=== PATIENT | female | born 1985 | race Caucasian/White ===

== ENCOUNTER 2019-07-10 21:48 | Emergency (ER) | payer MEDICAID, SELFPAY ==
[2019-07-10 22:31] VITALS: BP 113/81; PULSE 103; RESP 16; TEMP 37; O2SAT 97; BMI 35.1
--- NOTE | 2019-07-11 00:16 | ED_ITS ---
Entered by Treasure Loredo, acting as scribe for Jul 10, 2019 21:48 HPI - General Adult General: Chief complaint: General Medical Stated complaint: FALL Time Seen by Provider: 07/11/19 00:19 Source: patient Mode of arrival: ambulatory Limitations: no limitations History of Present Illness: HPI narrative: 34 yo f came to the er pov for buttox pain. Onset was 4 weeks ago. Pt states that she thinks that her tailbone is broken. Pt states that she fell on some black ice about 4 weeks ago and the pain has not gotten any better. Pt is denying of any other injuries at this time. Onset (ago): week(s) (4 weeks ago) Location: buttocks (tailbone) Severity: mild Severity scale (1-10): 6 Quality: other (pain) Pain Consistency: constant Exacerbating factors: none Associated symptoms: Deny chest pain, dyspnea, headache(s), nausea, rash, vomiting or weakness Treatments prior to arrival: none Review of Systems General: Reports: 10 or more systems reviewed and unremarkable except in HPI and below and other (negative to all except as marked) Const: Denies: fever or chills Eyes: Denies: change in vision ENMT: Denies: throat pain or mouth pain Card: Denies: chest pain Resp: Denies: shortness of breath GI: Denies: abdominal pain, nausea, vomiting or diarrhea : Denies: difficulty urinating Musc: Reports: back pain; Denies: joint pain Skin/Breast: Denies: rash Neuro: Denies: headache or behavioral changes Psych: Denies: depression Endo: Denies: excessive urination Dillan/Lymph: Denies: easy bruising All/Imm: Denies: hives PFSH ED PFSH: Statuses (acute, chronic, etc) shown below reflect problem list status as previously entered and may not be historically accurate Social History Smoking and tobacco status: current every day smoker Female Reproductive History: Date of last menstrual period: 07/10/19 Physical Exam Const: COMMON NORMALS: no apparent distress, oriented x3 and healthy appearing HENMT: COMMON NORMALS: normocephalic and external nose normal HEAD & SCALP: normocephalic NOSE: external nose normal Eye: COMMON NORMALS: PERRL PUPIL: Yes PERRL Neck/C-Spine: COMMON NORMALS: full ROM and no lymphadenopathy Chest: COMMONS NORMALS: inspection of chest normal Resp: COMMON NORMALS: normal respiratory effort, no use of accessory muscles and clear to auscultation bilaterally AUSCULTATION: clear to auscultation bilaterally Cardio: COMMON NORMALS: regular rate and regular rhythm RATE: regular rate RHYTHM: regular rhythm GI: COMMON NORMALS: normal to inspection, nondistended, normoactive bowel sounds, soft to palpation, non-tender and no masses PALPATION: Yes soft Back/Pelvis: THORACIC SPINE/UPPER BACK: Yes normal to inspection OTHER: tender over low spine and coccyx Extremity: COMMON NORMALS: normal to inspection, full ROM and normal capillary refill Neuro: COMMON NORMALS: oriented x3 Psych: COMMON NORMALS: mental status grossly normal and cooperative Skin: COMMON NORMALS: no rashes or lesions noted GENERAL SKIN EXAM: no rashes or lesions noted Course Vital Signs: Vital signs: Vital Signs Temperature 98.1 F 07/11/19 01:50 Pulse Rate 112 H 07/11/19 01:50 Respiratory Rate 17 07/11/19 01:50 Blood Pressure 110/84 07/11/19 01:50 Pulse Oximetry 96 07/11/19 01:50 MDM - General Adult MDM Narrative: Medical decision making narrative: Patient presents here with a possible coccyx fracture on x-ray. This happened weeks ago and is healing. P atient is to continue ice and will prescribe Naprosyn. Patient stable here and has no signs of any other injuries. Imaging Data^: Other Xray: Attestation: I personally reviewed and interpreted this imaging study as follows: My impression: coccyx xray: possible old fx Discharge Plan Discharge Patient Disposition: Home, Self-Care Clinical Impression: Fractured coccyx Qualifiers: Encounter type: initial encounter Fracture type: closed Qualified Code(s): S32.2XXA - Fracture of coccyx, initial encounter for closed fracture Condition: Stable Prescriptions: New EC-Naprosyn 500 mg tablet,delayed release (DR/EC) 500 mg PO BID PRN (Reason: pain) Qty: 20 RF: 0 No Action hydrocodone-acetaminophen 10-325 mg Tablet 1 tab PO Q6H PRN (Reason: Pain (Scale Score 1-3)) RF: 0 ProAir HFA 90 mcg/actuation Hfa Aerosol Inhaler 2 puff INHALATION DAILY RF: 0 Discharge Orders: Discharge Order (Routine); Ordered 07/11/19 Ordered By: Clary Alfaro Referrals: Gilberto Rashid DO [Primary Care Provider] - Discharge Diet: Advance as tolerated Patient Instructions: Coccyx Injury (ED) Discharge Date/Time: 07/11/19 01:58 Coding Level of Care Code ED Tram Operator for Chg Fwd Exam Problem Focused The documentation recorded by the Facundo angel Stephanie Lyn, accurately reflects the service I personally performed and the decisions made by Angelina rodriguez Korby, MD Jul 10, 2019 21:48
--- NOTE | 2019-07-11 00:19 | XR_ITS ---
WS: [id number] Sacrum and coccyx, 3 views, 07/11/2019 Clinical Data: fall Comparison: Lumbar spine x-ray, 10/05/2018. Findings: No fractures or dislocations are seen. The SI joints and pubic symphysis are unremarkable. No bone de struction or erosion is seen. XR/XR sacrum coccyx min 2V [id number] Impression: Negative sacrum and coccyx.
[2019-07-11 00:38] VITALS: BP 126/87; PULSE 123; RESP 17; O2SAT 96
[2019-07-11] MEDS: HYDROcodone-acetaminophen 5-325 mg Tablet 1 TAB PO (01:41)
[2019-07-11 01:50] VITALS: BP 110/84; PULSE 112; RESP 17; TEMP 36.7; O2SAT 96
== END 2019-07-11 01:58 | disposition home or self-care (01) ==
PROVIDERS: Emergency Provider Emergency Medicine; Family Provider Family Medicine; PCP Family Medicine
DX: S32.2XXA Fracture of coccyx, initial encounter for closed fracture (principal); W00.2XXA Other fall from one level to another due to ice and snow, initial encounter; F17.210 Nicotine dependence, cigarettes, uncomplicated
CPT/HCPCS: 72220; 99281

== ENCOUNTER → 2019-07-18 14:39 | Outpatient (BNVA) | payer MEDICAID, SELFPAY | PROVIDERS: Family Provider Family Medicine; PCP Family Medicine; Visit Provider Nurse Practitioner | DX: F43.12 Post-traumatic stress disorder, chronic (principal); R41.83 Borderline intellectual functioning | CPT/HCPCS: 36415; 80061; 83036; 99213 ==

== ENCOUNTER 2019-08-14 20:30 | Emergency (ER) | payer MEDICAID, SELFPAY ==
[2019-07-30 14:59] VITALS: BP 120/74; BMI 44.5
--- NOTE | 2019-08-14 20:33 | XR_ITS ---
WS: [id number] PORTABLE CHEST HISTORY: Chest pain for one day. COMPARISON: 02/22/2019 Decreased lung volumes due to poor inspiration. Lungs are clear and well expanded. No pleural effusion or pneumothorax. Cardiac size: Normal. Mediastinum/Aorta: Normal mediastinum. No osseous abnormality seen. XR/XR chest 1V portable [id number] IMPRESSION: Unremarkable portable chest.
--- NOTE | 2019-08-14 20:34 | ECG_ITS ---
Measurements Intervals [place] Rate: 84 P: 10 MA: 113 QRS: 17 QRSD: 98 T: 11 QT: 386 QTc: 457 SINUS RHYTHM WITH SHORT [place] INTERVAL Compared to ECG 02/22/2019 17:50:57 T-wave abnormality no longer present Electronically Signed On 08-15-2019 16:29:26 RETAIL SALES LEAD by Paul Monroe M.D. [id number]
[2019-08-14 21:05] VITALS: BP 112/83; PULSE 80; RESP 18; TEMP 36.7; O2SAT 100; BMI 36.2
[2019-08-14 21:18] LABS: Basophils % 0.3 %; Eosinophils # 0.1 10^3/uL (0.0-0.8); Eosinophils % 1.2 %; Hemoglobin 13.9 g/dL (11.5-15.3); Lymphocytes % 27.8 %; Mean Corpuscular HGB Conc 33.1 g/dL (30.0-36.0); Mean Corpuscular Hemoglobin 31.3 pg (28.0-34.0); Mean Corpuscular Volume 94.6 fL (81-99); Mean Platelet Volume 9.1 fL (7.4-10.4); Monocytes # 0.4 10^3/uL (0.2-0.9); Monocytes % 6.1 %; Neutrophils # 4.6 10^3/uL (1.8-7.7); Nucleated Red Blood Cells % 0 %; Platelet Count 230 10^3/cmm (130-400); Red Blood Count 4.44 10^6/uL (4.1-5.3); Red Cell Distribution Width 13.2 % (12.1-15.1); White Blood Count 7.2 10^3/uL (4.0-10.0)
[2019-08-14 21:33] LABS: Alanine Aminotransferase 13 U/L (0-33); Albumin Level 4.5 g/dL (3.5-5.2); Alkaline Phosphatase 112 IU/L (35-105); Aspartate Amino Transferase 13 U/L (0-32); Blood Urea Nitrogen 12 mg/dL (6-20); Calcium 9.7 mg/dL (8.5-10.5); Carbon Dioxide 24 mmol/L (22-29); Chloride 105 mmol/L (98-107); Globulin 3.3 g/dL (1.3-4.6); Glomerular Filtration Rate 82.6 mL/min (90-130); Glucose 90 mg/dL (65-115); Sodium 138 mmol/L (136-145); Total Bilirubin 0.2 mg/dL (0.15-1.2); Total Protein 7.8 g/dL (6.6-8.7)
[2019-08-14 21:35] LABS: Troponin(5th) Baseline 7 ng/mL (0-10)
--- NOTE | 2019-08-14 22:30 | ED_ITS ---
Entered by Jovana Loyola, acting as scribe for Clary Alfaro MD Aug 14, 2019 20:30 HPI - Chest Pain General: Chief Complaint: Chest Pain Stated Complaint: CP Time Seen by Provider: 08/14/19 21:56 Source: patient History of Present Illness: HPI narrative: 34 y/o female presents to the ED with complaint of chest pain. Pt states it is sharp in nature and has continued since 0400 this AM. She also reports pain down her left arm. MD complaint: chest pain Onset (ago): hour(s) Timing of current episode: constant and still present Prior episodes: Yes Onset: during rest Pain radiation: right arm Severity: similar to previous episodes Quality: sharp Relieving factors: nothing Associated symptoms: Deny abdominal pain, dyspnea, fever(s), nausea or vomiting Review of Systems Const: Denies: fever, chills, body aches or change in appetite Eyes: Denies: blurry vision or eye discomfort ENMT: Denies: throat pain or dental pain Card: Reports: chest pain Resp: Denies: shortness of breath GI: Denies: abdominal pain, nausea, vomiting or diarrhea : Denies: painful urination Musc: Denies: neck pain or back pain Skin/Breast: Denies: rash Neuro: Denies: headache Psych: Denies: depression Dillan/Lymph: Denies: easy bruising All/Imm: Denies: hives PFSH ED PFSH: Statuses (acute, chronic, etc) shown below reflect problem list status as previously entered and may not be historically accurate Social History (Updated 07/19/19 @ 07:30 by Osiris Ward RN) Smoking and tobacco status: current every day smoker cigarettes Packs smoked per day: 0.5 Quit status (tobacco): has tried quititng Second hand smoke exposure: Yes Smoking risk assessment/counseling performed?: Yes Alcohol intake: current Alcohol intake frequency: holidays/special occasions only Alcohol type: wine Adopted: No Caregiver/support person: No Lives independently: Yes Household members: significant other Housing: Apartment Marital status: Number of children: 1 Number of grandchildren: 0 service: No Current occupational status: disabled Sexually active: Yes How many partners: 1 Are you practicing safe sex: No Current gender identity: Female Female Reproductive History: Date of last menstrual period: 07/10/19 Para: 1 Spontaneous abortions: Yes Physical Exam Const: COMMON NORMALS: no apparent distress and oriented x3 GENERAL APPEARANCE: cooperative NUTRITIONAL APPEARANCE: obese HENMT: COMMON NORMALS: normocephalic and head/scalp atraumatic HEAD & SCALP: normocephalic and atraumatic Eye: COMMON NORMALS: PERRL and EOMs intact bilaterally PUPIL: Yes PERRL Neck/C-Spine: COMMON NORMALS: full ROM and supple Chest: COMMONS NORMALS: inspection of chest normal and palpation of chest normal Resp: COMMON NORMALS: normal respiratory effort, no retractions, no use of accessory muscles and clear to auscultation bilaterally AUSCULTATION: clear to auscultation bilaterally Cardio: COMMON NORMALS: regular rate, regular rhythm and no murmurs RATE: regular rate RHYTHM: regular rhythm GI: COMMON NORMALS: normal to inspection, nondistended, normoactive bowel sounds, soft to palpation, non-tender and no masses PALPATION: Yes soft Extremity: COMMON NORMALS: normal to inspection and full ROM Neuro: COMMON NORMALS: oriented x3, moves all extremities and no focal motor deficits Psych: COMMON NORMALS: thought process normal, cooperative and speech normal SPEECH: Yes normal speech THOUGHT PROCESS: normal thought process Skin: COMMON NORMALS: no rashes or lesions noted and no wounds GENERAL SKIN EXAM: no rashes or lesions noted Course Vital Signs: Vital signs: Vital Signs Temperature 98.1 F 08/14/19 21:05 Pulse Rate 100 08/14/19 23:56 Respiratory Rate 14 08/14/19 23:56 Blood Pressure 116/80 08/14/19 23:56 Pulse Oximetry 84 L 08/14/19 23:56 MDM - Chest Pain MDM Narrative: Medical decision making narrative: Patient presents here with chest pain is atypical in nature. Patient's initial and repeat troponin here are negative. Patient's x-ray is negative as well. She is well-appearing here and is stable for discharge. She has no signs of pulmonary embolism. She is to follow-up with her primary care doctor in 3 to 5 days and return if worsening. Lab Data: Labs: Lab Results 08/14/19 08/14/19 08/14/19 Range/Units 21:09 21:09 21:09 WBC 7.2 (4.0-10.0) 10^3/ uL RBC 4.44 (4.1-5.3) 10^6/u L Hgb 13.9 (11.5-15.3) g/dL Hct 42.0 (37.0-47.0) % MCV 94.6 (81-99) fL MCH 31.3 (28.0-34.0) pg MCHC 33.1 (30.0-36.0) g/dL RDW 13.2 (12.1-15.1) % Plt Count 230 (130-400) 10^3/c mm MPV 9.1 (7.4-10.4) fL Neut % (Auto) 64.0 % Lymph % (Auto) 27.8 % [place] % (Auto) 6.1 % Eos % (Auto) 1.2 % Baso % (Auto) 0.3 % Neut # (Auto) 4.6 (1.8-7.7) 10^3/u L Lymph # (Auto) 2.0 (0.8-4.8) 10^3/u L [place] # (Auto) 0.4 (0.2-0.9) 10^3/u L Eos # (Auto) 0.1 (0.0-0.8) 10^3/u L Baso # (Auto) 0.0 (0.0-0.1) 10^3/u L Nucleated RBC % (a uto) 0 % Nucleated RBCs # 0.0 /100WBC Sodium 138 (136-145) mmol/L Potassium 4.0 (3.5-5.1) mmol/L Chloride 105 (98-107) mmol/L Carbon Dioxide 24 (22-29) mmol/L Anion Gap 13.0 (5-19) BUN 12 (6-20) mg/dL Creatinine 0.8 (0.5-0.9) mg/dL GFR Calculation 82.6 L (90-130) mL/min Glucose 90 (65-115) mg/dL Calcium 9.7 (8.5-10.5) mg/dL Total Bilirubin 0.2 (0.15-1.2) mg/dL AST 13 (0-32) U/L ALT 13 (0-33) U/L Alkaline Phosphata se 112 H (35-105) IU/L Troponin T Baselin e 7 (0-10) ng/mL Troponin T 120 Min [place] (0-10) ng/mL Delta Troponin T (0-10) ABS# Total Protein 7.8 (6.6-8.7) g/dL Albumin 4.5 (3.5-5.2) g/dL Globulin 3.3 (1.3-4.6) g/dL 08/14/19 Range/Units 23:05 WBC (4.0-10.0) 10^3/ uL RBC (4.1-5.3) 10^6/u L Hgb (11.5-15.3) g/dL Hct (37.0-47.0) % MCV (81-99) fL MCH (28.0-34.0) pg MCHC (30.0-36.0) g/dL RDW (12.1-15.1) % Plt Count (130-400) 10^3/c mm MPV (7.4-10.4) fL Neut % (Auto) % Lymph % (Auto) % [place] % (Auto) % Eos % (Auto) % Baso % (Auto) % Neut # (Auto) (1.8-7.7) 10^3/u L Lymph # (Auto) (0.8-4.8) 10^3/u L [place] # (Auto) (0.2-0.9) 10^3/u L Eos # (Auto) (0.0-0.8) 10^3/u L Baso # (Auto) (0.0-0.1) 10^3/u L Nucleated RBC % (a uto) % Nucleated RBCs # /100WBC Sodium (136-145) mmol/L Potassium (3.5-5.1) mmol/L Chloride (98-107) mmol/L Carbon Dioxide (22-29) mmol/L Anion Gap (5-19) BUN (6-20) mg/dL Creatinine (0.5-0.9) mg/dL GFR Calculation (90-130) mL/min Glucose (65-115) mg/dL Calcium (8.5-10.5) mg/dL Total Bilirubin (0.15-1.2) mg/dL AST (0-32) U/L ALT (0-33) U/L Alkaline Phosphata se (35-105) IU/L Troponin T Baselin e (0-10) ng/mL Troponin T 120 Min [place] 6.00 (0-10) ng/mL Delta Troponin T -1.00 L (0-10) ABS# Total Protein (6.6-8.7) g/dL Albumin (3.5-5.2) g/dL Globulin (1.3-4.6) g/dL Imaging Data^: CXR: Attestation: I personally reviewed and interpreted this imaging study as follows: My impression: no acute abnormality EKG Data^: EKG 1: Attestation: I personally reviewed and interpreted this EKG as follows: EKG interpretation date: 08/14/19 Interpretation: nsr hr84 with no st or t wave abnormality qrs 98 qtc 427 EKG 2: Attestation: I personally reviewed and interpreted this EKG as follows: EKG interpretation date: 08/14/19 EKG interpretation time: 22:45 Interpretation: nsr hr 76with no st or t wave abnormalities qrs 102 qtc 416 Discharge Plan Discharge Patient Disposition: Home, Self-Care Clinical Impression: Chest pain Qualifiers: Chest pain type: unspecified Qualified Code(s): R07.9 - Chest pain, unspecified Condition: Stable Prescriptions: No Action aripiprazole 5 mg tablet 5 mg PO DAILY Qty: 30 RF: 2 topiramate 100 mg tablet 100 mg PO BID Qty: 60 RF: 2 trazodone 100 mg tablet 150 mg PO DAILY Qty: 30 RF: 2 prenat.vits,evi,iwt-gnja-xeytx Tablet 1 tab PO DAILY RF: 0 hydrocodone-acetaminophen 10-325 mg Tablet 1 tab PO Q6H PRN (Reason: Pain (Scale Score 1-3)) RF: 0 albuterol sulfate [ProAir HFA] 90 mcg/actuation Hfa Aerosol Inhaler 2 puff INHALATION DAILY RF: 0 naproxen [EC-Naprosyn] 500 mg tablet,delayed release (DR/EC) 500 mg PO BID PRN (Reason: pain) Qty: 20 RF: 0 Cymbalta 60 mg capsule,delayed release(DR/EC) 120 mg PO DAILY RF: 0 Discharge Orders: Discharge Order (Routine); Ordered 08/14/19 Ordered By: Clary Alfaro Referrals: Gilberto Rashid DO [Primary Care Provider] - 4-7 days Discharge Diet: Advance as tolerated Discharge Activity: Resume usual activity Patient Instructions: Chest Pain (ED) Discharge Date/Time: 08/15/19 00:21 Coding Level of Care Code ED Validation Intern for Chg Fwd Exam Problem Focused The documentation recorded by the ligiaibNir macario Ashley, accurately reflects the service I personally performed and the decisions made by Angelina rodriguez Korby, MD Aug 14, 2019 20:30
--- NOTE | 2019-08-14 22:34 | ECG_ITS ---
Measurements Intervals [place] Rate: 76 P: -2 IN: 116 QRS: 10 QRSD: 102 T: 7 QT: 385 QTc: 435 SINUS RHYTHM WITH SHORT IN INTERVAL Compared to ECG 02/22/2019 17:50:57 T-wave abnormality no longer present Electronically Signed On 08-15-2019 16:37:13 SOLE SEWER HAND by Paul Monroe M.D. [id number]
--- NOTE | 2019-08-14 22:48 | PC.NURSE ---
Patient states at 0400 her chest started hurting and has gotten progressively worse. Patient states that she has a headache, nausea, and a cough.
[2019-08-14 22:51] VITALS: BP 134/81; PULSE 77; RESP 16; O2SAT 98
[2019-08-14 23:55] VITALS: BP 113/71; PULSE 76; RESP 14; O2SAT 100
[2019-08-14 23:56] VITALS: BP 116/80; PULSE 100; RESP 14; O2SAT 84
== END 2019-08-15 00:21 | disposition home or self-care (01) ==
PROVIDERS: Emergency Provider Emergency Medicine; Family Provider Family Medicine; PCP Family Medicine
DX: R07.89 Other chest pain (principal); F17.210 Nicotine dependence, cigarettes, uncomplicated
CPT/HCPCS: 36415; 71045; 80053; 84484; 85025; 93005; 99282; 99284

== ENCOUNTER 2019-08-21 14:42 | Emergency (ER) | payer MEDICAID, SELFPAY ==
[2019-07-30 14:59] VITALS: BP 120/74; BMI 44.5
[2019-08-21] VITALS (16 sets, daily range): BP systolic 114–128; BP diastolic 62–80; PULSE 83–103; RESP 16–34; TEMP 36.5–36.8; O2SAT 97–100; BMI 36.2
--- NOTE | 2019-08-21 14:50 | ED_ITS ---
Entered by Rin Foreman, acting as scribe for Capo Gupta DO HPI - General Adult General: Chief complaint: Chest Pain Stated complaint: CHEST PAIN Time Seen by Provider: 08/21/19 14:50 History of Present Illness: HPI narrative: 34 yo female presents with chest pain. pt states that she was making a cup of coffee when her pain started. Pt states that she was given 2 nitro by EMS, that helped her pain some. Pt states that her pain is still present but not as severe. Pt states that her pain worsens when her chest is pressed on. MD complaint: chest pain Associated symptoms: Reports chest pain and dyspnea; Deny malaise, nausea, rash or vomiting Review of Systems Const: Denies: fever, chills, body aches, change in appetite, fatigue or malaise ENMT: Denies: throat pain, ear pain, nasal discharge or nasal congestion Card: Reports: chest pain; Denies: edema, shortness of breath on exertion or shortness of breath when lying down Resp: Reports: shortness of breath; Denies: productive cough or non-productive cough GI: Denies: abdominal pain, nausea, vomiting, vomiting blood, coffee grounds in vomit, diarrhea, constipation, bloating, blood in stool or black tarry stool : Denies: flank pain, difficulty urinating, painful urination, urinary frequency or urinary urgency Skin/Breast: Denies: rash or itching PFSH ED PFSH: Statuses (acute, chronic, etc) shown below reflect problem list status as previously entered and may not be historically accurate Medical History Borderline intellectual functioning Post-traumatic stress disorder, chronic Surgical History History of cholecystectomy Social History (Updated 07/19/19 @ 07:30 by Osiris Ward RN) Smoking and tobacco status: current every day smoker cigarettes Packs smoked per day: 0.5 Quit status (tobacco): has tried quititng Second hand smoke exposure: Yes Smoking risk assessment/counseling performed?: Yes Alcohol intake: current Alcohol intake frequency: holidays/special occasions only Alcohol type: wine Adopted: No Caregiver/support person: No Lives independently: Yes Household members: significant other Housing: Apartment Marital status: Number of children: 1 Number of grandchildren: 0 service: No Current occupational status: disabled Sexually active: Yes How many partners: 1 Are you practicing safe sex: No Current gender identity: Female Female Reproductive History: Date of last menstrual period: 07/10/19 Para: 1 Spontaneous abortions: Yes Physical Exam Const: COMMON NORMALS: no apparent distress GENERAL APPEARANCE: cooperative and comfortable ORIENTATION/CONSCIOUSNESS: Yes awake, Yes oriented to person, Yes oriented to place and Yes oriented to time HENMT: COMMON NORMALS: normocephalic, head/scalp atraumatic, hearing grossly normal bilaterally, external ears normal, EAC's normal, TM's normal bilaterally, nasal mucous membranes and turbinates normal, moist oral mucous membranes and oropharynx normal HEAD & SCALP: normocephalic and atraumatic NOSE: nasal mucous membranes and turbinates normal EXTERNAL EAR: Yes external ears normal EXTERNAL AUDITORY CANAL: EAC's normal TYMPANIC MEMBRANE: TM's normal bilaterally Eye: COMMON NORMALS: PERRL, EOMs intact bilaterally, conjunctivae normal and no scleral icterus CONJUNCTIVA: Yes conjunctivae normal PUPIL: Yes PERRL Neck/C-Spine: COMMON NORMALS: full ROM, no lymphadenopathy, supple and no JVD Lymph: LYMPHATIC: no lymphadenopathy noted and no lymphedema noted Chest: OTHER: Reproducible tenderness on the anterior sternum midsternal region at the intramammary line. There is no crepitus no ecchymosis. Resp: COMMON NORMALS: normal respiratory effort, no retractions, no use of accessory muscles and clear to auscultation bilaterally AUSCULTATION: clear to auscultation bilaterally Cardio: COMMON NORMALS: no JVD, regular rate, regular rhythm and no murmurs RATE: regular rate RHYTHM: regular rhythm GI: COMMON NORMALS: soft to palpation and no hepatosplenomegaly AUSCULTATION: Yes normoactive bowel sounds PALPATION: Yes soft, No tender, No guarding and Yes no hepatosplenomegaly Extremity: COMMON NORMALS: normal to inspection, normal capillary refill, no clubbing, cyanosis or edema, no calf tenderness and no pedal edema Neuro: SENSORIUM/ORIENTATION: Yes oriented to person, Yes oriented to place and Yes oriented to time Skin: COMMON NORMALS: no rashes or lesions noted GENERAL SKIN EXAM: no rashes or lesions noted Course Vital Signs: Vital signs: Vital Signs Temperature 98.3 F 08/21/19 16:59 Pulse Rate 84 08/21/19 16:59 Respiratory Rate 16 08/21/19 16:59 Blood Pressure 114/79 08/21/19 16:59 Pulse Oximetry 100 08/21/19 16:59 [facility] - General Adult Lab Data: Labs: Lab Results 08/21/19 08/21/19 08/21/19 Range/Units 15:35 15:35 15:35 WBC 6.9 (4.0-10.0) 10^3/ uL RBC 4.20 (4.1-5.3) 10^6/u L Hgb 13.1 (11.5-15.3) g/dL Hct 40.6 (37.0-47.0) % MCV 96.7 (81-99) fL MCH 31.2 (28.0-34.0) pg MCHC 32.3 (30.0-36.0) g/dL RDW 13.4 (12.1-15.1) % Plt Count 192 (130-400) 10^3/c mm MPV 9.4 (7.4-10.4) fL Neut % (Auto) 69.1 % Lymph % (Auto) 23.4 % [place] % (Auto) 5.5 % Eos % (Auto) 1.4 % Baso % (Auto) 0.3 % Neut # (Auto) 4.8 (1.8-7.7) 10^3/u L Lymph # (Auto) 1.6 (0.8-4.8) 10^3/u L [place] # (Auto) 0.4 (0.2-0.9) 10^3/u L Eos # (Auto) 0.1 (0.0-0.8) 10^3/u L Baso # (Auto) 0.0 (0.0-0.1) 10^3/u L Nucleated RBC % (a uto) 0 % Nucleated RBCs # 0.0 /100WBC D-Dimer <= 0.27 (0-0.59) ug/mIFE U Sodium 139 (136-145) mmol/L Potassium 3.9 (3.5-5.1) mmol/L Chloride 107 (98-107) mmol/L Carbon Dioxide 20 L (22-29) mmol/L Anion Gap 15.9 (5-19) BUN 8 (6-20) mg/dL Creatinine 0.8 (0.5-0.9) mg/dL GFR Calculation 82.6 L (90-130) mL/min Glucose 90 (65-115) mg/dL Calculated Osmolal ity 283 L (285-295) mOsm/k g Calcium 9.0 (8.5-10.5) mg/dL Troponin T Baselin e (0-10) ng/mL 08/21/19 Range/Units 15:35 WBC (4.0-10.0) 10^3/ uL RBC (4.1-5.3) 10^6/u L Hgb (11.5-15.3) g/dL Hct (37.0-47.0) % MCV (81-99) fL MCH (28.0-34.0) pg MCHC (30.0-36.0) g/dL RDW (12.1-15.1) % Plt Count (130-400) 10^3/c mm MPV (7.4-10.4) fL Neut % (Auto) % Lymph % (Auto) % [place] % (Auto) % Eos % (Auto) % Baso % (Auto) % Neut # (Auto) (1.8-7.7) 10^3/u L Lymph # (Auto) (0.8-4.8) 10^3/u L [place] # (Auto) (0.2-0.9) 10^3/u L Eos # (Auto) (0.0-0.8) 10^3/u L Baso # (Auto) (0.0-0.1) 10^3/u L Nucleated RBC % (a uto) % Nucleated RBCs # /100WBC D-Dimer (0-0.59) ug/mIFE U Sodium (136-145) mmol/L Potassium (3.5-5.1) mmol/L Chloride (98-107) mmol/L Carbon Dioxide (22-29) mmol/L Anion Gap (5-19) BUN (6-20) mg/dL Creatinine (0.5-0.9) mg/dL GFR Calculation (90-130) mL/min Glucose (65-115) mg/dL Calculated Osmolal ity (285-295) mOsm/k g Calcium (8.5-10.5) mg/dL Troponin T Baselin e 7 (0-10) ng/mL Discharge Plan Discharge Patient Disposition: Home, Self-Care Clinical Impression: Anterior chest wall pain Condition: Stable Prescriptions: No Action aripiprazole 5 mg tablet 5 mg PO DAILY Qty: 30 RF: 2 topiramate 100 mg tablet 100 mg PO BID Qty: 60 RF: 2 prenat.vits,evi,kai-ipfa-avnak Tablet 1 tab PO DAILY RF: 0 hydrocodone-acetaminophen 10-325 mg Tablet 1 tab PO Q6H PRN (Reason: Pain (Scale Score 1-3)) RF: 0 albuterol sulfate [ProAir HFA] 90 mcg/actuation Hfa Aerosol Inhaler 2 puff INHALATION DAILY RF: 0 naproxen [EC-Naprosyn] 500 mg tablet,delayed release (DR/EC) 500 mg PO BID PRN (Reason: pain) Qty: 20 RF: 0 trazodone 100 mg tablet 150 mg PO BEDTIME RF: 0 duloxetine [Cymbalta] 60 mg capsule,delayed release(DR/EC) 60 mg PO BID RF: 0 Referrals: Gilberto Rashid DO [Primary Care Provider] - Discharge Diet: Usual diet Discharge Activity: Resume usual activity Activity Restrictions/Additional Instructions: Follow-up with your primary care doctor as needed Discharge Date/Time: 08/21/19 17:04 Coding Level of Care Code ED Spool Worker for Chg Fwd Exam Problem Focused The documentation recorded by the Ahsan angel Kialy, accurately reflects the service I personally performed and the decisions made by Candy rodriguez Curtis L, DO Aug 21, 2019 14:42
--- NOTE | 2019-08-21 15:20 | XR_ITS ---
WS: [id number] PORTABLE CHEST HISTORY: dyspnea/cough COMPARISON: 02/22/2019 and 08/14/2019 Linear area of atelectasis in the medial RIGHT lower lung field. Otherwise lungs are clear. No pneumo eliot or pneumothorax. No pleural effusion or pneumothorax. Cardiac size: Normal. Mediastinum/Aorta: Normal mediastinum. No osseous abnormality seen. XR/XR chest 1V portable [id number] IMPRESSION: Partial atelectasis RIGHT lower lobe. Otherwise negative.
--- NOTE | 2019-08-21 15:20 | ECG_ITS ---
Measurements Intervals [place] Rate: 87 P: 13 [place]: 112 QRS: 15 QRSD: 92 T: 18 QT: 373 QTc: 450 SINUS RHYTHM WITH SHORT [place] INTERVAL Compared to ECG 08/14/2019 22:45:06 No significant changes Electronically Signed On 08-21-2019 20:56:21 PIPE SMOKING MACHINE OPERATOR by Junior Escalante M.D. [id number]
[2019-08-21 15:39] LABS: Basophils % 0.3 %; Eosinophils # 0.1 10^3/uL (0.0-0.8); Eosinophils % 1.4 %; Hematocrit 40.6 % (37.0-47.0); Hemoglobin 13.1 g/dL (11.5-15.3); Lymphocytes # 1.6 10^3/uL (0.8-4.8); Lymphocytes % 23.4 %; Mean Corpuscular HGB Conc 32.3 g/dL (30.0-36.0); Mean Corpuscular Hemoglobin 31.2 pg (28.0-34.0); Mean Corpuscular Volume 96.7 fL (81-99); Mean Platelet Volume 9.4 fL (7.4-10.4); Monocytes # 0.4 10^3/uL (0.2-0.9); Monocytes % 5.5 %; Neutrophils # 4.8 10^3/uL (1.8-7.7); Neutrophils % 69.1 %; Nucleated Red Blood Cells % 0 %; Platelet Count 192 10^3/cmm (130-400); Red Cell Distribution Width 13.4 % (12.1-15.1); White Blood Count 6.9 10^3/uL (4.0-10.0)
[2019-08-21 15:55] LABS: D Dimer <= 0.27 ug/mIFEU (0-0.59)
[2019-08-21 15:59] LABS: Anion Gap 15.9 (5-19); Blood Urea Nitrogen 8 mg/dL (6-20); Carbon Dioxide 20 mmol/L (22-29); Chloride 107 mmol/L (98-107); Glomerular Filtration Rate 82.6 mL/min (90-130); Glucose 90 mg/dL (65-115); Osmolality Calculated 283 mOsm/kg (285-295); Potassium 3.9 mmol/L (3.5-5.1); Sodium 139 mmol/L (136-145); Troponin(5th) Baseline 7 ng/mL (0-10)
== END 2019-08-21 17:04 | disposition home or self-care (01) ==
PROVIDERS: Emergency Provider Family Medicine; Family Provider Family Medicine; PCP Family Medicine
DX: R07.89 Other chest pain (principal); F17.210 Nicotine dependence, cigarettes, uncomplicated
CPT/HCPCS: 36415; 71045; 80048; 84484; 85025; 85378; 93005; 99283; A9270

== ENCOUNTER → 2019-08-27 13:30 | Outpatient (BNVA) | payer MEDICAID, SELFPAY | PROVIDERS: Family Provider Family Medicine; PCP Family Medicine; Visit Provider Anesthesiology | DX: M54.16 Radiculopathy, lumbar region (principal); M79.651 Pain in right thigh; M79.652 Pain in left thigh; F17.210 Nicotine dependence, cigarettes, uncomplicated; Z79.891 Long term (current) use of opiate analgesic; Z71.6 Tobacco abuse counseling | CPT/HCPCS: 99214 ==

== ENCOUNTER → 2019-10-17 08:28 | Outpatient (BNVA) | payer MEDICAID, SELFPAY | PROVIDERS: Family Provider Family Medicine; PCP Family Medicine; Visit Provider Nurse Practitioner | DX: F43.12 Post-traumatic stress disorder, chronic (principal); M54.16 Radiculopathy, lumbar region; R41.83 Borderline intellectual functioning; Z79.891 Long term (current) use of opiate analgesic; M79.652 Pain in left thigh; F17.210 Nicotine dependence, cigarettes, uncomplicated; M79.651 Pain in right thigh; F17.200 Nicotine dependence, unspecified, uncomplicated | CPT/HCPCS: 99214 ==

== ENCOUNTER 2019-10-22 15:13 | Emergency (ER) | payer MEDICAID, SELFPAY ==
[2019-08-27 15:07] VITALS: BP 120/74; BMI 44.5
[2019-10-22 15:15] VITALS: BMI 37.1
[2019-10-22 15:19] VITALS: BP 118/84; PULSE 84; RESP 18; TEMP 36.3; O2SAT 99
--- NOTE | 2019-10-22 15:24 | ED_ITS ---
Documented by User: Tayla Zaidi DO 10/22/19 16:02 HPI - Abdominal Pain General: Chief Complaint: Abdominal Pain Stated Complaint: R UPPER QUAD PAIN Time Seen by Provider: 10/22/19 15:22 History of Present Illness: HPI narrative: Pt states she started havint ruq abd pain at 830 last night after she ate spaghetti, she states she has already had her gb out so MD elicited complaint: abdominal pain Pertinent past history: none Onset (ago): day(s) (1) Pain Consistency: constant Location: RUQ and RLQ Severity: severe Quality: stabbing and sharp Radiation: back Migration to: LUQ Exacerbating factors: eating Relieving factors: nothing Context: history of similar episodes Associated Symptoms: Reports anorexia, nausea and vomiting (2 times); Denies chills and fever(s) Related Data: Date of Last Menstrual Period: 09/30/19 Review of Systems General: Reports: 10 or more systems reviewed and unremarkable except in HPI and below Const: Denies: fever, chills or fatigue ENMT: Denies: throat pain Card: Denies: chest pain or swelling of feet/ankles Resp: Denies: shortness of breath or productive cough GI: Reports: abdominal pain, nausea and vomiting (2 times) : Denies: difficulty urinating Musc: Denies: back pain or extremity swelling Skin/Breast: Denies: rash Neuro: Denies: headache, numbness in extremities or weakness in extremities PFSH ED PFSH: Medical History Borderline intellectual functioning Encounter for long-term use of opiate analgesic Fibromyalgia Lumbar radiculopathy, chronic Opioid contract exists Post-traumatic stress disorder, chronic Smoker Surgical History History of cholecystectomy Family History Mother Hypertension Father Cancer long lasting cancer Grandfather Cancer long lasting cancer Brother Seizures Social History Smoking and tobacco status: current every day smoker cigarettes Packs smoked per day: 0.5 Quit status (tobacco): has tried quititng Second hand smoke exposure: Yes Smoking risk assessment/counseling performed?: Yes Alcohol intake: current Alcohol intake frequency: holidays/special occasions only Alcohol type: wine Adopted: No Caregiver/support person: No Lives independently: Yes Household members: significant other Housing: Apartment Marital status: Number of children: 1 Number of grandchildren: 0 service: No Current occupational status: disabled Sexually active: Yes How many partners: 1 Are you practicing safe sex: No Current gender identity: Female Female Reproductive History: Date of last menstrual period: 09/30/19 Para: 1 Spontaneous abortions: Yes Physical Exam Const: COMMON NORMALS: no apparent distress and oriented x3 GENERAL APPEARANCE: cooperative; not in distress HENMT: COMMON NORMALS: normocephalic HEAD & SCALP: normal to inspection and normocephalic MOUTH: oral and palatal mucosa normal and lip normal THROAT: posterior oropharynx normal and tonsils normal Neck/C-Spine: COMMON NORMALS: full ROM, no lymphadenopathy, supple and no meningeal signs GENERAL: Yes normal visual inspection and Yes trachea midline Chest: COMMONS NORMALS: inspection of chest normal Resp: COMMON NORMALS: normal respiratory effort and clear to auscultation bilaterally EFFORT & INSPECTION: Yes able to speak in complete sentences and No respiratory distress AUSCULTATION: clear to auscultation bilaterally, no rales, no rhonchi and no wheezes Cardio: COMMON NORMALS: regular rate, regular rhythm, S1 normal heart sound, S2 normal heart sound and no murmurs RATE: regular rate RHYTHM: regular rhythm HEART SOUNDS: S1 normal and S2 normal PERIPHERAL PULSES: radial pulses present and dorsalis pedis pulses present GI: COMMON NORMALS: normal to inspection, nondistended, normoactive bowel sounds, soft to palpation and no hepatosplenomegaly INSPECTION: Yes normal to inspection AUSCULTATION: Yes normoactive bowel sounds PALPATION: Yes soft, Yes tender Details: LLQ, RLQ and RUQ and Yes no hepatosplenomegaly RECTAL EXAM: deferred : COMMON NORMALS: Yes no CVA tenderness BLADDER/KIDNEY EXAM: Yes no CVA tenderness Back/Pelvis: COMMON NORMALS: no CVA tenderness Extremity: COMMON NORMALS: normal to inspection, full ROM, normal capillary refill, no calf tenderness and no pedal edema Neuro: COMMON NORMALS: oriented x3, CN's II-XII intact bilaterally, moves all extremities and no focal motor deficits MENINGEAL SIGNS: Yes no meningeal signs Skin: COMMON NORMALS: no rashes or lesions noted GENERAL SKIN EXAM: no rashes or lesions noted Course Vital Signs: Vital signs: Vital Signs Temperature 97.4 F L 10/22/19 15:19 Pulse Rate 74 10/22/19 19:41 Respiratory Rate 15 10/22/19 19:41 Blood Pressure 120/86 10/22/19 19:41 Pulse Oximetry 96 10/22/19 19:41 MDM - Abdominal Pain Lab Data: Labs: Lab Results 10/22/19 10/22/19 10/22/19 Range/Units 15:56 15:56 15:58 WBC (4.0-10.0) 10^3/ uL RBC (4.1-5.3) 10^6/u L Hgb (11.5-15.3) g/dL Hct (37.0-47.0) % MCV (81-99) fL MCH (28.0-34.0) pg MCHC (30.0-36.0) g/dL RDW (12.1-15.1) % Plt Count (130-400) 10^3/c mm MPV (7.4-10.4) fL Neut % (Auto) % Lymph % (Auto) % Johnston % (Auto) % Eos % (Auto) % Baso % (Auto) % Neut # (Auto) (1.8-7.7) 10^3/u L Lymph # (Auto) (0.8-4.8) 10^3/u L Johnston # (Auto) (0.2-0.9) 10^3/u L Eos # (Auto) (0.0-0.8) 10^3/u L Baso # (Auto) (0.0-0.1) 10^3/u L Nucleated RBC % (a uto) % Nucleated RBCs # /100WBC Sodium 137 (136-145) mmol/L Potassium 3.7 (3.5-5.1) mmol/L Chloride 102 (98-107) mmol/L Carbon Dioxide 23 (22-29) mmol/L Anion Gap 15.7 (5-19) BUN 6 (6-20) mg/dL Creatinine 0.8 (0.5-0.9) mg/dL GFR Calculation 82.6 L (90-130) mL/min Glucose 93 (65-115) mg/dL Calculated Osmolal ity 279 L (285-295) mOsm/k g Calcium 9.1 (8.5-10.5) mg/dL Total Bilirubin 0.2 (0.15-1.2) mg/dL AST 14 (0-32) U/L ALT 13 (0-33) U/L Alkaline Phosphata se 117 H (35-105) IU/L Total Protein 6.9 (6.6-8.7) g/dL Albumin 4.1 (3.5-5.2) g/dL Globulin 2.8 (1.3-4.6) g/dL Lipase 19 (13-60) U/L HCG, Qual Negative (Negative) Urine Color Yellow (Yellow) Urine Appearance Sl hazy (CLEAR) Urine pH 6.5 (5-7) Ur Specific Gravit y 1.010 (1.005-1.030) Urine Protein Neg (Negative) Urine Glucose (UA) Norm (Normal) Urine Ketones Negative (Negative) Urine Blood Neg (Negative) Urine Nitrate Negative (Negative) Urine Bilirubin Neg (NEGATIVE) Urine Urobilinogen Norm (Negative) mg/dL Ur Leukocyte Dionne ase Negative (Negative) 10/22/19 Range/Units 15:58 WBC 7.8 (4.0-10.0) 10^3/ uL RBC 4.25 (4.1-5.3) 10^6/u L Hgb 13.5 (11.5-15.3) g/dL Hct 41.5 (37.0-47.0) % MCV 97.6 (81-99) fL MCH 31.8 (28.0-34.0) pg MCHC 32.5 (30.0-36.0) g/dL RDW 12.3 (12.1-15.1) % Plt Count 200 (130-400) 10^3/c mm MPV 9.1 (7.4-10.4) fL Neut % (Auto) 66.9 % Lymph % (Auto) 23.8 % Johnston % (Auto) 6.2 % Eos % (Auto) 1.9 % Baso % (Auto) 0.3 % Neut # (Auto) 5.2 (1.8-7.7) 10^3/u L Lymph # (Auto) 1.9 (0.8-4.8) 10^3/u L Johnston # (Auto) 0.5 (0.2-0.9) 10^3/u L Eos # (Auto) 0.2 (0.0-0.8) 10^3/u L Baso # (Auto) 0.0 (0.0-0.1) 10^3/u L Nucleated RBC % (a uto) 0 % Nucleated RBCs # 0.0 /100WBC Sodium (136-145) mmol/L Potassium (3.5-5.1) mmol/L Chloride (98-107) mmol/L Carbon Dioxide (22-29) mmol/L Anion Gap (5-19) BUN (6-20) mg/dL Creatinine (0.5-0.9) mg/dL GFR Calculation (90-130) mL/min Glucose (65-115) mg/dL Calculated Osmolal ity (285-295) mOsm/k g Calcium (8.5-10.5) mg/dL Total Bilirubin (0.15-1.2) mg/dL AST (0-32) U/L ALT (0-33) U/L Alkaline Phosphata se (35-105) IU/L Total Protein (6.6-8.7) g/dL Albumin (3.5-5.2) g/dL Globulin (1.3-4.6) g/dL Lipase (13-60) U/L HCG, Qual (Negative) Urine Color (Yellow) Urine Appearance (CLEAR) Urine pH (5-7) Ur Specific Gravit y (1.005-1.030) Urine Protein (Negative) Urine Glucose (UA) (Normal) Urine Ketones (Negative) Urine Blood (Negative) Urine Nitrate (Negative) Urine Bilirubin (NEGATIVE) Urine Urobilinogen (Negative) mg/dL Ur Leukocyte Dionne ase (Negative) Discharge Plan Discharge Patient Disposition: Home, Self-Care Clinical Impression: Ovarian cyst Qualifiers: Laterality: right Qualified Code(s): N83.201 - Unspecified ovarian cyst, right side Condition: Stable Prescriptions: No Action naproxen sodium [Aleve] 220 mg tablet 220 mg PO BID PRN (Reason: Pain) RF: 0 aripiprazole 5 mg tablet 5 mg PO DAILY Qty: 30 RF: 2 duloxetine [Cymbalta] 60 mg capsule,delayed release(DR/EC) 60 mg PO BID Qty: 60 RF: 2 trazodone 100 mg tablet 200 mg PO .HS Qty: 60 RF: 2 topiramate 100 mg tablet 100 mg PO BID Qty: 60 RF: 2 hydrocodone-acetaminophen 10-325 mg tablet 1 tab PO QID PRN (Reason: pain) 30 Days Qty: 120 RF: 0 prenat.vits,evi,cas-pskv-ktrks Tablet 1 tab PO DAILY RF: 0 albuterol sulfate [ProAir HFA] 90 mcg/actuation Hfa Aerosol Inhaler 2 puff INHALATION DAILY RF: 0 Discharge Orders: Discharge Order (Routine); Ordered 10/22/19 Ordered By: Marilia Sanches Referrals: Gilberto Rashid, [Primary Care Provider] - 1-3 days Discharge Diet: Advance as tolerated Discharge Activity: Increase activity as tolerated Patient Instructions: Ovarian Cyst (ED) Activity Restrictions/Additional Instructions: Please return to the ER immediately for any of the signs or symptoms listed on your discharge instruction sheets, worsening/changing of your symptoms, you are not getting better as quickly as expected, or for ANY other cause or concerns. Please return to the ER for worsening of your pain, fever, vomiting, or for any other cause for concern. Discharge Date/Time: 10/22/19 19:50 Sign Out Sign Out Data: Patient Sign Out occurred on 10/22/19 at 17:16. Patient's care was discussed, and care was transferred from to Marilia Sanches. Coding Level of Care Code ED Operation Manager for Chg Fwd Exam Comprehensive Documented by User: Marilia Sanches 10/22/19 21:00 HPI - Abdominal Pain General: Chief Complaint: Abdominal Pain Stated Complaint: R UPPER QUAD PAIN Time Seen by Provider: 10/22/19 15:22 PFSH ED PFSH: Medical History Borderline intellectual functioning Encounter for long-term use of opiate analgesic Fibromyalgia Lumbar radiculopathy, chronic Opioid contract exists Post-traumatic stress disorder, chronic Smoker Surgical History History of cholecystectomy Family History Mother Hypertension Father Cancer long lasting cancer Grandfather Cancer long lasting cancer Brother Seizures Social History Smoking and tobacco status: current every day smoker cigarettes Packs smoked per day: 0.5 Quit status (tobacco): has tried quititng Second hand smoke exposure: Yes Smoking risk assessment/counseling performed?: Yes Alcohol intake: current Alcohol intake frequency: holidays/special occasions only Alcohol type: wine Adopted: No Caregiver/support person: No Lives independently: Yes Household members: significant other Housing: Apartment Marital status: Number of children: 1 Number of grandchildren: 0 service: No Current occupational status: disabled Sexually active: Yes How many partners: 1 Are you practicing safe sex: No Current gender identity: Female Course Vital Signs: Vital signs: Vital Signs Temperature 97.4 F L 10/22/19 15:19 Pulse Rate 74 10/22/19 19:41 Respiratory Rate 15 10/22/19 19:41 Blood Pressure 120/86 10/22/19 19:41 Pulse Oximetry 96 10/22/19 19:41 MDM - Abdominal Pain MDM Narrative: Medical decision making narrative: 1699 -Case assumed by me at change of shift from Dr. Zaidi. Please see her note for her history, physical exam and medical decision-making notes. Upon my examination the patient is sleeping comfortably without pain. She states that she took some hydrocodone she had at home prior to coming in for pain. She has pain on the right side of her abdomen palpation but no rebound, no guarding or rigidity. She does not have any vomiting or nausea reported to me. She denies any bowel changes. There is been no fever. In reviewing her lab work it is unremarkable except for a mildly elevated alkaline phosphatase but this is been elevated higher recently and has been this high since having her gallbladder out. Her gallbladder was out in August [address] is pending at this time. Discharge -the patient is pain-free at this time. Believe the most likely cause of her symptoms is a 2.6 m right ovarian cyst seen on ultrasound and CT. There is no sign of torsion. She has no vaginal discharge or bleeding. I will go and discharge her home with instructions to return if her symptoms worsens but otherwise follow-up with gynecology. Patient CT shows no evidence of appendicitis but instead a normal appendix. The patient is relieved to hear this and is ready to go home. Differential Diagnosis: Differential diagnosis abdominal pain: Likely abdominal pain, acute appendicitis, calculus of kidney, constipation, diverticulitis, gastroenteritis, pancreatitis and small bowel obstruction Lab Data: Attestation: I reviewed the patient's lab results. Labs: Lab Results 10/22/19 10/22/19 10/22/19 Range/Units 15:56 15:56 15:58 WBC (4.0-10.0) 10^3/ uL RBC (4.1-5.3) 10^6/u L Hgb (11.5-15.3) g/dL Hct (37.0-47.0) % MCV (81-99) fL MCH (28.0-34.0) pg MCHC (30.0-36.0) g/dL RDW (12.1-15.1) % Plt Count (130-400) 10^3/c mm MPV (7.4-10.4) fL Neut % (Auto) % Lymph % (Auto) % Johnston % (Auto) % Eos % (Auto) % Baso % (Auto) % Neut # (Auto) (1.8-7.7) 10^3/u L Lymph # (Auto) (0.8-4.8) 10^3/u L Johnston # (Auto) (0.2-0.9) 10^3/u L Eos # (Auto) (0.0-0.8) 10^3/u L Baso # (Auto) (0.0-0.1) 10^3/u L Nucleated RBC % (a uto) % Nucleated RBCs # /100WBC Sodium 137 (136-145) mmol/L Potassium 3.7 (3.5-5.1) mmol/L Chloride 102 (98-107) mmol/L Carbon Dioxide 23 (22-29) mmol/L Anion Gap 15.7 (5-19) BUN 6 (6-20) mg/dL Creatinine 0.8 (0.5-0.9) mg/dL GFR Calculation 82.6 L (90-130) mL/min Glucose 93 (65-115) mg/dL Calculated Osmolal ity 279 L (285-295) mOsm/k g Calcium 9.1 (8.5-10.5) mg/dL Total Bilirubin 0.2 (0.15-1.2) mg/dL AST 14 (0-32) U/L ALT 13 (0-33) U/L Alkaline Phosphata se 117 H (35-105) IU/L Total Protein 6.9 (6.6-8.7) g/dL Albumin 4.1 (3.5-5.2) g/dL Globulin 2.8 (1.3-4.6) g/dL Lipase 19 (13-60) U/L HCG, Qual Negative (Negative) Urine Color Yellow (Yellow) Urine Appearance Sl hazy (CLEAR) Urine pH 6.5 (5-7) Ur Specific Gravit y 1.010 (1.005-1.030) Urine Protein Neg (Negative) Urine Glucose (UA) Norm (Normal) Urine Ketones Negative (Negative) Urine Blood Neg (Negative) Urine Nitrate Negative (Negative) Urine Bilirubin Neg (NEGATIVE) Urine Urobilinogen Norm (Negative) mg/dL Ur Leukocyte Dionne ase Negative (Negative) 10/22/19 Range/Units 15:58 WBC 7.8 (4.0-10.0) 10^3/ uL RBC 4.25 (4.1-5.3) 10^6/u L Hgb 13.5 (11.5-15.3) g/dL Hct 41.5 (37.0-47.0) % MCV 97.6 (81-99) fL MCH 31.8 (28.0-34.0) pg MCHC 32.5 (30.0-36.0) g/dL RDW 12.3 (12.1-15.1) % Plt Count 200 (130-400) 10^3/c mm MPV 9.1 (7.4-10.4) fL Neut % (Auto) 66.9 % Lymph % (Auto) 23.8 % Johnston % (Auto) 6.2 % Eos % (Auto) 1.9 % Baso % (Auto) 0.3 % Neut # (Auto) 5.2 (1.8-7.7) 10^3/u L Lymph # (Auto) 1.9 (0.8-4.8) 10^3/u L Johnston # (Auto) 0.5 (0.2-0.9) 10^3/u L Eos # (Auto) 0.2 (0.0-0.8) 10^3/u L Baso # (Auto) 0.0 (0.0-0.1) 10^3/u L Nucleated RBC % (a uto) 0 % Nucleated RBCs # 0.0 /100WBC Sodium (136-145) mmol/L Potassium (3.5-5.1) mmol/L Chloride (98-107) mmol/L Carbon Dioxide (22-29) mmol/L Anion Gap (5-19) BUN (6-20) mg/dL Creatinine (0.5-0.9) mg/dL GFR Calculation (90-130) mL/min Glucose (65-115) mg/dL Calculated Osmolal ity (285-295) mOsm/k g Calcium (8.5-10.5) mg/dL Total Bilirubin (0.15-1.2) mg/dL AST (0-32) U/L ALT (0-33) U/L Alkaline Phosphata se (35-105) IU/L Total Protein (6.6-8.7) g/dL Albumin (3.5-5.2) g/dL Globulin (1.3-4.6) g/dL Lipase (13-60) U/L HCG, Qual (Negative) Urine Color (Yellow) Urine Appearance (CLEAR) Urine pH (5-7) Ur Specific Gravit y (1.005-1.030) Urine Protein (Negative) Urine Glucose (UA) (Normal) Urine Ketones (Negative) Urine Blood (Negative) Urine Nitrate (Negative) Urine Bilirubin (NEGATIVE) Urine Urobilinogen (Negative) mg/dL Ur Leukocyte Dionne ase (Negative) Imaging Data ^: US: Radiologist's impression: Pelvic ultrasound, tech interpretation -right ovarian cyst, no torsion. No free fluid. No acute findings. See formal report. CT Abd/Pel: Radiologist's impression: [address] [address] [address] Scan Report Signed Patient: Shilpa Giang [id number] [facility] 1985 [id number] Age/Sex: 34 / F ADM Date: 10/22/19 Loc: ER Room/Bed: Attending Dr: Ordering Provider/Ordering MD: Tayla Zaidi DO Date of Service: 10/22/19 Procedure(s): CT abdomen pelvis w con* [id number] Accession Number(s): [id number] Report Number: [id number] PROCEDURE INFORMATION: Exam: CT Abdomen And Pelvis With Contrast Exam date and time: 10/22/2019 5:56 PM Age: 34 years old Clinical indication: Abdominal pain; Prior surgery; Additional info: Abd pain TECHNIQUE: Imaging protocol: Computed tomography of the abdomen and pelvis with intravenous contrast. Total DLP: 1380.17 mGy-cm Radiation optimization: All CT scans at this facility use at least one of these dose optimization techniques: automated exposure control; mA and/or kV adjustment per patient size (includes targeted exams where dose is matched to clinical indication); or iterative reconstruction. Contrast material: OMNI 300; Contrast volume: 95 ml; Contrast route: IV; COMPARISON: CT abdomen pelvis w con* [id number] 06/12/2016 12:06 AM FINDINGS: Liver: Normal. No mass. Gallbladder and bile ducts: Interval cholecystectomy since the previous exam. Pancreas: Normal. No ductal dilation. Spleen: Normal. No splenomegaly. Adrenals: Normal. No mass. Kidneys and ureters: Normal. No hydronephrosis. Stomach and bowel: Unremarkable. No obstruction. No mucosal thickening. Appendix: Normal appendix. Intraperitoneal space: Unremarkable. No free air. No significant fluid collection. Vasculature: Unremarkable. No abdominal aortic aneurysm. Lymph nodes: Unremarkable. No enlarged lymph nodes. Bladder: Unremarkable as visualized. Reproductive: 2.6 cm right ovarian cyst. Bones/joints: Unremarkable. No acute fracture. Soft tissues: Unremarkable. Other findings: Levoscoliosis. CT/CT abdomen pelvis w con* [id number] IMPRESSION: 1. Interval cholecystectomy since the previous exam. 2. 2.6 cm right ovarian cyst. 3. Normal appendix. Radiation Dose CTDIVOL = (mGy): DLP = 1380.17 (mGy-cm) Dictated By: Nabil Gonzalez MD Signed By: Nabil Gonzalez MD Signed Date/Time: 10/22/191823 DD/ 22 Discharge Plan Discharge Patient Disposition: Home, Self-Care Clinical Impression: Ovarian cyst Qualifiers: Laterality: right Qualified Code(s): N83.201 - Unspecified ovarian cyst, right side Condition: Stable Prescriptions: No Action naproxen sodium [Aleve] 220 mg tablet 220 mg PO BID PRN (Reason: Pain) RF: 0 aripiprazole 5 mg tablet 5 mg PO DAILY Qty: 30 RF: 2 duloxetine [Cymbalta] 60 mg capsule,delayed release(DR/EC) 60 mg PO BID Qty: 60 RF: 2 trazodone 100 mg tablet 200 mg PO .HS Qty: 60 RF: 2 topiramate 100 mg tablet 100 mg PO BID Qty: 60 RF: 2 hydrocodone-acetaminophen 10-325 mg tablet 1 tab PO QID PRN (Reason: pain) 30 Days Qty: 120 RF: 0 prenat.vits,evi,ggi-yaew-vqrkb Tablet 1 tab PO DAILY RF: 0 albuterol sulfate [ProAir HFA] 90 mcg/actuation Hfa Aerosol Inhaler 2 puff INHALATION DAILY RF: 0 Discharge Orders: Discharge Order (Routine); Ordered 10/22/19 Ordered By: Marilia Sanches Referrals: Gilberto Rashid DO [Primary Care Provider] - 1-3 days Discharge Diet: Advance as tolerated Discharge Activity: Increase activity as tolerated Patient Instructions: Ovarian Cyst (ED) Activity Restrictions/Additional Instructions: Please return to the ER immediately for any of the signs or symptoms listed on your discharge instruction sheets, worsening/changing of your symptoms, you are not getting better as quickly as expected, or for ANY other cause or concerns. Please return to the ER for worsening of your pain, fever, vomiting, or for any other cause for concern. Discharge Date/Time: 10/22/19 19:50 Sign Out Sign Out Data: Patient Sign Out occurred on 10/22/19 at 17:16. Patient's care was discussed, and care was transferred from to Marilia Sanches. Coding Level of Care Code ED Operation Manager for Chg Fwd Exam Comprehensive
--- NOTE | 2019-10-22 15:55 | CTR_ITS ---
PROCEDURE INFORMATION: Exam: CT Abdomen And Pelvis With Contrast Exam date and time: 10/22/2019 5:56 PM Age: 34 years old Clinical indication: Abdominal pain; Prior surgery; Additional info: Abd pain TECHNIQUE: Imaging protocol: Computed tomography of the abdomen and pelvis with intravenous contrast. Total DLP: 1380.17 mGy-cm Radiation optimization: All CT scans at this facility use at least one of these dose optimization techniques: automated exposure control; mA and/or kV adjustment per patient size (includes targeted exams where dose is matched to clinical indication); or iterative reconstruction. Contrast material: OMNI 300; Contrast volume: 95 ml; Contrast route: IV; COMPARISON: CT abdomen pelvis w con* [id number] 06/12/2016 12:06 AM FINDINGS: Liver: Normal. No mass. Gallbladder and bile ducts: Interval cholecystectomy since the previous exam. Pancreas: Normal. No ductal dilation. Spleen: Normal. No splenomegaly. Adrenals: Normal. No mass. Kidneys and ureters: Normal. No hydronephrosis. Stomach and bowel: Unremarkable. No obstruction. No mucosal thickening. Appendix: Normal appendix. Intraperitoneal space: Unremarkable. No free air. No significant fluid collection. Vasculature: Unremarkable. No abdominal aortic aneurysm. Lymph nodes: Unremarkable. No enlarged lymph nodes. Bladder: Unremarkable as visualized. Reproductive: 2.6 cm right ovarian cyst. Bones/joints: Unremarkable. No acute fracture. Soft tissues: Unremarkable. Other findings: Levoscoliosis. CT/CT abdomen pelvis w con* [id number] IMPRESSION: 1. Interval cholecystectomy since the previous exam. 2. 2.6 cm right ovarian cyst. 3. Normal appendix. Radiation Dose CTDIVOL = (mGy): DLP = 1380.17 (mGy-cm)
[2019-10-22 15:58] VITALS: RESP 17
[2019-10-22 16:06] LABS: Basophils % 0.3 %; Eosinophils # 0.2 10^3/uL (0.0-0.8); Eosinophils % 1.9 %; Hematocrit 41.5 % (37.0-47.0); Hemoglobin 13.5 g/dL (11.5-15.3); Lymphocytes # 1.9 10^3/uL (0.8-4.8); Lymphocytes % 23.8 %; Mean Corpuscular HGB Conc 32.5 g/dL (30.0-36.0); Mean Corpuscular Hemoglobin 31.8 pg (28.0-34.0); Mean Corpuscular Volume 97.6 fL (81-99); Mean Platelet Volume 9.1 fL (7.4-10.4); Monocytes # 0.5 10^3/uL (0.2-0.9); Monocytes % 6.2 %; Neutrophils # 5.2 10^3/uL (1.8-7.7); Neutrophils % 66.9 %; Nucleated Red Blood Cells % 0 %; Platelet Count 200 10^3/cmm (130-400); Red Blood Count 4.25 10^6/uL (4.1-5.3); Red Cell Distribution Width 12.3 % (12.1-15.1); White Blood Count 7.8 10^3/uL (4.0-10.0)
[2019-10-22 16:11] LABS: Add Urine Microscopic? NO
[2019-10-22 16:19] LABS: Urine Color Yellow (Yellow)
[2019-10-22 16:20] LABS: Alanine Aminotransferase 13 U/L (0-33); Albumin Level 4.1 g/dL (3.5-5.2); Alkaline Phosphatase 117 IU/L (35-105); Anion Gap 15.7 (5-19); Aspartate Amino Transferase 14 U/L (0-32); Blood Urea Nitrogen 6 mg/dL (6-20); Calcium 9.1 mg/dL (8.5-10.5); Carbon Dioxide 23 mmol/L (22-29); Chloride 102 mmol/L (98-107); Globulin 2.8 g/dL (1.3-4.6); Glomerular Filtration Rate 82.6 mL/min (90-130); Glucose 93 mg/dL (65-115); Lipase 19 U/L (13-60); Osmolality Calculated 279 mOsm/kg (285-295); Potassium 3.7 mmol/L (3.5-5.1); Sodium 137 mmol/L (136-145); Total Bilirubin 0.2 mg/dL (0.15-1.2); Total Protein 6.9 g/dL (6.6-8.7)
[2019-10-22 16:20] LABS: Bilirubin Urine Neg (NEGATIVE); Blood Urine Neg (Negative); Glucose Urine UA Norm (Normal); Ketones Urine Negative (Negative); Leukocyte Esterase Urine Negative (Negative); Nitrate Urine Negative (Negative); Protein Urine Neg (Negative); Urine Appearance SL Hazy (CLEAR); Urobilinogen Urine Norm (Negative); pH Urine 6.5 (5-7)
[2019-10-22 16:21] LABS: HCG Qualitative Urine. Negative (Negative)
[2019-10-22 16:30] VITALS: RESP 16; O2SAT 99
[2019-10-22 16:59] VITALS: BP 103/67; PULSE 80; RESP 16; O2SAT 98
[2019-10-22] MEDS: ondansetron 2 mg/ML SDV 2 mL 4 MG IVP (17:34)
[2019-10-22] MEDS: sodium chloride 0.9% 1,000 ML 999 ML IV (17:34)
[2019-10-22 18:00] VITALS: BP 116/71; PULSE 71; RESP 16; O2SAT 97
[2019-10-22] MEDS: iohexol 300 mg/mL 100 mL Btl IV (18:08)
--- NOTE | 2019-10-22 18:50 | US_ITS ---
WS: [id number] TRANSVAGINAL PELVIC ULTRASOUND HISTORY: Pain COMPARISON: None available. Uterus: 7.4 cm x 3.8 cm x 4.1 cm. Normal size anteverted uterus. No fibroid or mass. Endometrium: 0.7 cm. Normal trilaminar appearance of the endometrium. Right ovary: 3.4 cm x 2.1 cm x 2.3 cm. Normal size RIGHT ovary. RIGHT ovary contains a 2.1 x 1.9 x 2. 2 cm cyst with good through transmission. Normal Doppler. Left ovary: 2.6 cm x 2.0 cm x 2.0 cm. Small follicles. Normal Doppler. No free fluid. US/US transvaginal [id number] IMPRESSION: 1. Normal pelvic ultrasound. 2. Small RIGHT ovarian cyst.
--- NOTE | 2019-10-22 19:18 | PC.NURSE ---
US at bedside
[2019-10-22 19:41] VITALS: BP 120/86; PULSE 74; RESP 15; O2SAT 96
== END 2019-10-22 19:50 | disposition home or self-care (01) ==
PROVIDERS: Emergency Medicine; Emergency Provider Emergency Medicine; Family Provider Family Medicine; PCP Family Medicine
DX: N83.201 Unspecified ovarian cyst, right side (principal); M79.7 Fibromyalgia; F17.210 Nicotine dependence, cigarettes, uncomplicated; Z90.49 Acquired absence of other specified parts of digestive tract; Z82.49 Family history of ischemic heart disease and other diseases of the circulatory system
CPT/HCPCS: 12345; 36415; 74177; 76830; 80053; 81003; 81025; 83690; 85025; 96361; 96374; 96375; 99283; J2405; J7030; Q9967

== ENCOUNTER → 2019-12-10 07:44 | Outpatient (BNVA) | payer MEDICAID, SELFPAY ==
[2019-08-27 15:07] VITALS: BP 120/74; BMI 44.5
== END ==
PROVIDERS: Family Provider Family Medicine; PCP Family Medicine; Visit Provider Nurse Practitioner
DX: R41.83 Borderline intellectual functioning (principal); F43.12 Post-traumatic stress disorder, chronic
CPT/HCPCS: 99214

== ENCOUNTER → 2019-12-13 09:29 | Outpatient (BNVA) | payer MEDICAID, SELFPAY ==
[2019-08-27 15:07] VITALS: BP 120/74; BMI 44.5
== END ==
PROVIDERS: Family Provider Family Medicine; PCP Family Medicine; Visit Provider Anesthesiology
DX: M54.41 Lumbago with sciatica, right side (principal); M54.42 Lumbago with sciatica, left side; M54.16 Radiculopathy, lumbar region; M54.9 Dorsalgia, unspecified; F17.210 Nicotine dependence, cigarettes, uncomplicated; Z79.891 Long term (current) use of opiate analgesic; Z71.6 Tobacco abuse counseling
CPT/HCPCS: 99214

== ENCOUNTER → 2020-01-06 10:44 | Outpatient (BNVA) | payer MEDICAID, SELFPAY ==
[2019-08-27 15:07] VITALS: BP 120/74; BMI 44.5
== END ==
PROVIDERS: Family Provider Family Medicine; PCP Family Medicine; Visit Provider Family Medicine
DX: N83.209 Unspecified ovarian cyst, unspecified side (principal); F43.12 Post-traumatic stress disorder, chronic; L40.8 Other psoriasis; N92.6 Irregular menstruation, unspecified
CPT/HCPCS: 81025

== ENCOUNTER → 2020-01-29 13:25 | Outpatient (BNVA) | payer MEDICAID, SELFPAY ==
[2019-08-27 15:07] VITALS: BP 120/74; BMI 44.5
== END ==
PROVIDERS: Family Provider Family Medicine; PCP Family Medicine; Visit Provider Obstetrics & Gynecology
DX: N89.8 Other specified noninflammatory disorders of vagina (principal)
CPT/HCPCS: 87491; 87591; 87661

== ENCOUNTER → 2020-02-19 09:08 | Outpatient (BNVA) | payer MEDICAID, SELFPAY ==
[2019-08-27 15:07] VITALS: BP 120/74; BMI 44.5
== END ==
PROVIDERS: Family Provider Family Medicine; PCP Family Medicine; Visit Provider Anesthesiology
DX: M54.42 Lumbago with sciatica, left side (principal); M54.41 Lumbago with sciatica, right side; M54.16 Radiculopathy, lumbar region; M54.9 Dorsalgia, unspecified; F17.210 Nicotine dependence, cigarettes, uncomplicated; Z79.891 Long term (current) use of opiate analgesic; Z71.6 Tobacco abuse counseling
CPT/HCPCS: 99214

== ENCOUNTER → 2020-02-26 16:52 | Outpatient (BNVA) | payer MEDICAID, SELFPAY ==
[2019-08-27 15:07] VITALS: BP 120/74; BMI 44.5
== END ==
PROVIDERS: Family Provider Family Medicine; PCP Family Medicine; Visit Provider Obstetrics & Gynecology
DX: Z12.4 Encounter for screening for malignant neoplasm of cervix (principal); N64.52 Nipple discharge; B37.2 Candidiasis of skin and nail
CPT/HCPCS: 84146; 84443; 84702; 88175

== ENCOUNTER → 2020-02-27 12:00 | Outpatient (BNVA) | payer MEDICAID, SELFPAY ==
[2019-08-27 15:07] VITALS: BP 120/74; BMI 44.5
== END ==
PROVIDERS: Family Provider Family Medicine; Visit Provider Nurse Practitioner
DX: F43.12 Post-traumatic stress disorder, chronic (principal); R41.83 Borderline intellectual functioning
CPT/HCPCS: 99213

== ENCOUNTER → 2020-02-27 13:56 | Outpatient (BNVA) | payer MEDICAID, SELFPAY ==
[2019-08-27 15:07] VITALS: BP 120/74; BMI 44.5
== END ==
PROVIDERS: Family Provider Family Medicine; PCP Family Medicine; Visit Provider Obstetrics & Gynecology
DX: N64.52 Nipple discharge (principal)
CPT/HCPCS: 88112; 88305

== ENCOUNTER → 2020-03-12 08:35 | Outpatient (BNVA) | payer MEDICAID, SELFPAY ==
[2019-08-27 15:07] VITALS: BP 120/74; BMI 44.5
== END ==
PROVIDERS: Family Provider Family Medicine; PCP Family Medicine; Visit Provider Anesthesiology
DX: M54.16 Radiculopathy, lumbar region (principal); M54.9 Dorsalgia, unspecified; F17.210 Nicotine dependence, cigarettes, uncomplicated; Z79.891 Long term (current) use of opiate analgesic; Z71.6 Tobacco abuse counseling
CPT/HCPCS: 99214

== ENCOUNTER 2020-04-06 14:11 | Outpatient (CLI) | payer MEDICAID, SELFPAY ==
[2019-08-27 15:07] VITALS: BP 120/74; BMI 44.5
--- NOTE | 2020-04-06 15:00 | US_ITS ---
WS: [id number] ULTRASOUND BILATERAL BREASTs HISTORY: nipple discharge COMPARISON: None available. TECHNIQUE: 2-D and Doppler. No masses or duct dilatation. No shadowing or increased vascularity. US/US breast BI limited* [id number] IMPRESSION: BI-RADS: 1-Negative FOLLOW-UP: Age 41
== END 2020-04-06 14:12 | disposition home or self-care (01) ==
LOC: RAD 14:13
PROVIDERS: PCP Family Medicine; Visit Provider Obstetrics & Gynecology
DX: N64.52 Nipple discharge (principal)
CPT/HCPCS: 76642

== ENCOUNTER → 2020-05-12 09:22 | Outpatient (BNVA) | payer MEDICAID, SELFPAY ==
[2019-08-27 15:07] VITALS: BP 120/74; BMI 44.5
== END ==
PROVIDERS: Family Provider Family Medicine; PCP Family Medicine; Visit Provider Anesthesiology
DX: M54.16 Radiculopathy, lumbar region (principal); M54.9 Dorsalgia, unspecified; F17.210 Nicotine dependence, cigarettes, uncomplicated; Z79.891 Long term (current) use of opiate analgesic; Z71.6 Tobacco abuse counseling
CPT/HCPCS: 99214

== ENCOUNTER → 2020-06-30 07:42 | Outpatient (BNVA) | payer MEDICAID, SELFPAY ==
[2020-05-12 12:28] VITALS: BP 120/74; BMI 44.5
== END ==
PROVIDERS: Family Provider Family Medicine; PCP Family Medicine; Visit Provider Nurse Practitioner
DX: F43.12 Post-traumatic stress disorder, chronic (principal); R41.83 Borderline intellectual functioning
CPT/HCPCS: 99213

== ENCOUNTER → 2020-07-14 13:22 | Outpatient (BNVA) | payer MEDICAID, SELFPAY ==
[2020-05-12 12:28] VITALS: BP 120/74; BMI 44.5
== END ==
PROVIDERS: Family Provider Family Medicine; PCP Family Medicine; Visit Provider Anesthesiology
DX: G89.29 Other chronic pain (principal); M54.16 Radiculopathy, lumbar region; M54.9 Dorsalgia, unspecified; F17.210 Nicotine dependence, cigarettes, uncomplicated; Z79.891 Long term (current) use of opiate analgesic
CPT/HCPCS: 99213

== ENCOUNTER → 2020-07-21 12:01 | Outpatient (BNVA) | payer MEDICAID, SELFPAY ==
[2020-07-14 14:09] VITALS: BP 120/74; BMI 44.5
== END ==
PROVIDERS: Family Provider Family Medicine; PCP Family Medicine; Visit Provider Family Medicine
DX: M54.16 Radiculopathy, lumbar region (principal); N91.2 Amenorrhea, unspecified; R06.02 Shortness of breath
CPT/HCPCS: 36415; 81025; 84703

== ENCOUNTER → 2020-09-11 14:14 | Outpatient (BNVA) | payer MEDICAID, SELFPAY ==
[2020-07-14 14:09] VITALS: BP 120/74; BMI 44.5
== END ==
PROVIDERS: Family Provider Family Medicine; PCP Family Medicine; Visit Provider Nurse Practitioner Family
DX: N91.2 Amenorrhea, unspecified (principal); R06.02 Shortness of breath
CPT/HCPCS: 81025

== ENCOUNTER → 2020-09-16 14:00 | Outpatient (BNVA) | payer MEDICAID, SELFPAY ==
[2020-07-14 14:09] VITALS: BP 120/74; BMI 44.5
== END ==
PROVIDERS: Family Provider Family Medicine; PCP Family Medicine; Visit Provider Internal Medicine Critical Care Medicine
DX: R06.02 Shortness of breath (principal); J45.909 Unspecified asthma, uncomplicated; J45.20 Mild intermittent asthma, uncomplicated; F17.200 Nicotine dependence, unspecified, uncomplicated; E66.9 Obesity, unspecified
CPT/HCPCS: 82785; 85025; 86003

== ENCOUNTER → 2020-09-23 08:26 | Outpatient (BNVA) | payer MEDICAID, SELFPAY ==
[2020-07-14 14:09] VITALS: BP 120/74; BMI 44.5
== END ==
PROVIDERS: Family Provider Family Medicine; PCP Family Medicine; Visit Provider Anesthesiology
DX: M54.16 Radiculopathy, lumbar region (principal); M54.9 Dorsalgia, unspecified; F17.210 Nicotine dependence, cigarettes, uncomplicated; Z79.891 Long term (current) use of opiate analgesic
CPT/HCPCS: 99213

== ENCOUNTER → 2020-09-24 13:34 | Outpatient (BNVA) | payer MEDICAID, SELFPAY ==
[2020-07-14 14:09] VITALS: BP 120/74; BMI 44.5
== END ==
PROVIDERS: Family Provider Family Medicine; PCP Family Medicine; Visit Provider Obstetrics & Gynecology
DX: N91.2 Amenorrhea, unspecified (principal)
CPT/HCPCS: 76830

== ENCOUNTER → 2020-09-29 07:39 | Outpatient (BNVA) | payer MEDICAID, SELFPAY ==
[2020-07-14 14:09] VITALS: BP 120/74; BMI 44.5
== END ==
PROVIDERS: Family Provider Family Medicine; PCP Family Medicine; Visit Provider Nurse Practitioner
DX: F43.12 Post-traumatic stress disorder, chronic (principal); R41.83 Borderline intellectual functioning
CPT/HCPCS: 99214

== ENCOUNTER → 2020-12-25 07:20 | Outpatient (BNVA) | payer MEDICAID, SELFPAY ==
[2020-07-14 14:09] VITALS: BP 120/74; BMI 44.5
== END ==
PROVIDERS: Family Provider Family Medicine; PCP Family Medicine; Visit Provider Nurse Practitioner
DX: R41.83 Borderline intellectual functioning (principal); F43.12 Post-traumatic stress disorder, chronic
CPT/HCPCS: 99214

== ENCOUNTER → 2021-04-07 13:00 | Outpatient (BNVA) | payer BC, MEDICAID, SELFPAY ==
[2020-07-14 14:09] VITALS: BP 120/74; BMI 44.5
== END ==
PROVIDERS: Family Provider Family Medicine; PCP Family Medicine; Visit Provider Nurse Practitioner Women's Health
DX: O09.899 Supervision of other high risk pregnancies, unspecified trimester (principal); O09.529 Supervision of elderly multigravida, unspecified trimester; Z3A.00 Weeks of gestation of pregnancy not specified
CPT/HCPCS: 80307; 81000; 82105; 82570; 84156

== ENCOUNTER → 2021-04-08 10:49 | Outpatient (BNVA) | payer BC, MEDICAID, SELFPAY ==
[2020-07-14 14:09] VITALS: BP 120/74; BMI 44.5
== END ==
PROVIDERS: Family Provider Family Medicine; PCP Family Medicine; Visit Provider Family Medicine
DX: O09.522 Supervision of elderly multigravida, second trimester (principal); Z3A.00 Weeks of gestation of pregnancy not specified
CPT/HCPCS: 82950

== ENCOUNTER → 2021-04-14 08:02 | Outpatient (BNVA) | payer BC, MEDICAID, SELFPAY ==
[2020-07-14 14:09] VITALS: BP 120/74; BMI 44.5
== END ==
PROVIDERS: Family Provider Family Medicine; PCP Family Medicine; Visit Provider Nurse Practitioner Women's Health
DX: O09.899 Supervision of other high risk pregnancies, unspecified trimester (principal); Z3A.00 Weeks of gestation of pregnancy not specified
CPT/HCPCS: 82951; 82952

== ENCOUNTER → 2021-05-17 11:02 | Outpatient (BNVA) | payer BC, MEDICAID, SELFPAY ==
[2020-07-14 14:09] VITALS: BP 120/74; BMI 44.5
== END ==
PROVIDERS: Family Provider Family Medicine; PCP Family Medicine; Visit Provider Obstetrics & Gynecology
DX: O09.899 Supervision of other high risk pregnancies, unspecified trimester (principal); Z3A.00 Weeks of gestation of pregnancy not specified
CPT/HCPCS: 81000

== ENCOUNTER → 2021-05-31 09:07 | Outpatient (BNVA) | payer BC, MEDICAID, SELFPAY ==
[2020-07-14 14:09] VITALS: BP 120/74; BMI 44.5
== END ==
PROVIDERS: Family Provider Family Medicine; PCP Family Medicine; Visit Provider Obstetrics & Gynecology
DX: O09.899 Supervision of other high risk pregnancies, unspecified trimester (principal)
CPT/HCPCS: 81000

== ENCOUNTER 2021-06-04 12:53 | Observation (INO) | payer BC, MEDICAID, SELFPAY ==
[2020-07-14 14:09] VITALS: BP 120/74; BMI 44.5
[2021-06-04 12:58] VITALS: BMI 40.9
--- NOTE | 2021-06-04 12:59 | ECG_ITS ---
[facility] [place] [facility] Date: 2021-06-04 Pat Name: Shilpa Giang Department: Room: OB8 Gender: Female Yard [employer]: : 1985 Requested By: Meredith Strange Order Number: [id number] Daniela MD: DANIELE COOK Measurements Intervals [place] Rate: 74 P: 7 WA: 130 QRS: -3 QRSD: 93 T: -4 QT: 402 QTc: 446 Interpretive Statements SINUS RHYTHM MODERATE VOLTAGE CRITERIA FOR LVH, CONSIDER NORMAL VARIANT [MEETS CRITERIA IN ONE OF: R(aVL), S(V1), R(V5), R(V5/V6)+S(V1)] Compared to ECG 08/21/2019 14:58:32 Short WA interval no longer present Electronically Signed On 06-04-2021 14:31:21 BRANCH SERVICE LEADER by DANIELE COOK [id number]
[2021-06-04 13:22] LABS: Basophils % 0.2 %; Eosinophils # 0.1 10^3/uL (0.0-0.8); Eosinophils % 0.7 %; Hematocrit 31.5 % (37.0-47.0); Hemoglobin 10.6 g/dL (11.5-15.3); Lymphocytes # 1.4 10^3/uL (0.8-4.8); Lymphocytes % 14.6 %; Mean Corpuscular HGB Conc 33.7 g/dL (30.0-36.0); Mean Corpuscular Hemoglobin 32.2 pg (28.0-34.0); Mean Corpuscular Volume 95.7 fl (81-99); Mean Platelet Volume 8.6 fL (7.4-10.4); Monocytes # 0.4 10^3/uL (0.2-0.9); Monocytes % 4.4 %; Neutrophils # 7.31 10^3/uL (1.8-7.7); Neutrophils % 79.2 %; Nucleated Red Blood Cells % 0 %; Platelet Count 179 10^3/cmm (130-400); Red Blood Count 3.29 10^6/uL (4.1-5.3); White Blood Count 9.2 10^3/uL (4.0-10.0)
[2021-06-04 13:53] LABS: Alanine Aminotransferase 6 U/L (0-33); Albumin Level 3.5 g/dL (3.5-5.2); Alkaline Phosphatase 96 IU/L (35-105); Aspartate Amino Transferase 8 U/L (0-32); Blood Urea Nitrogen 4 mg/dL (6-20); Carbon Dioxide 19 mmol/L (22-29); Chloride 103 mmol/L (98-107); Globulin 2.5 g/dL (1.3-4.6); Glomerular Filtration Rate 181.6 mL/min (90-130); Glucose 81 mg/dL (65-115); Osmolality Calculated 276 mOsm/kg (285-295); Sodium 135 mmol/L (136-145); Total Bilirubin 0.2 mg/dL (0.15-1.2); Uric Acid 3.2 mg/dL (2.4-5.7)
[2021-06-04 16:55] VITALS: BP 122/74; PULSE 101
[2021-06-04 17:15] VITALS: BP 137/77; PULSE 93; RESP 16; TEMP 36.7
--- NOTE | 2021-06-04 18:48 | PM.OPHPUD ---
Labor & Delivery H&P Update Date of Procedure: June 04, 2021 Date H&P Performed: 05/31/21 H&P update information: I have reviewed H&P completed within last 30 days, I have examined patient prior to procedure and Changes to prior documentation as noted here Changes to previous documentation: The patient is being admitted for 24 hour urine and ekg due to her inability to do previouosly,. Admission Diagnosis: at 26 weeks 4 days.
[2021-06-05 00:13] VITALS: BP 118/80; PULSE 81; TEMP 36.6
[2021-06-05 04:48] VITALS: BP 111/73; PULSE 84; TEMP 36.7
--- NOTE | 2021-06-05 06:22 | PM.OBGYDC ---
Discharge Providers CMM PROGRAMMER Date of Admission: 06/04/21 12:53 Date of Discharge: 06/05/21 Attending Provider at Admission: Meredith Strange MD Primary Care Provider: Gilberto Rashid DO Short stay summary: Ms. Giang is a 36-year-old 3 para 1-0-1-1 at 26 weeks and 5 days who presented for scheduled 24-hour observation to collected 24-hour urine collection for baseline proteinuria as per Dr. Strange. Testing was ordered by Dr. Strange-lab work, EKG and 24-hour urine collection was started on 06/04/2021 at 1:50 PM. She was observed with heart checks every shift which were normal and remained asymptomatic without any concerns contractions and she reported good movement. She was on regular diet. When 24-hour urine collection was complete she was sent home. She will follow up with Dr. Strange as scheduled in 2 weeks and with MFM in 1 week per patient Reason for Visit Reason for Visit: 24 URINE/EKG History History History 3 Term 1 Miscarriages/Ectopic 1 0 Living Children 1 Discharge Data Data Completed and Pending: Pending at discharge Category Date Time Status Total Protein 24 Hour Urine Routine Lab 06/04/21 12:58 Uncollected Labs from last 24 hours 06/04/21 06/04/21 13:15 13:15 WBC 9.2 RBC 3.29 L Hgb 10.6 L Hct 31.5 L MCV 95.7 MCH 32.2 MCHC 33.7 RDW 15.0 Plt Count 179 MPV 8.6 Neut % (Auto) 79.2 Lymph % (Auto) 14.6 [place] % (Auto) 4.4 Eos % (Auto) 0.7 Baso % (Auto) 0.2 Neut # (Auto) 7.31 Lymph # (Auto) 1.4 [place] # (Auto) 0.4 Eos # (Auto) 0.1 Baso # (Auto) 0.0 Nucleated RBC % (a uto) 0 Nucleated RBCs # 0.0 Sodium 135 L Potassium 4.0 Chloride 103 Carbon Dioxide 19 L Anion Gap 17.0 BUN 4 L Creatinine 0.4 L GFR Calculation 181.6 H Glucose 81 Calculated Osmolal ity 276 L Uric Acid 3.2 Calcium 8.0 L Total Bilirubin 0.2 AST 8 ALT 6 Alkaline Phosphata se 96 Total Protein 6.0 L Albumin 3.5 Globulin 2.5 Vitals: Last Vital Signs Temp 98.0 F 06/05/21 04:48 Pulse 84 06/05/21 04:48 Resp 16 06/04/21 17:15 BP 111/73 06/05/21 04:48 Discharge Plan Discharge Prescriptions: No Action All Day Allergy (cetirizine) 10 mg capsule 10 mg PO DAILY PRNRF: 0 ondansetron HCl [Zofran] 4 mg tablet 4 mg PO Q8H RF: 0 Vitafol-OB+DHA 65-1-250 mg combo pack PO RF: 0 albuterol sulfate [ProAir HFA] 90 mcg/actuation HFA aerosol inhaler 2 puff INHALATION DAILY RF: 0 trazodone 100 mg tablet 200 mg PO .qhs Qty: 60 RF: 6 bupropion HCl [Wellbutrin XL] 150 mg tablet extended release 24 hr 150 mg PO QAM Qty: 30 RF: 6 aspirin [Enteric Coated Aspirin] 81 mg tablet,delayed release (DR/EC) 81 mg PO DAILY Qty: 90 RF: 4 nifedipine [Procardia XL] 30 mg tablet extended release 24hr 30 mg PO DAILY Qty: 30 RF: 2 Discharge Attestations CMM PROGRAMMER Time Spent in Discharge Care*: less than 30 min Coding Level of Care Code Acute Pattern Attendant for 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
[2021-06-05 10:30] VITALS: BP 124/82; PULSE 87; RESP 18; TEMP 36.6; O2SAT 99
[2021-06-05 13:55] VITALS: BP 136/77; PULSE 94; RESP 20; TEMP 36.6
[2021-06-05 14:04] VITALS: BP 136/77; PULSE 94; RESP 20; TEMP 36.6
--- NOTE | 2021-06-05 14:05 | PC.NURSE ---
PT DISCHARGED FROM OB BUT WAITING FOR RIDE [facility]RU [facility]ORT [facility]. PT REMAINS IN HER ROOM WHILE WAITING ON RIDE.
[2021-06-05 15:45] LABS: Total Volume, Urine 2075 mL; Urine Total Protein 15.1 mg/24HR (0-150); Urine Total Protein 24 Hour 313.3 mg/dL (0-150)
--- NOTE | 2021-06-05 16:39 | PC.NURSE ---
CALLED [address] RES[address] TO [address] CURTIS. NO NEW ORDERS.
== END 2021-06-05 14:00 | disposition home or self-care (01) ==
LOC: OPOB 12:57 → OBGYN 12:57
PROVIDERS: Admitting Provider Obstetrics & Gynecology; Visit Provider Obstetrics & Gynecology
DX: O12.12 Gestational proteinuria, second trimester (principal); Z3A.26 26 weeks gestation of pregnancy; O99.342 Other mental disorders complicating pregnancy, second trimester; F32.9 Major depressive disorder, single episode, unspecified; O99.210 Obesity complicating pregnancy, unspecified trimester; E66.9 Obesity, unspecified; Z68.41 Body mass index [BMI] 40.0-44.9, adult; O99.332 Smoking (tobacco) complicating pregnancy, second trimester; F17.210 Nicotine dependence, cigarettes, uncomplicated; O16.2 Unspecified maternal hypertension, second trimester; O26.892 Other specified pregnancy related conditions, second trimester; J45.909 Unspecified asthma, uncomplicated; R41.83 Borderline intellectual functioning
CPT/HCPCS: 36415; 59025; 80053; 84156; 84550; 85025; 93005; G0378

== ENCOUNTER 2021-06-13 16:55 | Outpatient (CLI) | payer BC, MEDICAID, SELFPAY ==
[2020-07-14 14:09] VITALS: BP 120/74; BMI 44.5
[2021-06-13 16:55] VITALS: BMI 40.9
[2021-06-13 17:29] VITALS: BP 137/90; PULSE 85
[2021-06-13 17:47] VITALS: BP 136/84; PULSE 83
[2021-06-13 18:02] VITALS: BP 141/86; PULSE 82
[2021-06-13 18:17] VITALS: BP 138/74; PULSE 83
[2021-06-13 18:32] VITALS: BP 141/81; PULSE 82
== END 2021-06-13 19:08 | disposition home or self-care (01) ==
LOC: OPOB 17:08 → OBGYN 17:09
PROVIDERS: Visit Provider Obstetrics & Gynecology
DX: O99.891 Other specified diseases and conditions complicating pregnancy (principal); R10.10 Upper abdominal pain, unspecified
CPT/HCPCS: 59025; 99211

== ENCOUNTER → 2021-06-18 15:26 | Outpatient (BNVA) | payer BC, MEDICAID, SELFPAY ==
[2020-07-14 14:09] VITALS: BP 120/74; BMI 44.5
== END ==
PROVIDERS: Visit Provider Obstetrics & Gynecology
DX: O09.899 Supervision of other high risk pregnancies, unspecified trimester (principal)
CPT/HCPCS: 81000

== ENCOUNTER 2021-06-21 14:12 | Outpatient (CLI) | payer BC, MEDICAID, SELFPAY ==
[2020-07-14 14:09] VITALS: BP 120/74; BMI 44.5
[2021-06-21 14:33] VITALS: BP 127/64; PULSE 85
[2021-06-21 14:49] VITALS: RESP 17
--- NOTE | 2021-06-21 14:49 | US_ITS ---
WS: [id number] ULTRASOUND OB LIMITED TECHNIQUE: Limited ultrasound examination of the fetus. 29 weeks 0 days CLINICAL INFORMATION: possible PPROM COMPARISON: None. FINDINGS: Closed cervix measures 3.9 cm Single interuterine gestation. presentation is breech Placental location is anterior. Placenta grade: 0. heart rate 138 BPM. DILIA 15.7 cm US/US OB limited [id number] IMPRESSION: 1. Single live intrauterine with anterior placenta. 2. Breech presentation 3. Closed cervix measures 3.9 cm 4. DILIA 15.7 cm just greater than the median for gestational age
[2021-06-21 15:13] VITALS: BP 125/61; PULSE 85
[2021-06-21 15:16] VITALS: BMI 41.3
[2021-06-21 15:32] LABS: Actim Prom Negative
[2021-06-21 15:33] VITALS: BP 122/58; PULSE 82
[2021-06-21 15:53] VITALS: BP 131/64; PULSE 88
[2021-06-21 15:56] LABS: Urine Appearance Hazy (CLEAR); Urine Color Yellow (Yellow); pH Urine 6.5 (5-7)
[2021-06-21 15:57] LABS: Add Urine Culture? No; Bacteria Urine TRACE /hpf; Bilirubin Urine Neg (Negative); Blood Urine Neg (Negative); Glucose Urine UA Norm (Normal); Hyaline Casts Urine 0-4 /lpf; Ketones Urine Negative (Negative); Leukocyte Esterase Urine Negative (Negative); Mucus Urine TRACE /hpf; Nitrate Urine Negative (Negative); Protein Urine 1+ (Negative); RBC Urine 0-4 /hpf (0-2); Specific Gravity, Urine 1.015 (1.005-1.030); Urobilinogen Urine Norm (Negative); WBC Urine 0-4 /hpf (0-5)
[2021-06-21 16:13] VITALS: BP 117/56; PULSE 82
== END 2021-06-21 16:37 | disposition home or self-care (01) ==
LOC: OPOB 14:17 → OBGYN 14:18
PROVIDERS: Visit Provider Obstetrics & Gynecology
DX: O99.891 Other specified diseases and conditions complicating pregnancy (principal); N89.8 Other specified noninflammatory disorders of vagina; Z3A.00 Weeks of gestation of pregnancy not specified
CPT/HCPCS: 59025; 76815; 81001; 84112; 99211

== ENCOUNTER → 2021-06-23 08:12 | Outpatient (BNVA) | payer BC, MEDICAID, SELFPAY ==
[2020-07-14 14:09] VITALS: BP 120/74; BMI 44.5
== END ==
PROVIDERS: Visit Provider Obstetrics & Gynecology
DX: O09.899 Supervision of other high risk pregnancies, unspecified trimester (principal); Z3A.00 Weeks of gestation of pregnancy not specified
CPT/HCPCS: 82951; 82952; 85025

== ENCOUNTER → 2021-07-05 11:50 | Outpatient (BNVA) | payer BC, MEDICAID, SELFPAY ==
[2020-07-14 14:09] VITALS: BP 120/74; BMI 44.5
== END ==
PROVIDERS: Visit Provider Obstetrics & Gynecology
DX: O09.899 Supervision of other high risk pregnancies, unspecified trimester (principal); Z3A.00 Weeks of gestation of pregnancy not specified
CPT/HCPCS: 81000

== ENCOUNTER 2021-07-11 20:50 | Outpatient (CLI) | payer BC, MEDICAID, SELFPAY ==
[2020-07-14 14:09] VITALS: BP 120/74; BMI 44.5
[2021-07-11] VITALS (34 sets, daily range): BP systolic 120–143; BP diastolic 59–73; PULSE 85–104; RESP 16–18; O2SAT 96–100; BMI 40.8
[2021-07-11 22:05] LABS: Bilirubin Urine Neg (Negative); Blood Urine Neg (Negative); Glucose Urine UA Norm (Normal); Ketones Urine Negative (Negative); Leukocyte Esterase Urine Negative (Negative); Nitrate Urine Negative (Negative); Protein Urine 2+ (Negative); Urine Appearance Clear (CLEAR); Urine Color Yellow (Yellow); Urobilinogen Urine 1 mg/dL (Negative); pH Urine 6 (5-7)
[2021-07-11] MEDS: famotidine 20 mg Tablet PO (22:05)
[2021-07-11 22:12] LABS: Add Urine Culture? No; Bacteria Urine 1+ /hpf; RBC Urine 0-4 /hpf (0-2); WBC Urine 0-4 /hpf (0-5)
[2021-07-11 22:21] LABS: Urine Creatinine 103 mg/dL (28-217)
[2021-07-11 22:22] LABS: UPRO/UCREAT Ratio 1.39 mg/mg CR; Urine Protein Random 143 mg/dL
== END 2021-07-11 23:30 | disposition home or self-care (01) ==
LOC: OPOB 21:01 → OBGYN 21:02
PROVIDERS: Visit Provider Obstetrics & Gynecology
DX: O16.9 Unspecified maternal hypertension, unspecified trimester (principal); Z3A.00 Weeks of gestation of pregnancy not specified
CPT/HCPCS: 59025; 81001; 82570; 84156; 94640; 99211; J7611

== ENCOUNTER 2021-07-11 23:32 | Emergency (ER) | payer BC, MEDICAID, SELFPAY ==
[2020-07-14 14:09] VITALS: BP 120/74; BMI 44.5
[2021-07-11 23:39] VITALS: BP 162/96; PULSE 90; RESP 18; TEMP 36.2; O2SAT 100; BMI 40.2
--- NOTE | 2021-07-11 23:48 | ECG_ITS ---
[facility] Test Date: 2021-07-11 Pat Name: Shilpa Giang Department: Room: Gender: Female Call Circuit Worker: : 1985 Requested By: Clary Alfaro Order Number: [id number] Daniela MD: Junior Escalante M.D. Measurements Intervals [place] Rate: 86 P: 9 MN: 113 QRS: 1 QRSD: 97 T: 14 QT: 375 QTc: 449 Interpretive Statements SINUS RHYTHM WITH SHORT MN INTERVAL MODERATE VOLTAGE CRITERIA FOR LVH, CONSIDER NORMAL VARIANT [MEETS CRITERIA IN ONE OF: R(aVL), S(V1), R(V5), R(V5/V6)+S(V1)] Compared to ECG 06/04/2021 13:17:05 Short MN interval now present Electronically Signed On 07-12-2021 20:51:20 DYE RANGE TENDER by Junior Escalante M.D. [id number]
--- NOTE | 2021-07-11 23:49 | ED_ITS ---
HPI - General: Chief complaint: Chest Pain Stated complaint: 32 weeks preg\Blood Pressure High and heart Time Seen by Provider: 07/11/21 23:45 Source: patient Mode of arrival: ambulatory Limitations: no limitations History of Present Illness: HPI Narrative: 36-year-old female who currently 32 weeks she has a history of chronic hypertension states that her blood pressures been running in the 150s throughout the day started having some chest pain earlier this morning she became concerned and came up has been over at labor and delivery she did have 2+ protein in her urine I did speak to OB and I guess it has been chronic in nature. She states the chest pains been sharp denies any worsening proving factors denies any dyspnea. Patient was sent over here from labor and delivery to evaluate her chest pain Date of Last Menstrual Period: 12/04/20 Associated symptoms: Deny abdominal pain, dysuria, headache(s), nausea or vomiting Review of Systems Const: Denies: fever(s), chills, body aches or change in appetite Eyes: Denies: blurry vision or eye discomfort ENMT: Denies: throat pain or dental pain Card: Reports: chest pain Resp: Denies: dyspnea GI: Denies: abdominal pain, nausea, vomiting or diarrhea : Denies: dysuria Musc: Denies: neck pain or back pain Skin/Breast: Denies: rash Neuro: Denies: headache(s) Psych: Denies: depression [place]/Lymph: Denies: easy bruising All/Imm: Denies: urticaria PFSH ED PFSH: Medical History Asthma Diagnosed as a child when controlled with an albuterol inhaler as needed being managed by her primary care provider. 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 Borderline intellectual functioning Depression Fibromyalgia Not currently on any medication Hypertension Lumbar radiculopathy, chronic Chronic back pain managed by pain medication and the pain clinic No pertinent past medical history Patient denies: hypercholesterolemia, heart, liver, kidney, thyroid problems, DVT/PE. PCP: Dina Post-traumatic stress disorder, chronic PTSD, anxiety and depression diagnosed in 2017 and follows up with behavioral health care every 3 months Surgical History History of cholecystectomy Laparoscopic procedure in 2018 Pyloric stenosis repaired as a baby Family History Mother Hypertension Stroke Lung cancer Grandfather Colon cancer Maternal, diagnosed in his 60s Brother Seizures Family/Other Hyperlipidemia paternal uncle Heart disease maternal uncle Denies family history of Ovarian cancer Diabetes Breast cancer Uterine cancer Thyroid condition Social History Smoking and tobacco status: current every day smoker cigarettes Alcohol intake: never Counseling given: No Marital status: Number of children: 1 Number of grandchildren: 0 Female Reproductive History: Date of last menstrual period: 12/04/20 Para: 1 Spontaneous abortions: Yes Physical Exam Const: COMMON NORMALS: no acute distress, patient oriented x3 and healthy appearing HENMT: COMMON NORMALS: normocephalic and atraumatic HEAD & SCALP: normocephalic and atraumatic Eye: COMMON NORMALS: Equal, round and reactive pupils present and EOMs intact bilaterally PUPIL: Yes Equal, round and reactive pupils present Neck/C-Spine: COMMON NORMALS: full ROM and supple Chest: COMMONS NORMALS: normal inspection of the chest and normal palpation of entire chest wall Resp: COMMON NORMALS: normal respiratory effort, No retractions, No use of accessory muscles and clear to auscultation bilaterally AUSCULTATION: clear to auscultation bilaterally Cardio: COMMON NORMALS: regular rate, regular rhythm and No murmurs present (Cardio) RATE: regular rate RHYTHM: regular rhythm GI: COMMON NORMALS: Normal to inspection, nondistended, normoactive bowel sounds present, Soft to palpation, non-tender and no masses PALPATION: Yes Soft to palpation OTHER: gravid uterus Extremity: COMMON NORMALS: normal to inspection and full ROM Neuro: COMMON NORMALS: patient oriented x3, moves all extremities and no focal motor deficits Psych: COMMON NORMALS: mental status grossly normal, Normal thought process present and cooperative THOUGHT PROCESS: Normal thought process present Skin: COMMON NORMALS: no rashes or lesions noted and no wounds GENERAL SKIN EXAM: no rashes or lesions noted Course Vital Signs: Vital signs: Vital Signs Temperature 97.1 F L 07/11/21 23:39 Pulse Rate 91 07/12/21 00:10 Respiratory Rate 21 H 07/12/21 00:10 Blood Pressure 153/86 07/12/21 00:10 Pulse Oximetry 100 07/11/21 23:39 MDM - OB/Uterine Contractions MDM Narrative: Medical decision making narrative: Patient presents with hypertension in blood pressure is elevated here she is having chest pains atypical in nature her troponin here is negative she has no signs of acute coronary syndrome or cardiac cause causing her chest pain she did have protein in her urine spoke to her OB she states has been chronic in nature did give her nifedipine here blood pressure still elevated we will discharge her back to labor and delivery Lab Data: Labs: Lab Results 07/11/21 07/11/21 07/11/21 23:58 23:58 23:58 WBC 11.8 10^3/uL H 10 ^3/uL (4.0-10.0) RBC 3.53 10^6/uL L 10 ^6/uL (4.1-5.3) Hgb 11.1 g/dL L g/dL (11.5-15.3) Hct 33.8 % L % (37.0-47.0) MCV 95.8 fl fl (81-99) MCH 31.4 pg pg (28.0-34.0) MCHC 32.8 g/dL g/dL (30.0-36.0) RDW 15.3 % H % (12.1-15.1) Plt Count 191 10^3/cmm 10^3 /cmm (130-400) MPV 8.7 fL fL (7.4-10.4) Neut % (Auto) 77.2 % % Lymph % (Auto) 16.1 % % [place] % (Auto) 4.1 % % Eos % (Auto) 0.8 % % Baso % (Auto) 0.3 % % Neut # (Auto) 9.11 10^3/uL H 10 ^3/uL (1.8-7.7) Lymph # (Auto) 1.9 10^3/uL 10^3/ uL (0.8-4.8) [place] # (Auto) 0.5 10^3/uL 10^3/ uL (0.2-0.9) Eos # (Auto) 0.1 10^3/uL 10^3/ uL (0.0-0.8) Baso # (Auto) 0.0 10^3/uL 10^3/ uL (0.0-0.1) Nucleated RBC % (a uto) 0 % % Nucleated RBCs # 0.0 /100WBC /100W BC Sodium 135 mmol/L L mmol /L (136-145) Potassium 3.8 mmol/L mmol/L (3.5-5.1) Chloride 101 mmol/L mmol/L (98-107) Carbon Dioxide 21 mmol/L L mmol/ L (22-29) Anion Gap 16.8 (5-19) BUN 3 mg/dL L mg/dL (6-20) Creatinine 0.4 mg/dL L mg/dL (0.5-0.9) GFR Calculation 181.6 mL/min H mL /min (90-130) Glucose 91 mg/dL mg/dL (65-115) Calculated Osmolal ity 276 mOsm/kg L mOs m/kg (285-295) Calcium 8.0 mg/dL L mg/dL (8.5-10.5) Total Bilirubin 0.2 mg/dL mg/dL (0.15-1.2) AST 12 U/L U/L (0-32) ALT 8 U/L U/L (0-33) Alkaline Phosphata se 126 IU/L H IU/L (35-105) Lactate Dehydrogen ase 168 U/L U/L (135-214) Troponin T Baselin e 6 ng/L ng/L (0-10) Total Protein 6.4 g/dL L g/dL (6.6-8.7) Albumin 3.7 g/dL g/dL (3.5-5.2) Globulin 2.7 g/dL g/dL (1.3-4.6) Imaging Data^: CXR: Attestation: I personally reviewed and interpreted this imaging study as follows: My impression: no acute abnormality EKG Data^: EKG 1: EKG interpretation date: 07/11/21 EKG interpretation time: 23:44 Interpretation: nsr hr [address] or t wave abnormalities qrs 97 qtc 418 Discharge Plan Discharge Patient Disposition: Home Clinical Impression: Hypertension affecting Qualifiers: Trimester: third trimester Qualified Code(s): O16.3 - Unspecified maternal hypertension, third trimester Chest pain Qualifiers: Chest pain type: unspecified Qualified Code(s): R07.9 - Chest pain, unspecified Condition: Stable Prescriptions: No Action All Day Allergy (cetirizine) 10 mg capsule 10 mg PO DAILY PRN (Reason: unknown) RF: 0 ondansetron HCl [Zofran] 4 mg tablet 4 mg PO Q8H RF: 0 riboflavin (vitamin B2) 100 mg tablet 100 mg PO DAILY RF: 0 PNV #[id number] 30 mg iron-10 mg iron-1 mg capsule 1 cap PO DAILY Qty: 30 RF: 12 ferrous sulfate [Iron (ferrous sulfate)] 325 mg (65 mg iron) tablet 325 mg PO TID RF: 0 albuterol sulfate [ProAir HFA] 90 mcg/actuation HFA aerosol inhaler 2 puff INHALATION DAILY RF: 0 trazodone 100 mg tablet 200 mg PO .qhs Qty: 60 RF: 6 bupropion HCl [Wellbutrin XL] 150 mg tablet extended release 24 hr 150 mg PO QAM Qty: 30 RF: 6 aspirin [Enteric Coated Aspirin] 81 mg tablet,delayed release (DR/EC) 81 mg PO DAILY Qty: 90 RF: 4 nifedipine [Procardia XL] 30 mg tablet extended release 24hr 30 mg PO DAILY Qty: 30 RF: 2 Discharge Orders: Discharge ED (Routine); Ordered 07/12/21 Ordered By: Clary Alfaro Discharge Diet: Advance as tolerated Discharge Activity: Resume usual activity Patient Instructions: Hypertension (ED) Coding Level of Care Code ED Metal Numerical Control Programmer for Tani Fwd Exam Comprehensive
--- NOTE | 2021-07-11 23:53 | XRR_ITS ---
PROCEDURE INFORMATION: Exam: XR Chest Exam date and time: 07/11/2021 11:53 PM Age: 36 years old Clinical indication: Chest pressure; Patient HX: Patient is having chest pain. and in last trimester; Additional info: Cp TECHNIQUE: Imaging protocol: XR of the chest. Views: 1 view. COMPARISON: CR XR chest 1V portable [id number] 08/21/2019 3:37 PM FINDINGS: Lungs: Allowing for mid inspiration, the lungs are clear. Pleural spaces: Unremarkable. No pleural effusion. No pneumothorax. Heart/Mediastinum: Unremarkable. No cardiomegaly. Bones/joints: Unremarkable. XR/XR chest 1V portable [id number] IMPRESSION: No change, lungs clear
[2021-07-12 00:10] VITALS: BP 153/86; PULSE 91; RESP 21
[2021-07-12] MEDS: NIFEdipine 10 mg Capsule PO (00:10)
[2021-07-12 00:15] LABS: Basophils % 0.3 %; Eosinophils # 0.1 10^3/uL (0.0-0.8); Eosinophils % 0.8 %; Hematocrit 33.8 % (37.0-47.0); Hemoglobin 11.1 g/dL (11.5-15.3); Lymphocytes # 1.9 10^3/uL (0.8-4.8); Lymphocytes % 16.1 %; Mean Corpuscular HGB Conc 32.8 g/dL (30.0-36.0); Mean Corpuscular Hemoglobin 31.4 pg (28.0-34.0); Mean Corpuscular Volume 95.8 fl (81-99); Mean Platelet Volume 8.7 fL (7.4-10.4); Monocytes # 0.5 10^3/uL (0.2-0.9); Monocytes % 4.1 %; Neutrophils # 9.11 10^3/uL (1.8-7.7); Neutrophils % 77.2 %; Nucleated Red Blood Cells % 0 %; Platelet Count 191 10^3/cmm (130-400); Red Blood Count 3.53 10^6/uL (4.1-5.3); Red Cell Distribution Width 15.3 % (12.1-15.1); White Blood Count 11.8 10^3/uL (4.0-10.0)
[2021-07-12 00:35] LABS: Troponin(5th) Baseline 6 ng/L (0-10)
[2021-07-12 00:37] LABS: Alanine Aminotransferase 8 U/L (0-33); Albumin Level 3.7 g/dL (3.5-5.2); Alkaline Phosphatase 126 IU/L (35-105); Anion Gap 16.8 (5-19); Aspartate Amino Transferase 12 U/L (0-32); Blood Urea Nitrogen 3 mg/dL (6-20); Carbon Dioxide 21 mmol/L (22-29); Chloride 101 mmol/L (98-107); Globulin 2.7 g/dL (1.3-4.6); Glomerular Filtration Rate 181.6 mL/min (90-130); Glucose 91 mg/dL (65-115); Lactate Dehydrogenase 168 U/L (135-214); Osmolality Calculated 276 mOsm/kg (285-295); Potassium 3.8 mmol/L (3.5-5.1); Sodium 135 mmol/L (136-145); Total Bilirubin 0.2 mg/dL (0.15-1.2); Total Protein 6.4 g/dL (6.6-8.7)
[2021-07-12 00:53] VITALS: BP 145/91
== END 2021-07-12 00:55 | disposition home or self-care (01) ==
PROVIDERS: Emergency Provider Emergency Medicine
DX: O16.3 Unspecified maternal hypertension, third trimester (principal); O26.893 Other specified pregnancy related conditions, third trimester; R07.9 Chest pain, unspecified; O99.333 Smoking (tobacco) complicating pregnancy, third trimester; F17.210 Nicotine dependence, cigarettes, uncomplicated; Z3A.32 32 weeks gestation of pregnancy
CPT/HCPCS: 71045; 80053; 83615; 84484; 85025; 93005; 99284

== ENCOUNTER 2021-07-12 01:10 | Observation (INO) | payer BC, MEDICAID, SELFPAY ==
[2020-07-14 14:09] VITALS: BP 120/74; BMI 44.5
[2021-07-12] VITALS (22 sets, daily range): BP systolic 109–143; BP diastolic 55–80; PULSE 89–111; O2SAT 97–99; BMI 45.9
[2021-07-12] MEDS: ferrous sulfate EC 325 mg Tablet PO (09:18)
[2021-07-12] MEDS: aspirin 81 mg EC Tablet PO (09:19)
[2021-07-12] MEDS: cetirizine 10 mg Tablet PO (09:19)
[2021-07-12] MEDS: diphenhydrAMINE 25 mg Capsule PO (09:19)
[2021-07-12] MEDS: NIFEdipine ER (24 hr) 30 mg Tablet PO (09:19)
[2021-07-12] MEDS: prenatal vitamin Capsule 1 CAP PO (09:19)
--- NOTE | 2021-07-12 15:18 | PC.NURSE ---
Patient called out and stated that her bed was wet. Patient stated she coughed and accidentally peed herself. This RN spoke with Dr. Keane and orders were received to continue the 24 hour urine collection despite this missed void.
--- NOTE | 2021-07-12 16:54 | PM.OBGYHP ---
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 She has a history significant for chronic hypertension and is on aspirin for preeclampsia prophylaxis and Procardia 30 mg extended release once every 24 hours. She was initially seen on Labor and Delivery and blood pressures were completely normal. She was given Pepcid and lab work was normal. Since she reported persistent chest discomfort she was sent to the ER for further evaluation. Evaluation in the ER was negative for cardiac abnormalities however while in labor and delivery she had a single elevated blood pressure and was sent back to labor and delivery to rule out preeclampsia.Patient has a history of noncompliance and had been previously admitted for a 24-hour urine collection as she had been unable to turn it in. This had been done at about 24 weeks and 24-hour urine collection was elevated at 313 mg. --Plan patient to return to labor and delivery she was observed and again remained completely normotensive without any elevations however given the elevation noted on Labor and Delivery at her poor compliance decision was made to admit patient and observe her for 24 hours while 24 urine was done and a protein creatinine ratio was performed as well. Upon evaluation by me she denied headache, blurry vision, visual changes. She states she has a busy week and has been scheduled for an echocardiogram for chronic hypertension in 2 days and has a visit with the [facility] in [place] on as well as an appointment with her OB on Monday. She does report good movement and denies vaginal bleeding, abnormal vaginal discharge, contractions. She denies any other problems at this time and states that the discomfort that she had reported earlier has completely resolved and she probably pulled a muscle. Present Details : 6 Para: 1 Date of Last Menstrual Period: 12/04/20 Calculated Date of Delivery: 09/10/21 Gestational Age Based on Last Menstrual Period: 33 Medications/Allergies Home Medications Medication Instructions Recorded Confirmed Last Taken Type albuterol sulfate 90 mcg/actuation 2 puff INHALATION DAILY 09/23/20 07/16/21 Unknown History aerosol inhaler cetirizine 10 mg capsule 10 mg PO DAILY PRN 04/07/21 07/16/21 Unknown History ondansetron HCl 4 mg tablet 4 mg PO Q8H 04/07/21 07/16/21 Unknown History aspirin 81 mg tablet,delayed 81 mg PO DAILY #90 tab 04/26/21 07/16/21 06/13/21 07:00 Rx release nifedipine 30 mg tablet,extended 30 mg PO DAILY #30 tab 05/05/21 07/16/21 06/13/21 07:00 Rx release 24 hr bupropion HCl 150 mg 24 hr tablet, 150 mg PO QAM #30 tab 05/17/21 07/16/21 06/13/21 07:00 Rx extended release trazodone 100 mg tablet 200 mg PO .qhs #60 tab 05/17/21 07/16/21 06/12/21 19:00 Rx vitamin#30 30 mg iron-10 1 cap PO DAILY #30 cap 06/18/21 07/16/21 Unknown Rx mg iron-folic acid 1 mg-omg3 capsule riboflavin (vitamin B2) 100 mg 100 mg PO DAILY 06/18/21 07/16/21 Unknown History tablet ferrous sulfate 325 mg (65 mg 325 mg PO TID 07/05/21 07/16/21 Unknown History iron) tablet Allergies Allergy/AdvReac Type Severity Reaction Status Date / Time latex Allergy Mild rash Verified 07/23/21 10:37 adhesive tape Allergy ALGY-Rash Verified 07/23/21 10:37 clindamycin Allergy ALGY-Hives Verified 07/23/21 10:37 doxycycline Allergy ALGY-Swell Verified 07/23/21 10:37 Lip/Tongue/Throat tramadol Allergy ALGY-Hives Verified 07/23/21 10:37 aripiprazole [From Abilify] AdvReac Unknown INCREASED Verified 07/23/21 10:37 HEART RATE aspirin AdvReac ADR-Abdominal Verified 07/23/21 10:37 Pain/internal bleeding 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 She does not see a glass cutter hand. Borderline intellectual functioning Depression Fibromyalgia Not currently on any medication Hypertension Lumbar radiculopathy, chronic Chronic back pain managed by pain medication and the pain clinic No pertinent past medical history Patient denies: hypercholesterolemia, heart, liver, kidney, thyroid problems, DVT/PE. PCP: Dina Post-traumatic stress disorder, chronic PTSD, anxiety and depression diagnosed in 2017 and follows up with behavioral health care every 3 months Surgical History History of cholecystectomy Laparoscopic procedure in 2018 Pyloric stenosis repaired as a baby Family History Mother Hypertension Stroke Lung cancer Grandfather Colon cancer Maternal, diagnosed in his 60s Brother Seizures Family/Other Hyperlipidemia paternal uncle Heart disease maternal uncle Denies family history of Ovarian cancer Diabetes Breast cancer Uterine cancer Thyroid condition Social History Smoking and tobacco status: current every day smoker cigarettes Alcohol intake: never Counseling given: No Marital status: Number of children: 1 Number of grandchildren: 0 Supplemental [facility] Information: - Tobacco Use: Stared smoking at age 17 and has smoked up to 2 packs a day since then. Trying to cut back and currently smokes 0.5 packs per day. Drug Use: Reports history of marijuana use and CBD oils. Uses once a month on average when she is out of pain pills- Alcohol Use: Drinks an alcoholic beverage twice yearly on average Work/Study Status: Disabled due to chronic pain Other Female Reproductive History: Menstrual History Comment: Menarche at age 15 with a cycle length of 28 days and a bleeding duration of 2-3 days. Sexual History: Sexual History Comment: Coitarche at age 16, more than 5 lifetime partners, has been with her , Anthony since August 2019. STD History Comment: Denies history of sexually transmitted diseases; denies being dx with herpes or having partner with herpes Contraception: Contraception History Comment: Has used control pills, Depo-Provera and the patch in the past for contraception. She did well with the control pills however did not like weight gain with Depo-Provera and had a skin reaction to the patch. She last used hormonal contraception in 2013 and is not currently on any contraception. Dietary Habits: Current diet type/program: regular (well balanced) History History History 3 Term 1 Miscarriages/Ectopic 1 0 Living Children 1 Other History: 3 para 1011, x 1, SAB x 1 1--> first trimester SAB, no d & c required 2-->, female,([place]), 7 lbs 3 ozs, 39 wks, epidural, delivered in [place], [place]. Induction due to discomforts of . Delivery was uncomplicated. 3----> current Care SHWETHA Calculator Estimated Delivery Date Method Current WG Current Estimate 09/06/21 LMP (Certain) 34w 1d Other Estimates 09/06/21 Ultrasound #1 34w 1d 09/06/21 Ultrasound #2 34w 1d Specific Issues/Plans BORDERLINE INTELLECTUAL FUNCTIONING CHRONIC HTN BORDERLINE DM ANXIETY/DEPRESSION PTSD SMOKER RH NEGATIVE (recvd rhoGam 03/11/2021 in [place]) ASTHMA Vitals/I&O/Wt Last Vital Signs Pulse 96 07/12/21 15:16 BP 133/66 07/12/21 15:16 Pulse Ox 99 07/12/21 01:27 07/12/21 07/12/21 07/12/21 06:59 14:59 22:59 Output Total 800 / 800 400 / 400 Balance -800 / -800 -400 / -400 Weight last 48 hrs Weight 243 lb Physical Exam Narrative: EXAM NARRATIVE: General: well developed, well nourished, no acute distress Neuro/Psych: alert, oriented to time, place and person. Neck: No thyromegaly Heart: S1-S2 heard, regular rate and rhythm. Lungs: Clear to auscultation bilaterally. Breast: Deferred Abdomen: Soft, gravid, obese, nontender, no right upper quadrant tenderness or epigastric tenderness, no rebound, no guarding Legs: No pedal edema no calf tenderness. Negative Homans sign Back: No CVA tenderness Skin: Normal over abdomen, multiple stretch [place] External genitalia: Appears normal, no lesions, normal hair Urethral meatus: Normal size, normal location Cervix: Closed thick and high Results OB Labs 3 [02/19/21] Blood type: AB negative Antibody screen: negative Intake CBC: WBC - 8.3 Hgb- 12.5 , Hct-36.9 , MCV-92.9 , Plt-195,000. Rubella: Immune Hepatitis B surface antigen: non reactive Hepatitis C antibody: non reactive RPR: non reactive HIV: non reactive Urine drug screen: Test not performed Urine culture: Growth of mixed moi 03/02/2021 TSH: 1.92 HgbA1c: 4.9% 02/19/2021 Panorama: LOW RISK/FEMALE/FF 4.3% [02/19/21] Gonorrhea: not detected Chlamydia: not detected Pap smear: 02/26/2020 NILM 04/07/2021 Cystic fibross: Negative Quad screen: Negative Drug Screen: Negative 04/08/21 early GCT: 152 04/14/21 3HR GCT: 82, 162, 143, 135 07/11/2021 28 week CBC: 11.8% 511.1/33.8 > 191 GCT: 91 AST: 12 ALT: 8 Alkaline phosphatase: 126 24-hour urine for total protein: 58.9 (total volume 1725) Protein creatinine ratio: 1.39 [date] [facility] 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 CLASSIFICATION CONTROL CLERK Ultrasound 2) 1) [place] [place] -------> the uterus is anteverted measuring 7.4 x 3.8 x 4.1 cm without any masses. The endometrium appears normal measuring 0.7 cm. The right ovary measures 3.4 x 2.1 x 2.3 cm. The right ovary contains a 2.1 x 1.9 x 2.2 cm cyst which appears simple. The left ovary measures 2.6 x 2.0 x 2.0 cm with small follicles. Normal blood flow noted bilaterally. No free fluid. Pathology 1) 02/28/2020---(cytology-nipple discharge) ----> proteinaceous material and histiocytes-no epithelium noted-therefore no evidence of atypia or malignancy. Mammogram 1) 04/06/2020[place] [place]----> BI-RADS 1. Negative. Recommend screening mammogram at the age of [address] scan of abdomen and pelvis 1) 10/22/2019([facility]) -------> 2.6 cm right ovarian cyst, normal appendix, otherwise normal CT scan A&P Assessment and plan (1) Chronic hypertension: 36-year-old 3 para 1-0-1-1 at 32 weeks gestation--observation for 24 hours for 24-hour urine collection. -Chronic hypertensive-rule out superimposed preeclampsia. She has no preeclamptic symptoms and has a previously elevated 24-hour urine collection which is likely why her protein creatinine ratio is elevated today. Would recommend another 24-hour urine collection and would recommend this be done as an inpatient given her previous noncompliance. -NSTs every shift, regular diet, routine vital signs -Continues nifedipine 30 mg extended release once a day--Notify MD for severe elevations -Lab work done today shows elevated protein creatinine ratio however CBC CMP all stable from values done previously. This was discussed with patient in great detail and all her questions were answered. Status: Acute Attestations Medical Necessity Statement*: Patient will need to be observed overnight in order to complete 24-hour urine collection for protein. Coding Level of Care Code Acute Manager Labor Relations for 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 Diagnoses Chronic hypertension I10
[2021-07-12] MEDS: buPROPion XL (24 HR) 150 mg Tablet PO (21:34)
[2021-07-12] MEDS: trazodone 100 mg Tablet 200 MG PO (21:34)
[2021-07-13] VITALS (11 sets, daily range): BP systolic 120–144; BP diastolic 64–83; PULSE 90–100; RESP 18
[2021-07-13 02:56] LABS: Total Volume, Urine 1725 mL
[2021-07-13 03:11] LABS: Urine Total Protein 58.9 mg/24HR (0-150)
[2021-07-13] MEDS: cetirizine 10 mg Tablet PO (09:08)
[2021-07-13] MEDS: ferrous sulfate EC 325 mg Tablet PO (09:08)
[2021-07-13] MEDS: aspirin 81 mg EC Tablet PO (09:08)
[2021-07-13] MEDS: NIFEdipine ER (24 hr) 30 mg Tablet PO (09:09)
[2021-07-13] MEDS: prenatal vitamin Capsule 1 CAP PO (09:09)
--- NOTE | 2021-07-13 09:13 | P.DS_ITS ---
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 She has a history significant for chronic hypertension and is on aspirin for preeclampsia prophylaxis and Procardia 30 mg extended release once every 24 hours. She was initially seen on Labor and Delivery and blood pressures were completely normal. She was given Pepcid and lab work was normal. Since she reported persistent chest discomfort she was sent to the ER for further evaluation. Evaluation in the ER was negative for cardiac abnormalities however while in labor and delivery she had a single elevated blood pressure and was sent back to labor and delivery to rule out preeclampsia.Patient has a history of noncompliance and had been previously admitted for a 24-hour urine collection as she had been unable to turn it in. This had been done at about 24 weeks and 24-hour urine collection was elevated at 313 mg. --Plan patient to return to labor and delivery she was observed and again remained completely normotensive without any elevations however given the elevation noted on Labor and Delivery at her poor compliance decision was made to admit patient and observe her for 24 hours while 24 urine was done and a protein creatinine ratio was performed as well. Upon evaluation by me she denied headache, blurry vision, visual changes. She states she has a busy week and has been scheduled for an echocardiogram for chronic hypertension in 2 days and [facility] [place] [facility] as well as an appointment with her OB on Monday. She does report good movement and denies vaginal bleeding, abnormal vaginal discharge, contractions. She denies any other problems at this time and states that the discomfort that she had reported earlier has completely resolved and she probably pulled a muscle. During her observation overnight she remained largely normotensive with 1 elevation with a systolic of 141. She denied any preeclamptic symptoms. NST done every shift was reactive and she had no contractions. She denied any preeclamptic symptoms. 24-hour urine collection was done and was elevated at 1016 I had a long discussion with patient that her protein is definitely elevated however she does not have any symptoms of preeclampsia and I discussed that diagnosis is complicated especially since she has chronic hypertension which in and of itself can cause worsening proteinuria in . Discussed that based on her blood pressure she just has mild elevations and since she has no symptoms of severe preeclampsia at this point I feel like diagnosis is between chronic hypertension and chronic hypertension with possible mild preeclampsia. Discussed this diagnosis with patient in great detail and had her repeat this information to me. -At this point I feel like she is stable for discharge and she does plan on keeping her appointment for her echocardiogram and with [facility] and with her primary care OB later this week. We will see what [facility]'s opinion is of these labs and I discussed that if she has a diagnosis of superimposed preeclampsia she will need delivery at 37 weeks and will need extra monitor. Reassured patient that monitoring was appropriate today. She was encouraged to continue monitoring her blood pressures 2 times a day and to contact us for any severe elevations. Continue blood pressure medication.All her and her partner's questions were answered and they agree with discharge. Emergency room precautions reviewed Reason for Visit Reason for Visit: blood pressure History History History 3 Term 1 Miscarriages/Ectopic 1 0 Living Children 1 Discharge Data Data Completed and Pending: Pending at discharge Category Date Time Status Urine Culture Sta t Lab 07/12/21 06:49 Results Labs from last 24 hours 07/13/21 02:30 Urine Total Volume 1725 Ur Total Protein 2 4 Hr 1016.0 H Urine Total Protei n 58.9 Vitals: Last Vital Signs Pulse 99 07/13/21 07:17 BP 141/81 07/13/21 07:17 Pulse Ox 99 07/12/21 01:27 Discharge Plan Discharge Patient Disposition: Home Condition: Stable Prescriptions: Continued All Day Allergy (cetirizine) 10 mg capsule 10 mg PO DAILY PRN (Reason: unknown) RF: 0 ondansetron HCl [Zofran] 4 mg tablet 4 mg PO Q8H RF: 0 riboflavin (vitamin B2) 100 mg tablet 100 mg PO DAILY RF: 0 PNV #[id number] 30 mg iron-10 mg iron-1 mg capsule 1 cap PO DAILY Qty: 30 RF: 12 ferrous sulfate [Iron (ferrous sulfate)] 325 mg (65 mg iron) tablet 325 mg PO TID RF: 0 albuterol sulfate [ProAir HFA] 90 mcg/actuation HFA aerosol inhaler 2 puff INHALATION DAILY RF: 0 trazodone 100 mg tablet 200 mg PO .qhs Qty: 60 RF: 6 bupropion HCl [Wellbutrin XL] 150 mg tablet extended release 24 hr 150 mg PO QAM Qty: 30 RF: 6 aspirin [Enteric Coated Aspirin] 81 mg tablet,delayed release (DR/EC) 81 mg PO DAILY Qty: 90 RF: 4 nifedipine [Procardia XL] 30 mg tablet extended release 24hr 30 mg PO DAILY Qty: 30 RF: 2 Discharge Orders: Discharge Order (Routine); Ordered 07/13/21 Ordered By: Martha Lara Referrals: Meredith Strange MD [Physician] - (Follow-up in 3 days as scheduled) Patient Instructions: Preeclampsia During (DC), Hypertension During (ED), Opioid Safety, OB Undelivered Discharge Activity Restrictions/Additional Instructions: Pelvic rest, no heavy lifting more than 10 pounds -Follow-up for additional testing as scheduled-echo tomorrow. Follow-up with [facility] on 07/15/2021 as scheduled, follow-up with Dr. Strange on 07/16/2021 as scheduled. Discharge Attestations BUFFING MACHINE OPERATOR SEMIAUTOMATIC Time Spent in Discharge Care*: greater than 30 min Coding Level of Care Code Acute Breastfeeding Educator for 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
== END 2021-07-13 10:10 | disposition home or self-care (01) ==
PROVIDERS: Admitting Provider Obstetrics & Gynecology; Visit Provider Obstetrics & Gynecology
DX: O16.9 Unspecified maternal hypertension, unspecified trimester (principal); O26.893 Other specified pregnancy related conditions, third trimester; Z3A.32 32 weeks gestation of pregnancy; R10.10 Upper abdominal pain, unspecified; R07.89 Other chest pain; O99.333 Smoking (tobacco) complicating pregnancy, third trimester
CPT/HCPCS: 59025; 84156; 87086; 99211; G0378

== ENCOUNTER 2021-07-16 13:36 | Outpatient (CLI) | payer BC, MEDICAID, SELFPAY ==
[2020-07-14 14:09] VITALS: BP 120/74; BMI 44.5
--- NOTE | 2021-07-16 15:22 | ANES.PREANE2 ---
Pre-Anesthetic Assessment Pre-Anesthetic Assessment: Height/Weight: Height 1.57 m Familial anesthetic complications: None Was Beta Tanvir taken within 24 hours: N/A Was Clonidine taken within 24 hours: N/A Social: Social History: Tobacco Exam: Pre-Anes Outpt Exam: alert, oriented x 3, clear to auscultation bilaterally and regular rate & rhythm Airway: Submandibular: WNL Cervical ROM: WNL MP: 1 Additional comments: Very poor dentition History/ROS: No significant history except as noted Pulmonary: Pulmonary: Asthma CV/HEM: CV/HEM: HTN Comments: EKG 07/11/21 Interpretive Statements SINUS RHYTHM WITH SHORT LA INTERVAL MODERATE VOLTAGE CRITERIA FOR LVH, CONSIDER NORMAL VARIANT [MEETS CRITERIA IN ONE OF: R(aVL), S(V1), R(V5), R(V5/V6)+S(V1)] Compared to ECG 06/04/2021 13:17:05 Short LA interval now present Electronically Signed On 07-12-2021 20:51:20 CERTIFIED PHARMACIST ASSISTANT by Junior Escalante M.D. 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 for regional block, General and Regional (specify below) Other: Risk and benefits of labor epidural discussed. Patient consents to labor epidural and in the event of an emergency general anesthesia. Risk of > 500 ml blood loss (7ml/kg in children): No Other Pertinent Information: TTE Evaluation Pending [facility] Anesthesia PFSH: Medical History Asthma Diagnosed as a child when controlled with an albuterol inhaler as needed being managed by her primary care provider. 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 Borderline intellectual functioning Depression Fibromyalgia Not currently on any medication Hypertension Lumbar radiculopathy, chronic Chronic back pain managed by pain medication and the pain clinic No pertinent past medical history Patient denies: hypercholesterolemia, heart, liver, kidney, thyroid problems, DVT/PE. PCP: Dina Post-traumatic stress disorder, chronic PTSD, anxiety and depression diagnosed in 2017 and follows up with behavioral health care every 3 months Surgical History History of cholecystectomy Laparoscopic procedure in 2018 Pyloric stenosis repaired as a baby Family History Mother Hypertension Stroke Lung cancer Grandfather Colon cancer Maternal, diagnosed in his 60s Brother Seizures Family/Other Hyperlipidemia paternal uncle Heart disease maternal uncle Denies family history of Ovarian cancer Diabetes Breast cancer Uterine cancer Thyroid condition Social History Smoking and tobacco status: current every day smoker cigarettes Alcohol intake: never Counseling given: No Marital status: Number of children: 1 Number of grandchildren: 0 Female Reproductive History: Date of last menstrual period: 12/04/20 Para: 1 Spontaneous abortions: Yes Data Anesthesia Cardiac Studies: No Data to Display
== END 2021-07-16 13:40 | disposition home or self-care (01) ==
LOC: LAB 08-12 09:46
PROVIDERS: PCP Family Medicine; Visit Provider Obstetrics & Gynecology
DX: O09.899 Supervision of other high risk pregnancies, unspecified trimester (principal)
CPT/HCPCS: 81000

== ENCOUNTER 2021-07-23 12:17 | Outpatient (CLI) | payer BC, MEDICAID, SELFPAY ==
[2020-07-14 14:09] VITALS: BP 120/74; BMI 44.5
--- NOTE | 2021-07-23 12:21 | USCV_ITS ---
Shilpa Giang Age: 36 Gender: F : 1985 Exam Date: 07/23/2021 12:42 Ordering Phys: Meredith Strange MD Technologist: MATTEO [place] [facility] [place]ication: 34 WEEKS AND CHEST PAIN BP: 130 / 74 HR: 86 Rhythm: Sinus Technical Quality: Adequate MEASUREMENTS (Male / Female) Normal Values 2D ECHO LV Diastolic Diameter PLAX 3.8 cm 4.2 - 5.9 / 3.9 - 5.3 cm LV Systolic Diameter PLAX 2.4 cm IVS Diastolic Thickness 0.9 cm 0.6 - 1.0 / 0.6 - 0.9 cm IVS Systolic Thickness 1.3 cm LVPW Diastolic Thickness 1.3 cm 0.6 - 1.0 / 0.6 - 0.9 cm LVPW Systolic Thickness 1.8 cm LVOT Diameter 2.0 cm LV Ejection Fraction 2D Teich 69.4 % LV Ejection Fraction MOD 2C 58.7 % LV Ejection Fraction 2C AL 63.1 % LA Diameter 3.8 cm LA Width 4.1 cm LA Height 6.0 cm RA Width 3.8 cm RA Height 4.2 cm Aorta at Sinotubular Diameter 1.9 cm M-MODE Aortic Annulus Diameter 2.3 cm LA Ao Ratio MM 1.5 MV E Point Septal Separation 1.3 cm DOPPLER AV Peak Velocity 167.0 cm/s LVOT Peak Velocity 104.0 cm/s AV Area Cont Eq vti 1.9 cm squared AV Area Cont Eq pk 2.0 cm squared MV Area PHT 5.5 cm squared Mitral E to A Ratio 2.6 MV E' Velocity 76.5 cm/s Mitral E to LV E' Lateral Ratio 8.2 TR Peak Velocity 335.2 cm/s TR Peak Gradient 45.0 mmHg TR Mean Velocity 248.1 cm/s TR Mean Gradient 25.6 mmHg TR Velocity Time Integral 92.0 cm RV Acceleration Time 0.1 s RV Ejection Time 0.3 s RV AcT/ET 0.4 FINDINGS Left Ventricle Normal left ventricular cavity size. Normal left ventricular systolic function. No regional wall motion abnormalities. Left ventricular ejection fraction is estimated at 69 %. Grade III/IV diastolic dysfunction (restrictive filling pattern), severely elevated filling pressures. Right Ventricle The right ventricle is normal in size and function. RVSP could not be calculated due to incomplete tricuspid regurgitation velocity profile. Right Atrium The right atrium is normal in size. Left Atrium Moderately increased left atrial size. Mitral Valve Moderately thickened mitral valve. No mitral valve stenosis. Moderate mitral valve regurgitation. Aortic Valve Moderate aortic valve calcification. No aortic valve stenosis. No aortic valve regurgitation. Tricuspid Valve Moderate tricuspid valve stenosis. Pulmonic Valve Structurally normal pulmonic valve without significant stenosis. There is no pulmonic regurgitation. Pericardium Normal pericardium without effusion. Aorta Normal ascending aorta dimension. CONCLUSIONS 1-Normal left ventricular cavity size. Normal left ventricular systolic function. No regional wall motion abnormalities. Left ventricular ejection fraction is estimated at 69 %. Grade III/IV diastolic dysfunction (restrictive filling pattern), severely elevated filling pressures. 2-Moderately increased left atrial size. 3-Moderately thickened mitral valve. No mitral valve stenosis. Moderate mitral valve regurgitation. 4-Moderate aortic valve calcification. No aortic valve stenosis. No aortic valve regurgitation. 5-The right ventricle is normal in size and function. RVSP could not be calculated due to incomplete tricuspid regurgitation velocity profile. 6-There is no pericardial effusion. 7-There are no prior echocardiogram studies to compare. Elizabeth Cooper MD (Electronically Signed) Final Date: 24 July 2021 18:33 S
== END 2021-07-23 12:18 | disposition home or self-care (01) ==
LOC: RAD 12:18
PROVIDERS: PCP Family Medicine; Visit Provider Obstetrics & Gynecology
DX: O09.899 Supervision of other high risk pregnancies, unspecified trimester (principal); R94.31 Abnormal electrocardiogram [ECG] [EKG]; I05.9 Rheumatic mitral valve disease, unspecified
CPT/HCPCS: 81000; 93306

== ENCOUNTER 2021-07-30 18:50 | Outpatient (CLI) | payer BC, MEDICAID, SELFPAY ==
[2020-07-14 14:09] VITALS: BP 120/74; BMI 44.5
[2021-07-30] VITALS (7 sets, daily range): BP systolic 111–119; BP diastolic 57–72; PULSE 86–97; RESP 20; TEMP 36.6; BMI 43.1
[2021-07-30 19:52] LABS: Bilirubin Urine Neg (Negative); Blood Urine Neg (Negative); Glucose Urine UA Norm (Normal); Ketones Urine 1+ (Negative); Leukocyte Esterase Urine 1+ (Negative); Nitrate Urine Negative (Negative); Protein Urine 2+ (Negative); Specific Gravity, Urine 1.025 (1.005-1.030); Urine Color Yellow (Yellow); Urobilinogen Urine 1 mg/dL (Negative); pH Urine 5 (5-7)
[2021-07-30 19:53] LABS: RBC Urine 0-4 /hpf (0-2); Squamous Epithelial Cell Urine 25-40 /hpf (0-5)
[2021-07-30 19:54] LABS: Add Urine Culture? No; Bacteria Urine 3+ /hpf; Mucus Urine 4+ /hpf
[2021-07-30] MEDS: betamethasone susp 6 mg/mL 5 mL 12 MG IM (19:58)
--- NOTE | 2021-07-30 20:24 | PC.NURSE ---
Pt stated pain level of 10. RN FLACC pt a 07/19.
== END 2021-07-30 20:19 | disposition home or self-care (01) ==
LOC: OPOB 18:53 → OBGYN 18:55
PROVIDERS: PCP Family Medicine; Visit Provider Obstetrics & Gynecology
DX: O26.899 Other specified pregnancy related conditions, unspecified trimester (principal); Z3A.00 Weeks of gestation of pregnancy not specified; R10.9 Unspecified abdominal pain
CPT/HCPCS: 59025; 81001; 96372; 99211; J0702

== ENCOUNTER 2021-07-31 19:51 | Outpatient (CLI) | payer BC, MEDICAID, SELFPAY ==
[2020-07-14 14:09] VITALS: BP 120/74; BMI 44.5
[2021-07-31 19:54] VITALS: BMI 43.1
[2021-07-31 19:57] VITALS: TEMP 36.3
[2021-07-31 20:00] VITALS: BP 140/62; PULSE 99; RESP 17
[2021-07-31] MEDS: betamethasone susp 6 mg/mL 5 mL 12 MG IM (20:39)
[2021-07-31 20:40] VITALS: BP 108/60; PULSE 104
[2021-07-31 20:50] VITALS: BP 108/60; PULSE 104; RESP 17; TEMP 36.3
== END 2021-07-31 20:50 | disposition home or self-care (01) ==
LOC: OPOB 19:52 → OBGYN 19:52
PROVIDERS: PCP Family Medicine; Visit Provider Obstetrics & Gynecology
DX: O26.899 Other specified pregnancy related conditions, unspecified trimester (principal); Z3A.00 Weeks of gestation of pregnancy not specified
CPT/HCPCS: 59025; 96372; 99211; J0702

== ENCOUNTER 2021-08-02 16:47 | Outpatient (CLI) | payer BC, MEDICAID, SELFPAY ==
[2020-07-14 14:09] VITALS: BP 120/74; BMI 44.5
[2021-08-02 16:57] VITALS: RESP 18
[2021-08-02 17:08] VITALS: BP 151/73; PULSE 92
[2021-08-02 17:14] VITALS: BP 146/66; PULSE 86
== END 2021-08-02 17:20 | disposition home or self-care (01) ==
LOC: OPOB 16:50 → OBGYN 16:51
PROVIDERS: PCP Family Medicine; Visit Provider Obstetrics & Gynecology
DX: O16.9 Unspecified maternal hypertension, unspecified trimester (principal); Z3A.00 Weeks of gestation of pregnancy not specified
CPT/HCPCS: 59025; 81000; 99211

== ENCOUNTER 2021-08-14 19:30 | Outpatient (CLI) | payer BC, MEDICAID, SELFPAY ==
[2020-07-14 14:09] VITALS: BP 120/74; BMI 44.5
[2021-08-14] VITALS (7 sets, daily range): BP systolic 127–183; BP diastolic 68–88; PULSE 93–97; RESP 20; BMI 43.5
[2021-08-15 00:03] LABS: Adenovirus Not Detected (NOT DETECT); Chlamydia Pneumoniae Not Detected (NOT DETECT); Coronavirus 229E,HKU1,NL63,OC4 Not Detected (NOT DETECT); Human Metapneumovirus Not Detected (NOT DETECT); Human Rhinovirus/Enterovirus Not Detected (NOT DETECT); Influenza A Not Detected (NOT DETECT); Influenza A H1 Not Detected (NOT DETECT); Influenza A H1-2009 Not Detected (NOT DETECT); Influenza A H3 Not Detected (NOT DETECT); Influenza B Not Detected (NOT DETECT); Mycoplasma Pneumoniae Not Detected (NOT DETECT); Parainfluenza Virus Type 1 Not Detected (NOT DETECT); Parainfluenza Virus Type 2 Not Detected (NOT DETECT); Parainfluenza Virus Type 3 Not Detected (NOT DETECT); Parainfluenza Virus Type 4 Not Detected (NOT DETECT); Respiratory Syncytial Virus A Not Detected (NOT DETECT); Respiratory Syncytial Virus B Not Detected (NOT DETECT); SARS-COV-2 Not Detected (NOT DETECT)
--- NOTE | 2021-08-15 10:26 | P.PCN_ITS ---
Procedure/Consent Procedure Narrative: NONSTRESS TEST: Place of test[place] [facility] Indication: 36-year-old 3 para 1-0-1-1 at 36 weeks and 5 days gestation, chronic hypertension, abdominal pain Date and time of test: 08/14/2021, 8:30 PM Baseline: 145 Variability: Moderate variability Accelerations: Celebrations present Decelerations: no decelerations Tocometry: No contractions--some irritability INTERPRETATION: NST reactive, continue kick counts
== END 2021-08-14 21:30 | disposition home or self-care (01) ==
LOC: OPOB 19:45 → OBGYN 19:46
PROVIDERS: PCP Family Medicine; Visit Provider Obstetrics & Gynecology
DX: O16.3 Unspecified maternal hypertension, third trimester (principal); Z3A.35 35 weeks gestation of pregnancy; R10.9 Unspecified abdominal pain
CPT/HCPCS: 59025; 87081; 87635; 99211

== ENCOUNTER 2021-08-16 21:05 | Inpatient (IN) | payer BC, MEDICAID, SELFPAY ==
[2020-07-14 14:09] VITALS: BP 120/74; BMI 44.5
[2021-08-16] VITALS (45 sets, daily range): BP systolic 120–145; BP diastolic 58–92; PULSE 88–101; RESP 14; TEMP 36.4; O2SAT 88–98; BMI 43.7
[2021-08-16] MEDS: lactated ringers 1,000 ML 999 ML IV (21:19)
[2021-08-16 21:42] LABS: Basophils % 0.2 %; Eosinophils # 0.1 10^3/uL (0.0-0.8); Hematocrit 33.2 % (37.0-47.0); Hemoglobin 10.8 g/dL (11.5-15.3); Lymphocytes # 1.8 10^3/uL (0.8-4.8); Lymphocytes % 16.9 %; Mean Corpuscular HGB Conc 32.5 g/dL (30.0-36.0); Mean Corpuscular Hemoglobin 31.6 pg (28.0-34.0); Mean Corpuscular Volume 97.1 fl (81-99); Mean Platelet Volume 8.7 fL (7.4-10.4); Monocytes # 0.6 10^3/uL (0.2-0.9); Monocytes % 5.6 %; Neutrophils # 8.05 10^3/uL (1.8-7.7); Neutrophils % 74.5 %; Nucleated Red Blood Cells % 0.3 %; Platelet Count 201 10^3/cmm (130-400); Red Blood Count 3.42 10^6/uL (4.1-5.3); Red Cell Distribution Width 15.6 % (12.1-15.1); White Blood Count 10.8 10^3/uL (4.0-10.0)
[2021-08-16] MEDS: magnesium sulfate premix 4 GM/100 ML PREMIX IV (21:42)
[2021-08-16] MEDS: dextrose 5%-lactated ringers 1,000 ML 75 ML IV (21:44)
[2021-08-16] MEDS: magnesium sulfate premix 20 GM/500 ML BAG IV (22:02)
[2021-08-16 22:20] LABS: Alanine Aminotransferase 8 U/L (0-33); Albumin Level 3.2 g/dL (3.5-5.2); Alkaline Phosphatase 155 IU/L (35-105); Anion Gap 12.8 (5-19); Aspartate Amino Transferase 29 U/L (0-32); Blood Urea Nitrogen 9 mg/dL (6-20); Calcium 7.8 mg/dL (8.5-10.5); Carbon Dioxide 24 mmol/L (22-29); Chloride 104 mmol/L (98-107); Globulin 2.8 g/dL (1.3-4.6); Glomerular Filtration Rate 140.4 mL/min (90-130); Glucose 91 mg/dL (65-115); Osmolality Calculated 282 mOsm/kg (285-295); Potassium 3.8 mmol/L (3.5-5.1); Sodium 137 mmol/L (136-145); Total Bilirubin 0.2 mg/dL (0.15-1.2)
[2021-08-17] VITALS (333 sets, daily range): BP systolic 99–229; BP diastolic 54–97; PULSE 85–111; RESP 18–20; TEMP 35.8–36.8; O2SAT 87–100
[2021-08-17] MEDS: miSOPROStol 100 mcg tablet 25 MCG VAGINAL
[2021-08-17 00:36] LABS: Amphetamines Screen Urine Negative (Negative); Barbiturates Screen Urine Negative (Negative); Benzodiazepines Screen Urine Negative (Negative); Cocaine Screen Urine Negative (Negative); Opiate Screen Urine Negative (Negative); PCP Screen Urine Negative (Negative); THC Screen Urine Negative (Negative)
[2021-08-17 04:27] LABS: Magnesium Level (OB Only) 4.1 mg/dL (5.0-7.5)
[2021-08-17] MEDS: albuterol 8 gm MDI 2 PUFF INHALATION (04:56)
[2021-08-17] MEDS: oxytocin 30 UNIT/500 ML BAG IV (06:15)
[2021-08-17] MEDS: magnesium sulfate premix 20 GM/500 ML BAG IV ×3 (06:34→22:12)
--- NOTE | 2021-08-17 08:49 | PC.NURSE ---
Pitocin Pitocin not increased at this time. Documentation was completed on where the pitocin was at upon this nurse entering the room.
[2021-08-17 09:05] LABS: Magnesium Level (OB Only) 4.9 mg/dL (5.0-7.5)
--- NOTE | 2021-08-17 09:11 | PC.NURSE ---
PITOCIN TITRATION DONE AT 0700, 0715, 0730 AND 0800 AND 0815 UNABLE TO DOCUMENT OF MAR.
[2021-08-17] MEDS: lactated ringers 500 ML IV (09:30)
--- NOTE | 2021-08-17 11:04 | ANES.PAUD2 ---
Pre-Anesthetic Update Pre-Anesthetic Assessment: Date of Surgery/Procedure: 08/17/21 Proposed Procedure: Epidural Changes from Pre-Anesthetic Assessment: None Labs Last 48hrs: Short CBC 08/16/21 Range/Units 21:25 WBC 10.8 H (4.0-10.0) 10^3/ uL Hgb 10.8 L (11.5-15.3) g/dL Hct 33.2 L (37.0-47.0) % MCV 97.1 (81-99) fl Plt Count 201 (130-400) 10^3/c mm Neut % (Auto) 74.5 % Neut # (Auto) 8.05 H (1.8-7.7) 10^3/u L BMP 08/16/21 21:25 Sodium 137 Potassium 3.8 Chloride 104 Carbon Dioxide 24 BUN 9 Creatinine 0.5 Glucose 91 Calcium 7.8 L Liver Function 08/16/21 Range/Units 21:25 Total Bilirubin 0.2 (0.15-1.2) mg/dL AST 29 (0-32) U/L ALT 8 (0-33) U/L Alkaline Phosphata se 155 H (35-105) IU/L Albumin 3.2 L (3.5-5.2) g/dL Vitals: Temperature 97.2 F L 08/17/21 10:47 Pulse Rate 92 08/17/21 11:01 Pulse Rhythm 08/16/21 21:00 Pulse Strength 3+ Normal 08/16/21 21:00 Respiratory Rate 19 H 08/17/21 08:44 Respiratory Effort 08/16/21 21:00 Respiratory Depth Deep 08/16/21 21:00 Respiratory Patter n 08/16/21 21:00 Blood Pressure 136/69 08/17/21 10:56 Pulse Oximetry 100 08/17/21 11:01 Oxygen Delivery Me thod 08/17/21 04:56 Exam: Pre-Anes Outpt Exam: alert, oriented x 3, clear to auscultation bilaterally and regular rate & rhythm Cardiac Studies: Echocardiogram 07/23/21
--- NOTE | 2021-08-17 11:05 | ANES.PROC ---
Anesthesia Procedures Procedure/Date: 08/17/21 Epidural: Time Out Performed: Yes Consents Signed: Procedure Consent Consent: requested by attending/covering physician, from patient, risks and benefits reviewed and patient agrees to proceed Lumbar Level: L3-L4 Epidural position: sitting Epidural procedure: sterile prep of area, 1% lidocaine to numb the area, 18 g needle, negative for paresthesia passed, neg for paresthesia, test dose given, 1.5% xylocaine 1:200k epi (3 ml), 0.2% Ropivacaine bolus ml (5 ), placed PCEA, no systemic response, sterile dressing applied, L.U.D. no apparent complications and 0.2% Ropiavacaine @ mls/hr (10) Additional Comments: C[place] at 8 cm, threaded to 14 cm. Patient reported decreased pain of subsequent contraction.
--- NOTE | 2021-08-17 13:39 | PM.OPHPUD ---
Labor & Delivery H&P Update Date of Procedure: August 17, 2021 Date H&P Performed: 08/16/21 Changes to previous documentation: None-GBS is pending Admission Diagnosis: Primary indication for procedure: Chronic hypertension with superimposed preeclampsia
[2021-08-17 14:22] LABS: Magnesium Level (OB Only) 5.7 mg/dL (5.0-7.5)
[2021-08-17 20:57] LABS: Magnesium Level (OB Only) 6.3 mg/dL (5.0-7.5)
--- NOTE | 2021-08-17 21:38 | P.PCNOB_ITS ---
Delivery Note: Date of delivery: August 17, 2021 Pre-delivery diagnoses: iup @ 37 weeks gestation. mild preeclampsia Post-delivery diagnoses: same Procedure: Delivering Physician: Alexandr Estimated blood loss (mL): 20 Findings: term female in the straight OA presentation with compound left arm Pre-Delivery Course: The patient was admitted for induction at 37 weeks due to mild preeclampsia. She received one dose of cytotec. She was having contractions after the single dose and the baby would have occasional late decelerations. For this reason, pitocin was started. She reached a max dose of 15mU. She acheived 7cm dilation and the pitocin was decreased to 8 mU. She had complete cervical dilation and began pushing. Delivery: The patient had complete cervical dilation and began to push. The head delivered in the straight OA position over an intact perineum under epidural anesthesia. The nose and mouth were bulb suctioned. The shoulders and body delivered atraumatically. The baby was placed onto the mother's abdomen. The cord was clamped and cut. Cord blood was obtained. The placenta delivered spontaneously. It was inspected and found to be intact. Inspection of the perineum revealed no repair was required and no lacerations. Estimated blood loss 20 mL. Apgars on baby were 8 at 1 minute and 9 at 5 minutes. Weight of baby is pending. Mother and baby were stable post delivery. 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
[2021-08-17] MEDS: oxytocin 30 UNIT/500 ML BAG 600 UNIT IV (23:05)
[2021-08-18] VITALS (298 sets, daily range): BP systolic 128–182; BP diastolic 66–108; PULSE 75–104; RESP 16–18; TEMP 35.3–36.3; O2SAT 87–98
[2021-08-18 06:26] LABS: Magnesium Level (OB Only) 5.9 mg/dL (5.0-7.5)
[2021-08-18] MEDS: magnesium sulfate premix 20 GM/500 ML BAG IV ×2 (07:29→16:44)
[2021-08-18] MEDS: dextrose 5%-lactated ringers 1,000 ML 62.5 ML IV (07:30)
--- NOTE | 2021-08-18 09:33 | PM.PN ---
Subjective Subjective: The patient reports that she is doing well this morning. No concerns. Magnesium is still infusing. moderate urine output. No diuresis. Vitals/I&O/Wt Last Vital Signs Temp 97.3 F L 08/18/21 00:08 Pulse 87 08/18/21 09:26 Resp 17 08/18/21 07:48 BP 128/71 08/18/21 08:41 Pulse Ox 95 08/18/21 09:26 08/17/21 08/18/21 08/18/21 22:59 06:59 14:59 Intake Total 942.233 / 1989.649 700 / 2689.649 0 / 0 Output Total 295 / 1620 932 / 2552 197 / 197 Balance 647.233 / 369.649 -232 / 137.649 -197 / -197 Weight last 48 hrs Weight 239 lb Physical Exam Const: COMMON NORMALS: no acute distress, patient oriented x3, alert and well nourished GENERAL APPEARANCE: cooperative, comfortable, well kempt and well developed ORIENTATION/CONSCIOUSNESS: Yes awake, Yes oriented to person, Yes oriented to place and Yes oriented to time Resp: COMMON NORMALS: normal respiratory effort EFFORT & INSPECTION: Yes able to speak in complete sentences GI: COMMON NORMALS: Soft to palpation and non-tender PALPATION: Yes Soft to palpation Extremity: COMMON NORMALS: no calf tenderness Neuro: COMMON NORMALS: patient oriented x3 SENSORIUM/ORIENTATION: Yes alert, Yes oriented to person, Yes oriented to place and Yes oriented to time Psych: APPEARANCE: Yes well kempt Urinary Catheter Management: Love Latex Free: Cath Placed During This Visit: yes Reason for Continuing Indwelling Catheter: Accurate Measurement of Urinary Output in Critically Ill Patients Urinary Catheter Date of Insertion: 08/16/21 Urinary Catheter Time of Insertion: 23:15 Data : 08/16/21 21:25 08/16/21 21:25 A&P Assessment and plan (1) Rh negative state in antepartum period: plan to discontinue mag sulfate at 24 hours continue routine PP care Patient may have regular diet Status: Acute (2) Obesity during : Status: Acute (3) Elderly multigravida: Status: Acute Qualifiers: Trimester: second trimester Qualified Code(s): O09.522 - Supervision of elderly multigravida, second trimester (4) Depression during : Status: Acute Qualifiers: Trimester: second trimester Qualified Code(s): O99.342 - Other mental disorders complicating , second trimester; F32.9 - Major depressive disorder, single episode, unspecified (5) Supervision of other high-risk : Status: Acute (6) Borderline intellectual functioning: Status: Acute (7) Asthma: Status: Acute Qualifiers: Asthma severity: mild Asthma persistence: intermittent Asthma complication type: uncomplicated Qualified Code(s): J45.20 - Mild intermittent asthma, uncomplicated Attestations Medical Necessity Statement*: The patient has already been inpatient for more than 2 midnights Coding Level of Care Code Acute 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
[2021-08-18 11:56] LABS: Hematocrit 29.6 % (37.0-47.0); Hemoglobin 9.7 g/dL (11.5-15.3); Mean Corpuscular HGB Conc 32.8 g/dL (30.0-36.0); Mean Corpuscular Hemoglobin 31.3 pg (28.0-34.0); Mean Corpuscular Volume 95.5 fl (81-99); Mean Platelet Volume 9.2 fL (7.4-10.4); Platelet Count 191 10^3/cmm (130-400); Red Cell Distribution Width 15.3 % (12.1-15.1); White Blood Count 12.2 10^3/uL (4.0-10.0)
[2021-08-18 12:47] LABS: Magnesium Level (OB Only) 5.9 mg/dL (5.0-7.5)
--- NOTE | 2021-08-18 13:23 | ANE.PACU2 ---
Inpatient post-anesthesia follow up: Airway intact: Yes Vital signs: Temperature 97.3 F Pulse Rate 90 Respiratory Rate 16 Blood Pressure 143/81 Pulse Oximetry 98 Oxygen Delivery Me thod Non-Rebreather Oxygen Flow Rate Fraction of Inspir ed Oxygen Hydration adequate: Yes Nausea and vomiting: No Pain level: 2 Mental status: Baseline
[2021-08-18] MEDS: prenatal vitamin Capsule 1 CAP PO (14:24)
[2021-08-18] MEDS: ibuprofen 800 mg tablet PO ×2 (14:25→21:38)
--- NOTE | 2021-08-18 16:44 | PC.NURSE ---
Mother is struggling with hygiene efforts while having her stay. She mentioned to the nurse that her belly button needed cleaned then proceeded to stick her finger in her belly button and then sniff her finger. She also mentioned that she needed to have a bowel movement but was struggling to go so she stuck her hand under her buttocks and then brought her hand to her mouth and tried to smell to see if it was coming out. This nurse educated her on hygiene efforts that she needs to make sure she is washing her hands before and after handling any bodily fluids especially before holding baby as she does not want to acquire an infection or pass an infection on to the baby.
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
[2021-08-18 18:52] LABS: Magnesium Level (OB Only) 6.1 mg/dL (5.0-7.5)
[2021-08-19 03:13] VITALS: TEMP 36.6
[2021-08-19 03:14] VITALS: BP 146/75; PULSE 83
[2021-08-19] MEDS: HYDROcodone-acetaminophen 5-325 mg Tablet PO (06:09)
[2021-08-19] MEDS: docusate sodium 100 mg Capsule PO ×2 (09:19→20:45)
[2021-08-19] MEDS: ibuprofen 800 mg tablet PO ×3 (09:19→20:45)
[2021-08-19] MEDS: prenatal vitamin Capsule 1 CAP PO (09:19)
[2021-08-19 09:22] VITALS: BP 138/75; PULSE 74
[2021-08-19 09:37] VITALS: PULSE 74; RESP 16; O2SAT 98
[2021-08-19 17:13] VITALS: BP 151/78; PULSE 75
--- NOTE | 2021-08-19 17:13 | P.PN_ITS ---
Vitals/I&O/Wt Last Vital Signs Temp 97.9 F 08/19/21 03:13 Pulse 74 08/19/21 09:37 Resp 16 08/19/21 09:37 BP 138/75 08/19/21 09:22 Pulse Ox 98 08/19/21 09:37 08/19/21 08/19/21 08/19/21 06:59 14:59 22:59 Output Total 550 / 3477 Balance -550 / -1793.667 Physical Exam Narrative: The patient is doing well today. Her blood pressures are still elevated slightly. She denies any headache or right upper quadrant pain. Her mag sulfate was stopped at 24 hours and she has been having good diuresis. Const: COMMON NORMALS: no acute distress, patient oriented x3, alert and well nourished GENERAL APPEARANCE: cooperative, comfortable, well kempt and well developed ORIENTATION/CONSCIOUSNESS: Yes awake, Yes oriented to person, Yes oriented to place and Yes oriented to time Resp: COMMON NORMALS: normal respiratory effort EFFORT & INSPECTION: Yes able to speak in complete sentences GI: COMMON NORMALS: Soft to palpation and non-tender PALPATION: Yes Soft to palpation Extremity: COMMON NORMALS: no calf tenderness Neuro: COMMON NORMALS: patient oriented x3 SENSORIUM/ORIENTATION: Yes alert, Yes oriented to person, Yes oriented to place and Yes oriented to time Psych: APPEARANCE: Yes well kempt Urinary Catheter Management: Love Latex Free: Cath Placed During This Visit: yes, but has since been removed by the nurse Reason for Continuing Indwelling Catheter: Decision to DC Catheter Urinary Catheter Date of Insertion: 08/16/21 Urinary Catheter Time of Insertion: 23:15 Date Urinary Catheter Removed: 08/18/21 Time Urinary Catheter Discontinued: 19:38 Data : 08/18/21 11:30 08/16/21 21:25 A&P Assessment and plan (1) Rh negative state in antepartum period: Status: Acute (2) Obesity during : Status: Acute (3) Elderly multigravida: Status: Acute Qualifiers: Trimester: second trimester Qualified Code(s): O09.522 - Supervision of elderly multigravida, second trimester (4) Chronic hypertension: Status: Acute (5) Depression during : Status: Acute Qualifiers: Trimester: second trimester Qualified Code(s): O99.342 - Other mental disorders complicating , second trimester; F32.9 - Major depressive disorder, single episode, unspecified (6) Supervision of other high-risk : Status: Acute (7) Borderline intellectual functioning: Status: Acute (8) Asthma: Status: Acute Qualifiers: Asthma severity: mild Asthma persistence: intermittent Asthma complication type: uncomplicated Qualified Code(s): J45.20 - Mild intermittent asthma, uncomplicated (9) Post-traumatic stress disorder, chronic: Status: Acute (10) Preeclampsia: The patient is stable will continue to monitor blood pressures and discharge home tomorrow Status: Acute Attestations Medical Necessity Statement*: The patient has been here for 3 nights Coding Level of Care Code Acute President for [facility] Fwd Diagnoses Rh negative state in antepartum period O26.899; Z67.91 Obesity during O99.210 Elderly multigravida O09.522 Trimester: second trimester Chronic hypertension I10 Depression during O99.342; F32.9 Trimester: second trimester Supervision of other high-risk O09.899 Borderline intellectual functioning R41.83 Asthma J45.20 Asthma severity: mild Asthma persistence: intermittent Asthma complication type: uncomplicated Post-traumatic stress disorder, chronic F43.12 Preeclampsia O14.90
[2021-08-19 22:11] VITALS: BP 127/61; PULSE 75; TEMP 36.3
[2021-08-20 04:32] VITALS: TEMP 36.4
[2021-08-20 04:33] VITALS: BP 115/57; PULSE 70
[2021-08-20] MEDS: prenatal vitamin Capsule 1 CAP PO (10:13)
[2021-08-20] MEDS: ibuprofen 800 mg tablet PO (10:13)
[2021-08-20] MEDS: docusate sodium 100 mg Capsule PO (10:14)
[2021-08-20 10:18] VITALS: BP 157/89; PULSE 88
--- NOTE | 2021-08-20 10:23 | PC.NURSE ---
This nurse and Giuliana from [facility] entered the room to inform the pt and her significant other that [facility] has filed before the court to take custody of the . The pt was visible upset and crying as Giuliana informed the pt of the courts decision to take custody of infant. Giuliana from [facility] gave a copy of the court order and explained to the pt the date the pt needed to be present before the [place] judge. the date was then starred so the pt would know where to find the date on the court order. the pt verbalized understanding.
--- NOTE | 2021-08-20 11:36 | P.DS_ITS ---
Discharge Providers Date of Admission: 08/16/21 21:05 Date of Discharge: August 20, 2021 Attending Provider at Admission: Martha Lara MD Attending Provider at Discharge: Martha Lara MD Primary Care Provider: Gilberto Rashid DO Diagnoses at Discharge Discharge Diagnosis (1) Rh negative state in antepartum period: Status: Acute (2) Obesity during : Status: Acute (3) Elderly multigravida: Status: Acute Qualifiers: Trimester: second trimester Qualified Code(s): O09.522 - Supervision of elderly multigravida, second trimester (4) Chronic hypertension: Status: Acute (5) Depression during : Status: Acute Qualifiers: Trimester: second trimester Qualified Code(s): O99.342 - Other mental disorders complicating , second trimester; F32.9 - Major depressive disorder, single episode, unspecified (6) Supervision of other high-risk : Status: Acute (7) Borderline intellectual functioning: Status: Acute (8) Asthma: Status: Acute Qualifiers: Asthma complication type: uncomplicated Asthma persistence: intermittent Asthma severity: mild Qualified Code(s): J45.20 - Mild intermittent asthma, uncomplicated Permanent problem details: Diagnosed as a child when controlled with an albuterol inhaler as needed being managed by her primary care provider. She does not see a it compliance manager. (9) Post-traumatic stress disorder, chronic: Status: Acute Permanent problem details: PTSD, anxiety and depression diagnosed in 2017 and follows up with behavioral health care every 3 months (10) Preeclampsia: Status: Acute Reason for Visit Reason for Visit: IOL Hospital Course Hospital Course The patient was admitted for induction at 37 weeks for preeclampsia. She was started on magnesium sulfate for seizure prophylaxis. She had spontaneous delivery of a term female . She had the magnesium sulfate continued for 24 hours. There were some concerns over the patient and her partner's ability to care for the baby and DFS was contacted. The baby was taken into custody on day #3. The patient did well and was ready for discharge on day #3 Physical Exam Const: COMMON NORMALS: no acute distress, patient oriented x3 and alert GENERAL APPEARANCE: cooperative, comfortable, well kempt and well developed ORIENTATION/CONSCIOUSNESS: Yes awake, Yes oriented to person, Yes oriented to place and Yes oriented to time GI: COMMON NORMALS: Soft to palpation and non-tender PALPATION: Yes Soft to palpation Extremity: COMMON NORMALS: no calf tenderness Neuro: COMMON NORMALS: patient oriented x3 SENSORIUM/ORIENTATION: Yes alert, Yes oriented to person, Yes oriented to place and Yes oriented to time Psych: APPEARANCE: Yes well kempt Urinary Catheter Management: Love Latex Free: Cath Placed During This Visit: yes, but has since been removed by the nurse Reason for Continuing Indwelling Catheter: Decision to DC Catheter Urinary Catheter Date of Insertion: 08/16/21 Urinary Catheter Time of Insertion: 23:15 Date Urinary Catheter Removed: 08/18/21 Time Urinary Catheter Discontinued: 19:38 Discharge Data Studies Completed and Pending Completed Studies During Hospitalization Category Date Time Status Pathology: Surgical [PTH] Routine Pth 08/18/21 10:31 Completed Laboratory Results WBC 12.2 10^3/uL (4.0-10.0) H 08/18/21 11:30 RBC 3.10 10^6/uL (4.1-5.3) L 08/18/21 11:30 Hgb 9.7 g/dL (11.5-15.3) L 08/18/21 11:30 Hct 29.6 % (37.0-47.0) L 08/18/21 11:30 MCV 95.5 fl (81-99) 08/18/21 11:30 MCH 31.3 pg (28.0-34.0) 08/18/21 11:30 MCHC 32.8 g/dL (30.0-36.0) 08/18/21 11:30 RDW 15.3 % (12.1-15.1) H 08/18/21 11:30 Plt Count 191 10^3/cmm (130-400) 08/18/21 11:30 MPV 9.2 fL (7.4-10.4) 08/18/21 11:30 Neut % (Auto) 74.5 % 08/16/21 21:25 Lymph % (Auto) 16.9 % 08/16/21 21:25 [place] % (Auto) 5.6 % 08/16/21 21:25 Eos % (Auto) 1.0 % 08/16/21 21:25 Baso % (Auto) 0.2 % 08/16/21 21: Neut # (Auto) 8.05 10^3/uL (1.8-7.7) H 08/16/21 21:25 Lymph # (Auto) 1.8 10^3/uL (0.8-4.8) 08/16/21 21:25 [place] # (Auto) 0.6 10^3/uL (0.2-0.9) 08/16/21 21:25 Eos # (Auto) 0.1 10^3/uL (0.0-0.8) 08/16/21 21:25 Baso # (Auto) 0.0 10^3/uL (0.0-0.1) 08/16/21 21:25 Nucleated RBC % (auto) 0.3 % 08/16/21: Nucleated RBCs # 0.0 /100WBC 08/16/21 21:25 Sodium 137 mmol/L (136-145) 08/16/21 21:25 Potassium 3.8 mmol/L (3.5-5.1) 08/16/21 21:25 Chloride 104 mmol/L (98-107) 08/16/21 21:25 Carbon Dioxide 24 mmol/L (22-29) 08/16/21 21:25 Anion Gap 12.8 (5-19) 08/16/21 21:25 BUN 9 mg/dL (6-20) 08/16/21 21:25 Creatinine 0.5 mg/dL (0.5-0.9) 08/16/21 21:25 GFR Calculation 140.4 mL/min (90-130) H 08/16/21 21:25 Glucose 91 mg/dL (65-115) 08/16/21 21:25 Calculated Osmolality 282 mOsm/kg (285-295) L 08/16/21 21:25 Uric Acid 4.0 mg/dL (2.4-5.7) 08/16/21 21:25 Calcium 7.8 mg/dL (8.5-10.5) L 08/16/21 21:25 Magnesium 6.1 mg/dL (5.0-7.5) 08/18/21 17:40 Total Bilirubin 0.2 mg/dL (0.15-1.2) 08/16/21 21:25 AST 29 U/L (0-32) 08/16/21 21:25 ALT 8 U/L (0-33) 08/16/21 21:25 Alkaline Phosphatase 155 IU/L (35-105) H 08/16/21 21:25 Total Protein 6.0 g/dL (6.6-8.7) L 08/16/21 21:25 Albumin 3.2 g/dL (3.5-5.2) L 08/16/21 21:25 Globulin 2.8 g/dL (1.3-4.6) 08/16/21 21:25 Urine Opiates Screen Negative ng/mL (Negative) 08/16/21 23:24 Ur Barbiturates Screen Negative ng/mL (Negative) 08/16/21 23:24 Ur Phencyclidine Scrn Negative ng/mL (Negative) 08/16/21 23:24 Ur Amphetamines Screen Negative ng/mL (Negative) 08/16/21 23:24 U Benzodiazepines Scrn Negative ng/mL (Negative) 08/16/21 23:24 Urine Cocaine Screen Negative ng/mL (Negative) 08/16/21 23:24 U Marijuana (THC) Screen Negative ng/mL (Negative) 08/16/21 23:24 Blood Type AB Negative 08/16/21 21:25 Rho(D) Type Negative 08/16/21 21:25 Antibody Screen Negative 08/16/21 21:25 Screen Negative (Negative) 08/18/21 11:30 Vitals Last Vital Signs Temp 97.5 F L 08/20/21 04:32 Pulse 88 08/20/21 10:18 Resp 16 08/19/21 09:37 BP 157/89 08/20/21 10:18 Pulse Ox 98 08/19/21 09:37 Discharge Plan Discharge Patient Disposition: Home Condition: Stable Prescriptions: Continued All Day Allergy (cetirizine) 10 mg capsule 10 mg PO DAILY PRN (Reason: unknown) 0RF ondansetron HCl [Zofran] 4 mg tablet 4 mg PO Q8H 0RF riboflavin (vitamin B2) 100 mg tablet 100 mg PO DAILY 0RF PNV #[id number] 30 mg iron-10 mg iron-1 mg capsule 1 cap PO DAILY Qty: 30 12RF ferrous sulfate [Iron (ferrous sulfate)] 325 mg (65 mg iron) tablet 325 mg PO TID 0RF albuterol sulfate [ProAir HFA] 90 mcg/actuation HFA aerosol inhaler 2 puff INHALATION DAILY 0RF trazodone 100 mg tablet 200 mg PO .qhs Qty: 60 6RF bupropion HCl [Wellbutrin XL] 150 mg tablet extended release 24 hr 150 mg PO QAM Qty: 30 6RF aspirin [Enteric Coated Aspirin] 81 mg tablet,delayed release (DR/EC) 81 mg PO DAILY Qty: 90 4RF nifedipine [Procardia XL] 30 mg tablet extended release 24hr 30 mg PO DAILY Qty: 30 2RF Discharge Orders: Discharge Order (Routine); Ordered 08/20/21 Ordered By: Meredith Strange Referrals: Meredith Strange MD [Physician] - 08/30/21 10:30 am (Your [address] week follow up with Dr. Strange is on Monday August 30, 2021 at 10:45 a.m. Your [address] Strange is on September 30 at 2:30 p.m.) Patient Instructions: Bleeding (DC), Preeclampsia and Eclampsia After Delivery (GEN), Vaginal Delivery (DC), OB Food/Drug Interaction Guide, OB Care at Home, Opioid Safety, Abnormal Bleeding, Depression Discharge Attestations Time Spent in Discharge Care*: less than 30 min Quality Metrics Clinical Quality Measures [ No reported AMI, CVA or VTE this stay] Coding Level of Care Code Acute Chg FW DC note Diagnoses Rh negative state in antepartum period O26.899; Z67.91 Obesity during O99.210 Elderly multigravida O09.522 Trimester: second trimester Chronic hypertension I10 Depression during O99.342; F32.9 Trimester: second trimester Supervision of other high-risk O09.899 Borderline intellectual functioning R41.83 Asthma J45.20 Asthma complication type: uncomplicated Asthma persistence: intermittent Asthma severity: mild Post-traumatic stress disorder, chronic F43.12 Preeclampsia O14.90
[2021-08-20] MEDS: hyDROXYzine 25 mg Capsule 50 MG PO (11:53)
[2021-08-20] MEDS: NIFEdipine 10 mg Capsule 30 MG PO (12:15)
[2021-08-20 12:22] VITALS: BP 173/83; PULSE 81
[2021-08-20 12:37] VITALS: BP 134/63; PULSE 118
[2021-08-20 12:40] VITALS: BP 134/63; PULSE 118; RESP 19; TEMP 36.9
== END 2021-08-20 12:40 | disposition home or self-care (01) | DRG 806 ==
LOC: OPOB 08-17 05:13 → OBGYN 08-17 05:13
PROVIDERS: Obstetrics & Gynecology; Admitting Provider Obstetrics & Gynecology; PCP Family Medicine; Visit Provider Obstetrics & Gynecology
DX: O14.04 Mild to moderate pre-eclampsia, complicating childbirth (principal); O36.0930 Maternal care for other rhesus isoimmunization, third trimester, not applicable or unspecified; Z37.0 Single live birth; O99.344 Other mental disorders complicating childbirth; O11.4 Pre-existing hypertension with pre-eclampsia, complicating childbirth; O99.334 Smoking (tobacco) complicating childbirth; F17.210 Nicotine dependence, cigarettes, uncomplicated; O99.214 Obesity complicating childbirth; O76 Abnormality in fetal heart rate and rhythm complicating labor and delivery; Z3A.37 37 weeks gestation of pregnancy; O75.89 Other specified complications of labor and delivery; J45.20 Mild intermittent asthma, uncomplicated; R41.83 Borderline intellectual functioning; F41.8 Other specified anxiety disorders; M79.7 Fibromyalgia; M54.16 Radiculopathy, lumbar region; G89.29 Other chronic pain; F43.12 Post-traumatic stress disorder, chronic; L40.9 Psoriasis, unspecified
CPT/HCPCS: 36415; 51702; 59409; 80053; 80306; 81000; 83735; 84550; 85025; 85027; 85460; 86850; 86900; 87081; 88307; 90384; 94640; J2795; J3475; J3535

== ENCOUNTER → 2021-08-30 13:01 | Outpatient (BNVA) | payer BC, MEDICAID, SELFPAY ==
[2021-08-18 11:02] VITALS: BP 120/74; BMI 44.5
== END ==
PROVIDERS: PCP Family Medicine; Visit Provider Nurse Practitioner
DX: F43.12 Post-traumatic stress disorder, chronic (principal); R41.83 Borderline intellectual functioning
CPT/HCPCS: 99214

== ENCOUNTER → 2021-09-28 12:55 | Outpatient (BNVA) | payer BC, MEDICAID, SELFPAY ==
[2021-08-18 11:02] VITALS: BP 120/74; BMI 44.5
== END ==
PROVIDERS: PCP Family Medicine; Visit Provider Internal Medicine Cardiovascular Disease
DX: R07.89 Other chest pain (principal); I11.9 Hypertensive heart disease without heart failure; I51.9 Heart disease, unspecified; F17.210 Nicotine dependence, cigarettes, uncomplicated
CPT/HCPCS: 99204

== ENCOUNTER → 2021-10-05 07:51 | Outpatient (BNVA) | payer BC, MEDICAID, SELFPAY ==
[2021-08-18 11:02] VITALS: BP 120/74; BMI 44.5
== END ==
PROVIDERS: PCP Family Medicine; Visit Provider Nurse Practitioner
DX: F43.12 Post-traumatic stress disorder, chronic (principal); R41.83 Borderline intellectual functioning
CPT/HCPCS: 99214

== ENCOUNTER 2021-11-15 18:09 | Emergency (ER) | payer BC, MEDICAID, SELFPAY ==
[2021-08-18 11:02] VITALS: BP 120/74; BMI 44.5
[2021-11-15 18:22] VITALS: BP 140/87; PULSE 103; RESP 15; TEMP 36.5; O2SAT 97; BMI 41.8
--- NOTE | 2021-11-15 18:31 | ED_ITS ---
HPI - Allergic Reaction General: Chief complaint: Allergic Reaction Stated complaint: Rash Time Seen by Provider: 11/15/21 18:28 History of Present Illness: HPI narrative: Patient is a 36-year-old female comes to the ED with allergic reaction. Patient says she is allergic to fish and shrimp. Says her symptoms started just prior to arrival. Symptoms started right after she ate at [employer] today. She has a history of food allergies to fish and shrimp that she describes as being severe. Since eating a [employer] she developed an itchy hives type rash on her upper extremities and feels like her tongue is swelling and she is having some shortness of breath/throat tightening. She does not have an EpiPen and did not use one before coming to the ED. Associated symptoms: Reports tongue swelling; Deny abdominal pain, nausea or vomiting Review of Systems Const: Denies: fever(s), chills or fatigue Eyes: Denies: change in vision or eye discomfort ENMT: Denies: throat pain, odynophagia, nasal discharge or nasal congestion Card: Denies: chest pain, palpitations, edema, swelling of feet/ankles, dyspnea on exertion or orthopnea Resp: Denies: dyspnea, productive cough or non-productive cough GI: Denies: abdominal pain, nausea, vomiting, diarrhea, constipation or hematochezia : Denies: flank pain, dysuria or hematuria Musc: Denies: neck pain, back pain or extremity swelling Skin/Breast: Reports: rash (Pruritic hives type rash); Denies: new lesions Neuro: Denies: headache(s), numbness in extremities or weakness in extremities All/Imm: Reports: urticaria, throat swelling and tongue swelling PFS ED PFSH: Medical History Asthma Diagnosed as a child when controlled with an albuterol inhaler as needed being managed by her primary care provider. 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 Borderline intellectual functioning Depression Fibromyalgia Not currently on any medication Hypertension Lumbar radiculopathy, chronic Chronic back pain managed by pain medication and the pain clinic No pertinent past medical history Patient denies: hypercholesterolemia, heart, liver, kidney, thyroid problems, DVT/PE. PCP: Rachid/Felipe Post-traumatic stress disorder, chronic Seizure Surgical History History of cholecystectomy Laparoscopic procedure in 2018 Pyloric stenosis repaired as a baby Family History Mother Hypertension Stroke Lung cancer Anesthesia complication Cancer Lung disease Bone disease Grandfather Colon cancer Maternal, diagnosed in his 60s Cancer Brother Seizures Family/Other Hyperlipidemia paternal uncle Heart disease maternal uncle Cancer Lung disease Stroke Bone disease Grandmother CAD (coronary artery disease) Father CAD (coronary artery disease), Onset Age: 35 Denies family history of Ovarian cancer Diabetes Clotting disorder Dementia Chronic kidney disease (CKD) Breast cancer Suicide Bleeding disorder Uterine cancer Thyroid condition Social History Smoking and tobacco status: current every day smoker cigarettes Alcohol intake: never Counseling given: No Marital status: Number of children: 1 Number of grandchildren: 0 Female Reproductive History: Date of last menstrual period: 12/04/20 Para: 1 Spontaneous abortions: Yes Physical Exam Const: COMMON NORMALS: patient oriented x3 and alert GENERAL APPEARANCE: cooperative HENMT: COMMON NORMALS: normocephalic HEAD & SCALP: normocephalic MOUTH: Normal oral and palatal mucosa present, lip normal and tongue normal THROAT: posterior oropharynx normal and uvula midline Neck/C-Spine: COMMON NORMALS: supple GENERAL: Yes normal visual inspection Resp: COMMON NORMALS: normal respiratory effort, No retractions, No use of accessory muscles and clear to auscultation bilaterally AUSCULTATION: clear to auscultation bilaterally Cardio: COMMON NORMALS: regular rate, regular rhythm, S1 normal heart sound present, S2 normal heart sound present, No gallops present (Cardio), No clicks present (Cardio), No murmurs present (Cardio) and Peripheral pulses 2+ throughout RATE: regular rate RHYTHM: regular rhythm HEART SOUNDS: S1 normal heart sound present and S2 normal heart sound present PERIPHERAL PULSES: Peripheral pulses 2+ throughout GI: COMMON NORMALS: Normal to inspection, nondistended, normoactive bowel sounds present, Soft to palpation, non-tender and no masses PALPATION: Yes Soft to palpation : COMMON NORMALS: Yes no CVA tenderness BLADDER/KIDNEY EXAM: Yes no CVA tenderness Back/Pelvis: COMMON NORMALS: no CVA tenderness Extremity: COMMON NORMALS: normal to inspection Neuro: COMMON NORMALS: patient oriented x3 and moves all extremities SENSORIUM/ORIENTATION: Yes alert Skin: NARRATIVE SKIN EXAM: Patient has raised pruritic rash on bilateral upper extremities. Rash appears to be hives-like. Course Reevaluation(s): Reevaluation #1: Patient was monitored for close to 2 hours after she received meds for her allergic reaction. She was feeling a lot better and said her tongue swelling and throat tightening had resolved. Her hives-like rash had improved as well. Patient appears stable for discharge home. Time: 20:15 Vital Signs: Vital signs: Vital Signs Temperature 97.7 F 11/15/21 18:22 Pulse Rate 90 11/15/21 19:47 Respiratory Rate 15 11/15/21 18:22 Blood Pressure 115/76 11/15/21 19:47 Pulse Oximetry 98 11/15/21 19:47 MDM - Allergic Reaction Medical Decision Making Patient is a 36-year-old female comes to the ED with allergic reaction. Patient has not food allergy to shrimp and fish products. She started having hives-like pruritic rash, tongue swelling and throat swelling/tightening after eating [employer] approximately an hour ago. Patient had pruritic hives type rash on upper extremities upon exam no visible tongue swelling noted. Vitals are stable. Patient was given a dose of epinephrine, Pepcid, Solu-Medrol and Benadryl while here in the ED. She was also given some IV fluids. Her symptoms of tongue swelling and throat tightening had resolved. Her hives-like rash had improved as well. She was watched for approximately 2 hours post meds here in the ED and had no reoccurring reactions and was stable for discharge home. She was discharged home with a prescription for an EpiPen and some prednisone. She was told to follow-up with her PCP in the next week for reevaluation. Return to ED precautions given. Patient understood and agree with plan. Discharge Plan Discharge Patient Disposition: Home Clinical Impression: Allergic reaction Qualifiers: Encounter type: initial encounter Qualified Code(s): T78.40XA - Allergy, unspecified, initial encounter Condition: Stable Prescriptions: New EpiPen 2-Luís 0.3 mg/0.3 mL auto-injector 0.3 mg IM Q30M PRN (Reason: anaphylaxis) Qty: 2 0RF Rx Instructions: do not exceed 12 doses per 24 hrs prednisone 20 mg tablet 20 mg PO BID 3 Days Qty: 6 0RF No Action All Day Allergy (cetirizine) 10 mg capsule 10 mg PO DAILY PRN (Reason: unknown) 0RF ondansetron HCl [Zofran] 4 mg tablet 4 mg PO Q8H 0RF riboflavin (vitamin B2) 100 mg tablet 100 mg PO DAILY 0RF PNV #[id number] 30 mg iron-10 mg iron-1 mg capsule 1 cap PO DAILY Qty: 30 12RF ferrous sulfate [Iron (ferrous sulfate)] 325 mg (65 mg iron) tablet 325 mg PO TID 0RF albuterol sulfate [ProAir HFA] 90 mcg/actuation HFA aerosol inhaler 2 puff INHALATION DAILY 0RF trazodone 100 mg tablet 200 mg PO .qhs Qty: 60 6RF bupropion HCl [Wellbutrin XL] 150 mg tablet extended release 24 hr 150 mg PO QAM Qty: 30 6RF gysebwbvzf-dsjhmjmepsmdo-gqlw [Fioricet] 50-300-40 mg capsule 1 cap PO Q6H PRN (Reason: pain) Qty: 30 1RF buspirone 10 mg tablet 10 mg PO BID Qty: 60 5RF aspirin [Enteric Coated Aspirin] 81 mg tablet,delayed release (DR/EC) 81 mg PO DAILY Qty: 90 4RF nifedipine 60 mg tablet extended release 60 mg PO DAILY Qty: 30 4RF Discharge Orders: Discharge ED (Routine); Ordered 11/15/21 Ordered By: Atif Gaspar Referrals: Gilberto Rashid DO [Primary Care Provider] - Discharge Diet: Regular Discharge Activity: Resume usual activity Patient Instructions: Allergic Reaction, Food Allergy (ED) Activity Restrictions/Additional Instructions: Follow-up with medical provider as directed in the next 5 to 7 days for reevaluation. Sending you with a prescription for EpiPen to use for any anaphylactic reactions. Take medications as prescribed. Return to the ER or your medical provider if condition worsens. Please read and understand discharge instructions. Thank you for choosing [facility] for your healthcare needs today. Please realize this is an emergency room and that we are providing you with a medical screening exam and this may not be complete and all inclusive of all the testing and or work up that you may need to determine your ailment or severity of your illness. It is very important that you follow up as instructed or that you return to the Emergency Department should you have concerns or if your condition changes or worsens in any way. Coding Level of Care Code ED Induction Furnace Operator for 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 Exam Comprehensive
[2021-11-15] MEDS: diphenhydrAMINE 50 mg/mL SDV 1mL IVP (19:14)
[2021-11-15] MEDS: famotidine 20 mg/2 mL INJ 40 MG IVP (19:15)
[2021-11-15] MEDS: sodium chloride 0.9% 500 ML 999 ML IV (19:15)
[2021-11-15] MEDS: EPINEPHrine 1 mg/mL INJ 0.3 MG IM (19:16)
[2021-11-15 19:47] VITALS: BP 115/76; PULSE 90; O2SAT 98
== END 2021-11-15 20:52 | disposition home or self-care (01) ==
PROVIDERS: Emergency Provider Physician Assistant; PCP Family Medicine
DX: T78.1XXA Other adverse food reactions, not elsewhere classified, initial encounter (principal); L50.9 Urticaria, unspecified; Z79.82 Long term (current) use of aspirin
CPT/HCPCS: 96372; 96374; 96375; 99284; J0171; J1200; J2930; J3490; J7040

== ENCOUNTER 2021-12-18 17:47 | Emergency (ER) | payer BC, MEDICAID, SELFPAY ==
[2021-11-16 08:02] VITALS: BP 120/74; BMI 44.5
[2021-12-18 18:03] VITALS: BP 134/91; PULSE 93; RESP 16; TEMP 37; O2SAT 97; BMI 43.7
--- NOTE | 2021-12-18 18:39 | W.ED.ALLEREA ---
HPI - Allergic Reaction General: Chief complaint: Allergic Reaction Stated complaint: possible allergic reaction Time Seen by Provider: 12/18/21 18:38 History of Present Illness: HPI narrative: 36-year-old female comes in today for complaints of discoloration to bilateral lower extremities. Patient has 3 areas of discoloration to the skin of the lower legs. Patient denies any injury. Patient has used epinephrine recently due to possible allergic reaction. Patient appears well. Patient appears in no acute distress. Associated symptoms: Deny nausea or vomiting Review of Systems General: Reports: 10 or more systems reviewed and unremarkable except in HPI and below Card: Denies: chest pain Resp: Denies: dyspnea GI: Denies: nausea or vomiting Skin/Breast: Reports: new lesions (Skin discoloration bilateral lower extremities.) PFSH ED PFSH: Medical History Asthma Diagnosed as a child when controlled with an albuterol inhaler as needed being managed by her primary care provider. 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 Borderline intellectual functioning Depression Fibromyalgia Not currently on any medication Hypertension Lumbar radiculopathy, chronic Chronic back pain managed by pain medication and the pain clinic No pertinent past medical history Patient denies: hypercholesterolemia, heart, liver, kidney, thyroid problems, DVT/PE. PCP: Rachid/Felipe Post-traumatic stress disorder, chronic Seizure Surgical History History of cholecystectomy Laparoscopic procedure in 2018 Pyloric stenosis repaired as a baby Family History Mother Hypertension Stroke Lung cancer Anesthesia complication Cancer Lung disease Bone disease Grandfather Colon cancer Maternal, diagnosed in his 60s Cancer Brother Seizures Family/Other Hyperlipidemia paternal uncle Heart disease maternal uncle Cancer Lung disease Stroke Bone disease Grandmother CAD (coronary artery disease) Father CAD (coronary artery disease), Onset Age: 35 Denies family history of Ovarian cancer Diabetes Clotting disorder Dementia Chronic kidney disease (CKD) Breast cancer Suicide Bleeding disorder Uterine cancer Thyroid condition Social History Smoking and tobacco status: current every day smoker cigarettes Alcohol intake: never Counseling given: No Marital status: Number of children: 1 Number of grandchildren: 0 Female Reproductive History: Date of last menstrual period: 12/04/20 Para: 1 Spontaneous abortions: Yes Physical Exam Const: COMMON NORMALS: alert HENMT: COMMON NORMALS: normocephalic HEAD & SCALP: normocephalic Neck/C-Spine: COMMON NORMALS: full ROM Resp: COMMON NORMALS: normal respiratory effort and clear to auscultation bilaterally AUSCULTATION: clear to auscultation bilaterally Cardio: COMMON NORMALS: regular rate and regular rhythm RATE: regular rate RHYTHM: regular rhythm Neuro: SENSORIUM/ORIENTATION: Yes alert Skin: NARRATIVE SKIN EXAM: Patient has 3 areas of macular brownish discoloration to bilateral lower extremities. Areas are approximately 5 to 7 cm in diameter patches. Course Vital Signs: Vital signs: Vital Signs Temperature 98.6 F 12/18/21 18:03 Pulse Rate 93 12/18/21 18:03 Respiratory Rate 16 12/18/21 18:03 Blood Pressure 134/91 12/18/21 18:03 Pulse Oximetry 97 12/18/21 18:03 MDM - Allergic Reaction Medical Decision Making Patient comes in for some discoloration to the lower extremities. On exam these patches are about 5 to 7 cm macular with brownish discoloration. Differential diagnosis includes but not limited to pigmented purpuric dermatosis, resolving urticaria, psoriasis. I actually think this is probably due to the patient's recent outbreak of urticaria but patient swears that she did not have hives to her lower extremity. It could be due to patient's psoriasis and some steroid cream to use in the past or probably a old injury. We will refer patient to dermatology for punch biopsy for further evaluation and treatment. Patient reported understanding and agreed to plan. No signs of serious illness or injury was noted. Discharge Plan Discharge Patient Disposition: Home Clinical Impression: Pigmented purpuric dermatosis Condition: Stable Prescriptions: No Action All Day Allergy (cetirizine) 10 mg capsule 10 mg PO DAILY PRN (Reason: unknown) 0RF riboflavin (vitamin B2) 100 mg tablet 100 mg PO DAILY 0RF PNV #[id number] acid-omega3 30 mg iron-10 mg iron-1 mg capsule 1 cap PO DAILY Qty: 30 12RF ferrous sulfate [Iron (ferrous sulfate)] 325 mg (65 mg iron) tablet 325 mg PO TID 0RF albuterol sulfate [ProAir HFA] 90 mcg/actuation HFA aerosol inhaler 2 puff INHALATION DAILY 0RF trazodone 100 mg tablet 200 mg PO .qhs Qty: 60 6RF bupropion HCl [Wellbutrin XL] 150 mg tablet extended release 24 hr 150 mg PO QAM Qty: 30 6RF zcejsqdhde-kiormqqnlhcjv-veod [Fioricet] 50-300-40 mg capsule 1 cap PO Q6H PRN (Reason: pain) Qty: 30 1RF buspirone 10 mg tablet 10 mg PO BID Qty: 60 5RF aspirin [Enteric Coated Aspirin] 81 mg tablet,delayed release (DR/EC) 81 mg PO DAILY Qty: 90 4RF nifedipine 60 mg tablet extended release 60 mg PO DAILY Qty: 30 4RF EpiPen 2-Luís 0.3 mg/0.3 mL auto-injector 0.3 mg IM Q30M PRN (Reason: anaphylaxis) Qty: 2 2RF Rx Instructions: do not exceed 12 doses per 24 hrs Discharge Orders: Discharge ED (Routine); Ordered 12/18/21 Ordered By: David Kenney Referrals: Gilberto Rashid DO [Primary Care Provider] - Discharge Diet: Usual diet Discharge Activity: Increase activity as tolerated Activity Restrictions/Additional Instructions: Home and rest. Continue with routine care. Follow-up with the textile converter for biopsy and further evaluation. Return to ER for new concerns. assistant project manager will contact you regarding the follow-up appointment. Coding Level of Care Code ED Certified Rehabilitation Counselor for 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 Exam Problem Focused
--- NOTE | 2021-12-20 13:26 | DCPLANNER ---
senior engineering manager had message to schedule a follow up for patient with dermatology. senior engineering manager cannot make referrals to dermatology from the ER, any referral to dermatology has to come from patients primary care physician. senior engineering manager called patient at phone number [phone] to inform patient that the referral would need to be referred by her primary care. senior engineering manager was unable to speak with patient, a voicemail was left for patient to return gearcase assembler phone call.
== END 2021-12-18 19:23 | disposition home or self-care (01) ==
PROVIDERS: Emergency Provider Nurse Practitioner Family; PCP Family Medicine
DX: L81.7 Pigmented purpuric dermatosis (principal)
CPT/HCPCS: 99282

== ENCOUNTER 2021-12-27 09:38 | Outpatient (CLI) | payer BC, MEDICAID, SELFPAY ==
[2021-11-16 08:02] VITALS: BP 120/74; BMI 44.5
--- NOTE | 2021-12-27 10:09 | ECG_ITS ---
[facility] Test Date: 2021-12-27 Pat Name: Shilpa Giang Department: Room: Gender: Female Capsule Machine Operator: Christina Alfaro : 1985 Requested By: Junior Escalante Order Number: [id number] Daniela MD: Junior Escalante M.D. Interpretive Statements NAME OF STUDY: TREADMILL STRESS ECHOCARDIOGRAM INDICATION: Chest Pain, PROCEDURE: At the baseline, the patient's blood pressure was 124/73 with a heart rate of 88. The baseline electrocardiogram showed normal sinus rhythm with diffuse nonspecific T wave changes. The patient exercised for 6 minutes and 39 seconds on a standard Liban protocol. Patient attained a maximum heart rate of 152 beats per minute( 82 % of the maximum predicted heart rate) with a blood pressure at the peak exercise of 162/71 mm Hg. The EKG at the peak exercise revealed no significant changes. Patient did not have any chest pain or any significant EKG changes with the exercise During the recovery phase, there were no new changes. Blood pressure at the end of the recovery phase was 137/79 mm Hg with a heart rate of 98 per minute. Echocardiographic pictures were taken at the baseline, immediately following the peak exercise and during the recovery phase. CONCLUSION: 1. Normal EKG response to treadmill exercise 2. No exercise-induced chest pain or cardiac arrhythmia 3. Fair exercise tolerance, attained a maximum of 6.8 METs 4. Please see separate report for the echocardiographic response to exercise. Electronically Signed On 12-28-2021 22:47:53 CDT by Junior Escalante M.D. [id number]
--- NOTE | 2021-12-27 10:10 | USCV_ITS ---
Shilpa Giang Age: 36 Gender: F : 1985 Exam Date: 12/27/2021 10:37 Ordering Phys: Junior Escalante MD ([email or web address]) Technologist: Malcolm Beebe Exam Location: [facility] – [place], [place] Indication: Rhythm: Sinus Patient History: Cardiac Medications: None Medications in past 24 hours: None Contrast: Stress Results Protocol: Liban Total dose(mL): Exercise Duration (min:sec): 6:29 METS: 6.8 Resting HR: 78 Resting BP: 124 / 73 Peak HR: 152 Peak BP: 173 / 79 Max Predicted HR: 185 82 % Max Predicted HR Target HR: 157 Double Product: [id number] Stress Summary: The patient's target heart rate was not achieved due to fatigue BP Response: Normal Reason for Termination: Maximal effort/unable to continue, SOB, Pt states she has asthma Cardiac Symptoms: Short of Breath ECG Analysis Resting ECG: Please see separate report Stress ECG: Please see separate report Arrhythmia: Please see separate report MEASUREMENTS (Male/Female) Normal Values FINDINGS The baseline echocardiogram revealed normal LV size and ejection fraction of around 55%. Relative hypokinesia of the septum and anteroseptal segments. The left atrium appears to be mildly dilated. No intracardiac masses or any significant pericardial effusion. With the peak exercise, there was good augmentation of all the segments with no exercise-induced wall motion normalities. During the recovery phase, the segmental wall motion reverted back to the baseline CONCLUSIONS 1. Normal echocardiographic response to exercise. 2. No significant coronary ischemia, based on the above findings 3. For the EKG response to exercise, please refer to the separate report. Dr Junior Escalante MD [facility] (Electronically Signed) Final Date: 28 December 2021 06:33 S
[2021-12-27 10:14] VITALS: BMI 43.7
[2021-12-27 10:31] LABS: Alanine Aminotransferase 26 U/L (0-33); Albumin Level 4.4 g/dL (3.5-5.2); Alkaline Phosphatase 128 IU/L (35-105); Aspartate Amino Transferase 18 U/L (0-32); Chol HDL Ratio 7.92 mg/dL (0.0-4.40); Cholesterol 206 mg/dL (0-200); Globulin 2.9 g/dL (1.3-4.6); HDL Cholesterol 26 mg/dL (60-100); LDL Cholesterol Calculated 147 mg/dL (50-129); LDL HDL Ratio 5.65 RATIO (0.00-3.22); Total Bilirubin 0.3 mg/dL (0.15-1.2); Total Protein 7.3 g/dL (6.6-8.7); Triglycerides 166 mg/dL (0-150)
[2021-12-27 10:48] VITALS: BP 140/73; PULSE 100
--- NOTE | 2021-12-27 10:50 | PC.NURSE ---
Pt unable to reach target HR of 85% Pt only able to reach HR of 81% on treadmill before becoming extremely SOB. Pt states she has asthma and did not bring her inhaler with her. Stress echo completed and pt breathing recovered with rest.
== END 2021-12-27 09:39 | disposition home or self-care (01) ==
PROVIDERS: PCP Family Medicine; Visit Provider Internal Medicine Cardiovascular Disease
DX: E78.5 Hyperlipidemia, unspecified (principal); R07.9 Chest pain, unspecified
CPT/HCPCS: 80061; 80076; 93017; 93350

== ENCOUNTER 2022-02-01 02:25 | Emergency (ER) | payer BC, MEDICAID, SELFPAY ==
[2021-11-16 08:02] VITALS: BP 120/74; BMI 44.5
[2022-02-01 02:28] VITALS: BP 170/115; PULSE 92; RESP 17; TEMP 36.8; O2SAT 98; BMI 42.8
--- NOTE | 2022-02-01 02:32 | XRR_ITS ---
PROCEDURE INFORMATION: Exam: XR Right Hand Exam date and time: 02/01/2022 2:44 AM Age: 36 years old Clinical indication: Injury or trauma; Fall; Blunt trauma (contusions or hematomas); Hand; Right TECHNIQUE: Imaging protocol: Radiologic exam of the Right hand. Views: 3 or more views. Frontal Oblique Lateral COMPARISON: No relevant prior studies available. FINDINGS: Bones/joints: There is normal alignment without fractures or dislocations. The joints appear unremarkable. The visualized incompletely evaluated wrist region is grossly unremarkable. Soft tissues: There is mild dorsal hand region soft tissue swelling. There are no radiopaque foreign bodies. Notes: If there is further concern, recommend follow-up radiographs or MRI for complete assessment. XR/XR hand RT min 3V* [id number] IMPRESSION: No fractures or dislocation of the right hand. Mild dorsal hand region soft tissue swelling.
--- NOTE | 2022-02-01 02:32 | XRR_ITS ---
PROCEDURE INFORMATION: Exam: XR Left Hip Exam date and time: 02/01/2022 2:46 AM Age: 36 years old Clinical indication: Injury or trauma; Fall; Blunt trauma (contusions or hematomas); Left; Hip TECHNIQUE: Imaging protocol: Radiologic exam of the Left hip. Views: 2 or 3 views hip with pelvis when performed. AP 1 view pelvis with 2 views hip COMPARISON: CT abdomen pelvis w con* [id number] 10/22/2019 6:06 PM FINDINGS: Bones/joints: There is normal alignment without fractures or dislocations. The acetabulum is unremarkable. The visualized left sacroiliac joint shows mild degenerative changes. The visualized symphysis pubis appears unremarkable. Soft tissues: There is no radiographic soft tissue swelling. There are no radiopaque foreign bodies. Notes: If there is further concern, recommend follow-up radiographs or MRI for complete assessment. XR/XR hip LT 2-3V wo/w pel* [id number] IMPRESSION: No fracture or dislocation of the left hip.
--- NOTE | 2022-02-01 02:33 | W.ED.FALL ---
HPI - Fall General: Chief Complaint: Fall Stated Complaint: Left side body pain and RT hand pain from fall Time Seen by Provider: 02/01/22 02:26 Source: patient Mode of arrival: ambulatory Limitations: no limitations History of Present Illness: 36-year-old female states that she fell on Monday. States she landed on a rock with her right hand and fell onto her left hip. She states she has had pain since then. She is able ambulate she rates her pain a 4 out of 10 denies any back pain denies hitting her head. Her pain is improved with rest. Associated symptoms-after fall: Denies abdominal pain, chest pain, headache(s) or neck pain Review of Systems Const: Denies: fever(s), chills, body aches or change in appetite Eyes: Denies: blurry vision or eye discomfort ENMT: Denies: throat pain or dental pain Card: Denies: chest pain Resp: Denies: dyspnea GI: Denies: abdominal pain, nausea, vomiting or diarrhea : Denies: dysuria Musc: Reports: extremity pain; Denies: neck pain or back pain Skin/Breast: Denies: rash Neuro: Denies: headache(s) Psych: Denies: depression Dillan/Lymph: Denies: easy bruising All/Imm: Denies: urticaria PFSH ED PFSH: Medical History Asthma Diagnosed as a child when controlled with an albuterol inhaler as needed being managed by her primary care provider. She does not see a ballroom dancer. Borderline intellectual functioning Depression Fibromyalgia Not currently on any medication Hypertension Lumbar radiculopathy, chronic Chronic back pain managed by pain medication and the pain clinic No pertinent past medical history Patient denies: hypercholesterolemia, heart, liver, kidney, thyroid problems, DVT/PE. PCP: Rachid/Felipe Post-traumatic stress disorder, chronic Seizure Surgical History History of cholecystectomy Laparoscopic procedure in 2018 Pyloric stenosis repaired as a baby Family History Mother Hypertension Stroke Lung cancer Anesthesia complication Cancer Lung disease Bone disease Grandfather Colon cancer Maternal, diagnosed in his 60s Cancer Brother Seizures Family/Other Hyperlipidemia paternal uncle Heart disease maternal uncle Cancer Lung disease Stroke Bone disease Grandmother CAD (coronary artery disease) Father CAD (coronary artery disease), Onset Age: 35 Denies family history of Ovarian cancer Diabetes Clotting disorder Dementia Chronic kidney disease (CKD) Breast cancer Suicide Bleeding disorder Uterine cancer Thyroid condition Social History Smoking and tobacco status: current every day smoker cigarettes Alcohol intake: never Counseling given: No Marital status: Number of children: 1 Number of grandchildren: 0 Female Reproductive History: Date of last menstrual period: 12/04/20 Para: 1 Spontaneous abortions: Yes Physical Exam Const: COMMON NORMALS: no acute distress, patient oriented x3 and healthy appearing HENMT: COMMON NORMALS: normocephalic and atraumatic HEAD & SCALP: normocephalic and atraumatic Eye: COMMON NORMALS: Equal, round and reactive pupils present and EOMs intact bilaterally PUPIL: Yes Equal, round and reactive pupils present Neck/C-Spine: COMMON NORMALS: full ROM and supple Chest: COMMONS NORMALS: normal inspection of the chest and normal palpation of entire chest wall Resp: COMMON NORMALS: normal respiratory effort, No retractions, No use of accessory muscles and clear to auscultation bilaterally AUSCULTATION: clear to auscultation bilaterally Cardio: COMMON NORMALS: regular rate, regular rhythm and No murmurs present (Cardio) RATE: regular rate RHYTHM: regular rhythm GI: COMMON NORMALS: Normal to inspection, nondistended, normoactive bowel sounds present, Soft to palpation, non-tender and no masses PALPATION: Yes Soft to palpation Extremity: COMMON NORMALS: normal to inspection and full ROM NARRATIVE EXTREMITY EXAM: Slight tenderness to right hand left hip no obvious deformity patient is able ambulate Neuro: COMMON NORMALS: patient oriented x3, moves all extremities and no focal motor deficits Psych: COMMON NORMALS: mental status grossly normal, Normal thought process present and cooperative THOUGHT PROCESS: Normal thought process present Skin: COMMON NORMALS: no rashes or lesions noted and no wounds GENERAL SKIN EXAM: no rashes or lesions noted Course Vital Signs: Vital signs: Vital Signs Temperature 98.3 F 02/01/22 02:28 Pulse Rate 92 02/01/22 02:28 Respiratory Rate 17 02/01/22 02:28 Blood Pressure 170/115 02/01/22 02:28 Pulse Oximetry 98 02/01/22 02:28 MDM - Fall Medical Decision Making Patient presents here with a hand and hip contusion from a fall x-ray shows no signs of fracture she has no other injuries she is stable for discharge is to follow-up with PCP and return if worsening will prescribe her Naprosyn for the pain she understands agrees to plan. Discharge Plan Discharge Patient Disposition: Home Clinical Impression: Fall, Contusion Condition: Stable Prescriptions: New Naprosyn 500 mg tablet 500 mg PO BID PRN (Reason: pain) Qty: 20 0RF No Action All Day Allergy (cetirizine) 10 mg capsule 10 mg PO DAILY PRN (Reason: unknown) 0RF riboflavin (vitamin B2) 100 mg tablet 100 mg PO DAILY 0RF PNV #[id number] acid-omega3 30 mg iron-10 mg iron-1 mg capsule 1 cap PO DAILY Qty: 30 12RF ferrous sulfate [Iron (ferrous sulfate)] 325 mg (65 mg iron) tablet 325 mg PO TID 0RF albuterol sulfate [ProAir HFA] 90 mcg/actuation HFA aerosol inhaler 2 puff INHALATION DAILY 0RF trazodone 100 mg tablet 200 mg PO .qhs Qty: 60 6RF bupropion HCl [Wellbutrin XL] 150 mg tablet extended release 24 hr 150 mg PO QAM Qty: 30 6RF udmklqiapq-eqjytbxrpdikh-dyyk [Fioricet] 50-300-40 mg capsule 1 cap PO Q6H PRN (Reason: pain) Qty: 30 1RF buspirone 10 mg tablet 10 mg PO BID Qty: 60 5RF aspirin [Enteric Coated Aspirin] 81 mg tablet,delayed release (DR/EC) 81 mg PO DAILY Qty: 90 4RF nifedipine 60 mg tablet extended release 60 mg PO DAILY Qty: 30 4RF EpiPen 2-Luís 0.3 mg/0.3 mL auto-injector 0.3 mg IM Q30M PRN (Reason: anaphylaxis) Qty: 2 2RF Rx Instructions: do not exceed 12 doses per 24 hrs rosuvastatin 10 mg tablet 10 mg PO DAILY Qty: 90 3RF Discharge Orders: Discharge ED (Routine); Ordered 02/01/22 Ordered By: Clary Alfaro Referrals: Gilberto Rashid, [Primary Care Provider] - 1-3 days Discharge Diet: Advance as tolerated Discharge Activity: Resume usual activity Patient Instructions: Contusion in Adults (ED), Hip Contusion (ED) Coding Level of Care Code ED Fire Equipment Inspector for Tani Fwd Exam Comprehensive
[2022-02-01 02:35] VITALS: BP 170/115; PULSE 89; O2SAT 98
[2022-02-01] MEDS: HYDROcodone-acetaminophen 5-325 mg Tablet 1 TAB PO (02:38)
[2022-02-01 03:10] VITALS: BP 148/94; PULSE 77; RESP 16; O2SAT 98
== END 2022-02-01 03:10 | disposition home or self-care (01) ==
PROVIDERS: Emergency Provider Emergency Medicine; PCP Family Medicine
DX: S60.221A Contusion of right hand, initial encounter (principal); S70.02XA Contusion of left hip, initial encounter; W19.XXXA Unspecified fall, initial encounter; Z79.82 Long term (current) use of aspirin; I10 Essential (primary) hypertension; F17.210 Nicotine dependence, cigarettes, uncomplicated
CPT/HCPCS: 73130; 73502; 99283

== ENCOUNTER → 2022-02-07 14:48 | Outpatient (BNVA) | payer BC, MEDICAID, SELFPAY ==
[2021-11-16 08:02] VITALS: BP 120/74; BMI 44.5
== END ==
PROVIDERS: PCP Family Medicine; Visit Provider Nurse Practitioner Family
DX: I10 Essential (primary) hypertension (principal); F17.210 Nicotine dependence, cigarettes, uncomplicated
CPT/HCPCS: 99214

== ENCOUNTER 2022-02-12 19:23 | Emergency (ER) | payer BC, MEDICAID, SELFPAY ==
[2021-11-16 08:02] VITALS: BP 120/74; BMI 44.5
[2022-02-12 19:30] VITALS: BP 134/89; PULSE 83; RESP 16; TEMP 36.9; O2SAT 98
--- NOTE | 2022-02-12 19:33 | XRR_ITS ---
PROCEDURE INFORMATION: Exam: XR Left Hand Exam date and time: 02/12/2022 8:04 PM Age: 36 years old Clinical indication: Injury or trauma; Other: Smashed hand in car door; Crushing; Left TECHNIQUE: Imaging protocol: Radiologic exam of the Left hand. Views: 3 or more views. COMPARISON: No relevant prior studies available. FINDINGS: Bones/joints: Normal. Soft tissues: Normal. XR/XR hand LT min 3V* [id number] IMPRESSION: No acute findings.
--- NOTE | 2022-02-12 20:09 | XRR_ITS ---
PROCEDURE INFORMATION: Exam: XR Chest Exam date and time: 02/12/2022 8:33 PM Age: 36 years old Clinical indication: Pain; Left-sided; Additional info: Cp TECHNIQUE: Imaging protocol: Radiologic exam of the chest. Views: 1 view. COMPARISON: CR XR chest 1V portable [id number] 07/11/2021 11:57 PM FINDINGS: Lungs: Unremarkable. No consolidation. Pleural spaces: Unremarkable. No pleural effusion. No pneumothorax. Heart/Mediastinum: Unremarkable. No cardiomegaly. Bones/joints: Unremarkable. XR/XR chest 1V portable [id number] IMPRESSION: No acute findings.
--- NOTE | 2022-02-12 20:15 | W.ED.CHESTPA ---
HPI - Chest Pain General: Chief Complaint: Chest Pain Stated Complaint: Smashed finger on left hand, chest pain Time Seen by Provider: 02/12/22 19:54 Source: patient Mode of arrival: ambulatory Limitations: no limitations History of Present Illness: 36-year-old female states that she had smashed her thumb in a car roughly 10 days ago. She had some pain to the thumb along with a contusion states pain to 2 out of 10 states that over the last 2 days she has been having a sharp pain in the center of her chest seems to be worse with movement and palpation denies any shortness of breath denies any fever denies any radiation of her pain or nausea. Associated symptoms: Deny abdominal pain, dyspnea, fever(s), nausea or vomiting Review of Systems Const: Denies: fever(s), chills, body aches or change in appetite Eyes: Denies: blurry vision or eye discomfort ENMT: Denies: throat pain or dental pain Card: Reports: chest pain Resp: Denies: dyspnea GI: Denies: abdominal pain, nausea, vomiting or diarrhea : Denies: dysuria Musc: Reports: extremity pain Skin/Breast: Denies: rash Neuro: Denies: headache(s) Psych: Denies: depression Dillan/Lymph: Denies: easy bruising All/Imm: Denies: urticaria PFSH ED PFSH: Medical History Asthma Diagnosed as a child when controlled with an albuterol inhaler as needed being managed by her primary care provider. 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 Borderline intellectual functioning Depression Fibromyalgia Not currently on any medication Hypertension Lumbar radiculopathy, chronic Chronic back pain managed by pain medication and the pain clinic No pertinent past medical history Patient denies: hypercholesterolemia, heart, liver, kidney, thyroid problems, DVT/PE. PCP: Rachid/Felipe Post-traumatic stress disorder, chronic Seizure Surgical History History of cholecystectomy Laparoscopic procedure in 2018 Pyloric stenosis repaired as a baby Family History Mother Hypertension Stroke Lung cancer Anesthesia complication Cancer Lung disease Bone disease Grandfather Colon cancer Maternal, diagnosed in his 60s Cancer Brother Seizures Family/Other Hyperlipidemia paternal uncle Heart disease maternal uncle Cancer Lung disease Stroke Bone disease Grandmother CAD (coronary artery disease) Father CAD (coronary artery disease), Onset Age: 35 Denies family history of Ovarian cancer Diabetes Clotting disorder Dementia Chronic kidney disease (CKD) Breast cancer Suicide Bleeding disorder Uterine cancer Thyroid condition Social History Smoking and tobacco status: current every day smoker cigarettes Alcohol intake: never Counseling given: No Marital status: Number of children: 1 Number of grandchildren: 0 Female Reproductive History: Date of last menstrual period: 12/04/20 Para: 1 Spontaneous abortions: Yes Physical Exam Const: COMMON NORMALS: no acute distress, patient oriented x3 and healthy appearing HENMT: COMMON NORMALS: normocephalic and atraumatic HEAD & SCALP: normocephalic and atraumatic Eye: COMMON NORMALS: Equal, round and reactive pupils present and EOMs intact bilaterally PUPIL: Yes Equal, round and reactive pupils present Neck/C-Spine: COMMON NORMALS: full ROM and supple Chest: COMMONS NORMALS: normal inspection of the chest OTHER: Point tender in the center of her chest reproduces her pain Resp: COMMON NORMALS: normal respiratory effort, No retractions, No use of accessory muscles and clear to auscultation bilaterally AUSCULTATION: clear to auscultation bilaterally Cardio: COMMON NORMALS: regular rate, regular rhythm and No murmurs present (Cardio) RATE: regular rate RHYTHM: regular rhythm GI: COMMON NORMALS: Normal to inspection, nondistended, normoactive bowel sounds present, Soft to palpation, non-tender and no masses PALPATION: Yes Soft to palpation Extremity: COMMON NORMALS: full ROM NARRATIVE EXTREMITY EXAM: Contusion to left thumb no obvious deformity Neuro: COMMON NORMALS: patient oriented x3, moves all extremities and no focal motor deficits Psych: COMMON NORMALS: mental status grossly normal, Normal thought process present and cooperative THOUGHT PROCESS: Normal thought process present Skin: COMMON NORMALS: no rashes or lesions noted and no wounds GENERAL SKIN EXAM: no rashes or lesions noted Course Vital Signs: Vital signs: Vital Signs Temperature 98.5 F 02/12/22 19:30 Pulse Rate 83 02/12/22 19:30 Respiratory Rate 16 02/12/22 19:30 Blood Pressure 134/89 02/12/22 19:30 Pulse Oximetry 98 02/12/22 19:30 Oxygen Delivery Me thod 02/12/22 19:30 MDM - Chest Pain Medical Decision Making Patient presents her chest pains atypical in nature she is point tender in the center of her chest reproduces her pain EKG and x-ray are normal she also smashed her thumb does have a contusion no signs of fracture on exam she stable for discharge follow-up PCP return if worsening. Lab Data Radiology Impressions Hand X-Ray 02/12/22 19:33 IMPRESSION: No acute findings. EKG Data EKG 1: I personally reviewed and interpreted this EKG as follows: EKG interpretation date: 02/12/22 EKG interpretation time: 19:34 Interpretation: nsr hr [address] or t wave abnormalities qrs 96 qtc 419 Discharge Plan Discharge Patient Disposition: Home Clinical Impression: Chest pain Qualifiers: Chest pain type: unspecified Qualified Code(s): R07.9 - Chest pain, unspecified Contusion of left thumb Qualifiers: Encounter type: initial encounter Damage to nail status: without damage Qualified Code(s): S60.012A - Contusion of left thumb without damage to nail, initial encounter Condition: Stable Prescriptions: No Action All Day Allergy (cetirizine) 10 mg capsule 10 mg PO DAILY PRN (Reason: unknown) riboflavin (vitamin B2) 100 mg tablet 100 mg PO DAILY PNV #[id number] acid-omega3 30 mg iron-10 mg iron-1 mg capsule 1 cap PO DAILY Qty: 30 12RF ferrous sulfate [Iron (ferrous sulfate)] 325 mg (65 mg iron) tablet 325 mg PO TID albuterol sulfate [ProAir HFA] 90 mcg/actuation HFA aerosol inhaler 2 puff INHALATION DAILY trazodone 100 mg tablet 200 mg PO .qhs Qty: 60 6RF bupropion HCl [Wellbutrin XL] 150 mg tablet extended release 24 hr 150 mg PO QAM Qty: 30 6RF lhpeijebnt-dfikkpkbosope-nslp [Fioricet] 50-300-40 mg capsule 1 cap PO Q6H PRN (Reason: pain) Qty: 30 1RF buspirone 10 mg tablet 10 mg PO BID Qty: 60 5RF furosemide 20 mg tablet 20 mg PO DAILY PRN (Reason: edema) Qty: 30 0RF aspirin [Enteric Coated Aspirin] 81 mg tablet,delayed release (DR/EC) 81 mg PO DAILY Qty: 90 4RF nifedipine 60 mg tablet extended release 60 mg PO DAILY Qty: 30 4RF EpiPen 2-Luís 0.3 mg/0.3 mL auto-injector 0.3 mg IM Q30M PRN (Reason: anaphylaxis) Qty: 2 2RF Rx Instructions: do not exceed 12 doses per 24 hrs rosuvastatin 10 mg tablet 10 mg PO DAILY Qty: 90 3RF Naprosyn 500 mg tablet 500 mg PO BID PRN (Reason: pain) Qty: 20 0RF Discharge Orders: Discharge ED (Routine); Ordered 02/12/22 Ordered By: Clary Alfaro Referrals: Gilberto Rashid DO [Primary Care Provider] - Discharge Diet: Advance as tolerated Discharge Activity: Resume usual activity Patient Instructions: Chest Pain (ED), Crush Injury (ED) Coding Level of Care Code ED Electrical Systems Designer for Chg Fwd Exam Comprehensive
[2022-02-12] MEDS: HYDROcodone-acetaminophen 5-325 mg Tablet 1 TAB PO (20:26)
[2022-02-12 20:59] VITALS: PULSE 74; RESP 14; O2SAT 98
== END 2022-02-12 21:00 | disposition home or self-care (01) ==
PROVIDERS: Emergency Provider Emergency Medicine; PCP Family Medicine
DX: R07.9 Chest pain, unspecified (principal); S60.012A Contusion of left thumb without damage to nail, initial encounter; Z79.82 Long term (current) use of aspirin; F17.210 Nicotine dependence, cigarettes, uncomplicated; I10 Essential (primary) hypertension; W23.0XXA Caught, crushed, jammed, or pinched between moving objects, initial encounter
CPT/HCPCS: 71045; 73130; 99283

== ENCOUNTER → 2022-02-14 13:24 | Outpatient (BNVA) | payer BC, MEDICAID, SELFPAY ==
[2021-11-16 08:02] VITALS: BP 120/74; BMI 44.5
== END ==
PROVIDERS: PCP Family Medicine; Visit Provider Internal Medicine Cardiovascular Disease
DX: I10 Essential (primary) hypertension (principal)
CPT/HCPCS: 80048

== ENCOUNTER 2022-02-18 23:19 | Emergency (ER) | payer MEDICAID, SELFPAY ==
[2021-11-16 08:02] VITALS: BP 120/74; BMI 44.5
[2022-02-18 23:29] VITALS: BP 118/78; PULSE 86; RESP 16; TEMP 36.8; O2SAT 98; BMI 44.7
--- NOTE | 2022-02-18 23:55 | W.ED.GENADLT ---
HPI - General Adult General: Chief complaint: Upper Respiratory Infection Stated complaint: body aches/ left arm pain after covid shot on 02/17 Time Seen by Provider: 02/18/22 23:52 History of Present Illness: 36-year-old female comes in today for complaints of body aches and low-grade fever since getting her COVID immunization on the . Patient appears nontoxic. Patient appears in mild to no pain. Associated symptoms: Reports chest pain and dyspnea Review of Systems Const: Reports: fever(s) Card: Reports: chest pain Resp: Reports: dyspnea Musc: Reports: other (Muscle ache) PFSH ED PFSH: Medical History Asthma Diagnosed as a child when controlled with an albuterol inhaler as needed being managed by her primary care provider. She does not see a manager product marketing. Borderline intellectual functioning Depression Fibromyalgia Not currently on any medication Hypertension Lumbar radiculopathy, chronic Chronic back pain managed by pain medication and the pain clinic No pertinent past medical history Patient denies: hypercholesterolemia, heart, liver, kidney, thyroid problems, DVT/PE. PCP: Rachid/Felipe Post-traumatic stress disorder, chronic Seizure Surgical History History of cholecystectomy Laparoscopic procedure in 2018 Pyloric stenosis repaired as a baby Family History Mother Hypertension Stroke Lung cancer Anesthesia complication Cancer Lung disease Bone disease Grandfather Colon cancer Maternal, diagnosed in his 60s Cancer Brother Seizures Family/Other Hyperlipidemia paternal uncle Heart disease maternal uncle Cancer Lung disease Stroke Bone disease Grandmother CAD (coronary artery disease) Father CAD (coronary artery disease), Onset Age: 35 Denies family history of Ovarian cancer Diabetes Clotting disorder Dementia Chronic kidney disease (CKD) Breast cancer Suicide Bleeding disorder Uterine cancer Thyroid condition Social History Smoking and tobacco status: current every day smoker cigarettes Alcohol intake: never Counseling given: No Marital status: Number of children: 1 Number of grandchildren: 0 Female Reproductive History: Date of last menstrual period: 02/11/22 Para: 1 Spontaneous abortions: Yes Physical Exam Const: COMMON NORMALS: alert HENMT: COMMON NORMALS: normocephalic HEAD & SCALP: normocephalic Neck/C-Spine: COMMON NORMALS: full ROM and no meningeal signs Chest: COMMONS NORMALS: normal inspection of the chest Resp: COMMON NORMALS: normal respiratory effort and clear to auscultation bilaterally AUSCULTATION: clear to auscultation bilaterally Cardio: COMMON NORMALS: regular rate, regular rhythm, S1 normal heart sound present and S2 normal heart sound present RATE: regular rate RHYTHM: regular rhythm HEART SOUNDS: S1 normal heart sound present and S2 normal heart sound present Extremity: COMMON NORMALS: normal to inspection and no pedal edema Neuro: SENSORIUM/ORIENTATION: Yes alert MENINGEAL SIGNS: Yes no meningeal signs Skin: COMMON NORMALS: turgor normal NARRATIVE SKIN EXAM: Mild erythema 3 cm at injection site to left upper arm GENERAL SKIN EXAM: turgor normal Course Vital Signs: Vital signs: Vital Signs Temperature 98.2 F 02/18/22 23:29 Pulse Rate 86 02/18/22 23:29 Respiratory Rate 16 02/18/22 23:29 Blood Pressure 118/78 02/18/22 23:29 Pulse Oximetry 98 02/18/22 23:29 Oxygen Delivery Me thod 02/18/22 23:29 MDM - General Adult Medical Decision Making 36-year-old female comes in for body aches and low-grade fever after receiving her COVID-19 vaccine yesterday. On exam patient appears well. Lungs are clear to auscultation. Skin is warm and dry. Vital signs are normal. Patient does have a tender site with some erythema to the left upper arm. Differential diagnosis includes normal reaction to vaccine, adverse drug effect, anxiety. I believe this is just normal reaction to her vaccine I recommended acetaminophen and ibuprofen for the pain. Encourage plenty of fluids and follow-up with primary care. Patient reported understanding and agreed to plan. Discharge Plan Discharge Patient Disposition: Home Clinical Impression: Adverse effect of vaccine Qualifiers: Encounter type: initial encounter Qualified Code(s): T50.Z95A - Adverse effect of other vaccines and biological substances, initial encounter Condition: Stable Prescriptions: No Action All Day Allergy (cetirizine) 10 mg capsule 10 mg PO DAILY PRN (Reason: unknown) riboflavin (vitamin B2) 100 mg tablet 100 mg PO DAILY PNV #[id number] acid-omega3 30 mg iron-10 mg iron-1 mg capsule 1 cap PO DAILY Qty: 30 12RF ferrous sulfate [Iron (ferrous sulfate)] 325 mg (65 mg iron) tablet 325 mg PO TID albuterol sulfate [ProAir HFA] 90 mcg/actuation HFA aerosol inhaler 2 puff INHALATION DAILY trazodone 100 mg tablet 200 mg PO .qhs Qty: 60 6RF bupropion HCl [Wellbutrin XL] 150 mg tablet extended release 24 hr 150 mg PO QAM Qty: 30 6RF ctwvqofeyh-lxuabyzchvezb-obel [Fioricet] 50-300-40 mg capsule 1 cap PO Q6H PRN (Reason: pain) Qty: 30 1RF buspirone 10 mg tablet 10 mg PO BID Qty: 60 5RF furosemide 20 mg tablet 20 mg PO DAILY PRN (Reason: edema) Qty: 30 0RF aspirin [Enteric Coated Aspirin] 81 mg tablet,delayed release (DR/EC) 81 mg PO DAILY Qty: 90 4RF nifedipine 60 mg tablet extended release 60 mg PO DAILY Qty: 30 4RF EpiPen 2-Luís 0.3 mg/0.3 mL auto-injector 0.3 mg IM Q30M PRN (Reason: anaphylaxis) Qty: 2 2RF Rx Instructions: do not exceed 12 doses per 24 hrs rosuvastatin 10 mg tablet 10 mg PO DAILY Qty: 90 3RF Naprosyn 500 mg tablet 500 mg PO BID PRN (Reason: pain) Qty: 20 0RF Discharge Orders: Discharge ED (Routine); Ordered 02/19/22 Ordered By: David Kenney Referrals: Gilberto Rashid DO [Primary Care Provider] - Discharge Diet: Usual diet Discharge Activity: Increase activity as tolerated Activity Restrictions/Additional Instructions: Drink plenty of water. Use acetaminophen and ibuprofen for pain and fever. If you are using naproxen do not use ibuprofen. Is important to drink plenty of water after your vaccine administration. Follow-up with primary care for further instructions. Return to ER for new concerns. Most often the vaccine symptoms will go away and resolve on their own within 3 days. Coding Level of Care Code ED Supply Chain Technician for 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
== END 2022-02-19 00:21 | disposition home or self-care (01) ==
PROVIDERS: Emergency Provider Nurse Practitioner Family; PCP Family Medicine
DX: T88.7XXA Unspecified adverse effect of drug or medicament, initial encounter (principal); T50.B95A Adverse effect of other viral vaccines, initial encounter; Z79.82 Long term (current) use of aspirin; F17.210 Nicotine dependence, cigarettes, uncomplicated; I10 Essential (primary) hypertension
CPT/HCPCS: 99282

== ENCOUNTER 2022-04-08 07:36 | Emergency (ER) | payer MEDICAID, SELFPAY ==
[2021-11-16 08:02] VITALS: BP 120/74; BMI 44.5
[2022-04-08 07:39] VITALS: BMI 44.7
[2022-04-08 07:43] VITALS: BP 137/92; PULSE 90; RESP 18; TEMP 36.6; O2SAT 99
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
[2022-04-08] MEDS: orphenadrine 30 mg/mL Inj 2 mL 60 MG IM (08:18)
== END 2022-04-08 08:29 | disposition home or self-care (01) ==
PROVIDERS: Emergency Provider Physician Assistant; PCP Family Medicine
DX: S16.1XXA Strain of muscle, fascia and tendon at neck level, initial encounter (principal); I10 Essential (primary) hypertension; J45.909 Unspecified asthma, uncomplicated; F17.210 Nicotine dependence, cigarettes, uncomplicated; Z79.82 Long term (current) use of aspirin; V89.0XXA Person injured in unspecified motor-vehicle accident, nontraffic, initial encounter
CPT/HCPCS: 96372; 99284; J2360

== ENCOUNTER 2022-08-22 07:21 | Emergency (ER) | payer MEDICAID, SELFPAY ==
[2022-08-18 11:38] VITALS: BP 120/74; BMI 44.5
[2022-08-22 07:25] VITALS: BP 171/115; PULSE 98; RESP 16; TEMP 36.2; O2SAT 98
--- NOTE | 2022-08-22 07:28 | ECG_ITS ---
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 Measurements Intervals [place] Rate: 90 P: 26 IL: 96 QRS: 13 QRSD: 105 T: 17 QT: 376 QTc: 460 Interpretive Statements SINUS RHYTHM WITH SHORT [place] INTERVAL INTERPRETATION BASED ON A DEFAULT AGE OF 40 YEARS Compared to ECG 07/11/2021 23:44:27 No significant changes Electronically Signed On 08-22-2022 11:19:34 DOMESTIC TECHNICIAN by Robbie Bingham M.D. [id number]
--- NOTE | 2022-08-22 07:48 | XRR_ITS ---
PROCEDURE INFORMATION: Exam: XR Chest Exam date and time: 08/22/2022 7:53 AM Age: 37 years old Clinical indication: Pain; Angina pectoris; Additional info: Chest pain TECHNIQUE: Imaging protocol: Radiologic exam of the chest. Views: 1 view. COMPARISON: CR XR chest 1V portable [id number] 02/12/2022 8:33 PM FINDINGS: Lungs: Unremarkable. No consolidation. Stable small nodule left mid lung probably reflective of calcified granuloma or vessel. Pleural spaces: Unremarkable. No pleural effusion. No pneumothorax. Heart/Mediastinum: Unremarkable. No cardiomegaly. Bones/joints: Unremarkable. XR/XR chest 1V portable [id number] IMPRESSION: No acute findings.
--- NOTE | 2022-08-22 07:48 | W.ED.GENADLT ---
HPI - General Adult General: Chief complaint: Ear Stated complaint: Ear and throat pain Time Seen by Provider: 08/22/22 07:28 Source: patient Mode of arrival: ambulatory Limitations: no limitations History of Present Illness: Patient is a 37-year-old female who presents to ED today for multiple complaints. She tells me about 3 or 4 days ago she began developing left ear pain. She states the day after she began developing a sore throat. She states yesterday she began developing substernal chest pain with radiation into her left arm that has been constant since onset. Cardiac risk factors include obesity, hyperlipidemia, hypertension. Patient also has a complaint of dysuria and foul-smelling odor. She denies flank pain. Denies fevers. She does not complain of abdominal pain. No nausea, vomiting, diarrhea. Onset (ago): day(s) Pain Consistency: constant Associated symptoms: Reports chest pain; Deny dyspnea, headache(s), malaise, nausea, rash, palpitations, syncope or vomiting Treatments prior to arrival: none Review of Systems Const: Denies: fever(s), chills, body aches, fatigue or malaise Eyes: Denies: change in vision or blurry vision ENMT: Reports: throat pain, odynophagia and ear or mastoid pain; Denies: ear discharge, change in hearing, tinnitus, disequilibrium, nasal discharge or nasal congestion Card: Reports: chest pain; Denies: palpitations, irregular heart rhythm, edema, swelling of feet/ankles, lightheadedness, syncope, pre-syncope, dyspnea on exertion, orthopnea, leg pain with exertion or acrocyanosis Resp: Denies: dyspnea, productive cough, non-productive cough, wheezing, pain on inspiration, hemoptysis or chest congestion GI: Denies: abdominal pain, nausea, vomiting, heartburn or diarrhea : Reports: dysuria; Denies: flank pain, urinary hesitancy, dribbling, hematuria or pelvic pain Musc: Denies: neck pain, back pain, extremity pain or joint pain Skin/Breast: Denies: rash Neuro: Denies: headache(s), numbness in extremities, weakness in extremities, sensory changes or dizziness PFS ED PFSH: Medical History Asthma Diagnosed as a child when controlled with an albuterol inhaler as needed being managed by her primary care provider. 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 Borderline intellectual functioning Depression Fibromyalgia Not currently on any medication Hypertension Lumbar radiculopathy, chronic Chronic back pain managed by pain medication and the pain clinic No pertinent past medical history Patient denies: hypercholesterolemia, heart, liver, kidney, thyroid problems, DVT/PE. PCP: Rachid/Felipe Post-traumatic stress disorder, chronic Psychiatric care Seizure Surgical History History of cholecystectomy Laparoscopic procedure in 2018 Pyloric stenosis repaired as a baby Family History Mother Hypertension Stroke Lung cancer Anesthesia complication Cancer Lung disease Bone disease Grandfather Colon cancer Maternal, diagnosed in his 60s Cancer Brother Seizures Family/Other Hyperlipidemia paternal uncle Heart disease maternal uncle Cancer Lung disease Stroke Bone disease Grandmother CAD (coronary artery disease) Father CAD (coronary artery disease), Onset Age: 35 Denies family history of Ovarian cancer Diabetes Clotting disorder Dementia Chronic kidney disease (CKD) Breast cancer Suicide Bleeding disorder Uterine cancer Thyroid condition Social History Smoking and tobacco status: current every day smoker cigarettes Packs smoked per day: 0.5 Alcohol intake: never Counseling given: No Marital status: Number of children: 1 Number of grandchildren: 0 Female Reproductive History: Date of last menstrual period: 02/11/22 Para: 1 Spontaneous abortions: Yes Physical Exam Const: COMMON NORMALS: no acute distress, patient oriented x3, no limitations and alert GENERAL APPEARANCE: cooperative NUTRITIONAL APPEARANCE: obese ORIENTATION/CONSCIOUSNESS: Yes awake, Yes oriented to person, Yes oriented to place and Yes oriented to time HENMT: COMMON NORMALS: normocephalic, atraumatic, hearing grossly normal bilaterally, external ears normal, EAC's normal, Normal external nose present, Normal nasal mucous membranes and turbinates present, moist oral mucous membranes, oropharynx normal and gingiva normal HEAD & SCALP: normal to inspection, normocephalic and atraumatic FACE & SINUS: normal facial exam NOSE: Normal external nose present and Normal nasal mucous membranes and turbinates present EXTERNAL EAR: Yes external ears normal EXTERNAL AUDITORY CANAL: EAC's normal TYMPANIC MEMBRANE: TM abnormal TM laterality: left (mild serous otitis ) MOUTH: Normal oral and palatal mucosa present, lip normal and tongue normal TEETH & GINGIVA: Yes poor dentition THROAT: posterior oropharynx normal, tonsils normal and uvula midline Eye: GENERAL EYE: appearance normal, both eyes and all related structures Neck/C-Spine: COMMON NORMALS: full ROM, no lymphadenopathy, no meningeal signs and no JVD GENERAL: Yes normal visual inspection, No anterior neck swelling and No submandibular swelling Chest: COMMONS NORMALS: normal inspection of the chest and normal palpation of entire chest wall Resp: COMMON NORMALS: normal respiratory effort and clear to auscultation bilaterally AUSCULTATION: clear to auscultation bilaterally Cardio: COMMON NORMALS: no JVD, regular rate and regular rhythm RATE: regular rate RHYTHM: regular rhythm GI: COMMON NORMALS: Normal to inspection, nondistended, normoactive bowel sounds present, Soft to palpation, non-tender, No hepatosplenomegaly present and no masses PALPATION: Yes Soft to palpation and Yes No hepatosplenomegaly present : COMMON NORMALS: Yes no CVA tenderness BLADDER/KIDNEY EXAM: Yes no CVA tenderness Back/Pelvis: COMMON NORMALS: no CVA tenderness Extremity: COMMON NORMALS: normal to inspection GENERAL: Yes normal exam except as noted Neuro: SHADE COMA SCALE: document GCS findings [place] coma scale eye opening: Spontaneous [place] coma scale verbal response: Orientated [place] coma scale motor response: Obey commands [place] coma scale total score: 15 COMMON NORMALS: patient oriented x3, CN's II-XII intact bilaterally, moves all extremities, no focal motor deficits, no sensory deficits noted and gait normal SENSORIUM/ORIENTATION: Yes alert, Yes oriented to person, Yes oriented to place and Yes oriented to time MENINGEAL SIGNS: Yes no meningeal signs Skin: COMMON NORMALS: no rashes or lesions noted GENERAL SKIN EXAM: no rashes or lesions noted Course Vital Signs: Vital signs: Vital Signs Temperature 97.2 F L 08/22/22 07:25 Pulse Rate 98 08/22/22 07:25 Respiratory Rate 16 08/22/22 07:25 Blood Pressure 142/78 08/22/22 09:16 Pulse Oximetry 98 08/22/22 07:25 Oxygen Delivery Me thod 08/22/22 07:25 [facility] - General Adult Medical Decision Making Patient appears in no acute distress. Her vital signs are stable. She was hypertensive upon arrival but this improved after IV hydralazine. Blood work including troponin are unremarkable. EKG showing no ischemic changes. CXR is normal. Patient just had stress test/echo in 12/2021. She has a follow-up appointment with her control panel operator crude unit tomorrow. Patient is stable for discharge at this time. She can follow-up with PCP in regards to the other complaints as needed. Lab Data 08/22/22 08:30 08/22/22 09:08 Radiology Impressions Chest X-Ray 08/22/22 07:48 IMPRESSION: No acute findings. Laboratory Results WBC 7.2 10^3/uL (4.0-10.0) 08/22/22 08:30 RBC 4.54 10^6/uL (4.1-5.3) 08/22/22 08:30 Hgb 14.4 g/dL (11.5-15.3) 08/22/22 08:30 Hct 42.5 % (37.0-47.0) 08/22/22 08:30 MCV 93.6 fl (81-99) 08/22/22 08:30 MCH 31.7 pg (28.0-34.0) 08/22/22 08:30 MCHC 33.9 g/dL (30.0-36.0) 08/22/22 08:30 RDW 13.1 % (12.1-15.1) 08/22/22 08:30 Plt Count 185 10^3/cmm (130-400) 08/22/22 08:30 MPV 9.7 fL (7.4-10.4) 08/22/22 08:30 Neut % (Auto) 67.2 % 08/22/22 08:30 Lymph % (Auto) 22.7 % 08/22/22 08:30 Orange % (Auto) 8.0 % 08/22/22 08:30 Eos % (Auto) 1.5 % 08/22/22 08:30 Baso % (Auto) 0.3 % 08/22/22 08:30 Neut # (Auto) 4.87 10^3/uL (1.8-7.7) 08/22/22 08:30 Lymph # (Auto) 1.6 10^3/uL (0.8-4.8) 08/22/22 08:30 Orange # (Auto) 0.6 10^3/uL (0.2-0.9) 08/22/22 08:30 Eos # (Auto) 0.1 10^3/uL (0.0-0.8) 08/22/22 08:30 Baso # (Auto) 0.0 10^3/uL (0.0-0.1) 08/22/22 08:30 Nucleated RBC % (auto) 0 % 08/22/22 08:30 Nucleated RBCs # 0.0 /100WBC 08/22/22 08:30 Sodium 136 mmol/L (136-145) 08/22/22 09:08 Potassium 4.3 mmol/L (3.5-5.1) 08/22/22 09:08 Chloride 102 mmol/L (98-107) 08/22/22 09:08 Carbon Dioxide 25 mmol/L (22-29) 08/22/22 09:08 Anion Gap 13.3 (5-19) 08/22/22 09:08 BUN 6 mg/dL (6-20) 08/22/22 09:08 Creatinine 0.6 mg/dL (0.5-0.9) 08/22/22 09:08 GFR Calculation 113.1 mL/min (90-130) 08/22/22 09:08 Glucose 82 mg/dL (65-115) 08/22/22 09:08 Calculated Osmolality 279 mOsm/kg (285-295) L 08/22/22 09:08 Calcium 8.8 mg/dL (8.5-10.5) 08/22/22 09:08 Total Bilirubin 0.2 mg/dL (0.15-1.2) 08/22/22 09:08 AST 25 U/L (0-32) 08/22/22 09:08 ALT 46 U/L (0-33) H 08/22/22 09:08 Alkaline Phosphatase 138 U/L (35-105) H 08/22/22 09:08 Troponin T Baseline 6 ng/L (0-10) 08/22/22 09:08 Total Protein 7.1 g/dL (6.6-8.7) 08/22/22 09:08 Albumin 4.3 g/dL (3.5-5.2) 08/22/22 09:08 Globulin 2.8 g/dL (1.3-4.6) 08/22/22 09:08 Urine Color Yellow (Yellow) 08/22/22 08:48 Urine Appearance Clear (CLEAR) 08/22/22 08:48 Urine pH 6 (5-7) 08/22/22 08:48 Ur Specific [place] 1.015 (1.005-1.030) 08/22/22 08:48 Urine Protein Neg (Negative) 08/22/22 08:48 Urine Glucose (UA) Norm (Normal) 08/22/22 08:48 Urine Ketones Negative (Negative) 08/22/22 08:48 Urine Blood Neg (Negative) 08/22/22 08:48 Urine Nitrate Negative (Negative) 08/22/22 08:48 Urine Bilirubin Neg (Negative) 08/22/22 08:48 Urine Urobilinogen Norm mg/dL (Negative) 08/22/22 08:48 Ur Leukocyte Esterase Negative (Negative) 08/22/22 08:48 Discharge Plan Discharge Patient Disposition: Home Clinical Impression: Otalgia of left ear, Atypical chest pain, Dysuria Condition: Stable Prescriptions: No Action All Day Allergy (cetirizine) 10 mg capsule 10 mg PO DAILY PRN (Reason: unknown) riboflavin (vitamin B2) 100 mg tablet 100 mg PO DAILY PNV #[id number] acid-omega3 30 mg iron-10 mg iron-1 mg capsule 1 cap PO DAILY Qty: 30 12RF ferrous sulfate [Iron (ferrous sulfate)] 325 mg (65 mg iron) tablet 325 mg PO TID albuterol sulfate [ProAir HFA] 90 mcg/actuation HFA aerosol inhaler 2 puff INHALATION DAILY [id number]-[id number] [Fioricet] 50-300-40 mg capsule 1 cap PO Q6H PRN (Reason: pain) Qty: 30 1RF triamcinolone acetonide 0.1 % cream 1 applic topical BID Qty: 30 0RF paroxetine HCl [Paxil] 10 mg tablet 10 mg PO .HS Qty: 30 1RF trazodone 50 mg tablet 50 mg PO .HS Qty: 30 1RF aspirin [Enteric Coated Aspirin] 81 mg tablet,delayed release (DR/EC) 81 mg PO DAILY Qty: 90 4RF EpiPen 2-Luís 0.3 mg/0.3 mL auto-injector 0.3 mg IM Q30M PRN (Reason: anaphylaxis) Qty: 2 2RF Rx Instructions: do not exceed 12 doses per 24 hrs nifedipine 60 mg tablet extended release 60 mg PO DAILY Qty: 90 2RF furosemide 20 mg tablet 20 mg PO DAILY PRN (Reason: edema) Qty: 90 2RF rosuvastatin 10 mg tablet 10 mg PO DAILY Qty: 90 3RF Naprosyn 500 mg tablet 500 mg PO BID PRN (Reason: pain) Qty: 20 0RF methocarbamol 750 mg tablet 750 mg PO Q8H Qty: 21 0RF Discharge Orders: Discharge ED (Routine); Ordered 08/22/22 Ordered By: Jaylin Powers Referrals: Gilberto Rashid DO [Primary Care Provider] - Coding Level of Care Code ED [employer] Manager for 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
[2022-08-22 08:40] LABS: Basophils % 0.3 %; Eosinophils # 0.1 10^3/uL (0.0-0.8); Eosinophils % 1.5 %; Hematocrit 42.5 % (37.0-47.0); Hemoglobin 14.4 g/dL (11.5-15.3); Lymphocytes # 1.6 10^3/uL (0.8-4.8); Lymphocytes % 22.7 %; Mean Corpuscular HGB Conc 33.9 g/dL (30.0-36.0); Mean Corpuscular Hemoglobin 31.7 pg (28.0-34.0); Mean Corpuscular Volume 93.6 fl (81-99); Mean Platelet Volume 9.7 fL (7.4-10.4); Monocytes # 0.6 10^3/uL (0.2-0.9); Neutrophils # 4.87 10^3/uL (1.8-7.7); Neutrophils % 67.2 %; Nucleated Red Blood Cells % 0 %; Platelet Count 185 10^3/cmm (130-400); Red Blood Count 4.54 10^6/uL (4.1-5.3); Red Cell Distribution Width 13.1 % (12.1-15.1); White Blood Count 7.2 10^3/uL (4.0-10.0)
[2022-08-22] MEDS: hyDRALAzine 20 mg/mL INJ 1 mL 10 MG IVP (08:50)
[2022-08-22 08:57] VITALS: BP 164/94
[2022-08-22 09:05] LABS: Add Urine Microscopic? NO; Charge for UA Resulting for Rev
[2022-08-22 09:09] LABS: Bilirubin Urine Neg (Negative); Blood Urine Neg (Negative); Glucose Urine UA Norm (Normal); Ketones Urine Negative (Negative); Leukocyte Esterase Urine Negative (Negative); Nitrate Urine Negative (Negative); Protein Urine Neg (Negative); Specific Gravity, Urine 1.015 (1.005-1.030); Urine Appearance Clear (CLEAR); Urine Color Yellow (Yellow); Urobilinogen Urine Norm (Negative); pH Urine 6 (5-7)
[2022-08-22 09:16] VITALS: BP 142/78
[2022-08-22 09:31] LABS: Alanine Aminotransferase 46 U/L (0-33); Albumin Level 4.3 g/dL (3.5-5.2); Alkaline Phosphatase 138 U/L (35-105); Anion Gap 13.3 (5-19); Aspartate Amino Transferase 25 U/L (0-32); Blood Urea Nitrogen 6 mg/dL (6-20); Calcium 8.8 mg/dL (8.5-10.5); Carbon Dioxide 25 mmol/L (22-29); Chloride 102 mmol/L (98-107); Globulin 2.8 g/dL (1.3-4.6); Glomerular Filtration Rate 113.1 mL/min (90-130); Glucose 82 mg/dL (65-115); Osmolality Calculated 279 mOsm/kg (285-295); Potassium 4.3 mmol/L (3.5-5.1); Sodium 136 mmol/L (136-145); Total Bilirubin 0.2 mg/dL (0.15-1.2); Total Protein 7.1 g/dL (6.6-8.7)
[2022-08-22 09:32] LABS: Troponin(5th) Baseline 6 ng/L (0-10)
[2022-08-22 09:59] VITALS: BP 151/87; RESP 16
== END 2022-08-22 10:00 | disposition home or self-care (01) ==
PROVIDERS: Emergency Provider Physician Assistant; PCP Family Medicine
DX: H92.02 Otalgia, left ear (principal); R07.89 Other chest pain; R30.0 Dysuria; Z79.82 Long term (current) use of aspirin; F17.210 Nicotine dependence, cigarettes, uncomplicated; I10 Essential (primary) hypertension
CPT/HCPCS: 36415; 71045; 80053; 81003; 84484; 85025; 93005; 96374; 99285; J0360

== ENCOUNTER → 2022-08-23 15:00 | Outpatient (BNVA) | payer MEDICAID, SELFPAY ==
[2022-08-18 11:38] VITALS: BP 120/74; BMI 44.5
== END ==
PROVIDERS: PCP Family Medicine; Visit Provider Internal Medicine Cardiovascular Disease
DX: R07.89 Other chest pain (principal); R06.02 Shortness of breath; Z82.49 Family history of ischemic heart disease and other diseases of the circulatory system; E78.5 Hyperlipidemia, unspecified; I11.9 Hypertensive heart disease without heart failure; F17.210 Nicotine dependence, cigarettes, uncomplicated
CPT/HCPCS: 80061; 80076; 99215

== ENCOUNTER 2022-08-25 03:37 | Emergency (ER) | payer MEDICAID, SELFPAY ==
[2022-08-18 11:38] VITALS: BP 120/74; BMI 44.5
--- NOTE | 2022-08-25 03:39 | XRR_ITS ---
PROCEDURE INFORMATION: Exam: XR Chest Exam date and time: 08/25/2022 3:53 AM Age: 37 years old Clinical indication: Left-sided; Prior surgery; Surgery type: Gb; Patient HX: Chest pain with left upper ext numbness. ; Additional info: Cp TECHNIQUE: Imaging protocol: Radiologic exam of the chest. Views: 1 view. COMPARISON: CR XR chest 1V portable [id number] 08/22/2022 7:53 AM FINDINGS: Lungs: Hypoinflation and mild interstitial prominence without acute airspace disease. Pleural spaces: No pleural effusion. Heart/Mediastinum: No cardiomegaly. Bones/joints: Unremarkable. XR/XR chest 1V portable [id number] IMPRESSION: Hypoinflation and mild interstitial prominence without acute airspace disease.
[2022-08-25 03:45] VITALS: BP 159/117; PULSE 90; RESP 24; TEMP 36.6; O2SAT 100; BMI 46.3
--- NOTE | 2022-08-25 03:47 | ECG_ITS ---
[facility] Test Date: 2022-08-25 Pat Name: Shilpa Giang Department: Room: Gender: Female Equipment Tech: : 1985 Requested By: Clary Alfaro Order Number: [id number] Daniela MD: Junior Escalante M.D. Measurements Intervals [place] Rate: 93 P: 28 IL: 119 QRS: 17 QRSD: 107 T: 29 QT: 363 QTc: 452 Interpretive Statements SINUS RHYTHM WITH SHORT IL INTERVAL MINIMAL VOLTAGE CRITERIA FOR LVH, CONSIDER NORMAL VARIANT [MEETS CRITERIA IN ONE OF: R(aVL), S(V1), R(V5), R(V5/V6)+S(V1)] Compared to ECG 08/22/2022 07:31:36 No significant changes Electronically Signed On 08-25-2022 20:00:36 REMARKETING MANAGER by Junior Escalante M.D. [id number]
--- NOTE | 2022-08-25 03:48 | W.ED.CHESTPA ---
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 Associated symptoms: Deny abdominal pain, dyspnea, fever(s), nausea or vomiting Review of Systems Const: Denies: fever(s), chills, body aches or change in appetite Eyes: Denies: blurry vision or eye discomfort ENMT: Denies: throat pain or dental pain Card: Reports: chest pain Resp: Denies: dyspnea GI: Denies: abdominal pain, nausea, vomiting or diarrhea : Denies: dysuria Musc: Denies: neck pain or back pain Skin/Breast: Denies: rash Neuro: Denies: headache(s) Psych: Denies: depression [place]illan/Lymph: Denies: easy bruising All/Imm: Denies: urticaria PFSH ED PFSH: Medical History Asthma Diagnosed as a child when controlled with an albuterol inhaler as needed being managed by her primary care provider. 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 Borderline intellectual functioning Depression Fibromyalgia Not currently on any medication Hypertension Lumbar radiculopathy, chronic Chronic back pain managed by pain medication and the pain clinic Nicotine use disorder No pertinent past medical history Patient denies: hypercholesterolemia, heart, liver, kidney, thyroid problems, DVT/PE. PCP: Rachid/Felipe Post-traumatic stress disorder, chronic Psychiatric care Seizure Surgical History History of cholecystectomy Laparoscopic procedure in 2018 Pyloric stenosis repaired as a baby Family History Mother Hypertension Stroke Lung cancer Anesthesia complication Cancer Lung disease Bone disease Grandfather Colon cancer Maternal, diagnosed in his 60s Cancer Brother Seizures Family/Other Hyperlipidemia paternal uncle Heart disease maternal uncle Cancer Lung disease Stroke Bone disease Grandmother CAD (coronary artery disease) Father CAD (coronary artery disease), Onset Age: 35 Denies family history of Ovarian cancer Diabetes Clotting disorder Dementia Chronic kidney disease (CKD) Breast cancer Suicide Bleeding disorder Uterine cancer Thyroid condition Social History Smoking and tobacco status: current every day smoker cigarettes Packs smoked per day: 0.5 Alcohol intake: never Counseling given: No Marital status: Number of children: 1 Number of grandchildren: 0 Female Reproductive History: Date of last menstrual period: 08/23/22 Para: 1 Spontaneous abortions: Yes Physical Exam Const: COMMON NORMALS: no acute distress, patient oriented x3 and healthy appearing HENMT: COMMON NORMALS: normocephalic and atraumatic HEAD & SCALP: normocephalic and atraumatic Eye: COMMON NORMALS: Equal, round and reactive pupils present and EOMs intact bilaterally PUPIL: Yes Equal, round and reactive pupils present Neck/C-Spine: COMMON NORMALS: full ROM and supple Chest: COMMONS NORMALS: normal inspection of the chest and normal palpation of entire chest wall Resp: COMMON NORMALS: normal respiratory effort, No retractions, No use of accessory muscles and clear to auscultation bilaterally AUSCULTATION: clear to auscultation bilaterally Cardio: COMMON NORMALS: regular rate, regular rhythm and No murmurs present (Cardio) RATE: regular rate RHYTHM: regular rhythm GI: COMMON NORMALS: Normal to inspection, nondistended, normoactive bowel sounds present, Soft to palpation, non-tender and no masses PALPATION: Yes Soft to palpation Extremity: COMMON NORMALS: normal to inspection and full ROM Neuro: COMMON NORMALS: patient oriented x3, moves all extremities and no focal motor deficits Psych: COMMON NORMALS: mental status grossly normal, Normal thought process present and cooperative THOUGHT PROCESS: Normal thought process present Skin: COMMON NORMALS: no rashes or lesions noted and no wounds GENERAL SKIN EXAM: no rashes or lesions noted Course Vital Signs: Vital signs: Vital Signs Temperature 97.9 F 08/25/22 03:45 Pulse Rate 88 08/25/22 03:58 Respiratory Rate 16 08/25/22 03:58 Blood Pressure 137/83 08/25/22 03:58 Pulse Oximetry 98 02/16/23 03:58 Oxygen Delivery Me thod 08/25/22 03:45 MDM - Chest Pain Medical Decision Making Patient presents for chest pains atypical in nature her EKG x-ray troponin are all normal she is stable for discharge she is to follow-up with her PCP and return if worsening. Lab Data 08/25/22 03:53 08/25/22 03:53 Laboratory Results WBC 6.8 10^3/uL (4.0-10.0) 08/25/22 03:53 RBC 4.66 10^6/uL (4.1-5.3) 08/25/22 03:53 Hgb 14.4 g/dL (11.5-15.3) 08/25/22 03:53 Hct 43.7 % (37.0-47.0) 08/25/22 03:53 MCV 93.8 fl (81-99) 08/25/22 03:53 MCH 30.9 pg (28.0-34.0) 08/25/22 03:53 MCHC 33.0 g/dL (30.0-36.0) 08/25/22 03:53 RDW 13.0 % (12.1-15.1) 08/25/22 03:53 Plt Count 203 10^3/cmm (130-400) 08/25/22 03:53 MPV 9.2 fL (7.4-10.4) 08/25/22 03:53 Neut % (Auto) 60.9 % 08/25/22 03:53 Lymph % (Auto) 30.3 % 08/25/22 03:53 [place] % (Auto) 6.3 % 08/25/22 03:53 Eos % (Auto) 1.9 % 08/25/22 03:53 Baso % (Auto) 0.3 % 08/25/22 03:53 Neut # (Auto) 4.17 10^3/uL (1.8-7.7) 08/25/22 03:53 Lymph # (Auto) 2.1 10^3/uL (0.8-4.8) 08/25/22 03:53 [place] # (Auto) 0.4 10^3/uL (0.2-0.9) 08/25/22 03:53 Eos # (Auto) 0.1 10^3/uL (0.0-0.8) 08/25/22 03:53 Baso # (Auto) 0.0 10^3/uL (0.0-0.1) 08/25/22 03:53 Nucleated RBC % (auto) 0 % 08/25/22 03:53 Nucleated RBCs # 0.0 /100WBC 08/25/22 03:53 Sodium 135 mmol/L (136-145) L 08/25/22 03:53 Potassium 3.6 mmol/L (3.5-5.1) 08/25/22 03:53 Chloride 98 mmol/L (98-107) 08/25/22 03:53 Carbon Dioxide 24 mmol/L (22-29) 08/25/22 03:53 Anion Gap 16.6 (5-19) 08/25/22 03:53 BUN 10 mg/dL (6-20) 08/25/22 03:53 Creatinine 0.8 mg/dL (0.5-0.9) 08/25/22 03:53 GFR Calculation 81.2 mL/min (90-130) L 08/25/22 03:53 Glucose 123 mg/dL (65-115) H 08/25/22 03:53 Calculated Osmolality 280 mOsm/kg (285-295) L 08/25/22 03:53 Calcium 9.0 mg/dL (8.5-10.5) 08/25/22 03:53 Total Bilirubin 0.3 mg/dL (0.15-1.2) 08/25/22 03:53 AST 28 U/L (0-32) 08/25/22 03:53 ALT 45 U/L (0-33) H 08/25/22 03:53 Alkaline Phosphatase 142 U/L (35-105) H 08/25/22 03:53 Troponin T Baseline 6 ng/L (0-10) 08/25/22 03:53 Total Protein 7.4 g/dL (6.6-8.7) 08/25/22 03:53 Albumin 4.5 g/dL (3.5-5.2) 08/25/22 03:53 Globulin 2.9 g/dL (1.3-4.6) 08/25/22 03:53 EKG Data EKG 1: I personally reviewed and interpreted this EKG as follows: EKG interpretation date: 08/25/22 EKG interpretation time: 03:47 Interpretation: nsr hr [address] or t wave abnormalities qrs 107 qtc 413 Discharge Plan Discharge Patient Disposition: Home Clinical Impression: Chest pain Condition: Stable Prescriptions: No Action All Day Allergy (cetirizine) 10 mg capsule 10 mg PO DAILY PRN (Reason: unknown) riboflavin (vitamin B2) 100 mg tablet 100 mg PO DAILY PNV #[id number] 30 mg iron-10 mg iron-1 mg capsule 1 cap PO DAILY Qty: 30 12RF ferrous sulfate [Iron (ferrous sulfate)] 325 mg (65 mg iron) tablet 325 mg PO TID albuterol sulfate [ProAir HFA] 90 mcg/actuation HFA aerosol inhaler 2 puff INHALATION DAILY naproxen 250 mg tablet 250 mg PO DAILY PRN (Reason: pain) paroxetine HCl [Paxil] 10 mg tablet 10 mg PO .HS Qty: 30 1RF trazodone 50 mg tablet 50 mg PO .HS Qty: 30 1RF metoprolol tartrate 25 mg tablet 25 mg PO BID 30 Days Qty: 60 5RF nitroglycerin 0.4 mg tablet, sublingual 0.4 mg sublingual Q5M PRN (Reason: chest pain) 30 Days Qty: 30 3RF Rx Instructions: until response; do not exceed 3 doses per episode triamcinolone acetonide 0.1 % cream 1 applic topical BID Qty: 30 0RF aspirin [Enteric Coated Aspirin] 81 mg tablet,delayed release (DR/EC) 81 mg PO DAILY Qty: 90 4RF EpiPen 2-Luís 0.3 mg/0.3 mL auto-injector 0.3 mg IM Q30M PRN (Reason: anaphylaxis) Qty: 2 2RF Rx Instructions: do not exceed 12 doses per 24 hrs nifedipine 60 mg tablet extended release 60 mg PO DAILY Qty: 90 2RF furosemide 20 mg tablet 20 mg PO DAILY PRN (Reason: edema) Qty: 90 2RF rosuvastatin 5 mg tablet 5 mg PO DAILY Qty: 90 3RF Discharge Orders: Discharge ED (Routine); Ordered 08/25/22 Ordered By: Clary Alfaro Referrals: Gilberto Rashid DO [Primary Care Provider] - 1-3 days Discharge Diet: Advance as tolerated Discharge Activity: Resume usual activity Patient Instructions: Chest Pain (ED) Coding Level of Care Code ED Gold Leaf Layer for 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
[2022-08-25] MEDS: ondansetron 2 mg/ML SDV 2 mL 4 MG IVP (03:55)
[2022-08-25 03:56] LABS: Basophils % 0.3 %; Eosinophils # 0.1 10^3/uL (0.0-0.8); Eosinophils % 1.9 %; Hematocrit 43.7 % (37.0-47.0); Hemoglobin 14.4 g/dL (11.5-15.3); Lymphocytes # 2.1 10^3/uL (0.8-4.8); Lymphocytes % 30.3 %; Mean Corpuscular Hemoglobin 30.9 pg (28.0-34.0); Mean Corpuscular Volume 93.8 fl (81-99); Mean Platelet Volume 9.2 fL (7.4-10.4); Monocytes # 0.4 10^3/uL (0.2-0.9); Monocytes % 6.3 %; Neutrophils # 4.17 10^3/uL (1.8-7.7); Neutrophils % 60.9 %; Nucleated Red Blood Cells % 0 %; Platelet Count 203 10^3/cmm (130-400); Red Blood Count 4.66 10^6/uL (4.1-5.3); White Blood Count 6.8 10^3/uL (4.0-10.0)
[2022-08-25] MEDS: morphine 4 mg/mL SDV 1 mL IVP (03:56)
[2022-08-25 03:58] VITALS: BP 137/83; PULSE 88; RESP 16; O2SAT 98
[2022-08-25 04:12] LABS: Alanine Aminotransferase 45 U/L (0-33); Albumin Level 4.5 g/dL (3.5-5.2); Alkaline Phosphatase 142 U/L (35-105); Anion Gap 16.6 (5-19); Aspartate Amino Transferase 28 U/L (0-32); Blood Urea Nitrogen 10 mg/dL (6-20); Carbon Dioxide 24 mmol/L (22-29); Chloride 98 mmol/L (98-107); Globulin 2.9 g/dL (1.3-4.6); Glomerular Filtration Rate 81.2 mL/min (90-130); Glucose 123 mg/dL (65-115); Osmolality Calculated 280 mOsm/kg (285-295); Potassium 3.6 mmol/L (3.5-5.1); Sodium 135 mmol/L (136-145); Total Bilirubin 0.3 mg/dL (0.15-1.2); Total Protein 7.4 g/dL (6.6-8.7)
[2022-08-25 04:13] LABS: Troponin(5th) Baseline 6 ng/L (0-10)
== END 2022-08-25 04:32 | disposition home or self-care (01) ==
PROVIDERS: Emergency Provider Emergency Medicine; PCP Family Medicine
DX: R07.9 Chest pain, unspecified (principal); Z79.82 Long term (current) use of aspirin; F17.210 Nicotine dependence, cigarettes, uncomplicated; I10 Essential (primary) hypertension
CPT/HCPCS: 71045; 80053; 84484; 85025; 93005; 96374; 96375; 99285; J2270; J2405

== ENCOUNTER 2022-09-01 12:00 | Outpatient (CLI) | payer BC, MEDICAID, SELFPAY ==
[2022-08-18 11:38] VITALS: BP 120/74; BMI 44.5
[2022-09-01 12:47] LABS: Basophils % 0.3 %; Eosinophils # 0.1 10^3/uL (0.0-0.8); Eosinophils % 1.8 %; Hematocrit 41.3 % (37.0-47.0); Hemoglobin 13.9 g/dL (11.5-15.3); Lymphocytes # 1.7 10^3/uL (0.8-4.8); Lymphocytes % 24.7 %; Mean Corpuscular HGB Conc 33.7 g/dL (30.0-36.0); Mean Corpuscular Hemoglobin 31.9 pg (28.0-34.0); Mean Corpuscular Volume 94.7 fl (81-99); Monocytes # 0.4 10^3/uL (0.2-0.9); Monocytes % 5.4 %; Neutrophils % 67.2 %; Nucleated Red Blood Cells % 0 %; Platelet Count 198 10^3/cmm (130-400); Red Blood Count 4.36 10^6/uL (4.1-5.3); Red Cell Distribution Width 13.1 % (12.1-15.1); White Blood Count 6.7 10^3/uL (4.0-10.0)
[2022-09-01 13:04] LABS: Anion Gap 13.9 (5-19); Blood Urea Nitrogen 9 mg/dL (6-20); Carbon Dioxide 25 mmol/L (22-29); Chloride 100 mmol/L (98-107); Glomerular Filtration Rate 113.1 mL/min (90-130); Glucose 152 mg/dL (65-115); Osmolality Calculated 282 mOsm/kg (285-295); Potassium 3.9 mmol/L (3.5-5.1); Sodium 135 mmol/L (136-145)
[2022-09-01 13:32] LABS: INR 1.04 (0.83-1.21); Prothrombin Time (Patient) 13.9 Seconds (12.0-15.1)
== END 2022-09-01 12:01 | disposition home or self-care (01) ==
LOC: LAB 12:00
PROVIDERS: PCP Family Medicine; Visit Provider Internal Medicine Cardiovascular Disease
DX: R07.89 Other chest pain (principal)
CPT/HCPCS: 36415; 80048; 85025; 85610; 86850; 86900

== ENCOUNTER 2022-09-05 07:21 | Outpatient (CLI) | payer BC, MEDICAID, SELFPAY ==
[2022-08-18 11:38] VITALS: BP 120/74; BMI 44.5
[2022-09-02 09:17] VITALS: BMI 46.7
[2022-09-05] VITALS (10 sets, daily range): BP systolic 131–161; BP diastolic 82–102; PULSE 75–97; RESP 16–44; TEMP 36.9; O2SAT 94–98
--- NOTE | 2022-09-05 07:30 | XACV_ITS ---
Exam Room: 2 Ht: 147 cm Wt: 102 kg BSA: 2.11 m2 Gender: Female : 1985 Any Known Allergies: Shellfish Exam Priority: Routine Procedure(s): Procedure Description: Diagnostic procedure Procedure Description: Left Heart Catheterization Procedure Description: Left ventriculography Procedure Description: Coronary Angiography Boris MCCOY; Diagnostic Cath Status: Elective Diagnostic Findings * The left main is a medium caliber vessel with no significant stenotic lesions. * The left anterior descending artery is a medium caliber vessel with minimal intimal irregularities in the mid and distal segments. Appears to wrap around the LV apex minimally. * The left circumflex artery is a car dominant vessel with no significant stenotic lesions. Itappears to give off the PDA branch.. * The right coronary artery is a medium caliber codominant vessel with no significant stenotic lesions. Conclusions 1. #1. Mild coronary artery disease. Codominant right coronary artery #2. Normal LV ejection fraction of 60%. #3 left-ventricular diastolic dysfunction with an LVEDP of 28 mmHg. Diagnostic RX Recommendation: medical therapy and/or counseling LV EDP: 28 mmHg Ventriculography Ejection Fraction: 60.0 % Left Ventriculography Findings: * LV gram was performed in the OJEDA projection. The LV cavity appears to be normal size. Normal LV ejection fraction. No significant mitral valve prolapse or any mitral regurgitation. The overall LV ejection fraction was 60%. LVEDP was 28 mmHg which went up to 31, following the LV angiogram. Pressures Phase:Rest AO : 129 / 88 ( 106 ) @ 9:00:00 AM 129 / 99 ( 115 ) @ 9:06:00 AM 153 / 92 ( 121 ) @ 9:15:00 AM 153 / 90 ( 117 ) @ 9:15:00 AM LV : 146 / 2 / 28 @ 9:14:00 AM 151 / 9 / 31 @ 9:15:00 AM 146 / 8 / 31 @ 9:15:00 AM Valves Phase:DefaultPhase AV : 0.0 @ 9:23:54 AM 0.0 @ 9:23:54 AM AV Mean Gradient: 0.0 @ 9:23:54 AM 0.0 @ 9:23:54 AM Clinical Evaluation EBL: 5mL-10mL Procedural Details Procedure Consent Obtained. Admit Source: Out Patient. Pre-Procedure Time Out. Identified patient by full name and date of as verbalized by the patient/guarantor. Does the consent match the physician's order: Yes. Accurate & Complete Informed Consent: Yes. Inpatient/Outpatient History & Physical on Chart: Yes. If H&P is completed, is and addenduem needed: No; If yes, is the addendum complete: N/A. Visualize and Verify Site with Patient/Guarantor: N/A. Relevant Radiology Images available: N/A. The risks, benefits, and alternatives of sedation and/or procedure were discussed by physician. The patient agrees to continue. Procedure started. [facility] Clinical Fraility Score: 3: Managing Well. Aerotriangulation Specialist Indications: Worsening Angina. Chest Pain Symptom Assessment: Atypical Angina. Correct patient, site and procedure confirmed by cath team. Current diagnosis: Chest Pain, suspected ASHD. PERRLA. Strong, equal hand cementer machine bilaterally. Lungs clear x 5 lobes. IV Site on Arrival: 20 gauge in the right anticubital. IV Fluids: 0.9% NaCl at 75ml/hr. 0 mL infused prior to concrete laborer. Pre Procedural Pulses: bilateral posterior tibial was 3+. Pre Procedural Pulses: bilateral dorsalis pedis was 3+. Pre Procedural Pulses: bilateral radial was 3+. Oxygen started at 2liters/min via nasal canula. right groin was prepped with chloroprep then draped in the usual sterile fashion. right radial was prepped with chloroprep then draped in the usual sterile fashion. Physician notified. Baseline sample Acquired. HR: 76 BPM. Physician arrived. Physician scrubbed in. Immediate Pre-Procedure Time Out. Correct Patient: Yes; Correct Procedure: Yes; Correct Site: Yes; Correct Patient Position: Yes; Correct Supplies: Yes; Dried Flammable Prep: Yes; Blood Products Available: No;. Lidocaine 1% infiltrated to the right radial. A 5 australian Artemio catheter in over wire. Catheter removed over the exchange wire. A 5 australian TIG catheter in over wire. Multiple views taken of left coronary artery. Catheter redirected to the RCA. Catheter removed over the exchange wire. A 5 australian JR4 catheter in over wire. Multiple views taken of right coronary artery. Catheter removed over the exchange wire. A 5 australian Angled Pig catheter in over wire. EDP Sample taken: LV 146/2,28; HR: 87 BPM; SpO2: 100%. LV gram performed in OJEDA @ 10 mL/second for a total of 30 mL. EDP Sample taken: LV 151/9,31; HR: 88 BPM; SpO2: 100%. Pullback taken: LV 146/8,31; AO 153/92(121); Mean: 0mmHg, Peak to Peak: 0mmHg, SEP: 8sec/min; HR: 89 BPM; SpO2: 100%. Catheter removed over the exchange wire. Physician scrubbed out. A TR Band was successful obtaining hemostatsis at the Right Radial artery insertion site. PERRLA. Strong, equal hand cementer machine bilaterally. No VTE prophylaxis required. Medication's Wasted: Heparin = 1000 unit. Medication's Wasted: Nitro = 49.8 mg. Medication's Wasted: Other = Fentanyl 50mcg. Total IV fluids: 48 mL. Post-op diagnosis: High LVEDP, Myocardial Bridge. Complications: None. Estimated blood loss: 5mL-10mL. Responsiveness - Normal response to verbal stimuli; alert and oriented, PERRLA. Airway - Unaffected, no intervention required; spontaneous ventilation. Circulation: W/N/L, pulses unchanged. Nausea/Vomiting: N/A. Procedure completed. Patient transferred by wheelchair to CPRU. Vital chart was stopped. Access Site Site: Right Radial artery Sheath Size: 6 Fr Hemostasis Method: TR Band Hemostasis Success: Successful Procedure Medications Start: 8:39 AM Stop: 8:39 AM Medication: Solu-Medrol (methylprednisolone) Amount: 100 mg Route: I.V. Start: 8:53 AM Stop: 8:53 AM Medication: Versed Amount: 1 mg Route: I.V. Start: 8:53 AM Stop: 8:53 AM Medication: Fentanyl Amount: 50 mcg Route: I.V. Start: 8:58 AM Stop: 8:58 AM Medication: Verapamil Amount: 5 mg Route: I.A. Start: 8:58 AM Stop: 8:58 AM Medication: Nitrogylcerin Amount: 200 mcg Route: I.A. Start: 9:03 AM Stop: 9:03 AM Medication: Heparin Amount: 5000 units Route: I.V. Start: 9:12 AM Stop: 9:12 AM Medication: Versed Amount: 1 mg Route: I.V. I, the attending physician, have reviewed and verified all procedure medications. Yes, all medications given per verbal order History/Risk Factors Hypertension: Yes Dyslipidemia: No Peripheral Arterial Disease (PAD): No Myocardial Infarction ([place]): No Obesity: Yes Renal Disease: No Prior Interventions PCI: No CABG: No Valve Surgery: No Report Signatures Finalized by Dr Junior Escalante MD [facility] on 09/06/2022 07:27 AM
[2022-09-05] MEDS: aspirin 325 mg Tablet PO (08:00)
[2022-09-05] MEDS: diphenhydrAMINE 50 mg Capsule PO (08:00)
[2022-09-05 08:02] LABS: HCG Qualitative Urine. Negative (Negative)
[2022-09-05] MEDS: predniSONE 20 mg Tablet 60 MG PO (08:35)
--- NOTE | 2022-09-05 08:48 | P.HPUD_ITS ---
Surgery/Procedure H&P Update DATE OF PROCEDURE: September 05, 2022 DATE H&P PERFORMED: 08/23/21 H&P UPDATE INFORMATION: I have examined patient prior to procedure PREOP DIAGNOSIS: suspected ASHD PRIMARY INDICATION FOR PROCEDURE: Worsening chest pain, multiple risk factors for coronary artery disease including a strong family history of premature heart disease PLANNED PROCEDURE: Operation Date: 09/05/22 08:30 Proposed Procedures p [facility] 23643,R07.89(Left) - Junior Escalante MD PATIENT REASSESSED PRIOR TO SEDATION, WITH NO CHANGE NOTED: Yes PHYSICAL EXAM: alert, oriented x 3, clear to auscultation bilaterally and regular rate & rhythm AIRWAY EVAL/ANESTHESIA PLAN: normal airway, see other exam findings, ASA III, Monitored Anesthesia, Local Anesthesia, Risks, benefits & alternatives of sedation and/or procedure discussed and Patient agrees to continue as planned
--- NOTE | 2022-09-05 11:39 | PC.NURSE ---
1130: TR Band removed from patients right wrist. No drainage or hematoma noted. Vitals stable. Cleaned around site with soap and water, site covered with band-aid. Will continue to monitor.
--- NOTE | 2022-09-05 12:49 | PC.NURSE ---
Around 1230: Discharge orders received. Dressing over puncture site to patients right wrist clean, dry, et intact. No drainage or hematoma. Vitals stable. No c/o of pain or discomfort. IV removed. Discharge instructions reviewed with patient. Patient verbalized understanding of all teaching. Follow up appointment made with RICHARD Grayd. Patient discharged from CPRU to home via wheelchair with ems driver in private vehicle.
== END 2022-09-05 07:22 | disposition home or self-care (01) ==
PROVIDERS: PCP Family Medicine; Visit Provider Internal Medicine Cardiovascular Disease
DX: I25.10 Atherosclerotic heart disease of native coronary artery without angina pectoris (principal); I10 Essential (primary) hypertension; E66.9 Obesity, unspecified; Z68.42 Body mass index [BMI] 45.0-49.9, adult; M79.7 Fibromyalgia; F41.9 Anxiety disorder, unspecified; F32.A Depression, unspecified; Z82.49 Family history of ischemic heart disease and other diseases of the circulatory system; E78.5 Hyperlipidemia, unspecified; J45.909 Unspecified asthma, uncomplicated; F17.210 Nicotine dependence, cigarettes, uncomplicated
CPT/HCPCS: 36415; 81025; 93458; 96361; 96365; 99152; 99153; C1769; C1887; C1894; J1644; J2250; J2930; J3010; J3490; J7030; J7512; Q0163; Q9967

== ENCOUNTER 2022-09-09 12:33 | Emergency (ER) | payer BC, MEDICAID, SELFPAY ==
[2022-08-18 11:38] VITALS: BP 120/74; BMI 44.5
[2022-09-09 12:44] VITALS: BP 115/81; PULSE 95; RESP 18; TEMP 36.7; O2SAT 96
--- NOTE | 2022-09-09 12:45 | USR_ITS ---
PROCEDURE INFORMATION: Exam: US Duplex Right Upper Extremity Arteries Exam date and time: 09/09/2022 2:17 PM Age: 37 years old Clinical indication: Other: Finger tip color change; Prior surgery; Surgery date: 3-7 days post-operative; Surgery type: Heart cath; Additional info: Finger tip color change with cath 09/05, R radial access for cath, eval complication TECHNIQUE: Imaging protocol: Right Real-time ultrasound scan of the arteries of the right upper extremity with 2-D shankar scale, color Doppler flow and spectral waveform analysis. COMPARISON: CR (UP EX, ) 02/01/2022 2:44 AM FINDINGS: Right subclavian artery: No occlusion or significant stenosis. Normal waveform. Right axillary artery: No occlusion or significant stenosis. Normal waveform. Right brachial artery: No occlusion or significant stenosis. Normal waveform. Right radial artery: No occlusion or significant stenosis. Normal waveform. Right ulnar artery: No occlusion or significant stenosis. Normal waveform. US/[place] [id number] IMPRESSION: No acute findings.
[2022-09-09 14:51] VITALS: BP 139/87; RESP 87; O2SAT 98
--- NOTE | 2022-09-09 14:55 | ED_ITS ---
Documented by User: GILDA Johnson 09/10/22 08:37 HPI - Extremity Problem General: Chief complaint: Extremity Problem,Nontraumatic Stated complaint: Right hand, Fingertips purple Time Seen by Provider: 09/09/22 14:28 History of Present Illness: Patient is a 37-year-old female comes to the ED with post procedural pain. Patient had an angiogram done back on September 05. She was instructed on not lifting anything lower 10 to 15 pounds and she stated she went to see her daughter who is approximately 20 pounds and lifted her. Since then she has been having pain around her right wrist angiogram site. She states that yesterday her fingers were blue and cold. She rates her pain currently moderate to severe. Pain radiates up her right arm. Patient also states she is having some chest pain currently. Chest pain started this morning when she woke up. She rates it currently a 10 out of 10 and describes it as a sharp stabbing pain on the left side of her chest. Laying down makes chest pain worse. Associated symptoms: Reports chest pain; Deny fever(s) or rash Review of Systems Const: Denies: fever(s), chills or fatigue Eyes: Denies: change in vision or eye discomfort ENMT: Denies: throat pain, odynophagia, nasal discharge or nasal congestion Card: Reports: chest pain; Denies: palpitations, edema, swelling of feet/ankles, dyspnea on exertion or orthopnea Resp: Denies: dyspnea, productive cough or non-productive cough GI: Denies: abdominal pain, nausea, vomiting, diarrhea, constipation or hematochezia : Denies: flank pain, dysuria or hematuria Musc: Reports: extremity pain (Right arm pain-around angiogram site on right wrist); Denies: neck pain, back pain or extremity swelling Skin/Breast: Denies: rash or new lesions Neuro: Denies: headache(s), numbness in extremities or weakness in extremities [facility] ED PFSH: Medical History (Updated 09/17/22 @ 00:01 by KAMI Rodriguez) Asthma Diagnosed as a child when controlled with an albuterol inhaler as needed being managed by her primary care provider. She does not see a real estate marketing coordinator. Atherosclerosis of coronary artery Borderline intellectual functioning Depression Fibromyalgia Not currently on any medication Hypertension Lumbar radiculopathy, chronic Chronic back pain managed by pain medication and the pain clinic Nicotine use disorder No pertinent past medical history Patient denies: hypercholesterolemia, heart, liver, kidney, thyroid problems, DVT/PE. PCP: Dina Post-traumatic stress disorder, chronic Psychiatric care Seizure Surgical History History of cholecystectomy Laparoscopic procedure in 2018 Pyloric stenosis repaired as a baby Family History Mother Hypertension Stroke Lung cancer Anesthesia complication Cancer Lung disease Bone disease Grandfather Colon cancer Maternal, diagnosed in his 60s Cancer Brother Seizures Family/Other Hyperlipidemia paternal uncle Heart disease maternal uncle Cancer Lung disease Stroke Bone disease Grandmother CAD (coronary artery disease) Father CAD (coronary artery disease), Onset Age: 35 Denies family history of Ovarian cancer Diabetes Clotting disorder Dementia Chronic kidney disease (CKD) Breast cancer Suicide Bleeding disorder Uterine cancer Thyroid condition Social History Smoking and tobacco status: current every day smoker cigarettes Packs smoked per day: 0.5 Alcohol intake: never Counseling given: No Marital status: Number of children: 1 Number of grandchildren: 0 Female Reproductive History: Para: 1 Spontaneous abortions: Yes Physical Exam Const: COMMON NORMALS: no acute distress, patient oriented x3 and alert GENERAL APPEARANCE: cooperative and comfortable HENMT: COMMON NORMALS: normocephalic HEAD & SCALP: normocephalic MOUTH: Normal oral and palatal mucosa present THROAT: posterior oropharynx normal and uvula midline Neck/C-Spine: COMMON NORMALS: supple GENERAL: Yes normal visual inspection Resp: COMMON NORMALS: normal respiratory effort, No retractions, No use of accessory muscles and clear to auscultation bilaterally AUSCULTATION: clear to auscultation bilaterally Cardio: COMMON NORMALS: regular rate, regular rhythm, S1 normal heart sound present, S2 normal heart sound present, No gallops present (Cardio), No clicks present (Cardio), No murmurs present (Cardio) and Peripheral pulses 2+ throughout RATE: regular rate RHYTHM: regular rhythm HEART SOUNDS: S1 normal heart sound present and S2 normal heart sound present PERIPHERAL PULSES: Peripheral pulses 2+ throughout GI: COMMON NORMALS: Normal to inspection, nondistended, normoactive bowel sounds present, Soft to palpation, non-tender and no masses PALPATION: Yes Soft to palpation : COMMON NORMALS: Yes no CVA tenderness BLADDER/KIDNEY EXAM: Yes no CVA tenderness Back/Pelvis: COMMON NORMALS: no CVA tenderness Extremity: COMMON NORMALS: full ROM and capillary refill normal NARRATIVE EXTREMITY EXAM: Right extremity?angiogram site her right wrist. Some mild bruising noted. Tenderness to angiogram site. Hand has normal cap refill under 2 seconds. Full range of motion and strength. No signs of cellulitis noted. Neuro: COMMON NORMALS: patient oriented x3 SENSORIUM/ORIENTATION: Yes alert GAIT: Yes Normal gait present Skin: GENERAL SKIN EXAM: dry skin Course Vital Signs: Vital signs: Vital Signs Temperature 98.0 F 09/09/22 17:10 Pulse Rate 74 09/09/22 17:10 Respiratory Rate 16 09/09/22 17:10 Blood Pressure 144/84 09/09/22 17:10 Pulse Oximetry 96 09/09/22 17:10 Oxygen Delivery Me thod 09/09/22 14:51 MDM - Extremity (Nontraumatic) Medical Decision Making Patient is a 37-year-old female comes to the ED with post procedural pain. Patient had an angiogram done back on September 05. She was instructed on not lifting anything lower 10 to 15 pounds and she stated she went to see her d preeter who is approximately 20 pounds and lifted her. Since then she has been having pain around her right wrist angiogram site. She states that yesterday her fingers were blue and cold. She rates her pain currently moderate to severe. Pain radiates up her right arm. Patient also states she is having some chest pain currently. Chest pain started this morning when she woke up. She rates it currently a 10 out of 10 and describes it as a sharp stabbing pain on the left side of her chest. Vitals are stable. Patient appears nontoxic and in no acute distress or pain. Right extremity?angiogram site at wrist. Some mild bruising noted. Tenderness to angiogram site. Hand has normal cap refill under 2 seconds. Full range of motion and strength. No signs of cellulitis noted. Ultrasound venous duplex of right upper extremity showed no DVTs. Ultrasound duplex scan of upper extremity artery shows no acute findings. CBC and CMP are unremarkable. Chest x-ray shows no acute findings. EKG shows normal sinus rhythm with no ST segment elevation or depression seen. Troponin negative. Patient diagnosed with atypical chest pain and status post extremity angiogram. She was told to follow-up with her PCP and digital printer at her next scheduled appointment on September 13. Strict return ED precautions given. Patient understood and agreed with plan. Lab Data I reviewed the patient's lab results. 09/09/22 15:20 09/09/22 15:20 Radiology Impressions Duplex Scan Upper Extremity Artery 09/09/22 12:45 IMPRESSION: No acute findings. Venous Duplex 09/09/22 15:00 IMPRESSION: No evidence of deep vein thrombosis. Chest X-Ray 09/09/22 15:01 IMPRESSION: No acute findings. Laboratory Results WBC 9.0 10^3/uL (4.0-10.0) 09/09/22 15:20 RBC 4.27 10^6/uL (4.1-5.3) 09/09/22 15:20 Hgb 13.4 g/dL (11.5-15.3) 09/09/22 15:20 Hct 40.3 % (37.0-47.0) 09/09/22 15:20 MCV 94.4 fl (81-99) 09/09/22 15:20 MCH 31.4 pg (28.0-34.0) 09/09/22 15:20 MCHC 33.3 g/dL (30.0-36.0) 09/09/22 15:20 RDW 13.5 % (12.1-15.1) 09/09/22 15:20 Plt Count 187 10^3/cmm (130-400) 09/09/22 15:20 MPV 8.9 fL (7.4-10.4) 09/09/22 15:20 Neut % (Auto) 70.8 % 09/09/22 15:20 Lymph % (Auto) 19.9 % 09/09/22 15:20 [place] % (Auto) 6.3 % 09/09/22 15:20 Eos % (Auto) 1.9 % 09/09/22 15:20 Baso % (Auto) 0.4 % 09/09/22 15:20 Neut # (Auto) 6.39 10^3/uL (1.8-7.7) 09/09/22 15:20 Lymph # (Auto) 1.8 10^3/uL (0.8-4.8) 09/09/22 15:20 [place] # (Auto) 0.6 10^3/uL (0.2-0.9) 09/09/22 15:20 Eos # (Auto) 0.2 10^3/uL (0.0-0.8) 09/09/22 15:20 Baso # (Auto) 0.0 10^3/uL (0.0-0.1) 09/09/22 15:20 Nucleated RBC % (auto) 0 % 09/09/22 15:20 Nucleated RBCs # 0.0 /100WBC 09/09/22 15:20 Sodium 135 mmol/L (136-145) L 09/09/22 15:20 Potassium 4.0 mmol/L (3.5-5.1) 09/09/22 15:20 Chloride 100 mmol/L (98-107) 09/09/22 15:20 Carbon Dioxide 24 mmol/L (22-29) 09/09/22 15:20 Anion Gap 15.0 (5-19) 09/09/22 15:20 BUN 9 mg/dL (6-20) 09/09/22 15:20 Creatinine 0.7 mg/dL (0.5-0.9) 09/09/22 15:20 GFR Calculation 94.7 mL/min (90-130) 09/09/22 15:20 Glucose 80 mg/dL (65-115) 09/09/22 15:20 Calculated Osmolality 278 mOsm/kg (285-295) L 09/09/22 15:20 Calcium 8.6 mg/dL (8.5-10.5) 09/09/22 15:20 Total Bilirubin 0.2 mg/dL (0.15-1.2) 09/09/22 15:20 AST 39 U/L (0-32) H 09/09/22 15:20 ALT 55 U/L (0-33) H 09/09/22 15:20 Alkaline Phosphatase 131 U/L (35-105) H 09/09/22 15:20 Troponin T Baseline 6 ng/L (0-10) 09/09/22 15:20 Total Protein 6.8 g/dL (6.6-8.7) 09/09/22 15:20 Albumin 3.9 g/dL (3.5-5.2) 09/09/22 15:20 Globulin 2.9 g/dL (1.3-4.6) 09/09/22 15:20 HCG, Qual Negative (Negative) 09/09/22 15:20 EKG Data EKG 1: EKG interpretation date: 09/09/22 Interpretation: Sinus rhythm, no ST segment elevation or depression seen. [address] Springer reviewed EKG as well and agreed with findings Discharge Plan Discharge Patient Disposition: Home Clinical Impression: Atypical chest pain, S/P angiogram of extremity Condition: Stable Prescriptions: No Action All Day Allergy (cetirizine) 10 mg capsule 10 mg PO DAILY PRN (Reason: unknown) riboflavin (vitamin B2) 100 mg tablet 100 mg PO DAILY PNV #[id number] 30 mg iron-10 mg iron-1 mg capsule 1 cap PO DAILY Qty: 30 12RF ferrous sulfate [Iron (ferrous sulfate)] 325 mg (65 mg iron) tablet 325 mg PO TID albuterol sulfate [ProAir HFA] 90 mcg/actuation HFA aerosol inhaler 2 puff INHALATION DAILY naproxen 250 mg tablet 250 mg PO DAILY PRN (Reason: pain) metoprolol tartrate 25 mg tablet 25 mg PO BID 30 Days Qty: 60 5RF nitroglycerin 0.4 mg tablet, sublingual 0.4 mg sublingual Q5M PRN (Reason: chest pain) 30 Days Qty: 30 3RF Rx Instructions: until response; do not exceed 3 doses per episode furosemide 20 mg tablet 40 mg PO DAILY PRN (Reason: edema) Qty: 90 2RF isosorbide mononitrate 30 mg tablet extended release 24 hr 30 mg PO BID Qty: 180 3RF aspirin [Enteric Coated Aspirin] 81 mg tablet,delayed release (DR/EC) 81 mg PO DAILY Qty: 90 4RF EpiPen 2-Luís 0.3 mg/0.3 mL auto-injector 0.3 mg IM Q30M PRN (Reason: anaphylaxis) Qty: 2 2RF Rx Instructions: do not exceed 12 doses per 24 hrs nifedipine 60 mg tablet extended release 60 mg PO DAILY Qty: 90 2RF rosuvastatin 5 mg tablet 5 mg PO DAILY Qty: 90 3RF Paxil 10 mg tablet 10 mg PO QPM trazodone 50 mg tablet 50 mg PO BEDTIME triamcinolone acetonide 0.1 % cream 1 applic topical BID PRN (Reason: Rash) Discharge Orders: Discharge ED (Routine); Ordered 09/09/22 Ordered By: Atif Gaspar Referrals: Gilberto Rashid, [Primary Care Provider] - Discharge Diet: Regular Discharge Activity: Increase activity as tolerated Patient Instructions: Chest Pain (ED) Activity Restrictions/Additional Instructions: Follow-up with medical provider as directed in the next 3 to 5 days for reevaluation. Continue taking all home medications as previously prescribed. Return to the ER or your medical provider if condition worsens. Please read and understand discharge instructions. Thank you for choosing [facility] for your healthcare needs today. Please realize this is an emergency room and that we are providing you with a medical screening exam and this may not be complete and all inclusive of all the testing and or work up that you may need to determine your ailment or severity of your illness. It is very important that you follow up as instructed or that you return to the Emergency Department should you have concerns or if your condition changes or worsens in any way. Coding Level of Care Code ED Manifest/Order Organizer Print Orders for [place] Fwd Documented by User: Raudel Connolly MD 09/21/22 00:08 HPI - Extremity Problem General: Chief complaint: Extremity Problem,Nontraumatic Stated complaint: Right hand, Fingertips purple Time Seen by Provider: 09/09/22 14:28 [facility] ED PFSH: Medical History (Updated 09/17/22 @ 00:01 by KAMI Rodriguez) Asthma Diagnosed as a child when controlled with an albuterol inhaler as needed being managed by her primary care provider. She does not see a real estate marketing coordinator. Atherosclerosis of coronary artery Borderline intellectual functioning Depression Fibromyalgia Not currently on any medication Hypertension Lumbar radiculopathy, chronic Chronic back pain managed by pain medication and the pain clinic Nicotine use disorder No pertinent past medical history Patient denies: hypercholesterolemia, heart, liver, kidney, thyroid problems, DVT/PE. PCP: Rachid/Felipe Post-traumatic stress disorder, chronic Psychiatric care Seizure Surgical History History of cholecystectomy Laparoscopic procedure in 2018 Pyloric stenosis repaired as a baby Family History Mother Hypertension Stroke Lung cancer Anesthesia complication Cancer Lung disease Bone disease Grandfather Colon cancer Maternal, diagnosed in his 60s Cancer Brother Seizures Family/Other Hyperlipidemia paternal uncle Heart disease maternal uncle Cancer Lung disease Stroke Bone disease Grandmother CAD (coronary artery disease) Father CAD (coronary artery disease), Onset Age: 35 Denies family history of Ovarian cancer Diabetes Clotting disorder Dementia Chronic kidney disease (CKD) Breast cancer Suicide Bleeding disorder Uterine cancer Thyroid condition Social History Smoking and tobacco status: current every day smoker cigarettes Packs smoked per day: 0.5 Alcohol intake: never Counseling given: No Marital status: Number of children: 1 Number of grandchildren: 0 Course Vital Signs: Vital signs: Vital Signs Temperature 98.0 F 09/09/22 17:10 Pulse Rate 74 09/09/22 17:10 Respiratory Rate 16 09/09/22 17:10 Blood Pressure 144/84 09/09/22 17:10 Pulse Oximetry 96 09/09/22 17:10 Oxygen Delivery Me thod 09/09/22 14:51 MDM - Extremity (Nontraumatic) Medical Decision Making Patient is a 37-year-old female comes to the ED with post procedural pain. Mago velazquez had an angiogram done back on September 05. She was instructed on not lifting anything lower 10 to 15 pounds and she stated she went to see her daughter who is approximately 20 pounds and lifted her. Since then she has been having pain around her right wrist angiogram site. She states that yesterday her fingers were blue and cold. She rates her pain currently moderate to severe. Pain radiates up her right arm. Patient also states she is having some chest pain currently. Chest pain started this morning when she woke up. She rates it currently a 10 out of 10 and describes it as a sharp stabbing pain on the left side of her chest. Vitals are stable. Patient appears nontoxic and in no acute distress or pain. Right extremity?angiogram site at wrist. Some mild bruising noted. Tenderness to angiogram site. Hand has normal cap refill under 2 seconds. Full range of motion and strength. No signs of cellulitis noted. Ultrasound venous duplex of right upper extremity showed no DVTs. Ultrasound duplex scan of upper extremity artery shows no acute findings. CBC and CMP are unremarkable. Chest x-ray shows no acute findings. EKG shows normal sinus rhythm with no ST segment elevation or depression seen. Troponin negative. Patient diagnosed with atypical chest pain and status post extremity angiogram. She was told to follow-up with her PCP and digital printer at her next scheduled appointment on September 13. Strict return ED precautions given. Patient understood and agreed with plan. I discussed this case with Atif VO. I have reviewed documentation, labs, imaging. Raudel Connolly MD Emergency Medicine Lab Data 09/09/22 15:20 09/09/22 15:20 Radiology Impressions Duplex Scan Upper Extremity Artery 09/09/22 12:45 IMPRESSION: No acute findings. Venous Duplex 09/09/22 15:00 IMPRESSION: No evidence of deep vein thrombosis. Chest X-Ray 09/09/22 15:01 IMPRESSION: No acute findings. Laboratory Results WBC 9.0 10^3/uL (4.0-10.0) 09/09/22 15:20 RBC 4.27 10^6/uL (4.1-5.3) 09/09/22 15:20 Hgb 13.4 g/dL (11.5-15.3) 09/09/22 15:20 Hct 40.3 % (37.0-47.0) 09/09/22 15:20 MCV 94.4 fl (81-99) 09/09/22 15:20 MCH 31.4 pg (28.0-34.0) 09/09/22 15:20 MCHC 33.3 g/dL (30.0-36.0) 09/09/22 15:20 RDW 13.5 % (12.1-15.1) 09/09/22 15:20 Plt Count 187 10^3/cmm (130-400) 09/09/22 15:20 MPV 8.9 fL (7.4-10.4) 09/09/22 15:20 Neut % (Auto) 70.8 % 09/09/22 15:20 Lymph % (Auto) 19.9 % 09/09/22 15:20 [place] % (Auto) 6.3 % 09/09/22 15:20 Eos % (Auto) 1.9 % 09/09/22 15:20 Baso % (Auto) 0.4 % 09/09/22 15:20 Neut # (Auto) 6.39 10^3/uL (1.8-7.7) 09/09/22 15:20 Lymph # (Auto) 1.8 10^3/uL (0.8-4.8) 09/09/22 15:20 [place] # (Auto) 0.6 10^3/uL (0.2-0.9) 09/09/22 15:20 Eos # (Auto) 0.2 10^3/uL (0.0-0.8) 09/09/22 15:20 Baso # (Auto) 0.0 10^3/uL (0.0-0.1) 09/09/22 15:20 Nucleated RBC % (auto) 0 % 09/09/22 15:20 Nucleated RBCs # 0.0 /100WBC 09/09/22 15:20 Sodium 135 mmol/L (136-145) L 09/09/22 15:20 Potassium 4.0 mmol/L (3.5-5.1) 09/09/22 15:20 Chloride 100 mmol/L (98-107) 09/09/22 15:20 Carbon Dioxide 24 mmol/L (22-29) 09/09/22 15:20 Anion Gap 15.0 (5-19) 09/09/22 15:20 BUN 9 mg/dL (6-20) 09/09/22 15:20 Creatinine 0.7 mg/dL (0.5-0.9) 09/09/22 15:20 GFR Calculation 94.7 mL/min (90-130) 09/09/22 15:20 Glucose 80 mg/dL (65-115) 09/09/22 15:20 Calculated Osmolality 278 mOsm/kg (285-295) L 09/09/22 15:20 Calcium 8.6 mg/dL (8.5-10.5) 09/09/22 15:20 Total Bilirubin 0.2 mg/dL (0.15-1.2) 09/09/22 15:20 AST 39 U/L (0-32) H 09/09/22 15:20 ALT 55 U/L (0-33) H 09/09/22 15:20 Alkaline Phosphatase 131 U/L (35-105) H 09/09/22 15:20 Troponin T Baseline 6 ng/L (0-10) 09/09/22 15:20 Total Protein 6.8 g/dL (6.6-8.7) 09/09/22 15:20 Albumin 3.9 g/dL (3.5-5.2) 09/09/22 15:20 Globulin 2.9 g/dL (1.3-4.6) 09/09/22 15:20 HCG, Qual Negative (Negative) 09/09/22 15:20 Discharge Plan Discharge Patient Disposition: Home Clinical Impression: Atypical chest pain, S/P angiogram of extremity Condition: Stable Prescriptions: No Action All Day Allergy (cetirizine) 10 mg capsule 10 mg PO DAILY PRN (Reason: unknown) riboflavin (vitamin B2) 100 mg tablet 100 mg PO DAILY PNV #[id number] 30 mg iron-10 mg iron-1 mg capsule 1 cap PO DAILY Qty: 30 12RF ferrous sulfate [Iron (ferrous sulfate)] 325 mg (65 mg iron) tablet 325 mg PO TID albuterol sulfate [ProAir HFA] 90 mcg/actuation HFA aerosol inhaler 2 puff INHALATION DAILY naproxen 250 mg tablet 250 mg PO DAILY PRN (Reason: pain) metoprolol tartrate 25 mg tablet 25 mg PO BID 30 Days Qty: 60 5RF nitroglycerin 0.4 mg tablet, sublingual 0.4 mg sublingual Q5M PRN (Reason: chest pain) 30 Days Qty: 30 3RF Rx Instructions: until response; do not exceed 3 doses per episode furosemide 20 mg tablet 40 mg PO DAILY PRN (Reason: edema) Qty: 90 2RF isosorbide mononitrate 30 mg tablet extended release 24 hr 30 mg PO BID Qty: 180 3RF aspirin [Enteric Coated Aspirin] 81 mg tablet,delayed release (DR/EC) 81 mg PO DAILY Qty: 90 4RF EpiPen 2-Luís 0.3 mg/0.3 mL auto-injector 0.3 mg IM Q30M PRN (Reason: anaphylaxis) Qty: 2 2RF Rx Instructions: do not exceed 12 doses per 24 hrs nifedipine 60 mg tablet extended release 60 mg PO DAILY Qty: 90 2RF rosuvastatin 5 mg tablet 5 mg PO DAILY Qty: 90 3RF Paxil 10 mg tablet 10 mg PO QPM trazodone 50 mg tablet 50 mg PO BEDTIME triamcinolone acetonide 0.1 % cream 1 applic topical BID PRN (Reason: Rash) Discharge Orders: Discharge ED (Routine); Ordered 09/09/22 Ordered By: Atif Gaspar Referrals: Gilberto Rashid DO [Primary Care Provider] - Discharge Diet: Regular Discharge Activity: Increase activity as tolerated Patient Instructions: Chest Pain (ED) Activity Restrictions/Additional Instructions: Follow-up with medical provider as directed in the next 3 to 5 days for reevaluation. Continue taking all home medications as previously prescribed. Return to the ER or your medical provider if condition worsens. Please read and understand discharge instructions. Thank you for choosing [facility] for your healthcare needs today. Please realize this is an emergency room and that we are providing you with a medical screening exam and this may not be complete and all inclusive of all the testing and or work up that you may need to determine your ailment or severity of your illness. It is very important that you follow up as instructed or that you return to the Emergency Department should you have concerns or if your condition changes or worsens in any way. Coding Level of Care Code ED Manifest/Order Organizer Print Orders for 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
--- NOTE | 2022-09-09 15:00 | ECG_ITS ---
[facility] Test Date: 2022-09-09 Pat Name: Shilpa Giang Department: Room: Gender: Female Activity Therapy Specialist: : 1985 Requested By: Atif Gaspar Order Number: [id number] Suarez MD: Junior Escalante M.D. Measurements Intervals [place] Rate: 75 P: 11 MT: 112 QRS: -5 QRSD: 103 T: 13 QT: 395 QTc: 442 Interpretive Statements SINUS RHYTHM WITH SHORT MT INTERVAL MODERATE VOLTAGE CRITERIA FOR LVH, CONSIDER NORMAL VARIANT [MEETS CRITERIA IN ONE OF: R(aVL), S(V1), R(V5), R(V5/V6)+S(V1)] Compared to ECG 08/25/2022 03:47:10 No significant changes Electronically Signed On 09-09-2022 21:46:32 [employer] by Junior Escalante M.D. [id number]
--- NOTE | 2022-09-09 15:00 | USR_ITS ---
PROCEDURE INFORMATION: Exam: US Duplex Right Lower Extremity Veins, Limited Exam date and time: 09/09/2022 3:13 PM Age: 37 years old Clinical indication: Pain; Arm, lower and fingers; Right; Additional info: Right arm pain post angiogram TECHNIQUE: Imaging protocol: Real-time duplex ultrasound of the right extremity with 2-D shankar scale, color Doppler flow and spectral waveform analysis including responses to compression and other maneuvers (when performed) with image documentation. Limited exam was focused on the right lower extremity veins. COMPARISON: CT abdomen pelvis w con* [id number] 10/22/2019 6:06 PM FINDINGS: Right deep veins: Unremarkable. The common femoral, femoral, proximal profunda femoral and popliteal veins are patent without thrombus. Normal Doppler waveforms. Normal compressibility and/or augmentation response. Right superficial veins: Unremarkable. Saphenofemoral junction is patent without thrombus. Soft tissues: Unremarkable. US/[place] [id number] IMPRESSION: No evidence of deep vein thrombosis.
--- NOTE | 2022-09-09 15:01 | XRR_ITS ---
PROCEDURE INFORMATION: Exam: XR Chest Exam date and time: 09/09/2022 3:04 PM Age: 37 years old Clinical indication: Pain; Right-sided; Prior surgery; Surgery type: Patient had an angiogram done back on September 05. ; Additional info: Patient had an angiogram done back on September 05. She was instructed on not lifting anything lower 10 to 15 pounds and she stated she went to see her daughter who is approximately 20 pounds and lifted her. Since then she has been having pain around her right wrist angiogram site. She states that yesterday her fingers were blue and cold. She rates her pain currently moderate to severe. Pain radiates up her right arm. Patient also states she is having some chest pain currently. Chest pain started this morning when she woke up. She rates it currently a 10 out of 10 and describes it as a sharp stabbing pain on the left side of her chest. Laying down makes chest pain worse. TECHNIQUE: Imaging protocol: Radiologic exam of the chest. Views: 1 view. COMPARISON: CR (CHEST, ) 08/25/2022 3:53 AM FINDINGS: Lungs: Unremarkable. No consolidation. Pleural spaces: Unremarkable. No pleural effusion. No pneumothorax. Heart/Mediastinum: Unremarkable. No cardiomegaly. Bones/joints: Unremarkable. XR/XR chest 1V portable [id number] IMPRESSION: No acute findings.
[2022-09-09] MEDS: HYDROcodone-acetaminophen 7.5-325 mg Tablet 1 TAB PO (15:18)
[2022-09-09 15:32] LABS: Basophils % 0.4 %; Eosinophils # 0.2 10^3/uL (0.0-0.8); Eosinophils % 1.9 %; Hematocrit 40.3 % (37.0-47.0); Hemoglobin 13.4 g/dL (11.5-15.3); Lymphocytes # 1.8 10^3/uL (0.8-4.8); Lymphocytes % 19.9 %; Mean Corpuscular HGB Conc 33.3 g/dL (30.0-36.0); Mean Corpuscular Hemoglobin 31.4 pg (28.0-34.0); Mean Corpuscular Volume 94.4 fl (81-99); Mean Platelet Volume 8.9 fL (7.4-10.4); Monocytes # 0.6 10^3/uL (0.2-0.9); Monocytes % 6.3 %; Neutrophils # 6.39 10^3/uL (1.8-7.7); Neutrophils % 70.8 %; Nucleated Red Blood Cells % 0 %; Platelet Count 187 10^3/cmm (130-400); Red Blood Count 4.27 10^6/uL (4.1-5.3); Red Cell Distribution Width 13.5 % (12.1-15.1)
[2022-09-09 15:52] LABS: HCG, Serum Qual Negative (Negative)
[2022-09-09 15:55] LABS: Troponin(5th) Baseline 6 ng/L (0-10)
[2022-09-09 15:56] LABS: Alanine Aminotransferase 55 U/L (0-33); Albumin Level 3.9 g/dL (3.5-5.2); Alkaline Phosphatase 131 U/L (35-105); Aspartate Amino Transferase 39 U/L (0-32); Blood Urea Nitrogen 9 mg/dL (6-20); Calcium 8.6 mg/dL (8.5-10.5); Carbon Dioxide 24 mmol/L (22-29); Chloride 100 mmol/L (98-107); Globulin 2.9 g/dL (1.3-4.6); Glomerular Filtration Rate 94.7 mL/min (90-130); Glucose 80 mg/dL (65-115); Osmolality Calculated 278 mOsm/kg (285-295); Sodium 135 mmol/L (136-145); Total Bilirubin 0.2 mg/dL (0.15-1.2); Total Protein 6.8 g/dL (6.6-8.7)
[2022-09-09] MEDS: morphine 4 mg/mL SDV 1 mL IVP (16:58)
[2022-09-09] MEDS: ondansetron 2 mg/ML SDV 2 mL 4 MG IVP (16:58)
--- NOTE | 2022-09-09 17:00 | ECG_ITS ---
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 Measurements Intervals Hugo Rate: 68 P: 22 [place]: 121 QRS: 6 QRSD: 114 T: 3 QT: 416 QTc: 445 Interpretive Statements SINUS RHYTHM MODERATE INTRAVENTRICULAR CONDUCTION DELAY [105+ ms QRS DURATION, 80+ ms Q/S IN V1/V2, NO Q AND 60+ ms R IN I/aVL/V5/V6] Diffuse nonspecific T wave changes MODERATE VOLTAGE CRITERIA FOR LVH, CONSIDER NORMAL VARIANT [MEETS CRITERIA IN ONE OF: R(aVL), S(V1), R(V5), R(V5/V6)+S(V1)] Compared to ECG 09/09/2022 16:24:08 Intraventricular conduction delay now present Short [place] interval no longer present Electronically Signed On 10-05-2022 23:57:26 CDT by Junior Escalante M.D. [id number]
[2022-09-09 17:10] VITALS: BP 144/84; PULSE 74; RESP 16; TEMP 36.7; O2SAT 96
== END 2022-09-09 17:11 | disposition home or self-care (01) ==
PROVIDERS: Emergency Provider Physician Assistant; PCP Family Medicine
DX: R07.89 Other chest pain (principal); Z98.890 Other specified postprocedural states; Z79.82 Long term (current) use of aspirin; F17.210 Nicotine dependence, cigarettes, uncomplicated; I25.10 Atherosclerotic heart disease of native coronary artery without angina pectoris; I10 Essential (primary) hypertension
CPT/HCPCS: 71045; 80053; 84484; 84703; 85025; 93005; 93931; 93971; 96374; 96375; 99285; J2270; J2405

== ENCOUNTER 2022-10-04 22:27 | Emergency (ER) | payer MEDICAID, SELFPAY ==
[2022-08-18 11:38] VITALS: BP 120/74; BMI 44.5
[2022-10-04 22:27] VITALS: BP 142/83; PULSE 71; RESP 16; TEMP 36.6; O2SAT 100; BMI 40.9
--- NOTE | 2022-10-04 22:31 | XRR_ITS ---
PROCEDURE INFORMATION: Exam: XR Chest Exam date and time: 10/04/2022 10:45 PM Age: 37 years old Clinical indication: Pain; Chest pressure; Additional info: Cp TECHNIQUE: Imaging protocol: Radiologic exam of the chest. Views: 1 view. COMPARISON: CR XR chest 1V portable [id number] 09/09/2022 3:04 PM FINDINGS: Lungs: Unremarkable. No consolidation. Pleural spaces: Unremarkable. No pleural effusion. No pneumothorax. Heart/Mediastinum: Unremarkable. No cardiomegaly. Bones/joints: Unremarkable. XR/XR chest 1V portable [id number] IMPRESSION: No acute findings.
[2022-10-04 22:38] LABS: Basophils % 0.3 %; Eosinophils # 0.2 10^3/uL (0.0-0.8); Hematocrit 42.1 % (37.0-47.0); Hemoglobin 13.9 g/dL (11.5-15.3); Lymphocytes # 2.3 10^3/uL (0.8-4.8); Lymphocytes % 28.6 %; Mean Corpuscular Hemoglobin 31.5 pg (28.0-34.0); Mean Corpuscular Volume 95.5 fl (81-99); Mean Platelet Volume 9.1 fL (7.4-10.4); Monocytes # 0.6 10^3/uL (0.2-0.9); Monocytes % 7.2 %; Neutrophils # 4.85 10^3/uL (1.8-7.7); Neutrophils % 61.5 %; Nucleated Red Blood Cells % 0 %; Platelet Count 188 10^3/cmm (130-400); Red Blood Count 4.41 10^6/uL (4.1-5.3); Red Cell Distribution Width 13.1 % (12.1-15.1); White Blood Count 7.9 10^3/uL (4.0-10.0)
[2022-10-04] MEDS: ketorolac 30 mg/mL INJ 15 MG IVP (22:39)
--- NOTE | 2022-10-04 22:39 | W.ED.CHESTPA ---
HPI - Chest Pain General: Chief Complaint: Chest Pain Stated Complaint: CP Time Seen by Provider: 10/04/22 22:28 Source: patient and EMS Mode of arrival: EMS Limitations: no limitations History of Present Illness: 37-year-old female states she had a sharp left-sided chest pain since last night states been constant nature is worse with palpation and movement of her left arm. She denies any fever denies any cough she denies any known injuries. She denies any shortness of breath. Associated symptoms: Deny abdominal pain, dyspnea, fever(s), nausea or vomiting Review of Systems Const: Denies: fever(s), chills, body aches or change in appetite Eyes: Denies: blurry vision or eye discomfort ENMT: Denies: throat pain or dental pain Card: Reports: chest pain Resp: Denies: dyspnea GI: Denies: abdominal pain, nausea, vomiting or diarrhea : Denies: dysuria Musc: Denies: neck pain or back pain Skin/Breast: Denies: rash Neuro: Denies: headache(s) Psych: Denies: depression Dillan/Lymph: Denies: easy bruising All/Imm: Denies: urticaria PFSH ED PFSH: Medical History Asthma Diagnosed as a child when controlled with an albuterol inhaler as needed being managed by her primary care provider. 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 Atherosclerosis of coronary artery Borderline intellectual functioning Depression Fibromyalgia Not currently on any medication Hypertension Lumbar radiculopathy, chronic Chronic back pain managed by pain medication and the pain clinic Nicotine use disorder No pertinent past medical history Patient denies: hypercholesterolemia, heart, liver, kidney, thyroid problems, DVT/PE. PCP: Rachid/Felipe Post-traumatic stress disorder, chronic Psychiatric care Seizure Surgical History History of cholecystectomy Laparoscopic procedure in 2018 Pyloric stenosis repaired as a baby Family History Mother Hypertension Stroke Lung cancer Anesthesia complication Cancer Lung disease Bone disease Grandfather Colon cancer Maternal, diagnosed in his 60s Cancer Brother Seizures Family/Other Hyperlipidemia paternal uncle Heart disease maternal uncle Cancer Lung disease Stroke Bone disease Grandmother CAD (coronary artery disease) Father CAD (coronary artery disease), Onset Age: 35 Denies family history of Ovarian cancer Diabetes Clotting disorder Dementia Chronic kidney disease (CKD) Breast cancer Suicide Bleeding disorder Uterine cancer Thyroid condition Social History Smoking and tobacco status: current every day smoker cigarettes Packs smoked per day: 0.5 Alcohol intake: never Counseling given: No Marital status: Number of children: 1 Number of grandchildren: 0 Female Reproductive History: Date of last menstrual period: 09/25/22 Para: 1 Spontaneous abortions: Yes Physical Exam Const: COMMON NORMALS: no acute distress, patient oriented x3 and healthy appearing HENMT: COMMON NORMALS: normocephalic and atraumatic HEAD & SCALP: normocephalic and atraumatic Eye: COMMON NORMALS: Equal, round and reactive pupils present and EOMs intact bilaterally PUPIL: Yes Equal, round and reactive pupils present Neck/C-Spine: COMMON NORMALS: full ROM and supple Chest: COMMONS NORMALS: normal inspection of the chest OTHER: point tender over left chest reproduces pain Resp: COMMON NORMALS: normal respiratory effort, No retractions, No use of accessory muscles and clear to auscultation bilaterally AUSCULTATION: clear to auscultation bilaterally Cardio: COMMON NORMALS: regular rate, regular rhythm and No murmurs present (Cardio) RATE: regular rate RHYTHM: regular rhythm GI: COMMON NORMALS: Normal to inspection, nondistended, normoactive bowel sounds present, Soft to palpation, non-tender and no masses PALPATION: Yes Soft to palpation Extremity: COMMON NORMALS: normal to inspection and full ROM Neuro: COMMON NORMALS: patient oriented x3, moves all extremities and no focal motor deficits Psych: COMMON NORMALS: mental status grossly normal, Normal thought process present and cooperative THOUGHT PROCESS: Normal thought process present Skin: COMMON NORMALS: no rashes or lesions noted and no wounds GENERAL SKIN EXAM: no rashes or lesions noted Course Vital Signs: Vital signs: Vital Signs Temperature 97.9 F 10/04/22 22:27 Pulse Rate 71 10/04/22 22:27 Respiratory Rate 16 10/04/22 22:27 Blood Pressure 142/83 10/04/22 22:27 Pulse Oximetry 100 10/04/22 22:27 Oxygen Delivery Me thod 10/04/22 22:27 MDM - Chest Pain Medical Decision Making Patient presents for chest pains likely muscular in nature its been going on for a day her troponin here is normal she is point tender on exam her pains improved with Toradol we will prescribe her Naprosyn she is to follow-up PCP and return if worsening. Lab Data 10/04/22 22:30 10/04/22 22:30 Laboratory Results WBC 7.9 10^3/uL (4.0-10.0) 10/04/22 22: RBC 4.41 10^6/uL (4.1-5.3) 10/04/22 22:30 Hgb 13.9 g/dL (11.5-15.3) 10/04/22 22: Hct 42.1 % (37.0-47.0) 10/04/22 22: MCV 95.5 fl (81-99) 10/04/22 22: MCH 31.5 pg (28.0-34.0) 10/04/22: MCHC 33.0 g/dL (30.0-36.0) 10/04/22 22: RDW 13.1 % (12.1-15.1) 10/04/22 22: Plt Count 188 10^3/cmm (130-400) 10/04/22 22: MPV 9.1 fL (7.4-10.4) 10/04/22 22: Neut % (Auto) 61.5 % 10/04/22 22: Lymph % (Auto) 28.6 % 10/04/22 22: Barber % (Auto) 7.2 % 10/04/22 22: Eos % (Auto) 2.0 % 10/04/22 22: Baso % (Auto) 0.3 % 10/04/22 22:30 Neut # (Auto) 4.85 10^3/uL (1.8-7.7) 10/04/22: Lymph # (Auto) 2.3 10^3/uL (0.8-4.8) 10/04/22 22:30 Barber # (Auto) 0.6 10^3/uL (0.2-0.9) 10/04/22 22: Eos # (Auto) 0.2 10^3/uL (0.0-0.8) 10/04/22 22:30 Baso # (Auto) 0.0 10^3/uL (0.0-0.1) 10/04/22 22:30 Nucleated RBC % (auto) 0 % 10/04/22 22: Nucleated RBCs # 0.0 /100WBC 10/04/22 22:30 Sodium 140 mmol/L (136-145) 10/04/22 22:30 Potassium 3.8 mmol/L (3.5-5.1) 10/04/22 22:30 Chloride 103 mmol/L (98-107) 10/04/22 22: Carbon Dioxide 26 mmol/L (22-29) 10/04/22: Anion Gap 14.8 (5-19) 10/04/22 22: BUN 9 mg/dL (6-20) 10/04/22 22: Creatinine 0.8 mg/dL (0.5-0.9) 10/04/22 22: GFR Calculation 81.2 mL/min (90-130) L 10/04/22 22:30 Glucose 94 mg/dL (65-115) 10/04/22 22:30 Calculated Osmolality 288 mOsm/kg (285-295) 10/04/22 22: Calcium 8.8 mg/dL (8.5-10.5) 10/04/22 22:30 Total Bilirubin 0.2 mg/dL (0.15-1.2) 10/04/22 22:30 AST 34 U/L (0-32) H 10/04/22 22:30 ALT 52 U/L (0-33) H 10/04/22 22:30 Alkaline Phosphatase 134 U/L (35-105) H 10/04/22 22:30 Troponin T Baseline 6 ng/L (0-10) 10/04/22 22: Total Protein 7.1 g/dL (6.6-8.7) 10/04/22 22: Albumin 4.1 g/dL (3.5-5.2) 10/04/22 22: Globulin 3.0 g/dL (1.3-4.6) 10/04/22 22:30 EKG Data EKG 1: I personally reviewed and interpreted this EKG as follows: EKG interpretation date: 10/04/22 EKG interpretation time: 22:31 Interpretation: nsr hr [address] or t wave abnormalities qrs 114 qtc 434 Discharge Plan Discharge Patient Disposition: Home Clinical Impression: Chest wall pain Condition: Stable Prescriptions: New Naprosyn 500 mg tablet 500 mg PO BID PRN (Reason: pain) Qty: 20 0RF No Action All Day Allergy (cetirizine) 10 mg capsule 10 mg PO DAILY PRN (Reason: unknown) riboflavin (vitamin B2) 100 mg tablet 100 mg PO DAILY PNV #[id number] 30 mg iron-10 mg iron-1 mg capsule 1 cap PO DAILY Qty: 30 12RF ferrous sulfate [Iron (ferrous sulfate)] 325 mg (65 mg iron) tablet 325 mg PO TID albuterol sulfate [ProAir HFA] 90 mcg/actuation HFA aerosol inhaler 2 puff INHALATION DAILY naproxen 250 mg tablet 250 mg PO DAILY PRN (Reason: pain) metoprolol tartrate 25 mg tablet 25 mg PO BID 30 Days Qty: 60 5RF nitroglycerin 0.4 mg tablet, sublingual 0.4 mg sublingual Q5M PRN (Reason: chest pain) 30 Days Qty: 30 3RF Rx Instructions: until response; do not exceed 3 doses per episode furosemide 20 mg tablet 40 mg PO DAILY PRN (Reason: edema) Qty: 90 2RF isosorbide mononitrate 30 mg tablet extended release 24 hr 30 mg PO BID Qty: 180 3RF aspirin [Enteric Coated Aspirin] 81 mg tablet,delayed release (DR/EC) 81 mg PO DAILY Qty: 90 4RF EpiPen 2-Luís 0.3 mg/0.3 mL auto-injector 0.3 mg IM Q30M PRN (Reason: anaphylaxis) Qty: 2 2RF Rx Instructions: do not exceed 12 doses per 24 hrs nifedipine 60 mg tablet extended release 60 mg PO DAILY Qty: 90 2RF rosuvastatin 5 mg tablet 5 mg PO DAILY Qty: 90 3RF ranolazine [Ranexa] 500 mg tablet extended release 12 hr 500 mg PO BID Qty: 60 2RF Paxil 10 mg tablet 10 mg PO QPM trazodone 50 mg tablet 50 mg PO BEDTIME triamcinolone acetonide 0.1 % cream 1 applic topical BID PRN (Reason: Rash) Discharge Orders: Discharge ED (Routine); Ordered 10/04/22 Ordered By: Clary Alfaro Referrals: Gilberto Rashid, [Primary Care Provider] - Discharge Diet: Advance as tolerated Discharge Activity: Resume usual activity Patient Instructions: Chest Wall Pain (ED) Coding Level of Care Code ED Hand Sample Maker for 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
[2022-10-04 22:59] LABS: Troponin(5th) Baseline 6 ng/L (0-10)
[2022-10-04 23:00] LABS: Alanine Aminotransferase 52 U/L (0-33); Albumin Level 4.1 g/dL (3.5-5.2); Alkaline Phosphatase 134 U/L (35-105); Anion Gap 14.8 (5-19); Aspartate Amino Transferase 34 U/L (0-32); Blood Urea Nitrogen 9 mg/dL (6-20); Calcium 8.8 mg/dL (8.5-10.5); Carbon Dioxide 26 mmol/L (22-29); Chloride 103 mmol/L (98-107); Glomerular Filtration Rate 81.2 mL/min (90-130); Glucose 94 mg/dL (65-115); Osmolality Calculated 288 mOsm/kg (285-295); Potassium 3.8 mmol/L (3.5-5.1); Sodium 140 mmol/L (136-145); Total Bilirubin 0.2 mg/dL (0.15-1.2); Total Protein 7.1 g/dL (6.6-8.7)
== END 2022-10-04 23:18 | disposition home or self-care (01) ==
PROVIDERS: Emergency Provider Emergency Medicine; PCP Family Medicine
DX: R07.89 Other chest pain (principal); Z79.82 Long term (current) use of aspirin; F17.210 Nicotine dependence, cigarettes, uncomplicated; I25.10 Atherosclerotic heart disease of native coronary artery without angina pectoris; I10 Essential (primary) hypertension
CPT/HCPCS: 71045; 80053; 84484; 85025; 96374; 99285; J1885

== ENCOUNTER → 2023-01-16 13:35 | Outpatient (BNVA) | payer OTHER, SELFPAY ==
[2022-08-18 11:38] VITALS: BP 120/74; BMI 44.5
== END ==
PROVIDERS: PCP Family Medicine; Visit Provider Nurse Practitioner
DX: F43.12 Post-traumatic stress disorder, chronic (principal)
CPT/HCPCS: 80061; 83036

== ENCOUNTER → 2023-02-28 13:17 | Outpatient (BNVA) | payer MEDICAID, SELFPAY ==
[2023-02-10 16:20] VITALS: BP 132/96; BMI 40.3
== END ==
PROVIDERS: PCP Family Medicine; Visit Provider Internal Medicine Cardiovascular Disease
DX: I25.10 Atherosclerotic heart disease of native coronary artery without angina pectoris (principal); F33.2 Major depressive disorder, recurrent severe without psychotic features; I11.9 Hypertensive heart disease without heart failure; F17.210 Nicotine dependence, cigarettes, uncomplicated
CPT/HCPCS: 99214

== ENCOUNTER 2023-03-31 08:55 | Emergency (ER) | payer MEDICAID, SELFPAY ==
[2023-03-10 16:10] VITALS: BP 132/96; BMI 40.3
[2023-03-31 09:00] VITALS: BP 127/80; PULSE 94; RESP 18; TEMP 36.5; O2SAT 96; BMI 39.9
--- NOTE | 2023-03-31 09:00 | XR_ITS ---
WS: [id number] XR shoulder LT min 2V* [id number] REASON FOR EXAM: trauma FINDINGS: No acute fracture. Normal clavicle, scapula, and humerus. The acromioclavicular joint is intact with no significant subarticular bone abnormality. The glenohumeral joint is intact with no significant subarticular bone abnormality. No significant abnormality in the adjacent soft tissues. IMPRESSION: No acute bone or joint abnormality.
--- NOTE | 2023-03-31 09:00 | XR_ITS ---
WS: [id number] XR chest 1V portable [id number] REASON FOR EXAM: trauma FINDINGS: Chest is unchanged compared to 10/04/2022. Mild tortuosity of the thoracic aorta. Normal heart size. Calcified granulomatous disease in both hemithoraces. No acute pulmonary parenchymal or pleural abnormality. The bony thorax is intact. No significant focal finding. IMPRESSION: No acute chest abnormality.
--- NOTE | 2023-03-31 09:06 | W.ED.FALL ---
HPI - Fall General: Chief Complaint: Extremity Injury, Upper Stated Complaint: fall, pain left side chest down arm Time Seen by Provider: 03/31/23 09:00 Source: patient Mode of arrival: ambulatory History of Present Illness: 37 yo female presents emergency room after falling 2 days ago. She has some pain in her left shoulder at the AC joint. No other injury. She is able to get around and move okay until this morning as more severe discomfort difficulty time raising her arm. She not strike her head did not lose consciousness. complaint: fall Onset (ago): day(s) Fall from: standing Location of injury - extremities: Left: shoulder Associated symptoms-after fall: Denies abdominal pain or chest pain Review of Systems Const: Reports: body aches; Denies: fever(s), chills, fatigue or malaise ENMT: Denies: throat pain, ear or mastoid pain, nasal discharge or nasal congestion Card: Denies: chest pain, edema, dyspnea on exertion or orthopnea Resp: Denies: dyspnea, productive cough or non-productive cough GI: Denies: abdominal pain, nausea, vomiting, hematemesis, coffee ground emesis, diarrhea, constipation, bloating, hematochezia or melena : Denies: flank pain, difficulty voiding, dysuria, urinary frequency or urinary urgency Musc: Reports: joint pain Skin/Breast: Denies: rash or pruritus PFSH ED PFSH: Medical History Asthma Diagnosed as a child when controlled with an albuterol inhaler as needed being managed by her primary care provider. 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 Atherosclerosis of coronary artery Borderline intellectual functioning Depression Fibromyalgia Not currently on any medication Hypertension Lumbar radiculopathy, chronic Chronic back pain managed by pain medication and the pain clinic Nicotine use disorder No pertinent past medical history Patient denies: hypercholesterolemia, heart, liver, kidney, thyroid problems, DVT/PE. PCP: Dina Post-traumatic stress disorder, chronic Psychiatric care Seizure Surgical History History of cholecystectomy Laparoscopic procedure in 2018 Pyloric stenosis repaired as a baby Family History Mother Hypertension Stroke Lung cancer Anesthesia complication Cancer Lung disease Bone disease Grandfather Colon cancer Maternal, diagnosed in his 60s Cancer Brother Seizures Family/Other Hyperlipidemia paternal uncle Heart disease maternal uncle Cancer Lung disease Stroke Bone disease Grandmother CAD (coronary artery disease) Father CAD (coronary artery disease), Onset Age: 35 Denies family history of Ovarian cancer Diabetes Clotting disorder Dementia Chronic kidney disease (CKD) Breast cancer Suicide Bleeding disorder Uterine cancer Thyroid condition Social History Smoking and tobacco status: current every day smoker cigarettes Packs smoked per day: 0.5 Years cigarettes smoked: 24 Quit status (tobacco): considering quitting Second hand smoke exposure: No Smoking risk assessment/counseling performed?: No (risks and benefits discussed/ referred to TTS) Alcohol intake: never Substance/Drug Use: never Counseling given: No Adopted: No Caregiver/support person: No Lives independently: Yes Household members: other Details: living with 3 other friends on moms property Housing: Manufactured/Mobile home Marital status: Single Number of children: 2 Number of grandchildren: 0 Highest education level completed: Some College, No Degree service: No Current occupational status: disabled 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 Current occupational exposures/hazards: No Pets and animals: Yes Pets & animals: dog(s) Leisure activites: games and other Leisure activities details: play on computer, watch movies Do you think of yourself as: Straight/Heterosexual Current gender identity: Female Melanie/Restoration: None Special melanie needs: No Agree to transfusion: Yes Financial difficulty paying for basics: Somewhat Hard Female Reproductive History: Para: 2 Spontaneous abortions: Yes Physical Exam Const: GENERAL APPEARANCE: cooperative and comfortable ORIENTATION/CONSCIOUSNESS: Yes awake, Yes oriented to person, Yes oriented to place and Yes oriented to time HENMT: COMMON NORMALS: normocephalic, atraumatic and hearing grossly normal bilaterally HEAD & SCALP: normocephalic and atraumatic Resp: COMMON NORMALS: normal respiratory effort, No retractions, No use of accessory muscles and clear to auscultation bilaterally AUSCULTATION: clear to auscultation bilaterally Cardio: COMMON NORMALS: regular rate, regular rhythm and No murmurs present (Cardio) RATE: regular rate RHYTHM: regular rhythm GI: COMMON NORMALS: Soft to palpation and No hepatosplenomegaly present AUSCULTATION: Yes normoactive bowel sounds PALPATION: Yes Soft to palpation, No Tenderness to palpation present (GI), No Guarding due to palpation present (GI) and Yes No hepatosplenomegaly present Extremity: COMMON NORMALS: normal to inspection, capillary refill normal, no clubbing, cyanosis or edema, no calf tenderness and no pedal edema Neuro: SENSORIUM/ORIENTATION: Yes oriented to person, Yes oriented to place and Yes oriented to time Skin: COMMON NORMALS: no rashes or lesions noted GENERAL SKIN EXAM: no rashes or lesions noted Course Vital Signs: Vital signs: Vital Signs Temperature 97.7 F 03/31/23 09:00 Pulse Rate 82 03/31/23 10:20 Respiratory Rate 18 03/31/23 09:12 Blood Pressure 127/80 03/31/23 10:20 Pulse Oximetry 97 03/31/23 10:20 Oxygen Delivery Me thod Room Air 03/31/23 09:12 MDM - Fall Medical Decision Making Left AC joint sprain. No acute fractures on any on x-rays. Anti-inflammatories as needed sling refer to Ortho return if has further problems. Medical Records I reviewed the patient's medical records. Lab Data I reviewed the patient's lab results. All radiology interpretation(s) finalized by discharge Discharge Plan Discharge Patient Disposition: Home Clinical Impression: Sprain of left acromioclavicular joint Condition: Stable Prescriptions: New diclofenac sodium 75 mg tablet,delayed release (DR/EC) 75 mg PO Q12H PRN (Reason: pain) Qty: 20 0RF Discontinued naproxen [Naprosyn] 500 mg tablet 500 mg PO BID PRN (Reason: pain) Qty: 20 0RF No Action riboflavin (vitamin B2) 100 mg tablet 100 mg PO DAILY PNV #[id number] 30 mg iron-10 mg iron-1 mg capsule 1 cap PO DAILY Qty: 30 12RF ferrous sulfate [Iron (ferrous sulfate)] 325 mg (65 mg iron) tablet 325 mg PO TID albuterol sulfate [ProAir HFA] 90 mcg/actuation HFA aerosol inhaler 2 puff INHALATION QID PRN (Reason: Shortness Of Breath) trazodone 50 mg tablet 50 mg PO BEDTIME Qty: 30 2RF metoprolol tartrate 25 mg tablet 25 mg PO BID Qty: 60 5RF ranolazine 500 mg tablet extended release 12 hr 500 mg PO BID Qty: 180 3RF isosorbide mononitrate 30 mg tablet extended release 24 hr 30 mg PO BID Qty: 180 3RF Aquaphor Original 41 % ointment 1 applic topical BID PRN (Reason: dry skin) Qty: 396 2RF EpiPen 2-Luís 0.3 mg/0.3 mL auto-injector 0.3 mg IM Q30M PRN (Reason: anaphylaxis) Qty: 2 2RF Rx Instructions: do not exceed 12 doses per 24 hrs nifedipine 60 mg tablet extended release 60 mg PO DAILY Qty: 90 2RF furosemide 20 mg tablet 40 mg PO DAILY PRN (Reason: edema) Qty: 90 2RF Zyrtec 10 mg Tablet 10 mg PO DAILY PRN (Reason: Allergy Symptoms) Enteric Coated Aspirin 81 mg tablet,delayed release (DR/EC) 81 mg PO QAM Nitrostat 0.4 mg Tablet, Sublingual 0.4 mg SUBLINGUAL Q5M PRN (Reason: Chest Pain) Rx Instructions: do not exceed 3 doses per episode rosuvastatin 5 mg tablet 5 mg PO BEDTIME Discharge Orders: Discharge ED (Routine); Ordered 03/31/23 Ordered By: Capo Gupta Referrals: Gilberto Rashid DO [Primary Care Provider] - Discharge Diet: Usual diet Discharge Activity: Limit activity as instructed Patient Instructions: Opioid Safety, Pain Management Activity Restrictions/Additional Instructions: Limit use of the left arm use sling as needed for comfort. Case management make arrangements for referral to orthopedics. Coding Level of Care Code ED Merchandise Presentation Associate for 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
[2023-03-31 09:12] VITALS: BP 127/80; PULSE 72; RESP 18; O2SAT 96
--- NOTE | 2023-03-31 09:22 | XR_ITS ---
WS: [id number] [place] [id number] REASON FOR EXAM: L pain FINDINGS: Nonweightbearing views of the acromioclavicular joints demonstrate no asymmetry. No evidence of AC separation. No fracture. IMPRESSION: No significant abnormality.
[2023-03-31 10:20] VITALS: BP 127/80; PULSE 82; O2SAT 97
--- NOTE | 2023-03-31 13:05 | PC.SOCIAL ---
ORTHO Referral Referral to ortho at this time, clinic to contact patient with appt date/time.
== END 2023-03-31 10:21 | disposition home or self-care (01) ==
PROVIDERS: Emergency Provider Family Medicine; PCP Family Medicine
DX: S43.52XA Sprain of left acromioclavicular joint, initial encounter (principal); F17.210 Nicotine dependence, cigarettes, uncomplicated; I25.10 Atherosclerotic heart disease of native coronary artery without angina pectoris; I10 Essential (primary) hypertension; W19.XXXA Unspecified fall, initial encounter
CPT/HCPCS: 71045; 73030; 73050; 99284

== ENCOUNTER → 2023-04-05 09:47 | Outpatient (BNVA) | payer MEDICAID, SELFPAY ==
[2023-03-10 16:10] VITALS: BP 132/96; BMI 40.3
== END ==
PROVIDERS: PCP Family Medicine; Referring Provider Family Medicine; Visit Provider Specialist
DX: M89.8X1 Other specified disorders of bone, shoulder (principal); S43.52XA Sprain of left acromioclavicular joint, initial encounter; W17.2XXA Fall into hole, initial encounter
CPT/HCPCS: 73010; 99204

== ENCOUNTER → 2023-04-18 14:47 | Outpatient (BNVA) | payer MEDICAID, SELFPAY ==
[2023-03-10 16:10] VITALS: BP 132/96; BMI 40.3
== END ==
PROVIDERS: PCP Family Medicine; Visit Provider Dermatology
DX: L40.0 Psoriasis vulgaris (principal); L40.59 Other psoriatic arthropathy
CPT/HCPCS: 99204

== ENCOUNTER 2023-04-21 07:43 | Outpatient (CLI) | payer MEDICAID, SELFPAY ==
[2023-03-10 16:10] VITALS: BP 132/96; BMI 40.3
--- NOTE | 2023-04-21 08:00 | CT_ITS ---
WS: [id number] CT LEFT SHOULDER, NONCONTRAST, 3D. HISTORY: shoulder pain, fall 2 weeks ago. Technique: All CT scans at [facility] use at least one of these dose optimization techniques: automated exposure control; mA and/or kV adjustment per patient size (includes targeted exams where dose is matched to clinical indication); or iterative reconstruction. DLP: 486.62 mGy.cm COMPARISON: None available. No shoulder fracture or displacement. Normal AC joint. Clavicle is normal. No soft tissue edema. The visualized ribs are normal. Normal scapula No soft tissue abnormality. Rotator cuff muscles appear symmetric in size. IMPRESSION: 1. No LEFT shoulder fracture or dislocation. 2. No soft tissue hematoma or joint effusion.
[2023-04-21 08:11] LABS: Basophils % 0.5 %; Eosinophils # 0.2 10^3/uL (0.0-0.8); Hematocrit 43.7 % (36-47); Lymphocytes % 27.8 %; Mean Corpuscular HGB Conc 34.6 g/dL (30-55); Mean Corpuscular Hemoglobin 32.2 pg (27-33); Mean Corpuscular Volume 93.2 fl (85-98); Mean Platelet Volume 9.1 fL (7.4-10.4); Monocytes # 0.5 10^3/uL (0.2-0.9); Monocytes % 7.1 %; Neutrophils # 4.47 10^3/uL (1.8-7.7); Neutrophils % 61.2 %; Nucleated Red Blood Cells % 0 %; Platelet Count 201 10^3/cmm (157-399); Red Blood Count 4.69 10^6/uL (3.85-5.65); Red Cell Distribution Width 13.2 % (12.1-15.1); White Blood Count 7.31 10^3/uL (3.29-11.43)
[2023-04-21 08:27] LABS: Blood Urea Nitrogen 15 mg/dL (6-20); Calcium 9.5 mg/dL (8.5-10.5); Carbon Dioxide 26 mmol/L (22-29); Chloride 100 mmol/L (98-107); Glomerular Filtration Rate 80.7 mL/min (90-130); Glucose 152 mg/dL (65-115); Osmolality Calculated 290 mOsm/kg (285-295); Sodium 138 mmol/L (136-145)
[2023-04-21 08:28] LABS: Anion Gap 15.8 (5-19); Potassium 3.8 mmol/L (3.5-5.1)
[2023-04-21 08:50] LABS: Hepatitis A Antibody IgM Non-Reactive (Nonreactive); Hepatitis B Core AB, Total Non-Reactive (Nonreactive); Hepatitis B Core IgM Non-Reactive (Nonreactive); Hepatitis B Surface AB 13.4 (11.5-1000); Hepatitis B Surface Antigen Non-Reactive (Nonreactive); Hepatitis C Virus Antibody Non-Reactive (Nonreactive)
[2023-04-21 09:18] LABS: HIV 1 & 2 Antibody Non-Reactive (Non-Reactiv); HIV 1 & 2 Antigen Non-Reactive (Non-Reactiv)
[2023-04-24 17:39] LABS: Quantiferon Mitogen 8.58 IU/mL; Quantiferon Nil 0.05 IU/mL; Quantiferon Plus TB2 <0.00 IU/mL; Quantiferon TB Gold NEGATIVE (NEGATIVE)
== END 2023-04-21 07:44 | disposition home or self-care (01) ==
PROVIDERS: PCP Family Medicine; Visit Provider Specialist
DX: S43.52XA Sprain of left acromioclavicular joint, initial encounter (principal); X58.XXXA Exposure to other specified factors, initial encounter; L40.0 Psoriasis vulgaris; L40.59 Other psoriatic arthropathy
CPT/HCPCS: 36415; 73200; 80048; 85025; 86480; 86705; 86706; 86709; 86803; 87340; 87806

== ENCOUNTER 2023-06-05 09:21 | Emergency (ER) | payer MEDICAID, SELFPAY ==
[2023-03-10 16:10] VITALS: BP 132/96; BMI 40.3
[2023-06-05 09:35] VITALS: BP 118/76; PULSE 81; RESP 16; TEMP 36.7; O2SAT 98; BMI 37.5
--- NOTE | 2023-06-05 09:50 | ED_ITS ---
HPI - Headache General: Chief Complaint: Headache Stated Complaint: head pain Time Seen by Provider: 06/05/23 09:44 Source: patient Mode of arrival: ambulatory History of Present Illness: 38-year-old female presents emergency room complaining of a left-sided migraine headache radiates to the base of her skull up across the scalp towards the frontal area. No fever sweats chills no trauma she is not on any anticoagulants. She has been photophobic mild autophobia as well no vomiting or diarrhea. She had tooth extractions done about 1 week ago. No jaw pain dental pain swelling or drainage. She has had headaches for the past she states this is more intense. MD elicited complaint: headache Onset description: suddenly Location: left, frontal, occipital and parietal Severity: severe Quality & Timing: sharp Exacerbating factors: light and noise Relieving factors: nothing Associated symptoms: Deny chest pain, confusion, cough, diaphoresis, eye pain, eye redness, fever(s), lightheadedness, loss of vision, malaise, nausea, neck stiffness, numbness, paresthesias, photophobia, pre-syncope, rash, seizures, short of breath, sound sensitivity, syncope, vomiting or weakness Treatments prior to arrival: none Review of Systems Const: Denies: fever(s), chills, malaise or diaphoresis Card: Denies: chest pain, lightheadedness, syncope or pre-syncope Resp: Denies: dyspnea GI: Denies: abdominal pain, nausea or vomiting : Denies: dysuria, urinary frequency or urinary urgency Musc: Denies: neck pain or back pain Skin/Breast: Denies: rash Neuro: Reports: headache(s); Denies: confusion PFS ED PFSH: Medical History Asthma Diagnosed as a child when controlled with an albuterol inhaler as needed being managed by her primary care provider. She does not see a staff veterinarian. Atherosclerosis of coronary artery Borderline intellectual functioning Depression Fibromyalgia Not currently on any medication Hypertension Lumbar radiculopathy, chronic Chronic back pain managed by pain medication and the pain clinic Nicotine use disorder No pertinent past medical history Patient denies: hypercholesterolemia, heart, liver, kidney, thyroid problems, DVT/PE. [facility] Seizure Surgical History History of cholecystectomy Laparoscopic procedure in 2018 Pyloric stenosis repaired as a baby Family History Mother Hypertension Stroke Lung cancer Anesthesia complication Cancer Lung disease Bone disease Grandfather Colon cancer Maternal, diagnosed in his 60s Cancer Brother Seizures Family/Other Hyperlipidemia paternal uncle Heart disease maternal uncle Cancer Lung disease Stroke Bone disease Grandmother CAD (coronary artery disease) Father CAD (coronary artery disease), Onset Age: 35 Denies family history of Ovarian cancer Diabetes Clotting disorder Dementia Chronic kidney disease (CKD) Breast cancer Suicide Bleeding disorder Uterine cancer Thyroid disease Social History Smoking and tobacco/nicotine status: current every day tobacco/nicotine user cigarettes Packs smoked per day: 0.5 Years cigarettes smoked: 24 Quit status (tobacco/nicotine): considering quitting Second hand smoke exposure: No Alcohol intake: never Substance/Drug Use: never Adopted: No Caregiver/support person: No Lives independently: Yes Household members: other Details: living with 3 other friends on moms property Housing: Manufactured/Mobile home Marital status: Single Number of children: 2 Number of grandchildren: 0 Highest education level completed: Some College, No Degree service: No Current occupational status: disabled 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 Current occupational exposures/hazards: No Pets and animals: Yes Pets & animals: dog(s) Leisure activites: games and other Leisure activities details: play on computer, watch movies Do you think of yourself as: Straight/Heterosexual Current gender identity: Female Melanie/Quaker: None Special melanie needs: No Agree to transfusion: Yes Female Reproductive History: Date of last menstrual period: 05/06/23 Para: 2 Spontaneous abortions: Yes Physical Exam Const: COMMON NORMALS: no acute distress GENERAL APPEARANCE: cooperative and comfortable ORIENTATION/CONSCIOUSNESS: Yes awake, Yes oriented to person, Yes oriented to place and Yes oriented to time HENMT: COMMON NORMALS: normocephalic, atraumatic and hearing grossly normal bilaterally HEAD & SCALP: normocephalic and atraumatic Eye: DIRECT OPHTHALMOSCOPY: No photophobia Resp: COMMON NORMALS: normal respiratory effort, No retractions, No use of accessory muscles and clear to auscultation bilaterally AUSCULTATION: clear to auscultation bilaterally Cardio: COMMON NORMALS: regular rate, regular rhythm and No murmurs present (Cardio) RATE: regular rate RHYTHM: regular rhythm GI: COMMON NORMALS: Soft to palpation and No hepatosplenomegaly present AUSCULTATION: Yes normoactive bowel sounds PALPATION: Yes Soft to palpation, No Tenderness to palpation present (GI), No Guarding due to palpation present (GI) and Yes No hepatosplenomegaly present Extremity: COMMON NORMALS: normal to inspection, capillary refill normal, no clubbing, cyanosis or edema, no calf tenderness and no pedal edema Neuro: SENSORIUM/ORIENTATION: Yes oriented to person, Yes oriented to place and Yes oriented to time Skin: COMMON NORMALS: no rashes or lesions noted GENERAL SKIN EXAM: no rashes or lesions noted Course Vital Signs: Vital signs: Vital Signs Temperature 98.1 F 06/05/23 09:35 Pulse Rate 67 06/05/23 10:00 Respiratory Rate 15 06/05/23 10:00 Blood Pressure 97/78 06/05/23 10:00 Pulse Oximetry 100 06/05/23 10:00 Oxygen Delivery Me thod Room Air 06/05/23 10:00 MDM - Headache Medical Decision Making Headache is improved with treatment. We will discharge patient home have her follow-up with Dr. Alexandra or primary care she has seen Dr. Alexandra in the past she appears to have a occipital neuralgia we will start her on P get pregabalin 75 twice daily. Medical Records I reviewed the patient's medical records. Lab Data I reviewed the patient's lab results. All radiology interpretation(s) finalized by discharge Discharge Plan Discharge Patient Disposition: Home Clinical Impression: Occipital neuralgia of left side Condition: Stable Prescriptions: New Lyrica 75 mg capsule 75 mg PO BID Qty: 60 0RF No Action riboflavin (vitamin B2) 100 mg tablet 100 mg PO QAM ferrous sulfate [Iron (ferrous sulfate)] 325 mg (65 mg iron) tablet 325 mg PO TID albuterol sulfate [ProAir HFA] 90 mcg/actuation HFA aerosol inhaler 2 puff INHALATION Q4H PRN (Reason: Shortness Of Breath) Qty: 8.5 2RF EpiPen 2-Luís 0.3 mg/0.3 mL auto-injector 0.3 mg IM Q10M PRN (Reason: anaphylaxis) Qty: 2 2RF Rx Instructions: do not exceed 2 doses per 24 hrs isosorbide mononitrate 30 mg tablet extended release 24 hr 30 mg PO BID Qty: 180 3RF metoprolol tartrate 25 mg tablet 25 mg PO BID Qty: 60 5RF ranolazine 500 mg tablet extended release 12 hr 500 mg PO BID Qty: 180 3RF rosuvastatin 5 mg tablet 5 mg PO BEDTIME Qty: 90 3RF cetirizine [Zyrtec] 10 mg Tablet 10 mg PO DAILY PRN (Reason: Allergy Symptoms) aspirin [Enteric Coated Aspirin] 81 mg tablet,delayed release (DR/EC) 81 mg PO QAM nitroglycerin [Nitrostat] 0.4 mg Tablet, Sublingual 0.4 mg SUBLINGUAL Q5M PRN (Reason: Chest Pain) Rx Instructions: do not exceed 3 doses per episode Tylenol Ex Str Rapid Release 500 mg Tablet 1,000 mg PO Q6H PRN (Reason: Pain) Benadryl 25 mg Capsule 50 mg PO DAILY PRN (Reason: Allergy Symptoms) ibuprofen 200 mg Tablet 400 mg PO Q6H PRN (Reason: Pain) Gas-X 80 mg Tablet,Chewable 80 mg PO DAILY PRN (Reason: bloating) Multivitamins 28 mg iron- 800 mcg Tablet 1 tab PO QAM trazodone 100 mg tablet 100 mg PO BEDTIME furosemide 20 mg tablet 40 mg PO EVERY OTHER DAY nifedipine 60 mg tablet extended release 60 mg PO QAM Lexapro 10 mg tablet 10 mg PO QAM Discharge Orders: Discharge ED (Routine); Ordered 06/05/23 Ordered By: Capo Gupta Referrals: Gilberto Rashid DO [Primary Care Provider] - Discharge Diet: Usual diet Discharge Activity: Increase activity as tolerated Patient Instructions: Opioid Safety, Pain Management Activity Restrictions/Additional Instructions: Thank you for choosing [facility] for your healthcare needs today. Please realize this is an emergency room and that we are providing you with a medical screening exam and this may not be complete and all inclusive of all the testing and or work up that you may need to determine your ailment or severity of your illness. It is very important that you follow up as instructed or that you return to the Emergency Department should you have concerns or if your c ondition changes or worsens in any way. Recommend following up with your primary care doctor or with Dr. Alexandra regarding headaches and occipital neuralgia. Coding Level of Care Code ED Packing Line Worker for 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
[2023-06-05 10:00] VITALS: BP 97/78; PULSE 67; RESP 15; O2SAT 100
[2023-06-05] MEDS: sodium chloride 0.9% 1,000 ML 999 ML IV (10:16)
[2023-06-05] MEDS: ketorolac 30 mg/mL INJ IVP (10:17)
[2023-06-05] MEDS: dexamethasone 10 mg/mL INJ IM (10:20)
--- NOTE | 2023-06-05 10:50 | PC.PHAR ---
pt states she takes care of her own medications-pt states she takes lasix 40mg every other day rx written 40mg daily prn 04/27/23 and ext shows last filled 04/26/23 30d/s 20mg daily prn-pt states no longer taking diclofenac sodium-
[2023-06-05] MEDS: valproic acid inj 500 MG in sodium chloride 0.9% 50 ML 55 MG IV (11:24)
[2023-06-05 12:29] VITALS: BP 129/81; PULSE 70; RESP 16; O2SAT 97
[2023-06-05 12:31] VITALS: BP 122/97; PULSE 72; RESP 16; O2SAT 100
== END 2023-06-05 12:38 | disposition home or self-care (01) ==
PROVIDERS: Emergency Provider Family Medicine; PCP Family Medicine
DX: M54.81 Occipital neuralgia (principal); Z79.82 Long term (current) use of aspirin; F17.210 Nicotine dependence, cigarettes, uncomplicated; I25.10 Atherosclerotic heart disease of native coronary artery without angina pectoris; I10 Essential (primary) hypertension
CPT/HCPCS: 96365; 96372; 96375; 99284; J1100; J1885; J3490; J7030

== ENCOUNTER 2023-06-06 23:18 | Emergency (ER) | payer MEDICAID, SELFPAY ==
[2023-03-10 16:10] VITALS: BP 132/96; BMI 40.3
[2023-06-06 23:25] VITALS: BP 139/77; PULSE 83; RESP 16; TEMP 36.7; O2SAT 97
--- NOTE | 2023-06-06 23:29 | ED_ITS ---
HPI - Neck Pain/Injury 2 General: Chief Complaint: Seizure Stated Complaint: seizure like activity Time Seen by Provider: 06/06/23 23:23 History of Present Illness: 38-year-old female comes in today with c omplaints of persistent headache and left neck pain. Patient reports that it starts in her neck which causes her to have a headache on the left side of her head and then she has twitching episodes which she calls seizures . Patient has some psychiatric disorders, intellectual disability, obesity, anxiety disorder, hypertension. Associated symptoms: Reports headache(s); Denies nausea Review of Systems 2 General: Reports: 10 or more systems reviewed and unremarkable except in HPI and below Const: Denies: fever(s) Card: Denies: chest pain Resp: Denies: dyspnea GI: Denies: nausea or vomiting Musc: Reports: neck pain Neuro: Reports: headache(s) PFSH ED 2 PFSH: Medical History Asthma Diagnosed as a child when controlled with an albuterol inhaler as needed being managed by her primary care provider. She does not see a delivery man. Atherosclerosis of coronary artery Borderline intellectual functioning Depression Fibromyalgia Not currently on any medication Hypertension Lumbar radiculopathy, chronic Chronic back pain managed by pain medication and the pain clinic Nicotine use disorder No pertinent past medical history Patient denies: hypercholesterolemia, heart, liver, kidney, thyroid problems, DVT/PE. [facility] Seizure Surgical History History of cholecystectomy Laparoscopic procedure in 2018 Pyloric stenosis repaired as a baby Family History Mother Hypertension Stroke Lung cancer Anesthesia complication Cancer Lung disease Bone disease Grandfather Colon cancer Maternal, diagnosed in his 60s Cancer Brother Seizures Family/Other Hyperlipidemia paternal uncle Heart disease maternal uncle Cancer Lung disease Stroke Bone disease Grandmother CAD (coronary artery disease) Father CAD (coronary artery disease), Onset Age: 35 Denies family history of Ovarian cancer Diabetes Clotting disorder Dementia Chronic kidney disease (CKD) Breast cancer Suicide Bleeding disorder Uterine cancer Thyroid disease Social History Smoking and tobacco/nicotine status: current every day tobacco/nicotine user cigarettes Packs smoked per day: 0.5 Years cigarettes smoked: 24 Quit status (tobacco/nicotine): considering quitting Second hand smoke exposure: No Alcohol intake: never Substance/Drug Use: never Adopted: No Caregiver/support person: No Lives independently: Yes Household members: other Details: living with 3 other friends on moms property Housing: Manufactured/Mobile home Marital status: Single Number of children: 2 Number of grandchildren: 0 Highest education level completed: Some College, No Degree service: No Current occupational status: disabled 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 Current occupational exposures/hazards: No Pets and animals: Yes Pets & animals: dog(s) Leisure activites: games and other Leisure activities details: play on computer, watch movies Do you think of yourself as: Straight/Heterosexual Current gender identity: Female Melanie/Muslim: None Special melanie needs: No Agree to transfusion: Yes Female Reproductive History: Para: 2 Spontaneous abortions: Yes Physical Exam 2 Const: COMMON NORMALS: alert HENMT: COMMON NORMALS: normocephalic HEAD & SCALP: normocephalic MOUTH: Normal oral and palatal mucosa present Neck/C-Spine: CERVICAL SPINE: No Cervical spine tenderness, No step off deformity, Yes Paracervical muscle tenderness and Yes Paracervical spasm left Resp: COMMON NORMALS: normal respiratory effort Cardio: COMMON NORMALS: regular rate RATE: regular rate GI: COMMON NORMALS: non-tender Back/Pelvis: THORACIC SPINE/UPPER BACK: No thoracic spinal tenderness and Yes paraspinal muscle tenderness Thoracic paraspinal muscle tenderness: left L UMBAR SPINE/LOWER BACK: No lumbar spinal tenderness Extremity: COMMON NORMALS: normal to inspection and full ROM Neuro: SENSORIUM/ORIENTATION: Yes alert Skin: COMMON NORMALS: turgor normal GENERAL SKIN EXAM: turgor normal Course 2 Vital Signs: Vital signs: Vital Signs Temperature 98.1 F 06/06/23 23:25 Pulse Rate 83 06/06/23 23:25 Respiratory Rate 16 06/06/23 23:25 Blood Pressure 139/77 06/06/23 23:25 Pulse Oximetry 97 06/06/23 23:25 Oxygen Delivery Me thod Room Air 06/06/23 23:25 MDM - Neck Pain/Injury Medical Decision Making Patient comes in today for complaints of neck discomfort and muscle pain on the left side of her neck. Patient also reports increase in seizures. Patient appears nontoxic. Patient has no cervical spine tenderness or any thoracic or lumbar spine tenderness. Patient does have some spinal muscle tenderness on the left side of her neck and thoracic. Respirations are even lungs are clear to auscultation. Vital signs are normal. Patient has twitching episodes of her neck and left arm. Patient can be redirected from these episodes. Differential diagnosis includes but not limited to cervical radiculopathy, somatic disorder, anxiety, seizure. No signs of injury or serious illnesses noted. Cervical spine x-ray was unremarkable. CBC had some mild elevation in white count at 14,000. BMP was unremarkable. Patient was given 15 mg Toradol IV and 2 mg of Ativan. Patient had improvement of neck pain and discomfort. Patient was prescribed baclofen. Patient was discharged home for follow-up with primary care for further instructions. Lab Data 06/06/23 23:04 06/07/23 00:01 Radiology Impressions Cervical Spine X-Ray 06/06/23 23:38 IMPRESSION: No acute fracture identified. Laboratory Results WBC 14.64 10^3/uL (3.29-11.43) H 06/06/23 23: RBC 4.68 10^6/uL (3.85-5.65) 06/06/23 23: Hgb 15.10 g/dL (11.27-16.99) 06/06/23 23: Hct 44.5 % (36-47) 06/06/23: MCV 95.1 fl (85-98) 06/06/23 23: MCH 32.3 pg (27-33) 06/06/23 23: MCHC 33.9 g/dL (30-55) 06/06/23 23: RDW 13.2 % (12.1-15.1) 06/06/23 23: Plt Count 213 10^3/cmm (157-399) 06/06/23 23: MPV 9.3 fL (7.4-10.4) 06/06/23 23: Neut % (Auto) 68.2 % 06/06/23 23: Lymph % (Auto) 25.1 % 06/06/23 23: Blanco % (Auto) 6.1 % 06/06/23 23: Eos % (Auto) 0.1 % 06/06/23 23:04 Baso % (Auto) 0.1 % 06/06/23 23:04 Neut # (Auto) 9.97 10^3/uL (1.8-7.7) H 06/06/23 23:04 Lymph # (Auto) 3.7 10^3/uL (0.8-4.8) 06/06/23 23:04 Blanco # (Auto) 0.9 10^3/uL (0.2-0.9) 06/06/23 23:04 Eos # (Auto) 0.0 10^3/uL (0.0-0.8) 06/06/23 23:04 Baso # (Auto) 0.0 10^3/uL (0.0-0.1) 06/06/23 23:04 Nucleated RBC % (auto) 0 % 06/06/23 23:04 Nucleated RBCs # 0.0 /100WBC 06/06/23 23:04 Sodium 139 mmol/L (136-145) 06/07/23 00:01 Potassium 3.8 mmol/L (3.5-5.1) 06/07/23 00:01 Chloride 101 mmol/L (98-107) 06/07/23 00:01 Carbon Dioxide 27 mmol/L (22-29) 06/07/23 00:01 Anion Gap 14.8 (5-19) 06/07/23 00:01 BUN 12 mg/dL (6-20) 06/07/23 00:01 Creatinine 0.7 mg/dL (0.5-0.9) 06/07/23 00:01 GFR Calculation 94.2 mL/min (90-130) 06/07/23 00:01 Glucose 97 mg/dL (65-115) 06/07/23 00:01 Calculated Osmolality 288 mOsm/kg (285-295) 06/07/23 00:01 Calcium 9.4 mg/dL (8.5-10.5) 06/07/23 00:01 All radiology interpretation(s) finalized by discharge Discharge Plan Discharge Patient Disposition: Home Clinical Impression: Cervical paraspinal muscle spasm Condition: Stable Prescriptions: New baclofen 10 mg tablet 10 mg PO TID Qty: 15 0RF No Action riboflavin (vitamin B2) 100 mg tablet 100 mg PO QAM ferrous sulfate [Iron (ferrous sulfate)] 325 mg (65 mg iron) tablet 325 mg PO TID albuterol sulfate [ProAir HFA] 90 mcg/actuation HFA aerosol inhaler 2 puff INHALATION Q4H PRN (Reason: Shortness Of Breath) Qty: 8.5 2RF EpiPen 2-Luís 0.3 mg/0.3 mL auto-injector 0.3 mg IM Q10M PRN (Reason: anaphylaxis) Qty: 2 2RF Rx Instructions: do not exceed 2 doses per 24 hrs isosorbide mononitrate 30 mg tablet extended release 24 hr 30 mg PO BID Qty: 180 3RF metoprolol tartrate 25 mg tablet 25 mg PO BID Qty: 60 5RF ranolazine 500 mg tablet extended release 12 hr 500 mg PO BID Qty: 180 3RF rosuvastatin 5 mg tablet 5 mg PO BEDTIME Qty: 90 3RF cetirizine [Zyrtec] 10 mg Tablet 10 mg PO DAILY PRN (Reason: Allergy Symptoms) aspirin [Enteric Coated Aspirin] 81 mg tablet,delayed release (DR/EC) 81 mg PO QAM nitroglycerin [Nitrostat] 0.4 mg Tablet, Sublingual 0.4 mg SUBLINGUAL Q5M PRN (Reason: Chest Pain) Rx Instructions: do not exceed 3 doses per episode Tylenol Ex Str Rapid Release 500 mg Tablet 1,000 mg PO Q6H PRN (Reason: Pain) Benadryl 25 mg Capsule 50 mg PO DAILY PRN (Reason: Allergy Symptoms) ibuprofen 200 mg Tablet 400 mg PO Q6H PRN (Reason: Pain) Gas-X 80 mg Tablet,Chewable 80 mg PO DAILY PRN (Reason: bloating) Multivitamins 28 mg iron- 800 mcg Tablet 1 tab PO QAM trazodone 100 mg tablet 100 mg PO BEDTIME furosemide 20 mg tablet 40 mg PO EVERY OTHER DAY nifedipine 60 mg tablet extended release 60 mg PO QAM Lexapro 10 mg tablet 10 mg PO QAM Lyrica 75 mg capsule 75 mg PO BID Qty: 60 0RF Discharge Orders: Discharge ED (Routine); Ordered 06/07/23 Ordered By: David Kenney Referrals: Gilberto Rashid DO [Primary Care Provider] - Discharge Diet: Usual diet Discharge Activity: Increase activity as tolerated Patient Instructions: Cervical Strain (ED) Activity Restrictions/Additional Instructions: Continue with Lyrica as prescribed to help with nerve pain. Use baclofen as needed for muscle spasms. Use ice or heat for further pain relief. Gentle stretching and range of motion exercises of the neck. Follow-up with primary care in 2 to 3 days for recheck. They may recommend further evaluation with orthopedic spine for consideration of other treatment options. Coding Level of Care Code ED Pest Management Supervisor for 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
[2023-06-06] MEDS: ketorolac 30 mg/mL INJ 15 MG IVP (23:34)
[2023-06-06] MEDS: LORazepam 2 mg/mL INJ 1 mL IVP (23:35)
[2023-06-06 23:37] LABS: Basophils % 0.1 %; Eosinophils % 0.1 %; Hematocrit 44.5 % (36-47); Lymphocytes # 3.7 10^3/uL (0.8-4.8); Lymphocytes % 25.1 %; Mean Corpuscular HGB Conc 33.9 g/dL (30-55); Mean Corpuscular Hemoglobin 32.3 pg (27-33); Mean Corpuscular Volume 95.1 fl (85-98); Mean Platelet Volume 9.3 fL (7.4-10.4); Monocytes # 0.9 10^3/uL (0.2-0.9); Monocytes % 6.1 %; Neutrophils # 9.97 10^3/uL (1.8-7.7); Neutrophils % 68.2 %; Nucleated Red Blood Cells % 0 %; Platelet Count 213 10^3/cmm (157-399); Red Blood Count 4.68 10^6/uL (3.85-5.65); Red Cell Distribution Width 13.2 % (12.1-15.1); White Blood Count 14.64 10^3/uL (3.29-11.43)
--- NOTE | 2023-06-06 23:38 | XRR_ITS ---
PROCEDURE INFORMATION: Exam: XR Cervical Spine Exam date and time: 06/07/2023 12:43 AM Age: 38 years old Clinical indication: Patient HX: Seizure like activity. Left sided neck pain TECHNIQUE: Imaging protocol: Radiologic exam of the cervical spine. Views: 2 or 3 views. COMPARISON: CT cervical spin wo con* [id number] 06/20/2019 8:49 PM FINDINGS: Bones/joints: Craniocervical alignment preserved. No acute appearing vertebral body compression deformity. Please note the C7 vertebral body is not visualized on lateral views due to overlapping soft tissue structures. Soft tissues: Unremarkable. XR/XR cervical spine 3V* [id number] IMPRESSION: No acute fracture identified.
[2023-06-07 00:38] LABS: Anion Gap 14.8 (5-19); Blood Urea Nitrogen 12 mg/dL (6-20); Calcium 9.4 mg/dL (8.5-10.5); Carbon Dioxide 27 mmol/L (22-29); Chloride 101 mmol/L (98-107); Creatinine Clr Calc Pharmacy 116.8278; Glomerular Filtration Rate 94.2 mL/min (90-130); Glucose 97 mg/dL (65-115); Osmolality Calculated 288 mOsm/kg (285-295); Potassium 3.8 mmol/L (3.5-5.1); Sodium 139 mmol/L (136-145)
[2023-06-07 00:58] VITALS: BP 139/77; PULSE 83; RESP 16; TEMP 36.7; O2SAT 97
== END 2023-06-07 00:59 | disposition home or self-care (01) ==
PROVIDERS: Emergency Provider Nurse Practitioner Family; PCP Family Medicine
DX: M62.830 Muscle spasm of back (principal); Z79.82 Long term (current) use of aspirin; F17.210 Nicotine dependence, cigarettes, uncomplicated; I10 Essential (primary) hypertension
CPT/HCPCS: 36415; 72040; 80048; 85025; 96374; 96375; 99285; J1885; J2060

== ENCOUNTER 2023-06-21 00:57 | Emergency (ER) | payer MEDICAID, SELFPAY ==
[2023-03-10 16:10] VITALS: BP 132/96; BMI 40.3
[2023-06-21 00:58] VITALS: BP 131/83; PULSE 67; RESP 18; TEMP 36.4; O2SAT 99; BMI 38.7
--- NOTE | 2023-06-21 01:06 | W.ED.SEIZURE ---
HPI - Seizure General: Chief Complaint: Seizure Stated Complaint: SEIZURE Time Seen by Provider: 06/21/23 01:03 History of Present Illness: HPI Narrative: 38-year-old female presents emergency department via EMS personnel with concerns of having a seizure type activity at her residence where she stays. EMS personnel states that the staff at her place of residence stated that she was unresponsive and having a seizure EMS reports that the patient was up walking around and talking to them. She states that she has intermittent tremors to her hands. Patient states that she has a sharp pain to the left side of her head but denies known injury or trauma. She states nothing makes a sharp pain better nothing makes it worse. She states she is unable to pinpoint exactly when this pain started. She states that it is not started within the past 1 or 2 weeks or even 1 or 2 months but she is unsure about the pain. She states she is recently placed on antiseizure medication by an emergency medicine physician. She states she is not currently seeing a neurologist for her stress seizures. Review of Systems General: Reports: 10 or more systems reviewed and unremarkable except in HPI and below Neuro: Reports: headache(s) and other (Nonepileptic neurogenic seizures) [facility] ED PFSH: Medical History Atherosclerosis of coronary artery Nicotine use disorder Psychiatric care Seizure Borderline intellectual functioning Asthma Diagnosed as a child when controlled with an albuterol inhaler as needed being managed by her primary care provider. She does not see a handstitching machine collar feller. No pertinent past medical history Patient denies: hypercholesterolemia, heart, liver, kidney, thyroid problems, DVT/PE. PCP: Rachid/Felipe Fibromyalgia Not currently on any medication Lumbar radiculopathy, chronic Chronic back pain managed by pain medication and the pain clinic Depression Hypertension Surgical History Pyloric stenosis repaired as a baby History of cholecystectomy Laparoscopic procedure in 2018 Family History Mother Hypertension Stroke Lung cancer Anesthesia complication Cancer Lung disease Bone disease Grandfather Colon cancer Maternal, diagnosed in his 60s Cancer Brother Seizures Family/Other Hyperlipidemia paternal uncle Heart disease maternal uncle Cancer Lung disease Stroke Bone disease Grandmother CAD (coronary artery disease) Father CAD (coronary artery disease), Onset Age: 35 Denies family history of Ovarian cancer Diabetes Clotting disorder Dementia Chronic kidney disease (CKD) Breast cancer Suicide Bleeding disorder Uterine cancer Thyroid disease Social History Smoking and tobacco/nicotine status: current every day tobacco/nicotine user cigarettes Packs smoked per day: 0.25 Years cigarettes smoked: 24 Quit status (tobacco/nicotine): considering quitting Second hand smoke exposure: No Alcohol intake: never Substance/Drug Use: never Adopted: No Caregiver/support person: No Lives independently: Yes Household members: other Details: living with 3 other friends on moms property Housing: Manufactured/Mobile home Marital status: Single Number of children: 2 Number of grandchildren: 0 Highest education level completed: Some College, No Degree service: No Current occupational status: disabled 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 Current occupational exposures/hazards: No Pets and animals: Yes Pets & animals: dog(s) Leisure activites: games and other Leisure activities details: play on computer, watch movies Do you think of yourself as: Straight/Heterosexual Current gender identity: Female Melanie/Christianity: None Special melanie needs: No Agree to transfusion: Yes Female Reproductive History: Para: 2 Spontaneous abortions: Yes Physical Exam Narrative: EXAM NARRATIVE: Constitutional: the patient appears well nourished and with normal development. Vital signs reviewed as documented. HENMT: Normocephalic, atraumatic. Extermal ears with normal appearance without drainage. Nose without drainage, normal appearance. Mucus membranes moist. Neck is supple, No jugular venous distension, trachea is midline, no appreciable carotid bruits. No lymphadenopathy. No meningeal signs. Flexion, extension and lateral rotation is without pain. Eyes: Pupils are equal, round, reactive to light and accommodation. No scleral icterus. Extra-ocular movement are intact. Thorax is symmetrical and with equal rise and fall with respirations. Resp: Lungs are clear to auscultation. No wheezes, rales, crackles or ronchi at present. Cardio: Regular rate and rhythm. Positive S1, S2. No appreciable murmurs, rubs or gallops. GI: Abdominal exam reveals normal bowel sounds to all quadrants. No organomegaly. No obvious palpable masses noted. No hepatomegally appreciated. Soft, nontender to palpation. Extremity: Extremities are non-edematous and both femoral and pedal pulses are 2+ and equal bilaterally. Moves all extremities well, sensation in all extremities. Neuro: Alert and oriented x4, person, place, time and situation. Cranial nerves II through XII are grossly intact, there is no focal neurological deficits that I can appreciate at present. Motor strength in the upper and lower extremities are equal and bilateral 5/5. Psych: Cooperative, calm, normal thought process, appropriate judgment. Skin: No lesions, rashes. No gross abnormalities noted. Back: Symmetrical, no obvious deformity, No CVA tenderness Course Vital Signs: Vital signs: Vital Signs Temperature 97.5 F L 06/21/23 00:58 Pulse Rate 72 06/21/23 02:35 Respiratory Rate 22 H 06/21/23 02:35 Blood Pressure 110/65 06/21/23 02:35 Pulse Oximetry 93 06/21/23 02:35 Oxygen Delivery Me thod Room Air 06/21/23 02:35 MDM - Seizure Lab Data 06/21/23 01:20 06/21/23 01:20 Labs: Laboratory Results WBC 7.53 10^3/uL (3.29-11.43) 06/21/23 01:20 RBC 4.65 10^6/uL (3.85-5.65) 06/21/23 01:20 Hgb 15.00 g/dL (11.27-16.99) 06/21/23 01:20 Hct 43.3 % (36-47) 06/21/23 01:20 MCV 93.1 fl (85-98) 06/21/23 01:20 MCH 32.3 pg (27-33) 06/21/23 01:20 MCHC 34.6 g/dL (30-55) 06/21/23 01:20 RDW 12.8 % (12.1-15.1) 06/21/23 01:20 Plt Count 220 10^3/cmm (157-399) 06/21/23 01:20 MPV 8.8 fL (7.4-10.4) 06/21/23 01:20 Neut % (Auto) 62.3 % 06/21/23 01:20 Lymph % (Auto) 28.0 % 06/21/23 01:20 [place] % (Auto) 7.0 % 06/21/23 01:20 Eos % (Auto) 2.0 % 06/21/23 01:20 Baso % (Auto) 0.3 % 06/21/23 01:20 Neut # (Auto) 4.69 10^3/uL (1.8-7.7) 06/21/23 01:20 Lymph # (Auto) 2.1 10^3/uL (0.8-4.8) 06/21/23 01:20 [place] # (Auto) 0.5 10^3/uL (0.2-0.9) 06/21/23 01:20 Eos # (Auto) 0.2 10^3/uL (0.0-0.8) 06/21/23 01:20 Baso # (Auto) 0.0 10^3/uL (0.0-0.1) 06/21/23 01:20 Nucleated RBC % (auto) 0 % 06/21/23 01:20 Nucleated RBCs # 0.0 /100WBC 06/21/23 01:20 Sodium 137 mmol/L (136-145) 06/21/23 01:20 Potassium 3.6 mmol/L (3.5-5.1) 06/21/23 01:20 Chloride 100 mmol/L (98-107) 06/21/23 01:20 Carbon Dioxide 26 mmol/L (22-29) 06/21/23 01:20 Anion Gap 14.6 (5-19) 06/21/23 01:20 BUN 7 mg/dL (6-20) 06/21/23 01:20 Creatinine 0.7 mg/dL (0.5-0.9) 06/21/23 01:20 GFR Calculation 94.2 mL/min (90-130) 06/21/23 01:20 Glucose 107 mg/dL (65-115) 06/21/23 01:20 Calculated Osmolality 282 mOsm/kg (285-295) L 06/21/23 01:20 Calcium 9.2 mg/dL (8.5-10.5) 06/21/23 01:20 Total Bilirubin 0.2 mg/dL (0.15-1.2) 06/21/23 01:20 AST 17 U/L (0-32) 06/21/23 01:20 ALT 24 U/L (0-33) 06/21/23 01:20 Alkaline Phosphatase 133 U/L (35-105) H 06/21/23 01:20 Total Protein 7.5 g/dL (6.6-8.7) 06/21/23 01:20 Albumin 4.4 g/dL (3.5-5.2) 06/21/23 01:20 Globulin 3.1 g/dL (1.3-4.6) 06/21/23 01:20 Prolactin 10.41 ng/mL (4.8-23.3) 06/21/23 01:20 All radiology interpretation(s) finalized by discharge Discharge Plan Discharge Patient Disposition: Home Clinical Impression: Psychogenic nonepileptic seizure Condition: Stable Prescriptions: No Action riboflavin (vitamin B2) 100 mg tablet 100 mg PO QAM ferrous sulfate [Iron (ferrous sulfate)] 325 mg (65 mg iron) tablet 325 mg PO TID escitalopram oxalate [Lexapro] 10 mg tablet 10 mg PO QAM Qty: 30 2RF trazodone 100 mg tablet 100 mg PO BEDTIME Qty: 30 2RF albuterol sulfate [ProAir HFA] 90 mcg/actuation HFA aerosol inhaler 2 puff INHALATION Q4H PRN (Reason: Shortness Of Breath) Qty: 8.5 2RF EpiPen 2-Luís 0.3 mg/0.3 mL auto-injector 0.3 mg IM Q10M PRN (Reason: anaphylaxis) Qty: 2 2RF Rx Instructions: do not exceed 2 doses per 24 hrs isosorbide mononitrate 30 mg tablet extended release 24 hr 30 mg PO BID Qty: 180 3RF metoprolol tartrate 25 mg tablet 25 mg PO BID Qty: 60 5RF ranolazine 500 mg tablet extended release 12 hr 500 mg PO BID Qty: 180 3RF rosuvastatin 5 mg tablet 5 mg PO BEDTIME Qty: 90 3RF cetirizine [Zyrtec] 10 mg Tablet 10 mg PO DAILY PRN (Reason: Allergy Symptoms) aspirin [Enteric Coated Aspirin] 81 mg tablet,delayed release (DR/EC) 81 mg PO QAM nitroglycerin [Nitrostat] 0.4 mg Tablet, Sublingual 0.4 mg SUBLINGUAL Q5M PRN (Reason: Chest Pain) Rx Instructions: do not exceed 3 doses per episode Tylenol Ex Str Rapid Release 500 mg Tablet 1,000 mg PO Q6H PRN (Reason: Pain) Benadryl 25 mg Capsule 50 mg PO DAILY PRN (Reason: Allergy Symptoms) ibuprofen 200 mg Tablet 400 mg PO Q6H PRN (Reason: Pain) Gas-X 80 mg Tablet,Chewable 80 mg PO DAILY PRN (Reason: bloating) Multivitamins 28 mg iron- 800 mcg Tablet 1 tab PO QAM furosemide 20 mg tablet 40 mg PO EVERY OTHER DAY nifedipine 60 mg tablet extended release 60 mg PO QAM Lyrica 75 mg capsule 75 mg PO BID Qty: 60 0RF baclofen 10 mg tablet 10 mg PO TID Qty: 15 0RF Discharge Orders: Discharge ED (Routine); Ordered 06/21/23 Ordered By: Nicko Lofton Referrals: Gilberto Rashid, [Primary Care Provider] - Discharge Diet: Advance as tolerated Discharge Activity: Resume usual activity Patient Instructions: Opioid Safety, Pain Management Activity Restrictions/Additional Instructions: Activity Restrictions/Additional Instructions: Thank you for choosing [facility] for your healthcare needs today. Please realize that you were seen in the Emergency Department and that we are providing you with an emergency medical screening exam and this may not be a complete and all inclusive of all the testing and or medical work-up that you may need to determine your ailment or severity of your illness. It is very important that you follow-up as instructed with your Primary care provider or Specialist for additional evaluation and to discuss your medical treatment plan. You may return to the Emergency Department should you have concerns or if your condition changes or worsens in any way. Coding Level of Care Code ED Circuit Board Inspector for 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
[2023-06-21 01:24] LABS: Basophils % 0.3 %; Eosinophils # 0.2 10^3/uL (0.0-0.8); Hematocrit 43.3 % (36-47); Lymphocytes # 2.1 10^3/uL (0.8-4.8); Mean Corpuscular HGB Conc 34.6 g/dL (30-55); Mean Corpuscular Hemoglobin 32.3 pg (27-33); Mean Corpuscular Volume 93.1 fl (85-98); Mean Platelet Volume 8.8 fL (7.4-10.4); Monocytes # 0.5 10^3/uL (0.2-0.9); Neutrophils # 4.69 10^3/uL (1.8-7.7); Neutrophils % 62.3 %; Nucleated Red Blood Cells % 0 %; Platelet Count 220 10^3/cmm (157-399); Red Blood Count 4.65 10^6/uL (3.85-5.65); Red Cell Distribution Width 12.8 % (12.1-15.1); White Blood Count 7.53 10^3/uL (3.29-11.43)
[2023-06-21 01:44] LABS: Alanine Aminotransferase 24 U/L (0-33); Albumin Level 4.4 g/dL (3.5-5.2); Alkaline Phosphatase 133 U/L (35-105); Anion Gap 14.6 (5-19); Aspartate Amino Transferase 17 U/L (0-32); Blood Urea Nitrogen 7 mg/dL (6-20); Calcium 9.2 mg/dL (8.5-10.5); Carbon Dioxide 26 mmol/L (22-29); Chloride 100 mmol/L (98-107); Globulin 3.1 g/dL (1.3-4.6); Glomerular Filtration Rate 94.2 mL/min (90-130); Glucose 107 mg/dL (65-115); Osmolality Calculated 282 mOsm/kg (285-295); Potassium 3.6 mmol/L (3.5-5.1); Sodium 137 mmol/L (136-145); Total Bilirubin 0.2 mg/dL (0.15-1.2); Total Protein 7.5 g/dL (6.6-8.7)
--- NOTE | 2023-06-21 02:29 | PC.NURSE ---
Seizure precautions in place: bed lowered, seizure pads present, O2 and suction set up and ready.
[2023-06-21 02:35] VITALS: BP 110/65; PULSE 72; RESP 22; O2SAT 93
[2023-06-21 02:46] LABS: Prolactin 10.41 ng/mL (4.8-23.3)
[2023-06-21 03:15] VITALS: BP 123/67; PULSE 76; RESP 18; O2SAT 94
== END 2023-06-21 03:18 | disposition home or self-care (01) ==
PROVIDERS: Emergency Provider Internal Medicine; PCP Family Medicine
DX: R56.9 Unspecified convulsions (principal); Z79.82 Long term (current) use of aspirin; F17.210 Nicotine dependence, cigarettes, uncomplicated; I25.10 Atherosclerotic heart disease of native coronary artery without angina pectoris; I10 Essential (primary) hypertension
CPT/HCPCS: 80053; 84146; 85025; 99283

== ENCOUNTER → 2023-06-26 07:39 | Outpatient (BNVA) | payer MEDICAID, SELFPAY ==
[2023-03-10 16:10] VITALS: BP 132/96; BMI 40.3
== END ==
PROVIDERS: PCP Family Medicine; Visit Provider Specialist
DX: M25.512 Pain in left shoulder (principal); G89.29 Other chronic pain
CPT/HCPCS: 99213

== ENCOUNTER → 2023-07-19 11:57 | Outpatient (BNVA) | payer MEDICAID, SELFPAY ==
[2023-03-10 16:10] VITALS: BP 132/96; BMI 40.3
== END ==
PROVIDERS: PCP Family Medicine; Visit Provider Dermatology
DX: L40.0 Psoriasis vulgaris (principal); D22.5 Melanocytic nevi of trunk
CPT/HCPCS: 99213

== ENCOUNTER → 2023-08-03 10:38 | Outpatient (BNVA) | payer MEDICAID, SELFPAY ==
[2023-03-10 16:10] VITALS: BP 132/96; BMI 40.3
== END ==
PROVIDERS: PCP Family Medicine; Visit Provider Specialist
DX: F44.5 Conversion disorder with seizures or convulsions (principal); G43.711 Chronic migraine without aura, intractable, with status migrainosus
CPT/HCPCS: 99205

== ENCOUNTER 2023-08-06 18:18 | Emergency (ER) | payer MEDICAID, SELFPAY ==
[2023-03-10 16:10] VITALS: BP 132/96; BMI 40.3
[2023-08-06 18:34] VITALS: BP 159/95; PULSE 92; RESP 16; TEMP 36.8; O2SAT 96; BMI 39.9
--- NOTE | 2023-08-06 18:38 | ECG_ITS ---
[facility] Test Date: 2023-08-06 Pat Name: Shilpa Giang Department: Room: Gender: Female Vp Information Technology: : 1985 Requested By: Gen Holt Order Number: [id number] Daniela MD: Junior Escalante M.D. Measurements Intervals [place] Rate: 90 P: 16 SD: 116 QRS: -3 QRSD: 130 T: 6 QT: 350 QTc: 429 Interpretive Statements SINUS RHYTHM WITH SHORT SD INTERVAL MODERATE INTRAVENTRICULAR CONDUCTION DELAY [110+ ms QRS DURATION] VOLTAGE CRITERIA FOR LVH [MEETS CRITERIA IN ONE OF: R(aVL), S(V1), R(V5), R(V5/V6)+S(V1)] Compared to ECG 10/04/2022 22:31:57 Short SD interval now present T-wave abnormality no longer present Electronically Signed On 08-06-2023 21:37:05 SOCIAL SERVICES ANALYST by Junior Escalante M.D. [id number]
--- NOTE | 2023-08-06 19:07 | XRR_ITS ---
PROCEDURE INFORMATION: Exam: XR Chest Exam date and time: 08/06/2023 7:16 PM Age: 38 years old Clinical indication: Angina pectoris; Patient HX: Chest pain TECHNIQUE: Imaging protocol: Radiologic exam of the chest. Views: 1 view. COMPARISON: CR XR chest 1V portable [id number] 03/31/2023 9:08 AM FINDINGS: Lungs: Lungs are clear bilaterally. Pleural spaces: No pleural effusion. No pneumothorax. Heart/Mediastinum: The cardiac silhouette and mediastinal contours are unremarkable. Bones/joints: Unremarkable for age. XR/XR chest 1V portable [id number] IMPRESSION: No acute cardiopulmonary process.
--- NOTE | 2023-08-06 19:08 | ECG_ITS ---
[facility] Test Date: 2023-08-06 Pat Name: Shilpa Giang Department: Room: Gender: Female Chuck Wagon Driver: : 1985 Requested By: Gen Holt Order Number: [id number] Daniela MD: Junior Escalante M.D. Measurements Intervals [place] Rate: 90 P: 16 MS: 116 QRS: -3 QRSD: 130 T: 6 QT: 350 QTc: 429 Interpretive Statements SINUS RHYTHM WITH SHORT MS INTERVAL MODERATE INTRAVENTRICULAR CONDUCTION DELAY [110+ ms QRS DURATION] VOLTAGE CRITERIA FOR LVH [MEETS CRITERIA IN ONE OF: R(aVL), S(V1), R(V5), R(V5/V6)+S(V1)] Compared to ECG 10/04/2022 22:31:57 Short MS interval now present T-wave abnormality no longer present Electronically Signed On 08-07-2023 19:23:46 LEASING PROPERTY MANAGER by Junior Escalante M.D. [id number]
--- NOTE | 2023-08-06 19:20 | ED_ITS ---
HPI - Chest Pain 2 General: Chief Complaint: Chest Pain Stated Complaint: CP Time Seen by Provider: 08/06/23 19:07 History of Present Illness: Patient presented to the ER after having chest pain on and off for 2 days. Patient says left chest and goes into the left arm. Patient denies any cough congestion nausea vomiting shortness of breath fevers chills etc. Patient states she took 2 nitro yesterday and the pain went away. And then when the pain come back today she took 3 more nitro and the pain did not go away. Then she called EMS. Patient is pain-free upon arrival to the emergency room. Patient states she does not have a heart history however she sees Dr. Escalante. Patient had a coronary angiogram on 09/13/2022 showed mild CAD, EF 60%, elevated LVEDP of 28 mmHg, she was started on isosorbide at that time. Review of Systems 2 General: Reports: 10 or more systems reviewed and unremarkable except in HPI and below PFSH ED 2 PFSH: Medical History Atherosclerosis of coronary artery Nicotine use disorder Psychiatric care Seizure Borderline intellectual functioning Asthma Diagnosed as a child when controlled with an albuterol inhaler as needed being managed by her primary care provider. She does not see a club waiter/waitress. No pertinent past medical history Patient denies: hypercholesterolemia, heart, liver, kidney, thyroid problems, DVT/PE. PCP: Dina Fibromyalgia Not currently on any medication Lumbar radiculopathy, chronic Chronic back pain managed by pain medication and the pain clinic Depression Hypertension Surgical History Pyloric stenosis repaired as a baby History of cholecystectomy Laparoscopic procedure in 2018 Family History Mother Hypertension Stroke Lung cancer Anesthesia complication Cancer Lung disease Bone disease Grandfather Colon cancer Maternal, diagnosed in his 60s Cancer Brother Seizures Family/Other Hyperlipidemia paternal uncle Heart disease maternal uncle Cancer Lung disease Stroke Bone disease Grandmother CAD (coronary artery disease) Father CAD (coronary artery disease), Onset Age: 35 Denies family history of Ovarian cancer Diabetes Clotting disorder Dementia Chronic kidney disease (CKD) Breast cancer Suicide Bleeding disorder Uterine cancer Thyroid disease Social History (Reviewed 08/06/23 @ 19:23 by KUSUM Keenan Smoking and tobacco/nicotine status: current every day tobacco/nicotine user cigarettes Packs smoked per day: 0.25 Years cigarettes smoked: 24 Quit status (tobacco/nicotine): considering quitting Second hand smoke exposure: No Alcohol intake: never Substance/Drug Use: never Adopted: No Caregiver/support person: No Lives independently: Yes Household members: other Details: living with 3 other friends on moms property Housing: Manufactured/Mobile home Marital status: Single Number of children: 2 Number of grandchildren: 0 Highest education level completed: Some College, No Degree service: No Current occupational status: disabled 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 Current occupational exposures/hazards: No Pets and animals: Yes Pets & animals: dog(s) Leisure activites: games and other Leisure activities details: play on computer, watch movies Do you think of yourself as: Straight/Heterosexual Current gender identity: Female Melanie/Synagogue: None Special melanie needs: No Agree to transfusion: Yes Female Reproductive History: Para: 2 Spontaneous abortions: Yes Physical Exam 2 Const: COMMON NORMALS: no acute distress, average body habitus, patient oriented x3, no limitations, healthy appearing, alert and well nourished HENMT: COMMON NORMALS: normocephalic, atraumatic, hearing grossly normal bilaterally, external ears normal, Normal external nose present, moist oral mucous membranes and oropharynx normal HEAD & SCALP: normocephalic and atraumatic NOSE: Normal external nose present EXTERNAL EAR: Yes external ears normal Neck/C-Spine: COMMON NORMALS: no JVD Chest: COMMONS NORMALS: normal inspection of the chest and normal palpation of entire chest wall Resp: COMMON NORMALS: normal respiratory effort, No retractions, No use of accessory muscles and clear to auscultation bilaterally AUSCULTATION: clear to auscultation bilaterally Cardio: COMMON NORMALS: no JVD, regular rate, regular rhythm, S1 normal heart sound present, S2 normal heart sound present, No gallops present (Cardio), No clicks present (Cardio), No murmurs present (Cardio) and No rub (Cardio) R ATE: regular rate RHYTHM: regular rhythm HEART SOUNDS: S1 normal heart sound present and S2 normal heart sound present GI: COMMON NORMALS: Normal to inspection, nondistended, normoactive bowel sounds present, Soft to palpation, non-tender, No hepatosplenomegaly present and no masses PALPATION: Yes Soft to palpation and Yes No hepatosplenomegaly present Neuro: COMMON NORMALS: patient oriented x3 SENSORIUM/ORIENTATION: Yes alert Course 2 Vital Signs: Vital signs: Vital Signs Temperature 98.3 F 08/06/23 21:50 Pulse Rate 76 08/06/23 21:50 Respiratory Rate 16 08/06/23 21:50 Blood Pressure 138/104 08/06/23 21:50 Pulse Oximetry 97 08/06/23 21:50 Oxygen Delivery Me thod Room Air 08/06/23 18:34 MDM - Chest Pain Medical Decision Making Patient presents to the ER was worked up in a standard chest pain fashion with serial EKGs, serial enzymes, chest x-ray, all of which was essentially benign and not showing any acute cause of her chest pain. It is felt that her chest pain is noncardiac in nature and patient be discharged to follow-up with her PCP and beam house inspector within the next 7 days. Differential Diagnosis Unlikely acute massive pulmonary embolism, acute respiratory failure, acute myocardial infarction, cardiac arrest or sudden cardiac Lab Data I reviewed the patient's lab results. 08/06/23 19:32 08/06/23 19:32 Radiology Impressions Chest X-Ray 08/06/23 19:07 IMPRESSION: No acute cardiopulmonary process. Laboratory Results WBC 7.70 10^3/uL (3.29-11.43) 08/06/23 19:32 RBC 4.90 10^6/uL (3.85-5.65) 08/06/23 19:32 Hgb 15.60 g/dL (11.27-16.99) 08/06/23 19:32 Hct 46.2 % (36-47) 08/06/23 19:32 MCV 94.3 fl (85-98) 08/06/23 19:32 MCH 31.8 pg (27-33) 08/06/23 19:32 MCHC 33.8 g/dL (30-55) 08/06/23 19:32 RDW 13.1 % (12.1-15.1) 08/06/23 19:32 Plt Count 204 10^3/cmm (157-399) 08/06/23 19:32 MPV 8.9 fL (7.4-10.4) 08/06/23 19:32 Neut % (Auto) 64.3 % 08/06/23 19:32 Lymph % (Auto) 26.8 % 08/06/23 19:32 Morrill % (Auto) 6.1 % 08/06/23 19:32 Eos % (Auto) 2.1 % 08/06/23 19:32 Baso % (Auto) 0.3 % 08/06/23 19:32 Neut # (Auto) 4.96 10^3/uL (1.8-7.7) 08/06/23 19:32 Lymph # (Auto) 2.1 10^3/uL (0.8-4.8) 08/06/23 19:32 Morrill # (Auto) 0.5 10^3/uL (0.2-0.9) 08/06/23 19:32 Eos # (Auto) 0.2 10^3/uL (0.0-0.8) 08/06/23 19:32 Baso # (Auto) 0.0 10^3/uL (0.0-0.1) 08/06/23 19:32 Nucleated RBC % (auto) 0 % 08/06/23 19:32 Nucleated RBCs # 0.0 /100WBC 08/06/23 19:32 Sodium 136 mmol/L (136-145) 08/06/23 19:32 Potassium 4.6 mmol/L (3.5-5.1) 08/06/23 19:32 Chloride 100 mmol/L (98-107) 08/06/23 19:32 Carbon Dioxide 25 mmol/L (22-29) 08/06/23 19:32 Anion Gap 15.6 (5-19) 08/06/23 19:32 BUN 11 mg/dL (6-20) 08/06/23 19:32 Creatinine 0.6 mg/dL (0.5-0.9) 08/06/23 19:32 GFR Calculation 112.5 mL/min (90-130) 08/06/23 19:32 Glucose 96 mg/dL (65-115) 08/06/23 19:32 Calculated Osmolality 281 mOsm/kg (285-295) L 08/06/23 19:32 Calcium 9.3 mg/dL (8.5-10.5) 08/06/23 19:32 Total Bilirubin 0.2 mg/dL (0.15-1.2) 08/06/23 19:32 AST 26 U/L (0-32) 08/06/23 19:32 ALT 51 U/L (0-33) H 08/06/23 19:32 Alkaline Phosphatase 117 U/L (35-105) H 08/06/23 19:32 Troponin T Baseline < 6 ng/L (0-10) 08/06/23 19:32 Troponin T 120 Minute 6.00 ng/L (0-10) 08/06/23 21:08 Delta Troponin T 0.24261 ABS# (0-10) 08/06/23 21:08 Total Protein 7.4 g/dL (6.6-8.7) 08/06/23 19:32 Albumin 4.5 g/dL (3.5-5.2) 08/06/23 19:32 Globulin 2.9 g/dL (1.3-4.6) 08/06/23 19:32 All radiology interpretation(s) finalized by discharge EKG Data EKG 1: I personally reviewed and interpreted this EKG as follows: EKG interpretation date: 08/06/23 EKG interpretation time: 18:21 Prior EKG tracings: available for review Interpretation: EKG showed ventricular rate 90 beats minute, NE interval 116, QRS 130, QTc of 429, sinus rhythm with short NE interval moderate intraventricular conduction delay EKG 2: I personally reviewed and interpreted this EKG as follows: EKG interpretation date: 08/06/23 EKG interpretation time: 21:23 Prior EKG tracings: available for review Interpretation: EKG showed ventricular rate 90 bpm, NE interval 118, QRS duration 102, QTc of 409, sinus rhythm with short NE interval Discharge Plan Discharge Patient Disposition: Home Clinical Impression: Chest pain Qualifiers: Chest pain type: unspecified Qualified Code(s): R07.9 - Chest pain, unspecified Condition: Stable Prescriptions: No Action riboflavin (vitamin B2) 100 mg tablet 100 mg PO QAM ferrous sulfate [Iron (ferrous sulfate)] 325 mg (65 mg iron) tablet 325 mg PO TID escitalopram oxalate [Lexapro] 10 mg tablet 10 mg PO QAM Qty: 30 2RF trazodone 100 mg tablet 100 mg PO BEDTIME Qty: 30 2RF rosuvastatin 10 mg tablet PO albuterol sulfate [ProAir HFA] 90 mcg/actuation HFA aerosol inhaler 2 puff INHALATION Q4H PRN (Reason: Shortness Of Breath) Qty: 8.5 2RF EpiPen 2-Luís 0.3 mg/0.3 mL auto-injector 0.3 mg IM Q10M PRN (Reason: anaphylaxis) Qty: 2 2RF Rx Instructions: do not exceed 2 doses per 24 hrs isosorbide mononitrate 30 mg tablet extended release 24 hr 30 mg PO BID Qty: 180 3RF metoprolol tartrate 25 mg tablet 25 mg PO BID Qty: 60 5RF ranolazine 500 mg tablet extended release 12 hr 500 mg PO BID Qty: 180 3RF cetirizine [Zyrtec] 10 mg Tablet 10 mg PO DAILY PRN (Reason: Allergy Symptoms) aspirin [Enteric Coated Aspirin] 81 mg tablet,delayed release (DR/EC) 81 mg PO QAM nitroglycerin [Nitrostat] 0.4 mg Tablet, Sublingual 0.4 mg SUBLINGUAL Q5M PRN (Reason: Chest Pain) Rx Instructions: do not exceed 3 doses per episode Tylenol Ex Str Rapid Release 500 mg Tablet 1,000 mg PO Q6H PRN (Reason: Pain) Benadryl 25 mg Capsule 50 mg PO DAILY PRN (Reason: Allergy Symptoms) ibuprofen 200 mg Tablet 400 mg PO Q6H PRN (Reason: Pain) Gas-X 80 mg Tablet,Chewable 80 mg PO DAILY PRN (Reason: bloating) Multivitamins 28 mg iron- 800 mcg Tablet 1 tab PO QAM furosemide 20 mg tablet 40 mg PO EVERY OTHER DAY nifedipine 60 mg tablet extended release 60 mg PO QAM Lyrica 75 mg capsule 75 mg PO BID Qty: 60 0RF baclofen 10 mg tablet 10 mg PO TID Qty: 15 0RF Discharge Orders: Discharge ED (Routine); Ordered 08/06/23 Ordered By: Gen Holt Referrals: Gilberto Rashid DO [Primary Care Provider] - 1 week Patient Instructions: Chest Pain - Noncardiac Activity Restrictions/Additional Instructions: Your workup in ER did not show any acute cardiac causes for your chest pain. Is felt to be noncardiac in nature. Please follow-up with your family practice physician within the next 7 to 10 days for further evaluation and treatment. If your pain worsens or changes please feel free to return to the ER. Coding Level of Care Code ED Plate And Frame Filter Operator for 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
[2023-08-06 19:35] LABS: Basophils % 0.3 %; Eosinophils # 0.2 10^3/uL (0.0-0.8); Eosinophils % 2.1 %; Hematocrit 46.2 % (36-47); Lymphocytes # 2.1 10^3/uL (0.8-4.8); Lymphocytes % 26.8 %; Mean Corpuscular HGB Conc 33.8 g/dL (30-55); Mean Corpuscular Hemoglobin 31.8 pg (27-33); Mean Corpuscular Volume 94.3 fl (85-98); Mean Platelet Volume 8.9 fL (7.4-10.4); Monocytes # 0.5 10^3/uL (0.2-0.9); Monocytes % 6.1 %; Neutrophils # 4.96 10^3/uL (1.8-7.7); Neutrophils % 64.3 %; Nucleated Red Blood Cells % 0 %; Platelet Count 204 10^3/cmm (157-399); Red Cell Distribution Width 13.1 % (12.1-15.1)
[2023-08-06 19:53] LABS: Troponin(5th) Baseline < 6 ng/L (0-10)
[2023-08-06 19:55] LABS: Alanine Aminotransferase 51 U/L (0-33); Albumin Level 4.5 g/dL (3.5-5.2); Alkaline Phosphatase 117 U/L (35-105); Anion Gap 15.6 (5-19); Aspartate Amino Transferase 26 U/L (0-32); Blood Urea Nitrogen 11 mg/dL (6-20); Calcium 9.3 mg/dL (8.5-10.5); Carbon Dioxide 25 mmol/L (22-29); Chloride 100 mmol/L (98-107); Globulin 2.9 g/dL (1.3-4.6); Glomerular Filtration Rate 112.5 mL/min (90-130); Glucose 96 mg/dL (65-115); Osmolality Calculated 281 mOsm/kg (285-295); Potassium 4.6 mmol/L (3.5-5.1); Sodium 136 mmol/L (136-145); Total Bilirubin 0.2 mg/dL (0.15-1.2); Total Protein 7.4 g/dL (6.6-8.7)
[2023-08-06 20:28] VITALS: BP 154/96; PULSE 89; RESP 16; O2SAT 97
--- NOTE | 2023-08-06 21:23 | ECG_ITS ---
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 Measurements Intervals [place] Rate: 80 P: 15 CO: 118 QRS: 7 QRSD: 102 T: 2 QT: 374 QTc: 431 Interpretive Statements SINUS RHYTHM WITH SHORT CO INTERVAL MODERATE VOLTAGE CRITERIA FOR LVH, CONSIDER NORMAL VARIANT [MEETS CRITERIA IN ONE OF: R(aVL), S(V1), R(V5), R(V5/V6)+S(V1)] Compared to ECG 08/06/2023 18:21:44 Intraventricular conduction delay no longer present Electronically Signed On 08-06-2023 21:41:37 ANESTHESIA RESIDENT by Junior Escalante M.D. [id number]
[2023-08-06 21:30] LABS: Troponin 5 2HR Delta 0.00001 ABS# (0-10)
[2023-08-06] MEDS: ketorolac 30 mg/mL INJ IVP (21:35)
[2023-08-06 21:50] VITALS: BP 138/104; PULSE 76; RESP 16; TEMP 36.8; O2SAT 97
== END 2023-08-06 21:51 | disposition home or self-care (01) ==
PROVIDERS: Emergency Provider Emergency Medicine; PCP Family Medicine
DX: R07.9 Chest pain, unspecified (principal); Z79.82 Long term (current) use of aspirin; F17.210 Nicotine dependence, cigarettes, uncomplicated; I25.10 Atherosclerotic heart disease of native coronary artery without angina pectoris; I10 Essential (primary) hypertension
CPT/HCPCS: 71045; 80053; 84484; 85025; 93005; 96374; 99285; J1885

== ENCOUNTER → 2023-09-06 14:28 | Outpatient (BNVA) | payer SELFPAY ==
[2023-03-10 16:10] VITALS: BP 132/96; BMI 40.3
== END ==
PROVIDERS: PCP Family Medicine; Visit Provider Internal Medicine Cardiovascular Disease
DX: R06.02 Shortness of breath (principal)
CPT/HCPCS: 36415; 80048; 83880; 93005

== ENCOUNTER → 2023-09-08 07:23 | Outpatient (BNVA) | payer MEDICAID, SELFPAY ==
[2023-03-10 16:10] VITALS: BP 132/96; BMI 40.3
== END ==
PROVIDERS: PCP Family Medicine; Visit Provider Specialist
DX: F44.5 Conversion disorder with seizures or convulsions (principal)
CPT/HCPCS: 95813; 95819

== ENCOUNTER → 2023-10-03 11:45 | Outpatient (BNVA) | payer MEDICAID, SELFPAY ==
[2023-03-10 16:10] VITALS: BP 132/96; BMI 40.3
== END ==
PROVIDERS: PCP Family Medicine Adult Medicine; Visit Provider Specialist
DX: F44.5 Conversion disorder with seizures or convulsions (principal); F43.12 Post-traumatic stress disorder, chronic; G43.711 Chronic migraine without aura, intractable, with status migrainosus
CPT/HCPCS: 99214

== ENCOUNTER 2023-10-07 19:47 | Emergency (ER) | payer MEDICAID, SELFPAY ==
[2023-03-10 16:10] VITALS: BP 132/96; BMI 40.3
[2023-10-07 19:48] VITALS: BP 121/77; PULSE 88; RESP 17; TEMP 37.2; O2SAT 94; BMI 43.0
[2023-10-07 19:55] VITALS: BP 121/77; PULSE 85; RESP 18; O2SAT 94
--- NOTE | 2023-10-07 19:57 | XRR_ITS ---
PROCEDURE INFORMATION: Exam: XR Chest Exam date and time: 10/07/2023 8:20 PM Age: 38 years old Clinical indication: Angina pectoris; Patient HX: Chest pain TECHNIQUE: Imaging protocol: Radiologic exam of the chest. Views: 1 view. COMPARISON: CR XR chest 1V portable [id number] 08/06/2023 7:16 PM FINDINGS: Lungs: Unremarkable. No consolidation. Pleural spaces: Unremarkable. No pleural effusion. No pneumothorax. Heart/Mediastinum: Unremarkable. No cardiomegaly. Bones/joints: Unremarkable. XR/XR chest 1V portable [id number] IMPRESSION: No acute findings.
--- NOTE | 2023-10-07 19:57 | ECG_ITS ---
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 Measurements Intervals [place] Rate: 87 P: 41 UT: 127 QRS: -1 QRSD: 106 T: 2 QT: 372 QTc: 449 Interpretive Statements SINUS RHYTHM MINIMAL VOLTAGE CRITERIA FOR LVH, CONSIDER NORMAL VARIANT [MEETS CRITERIA IN ONE OF: R(aVL), S(V1), R(V5), R(V5/V6)+S(V1)] NONSPECIFIC T-WAVE ABNORMALITY Compared to ECG 09/06/2023 14:36:19 Short UT interval no longer present T-wave abnormality still present Electronically Signed On 10-08-2023 18:36:32 CDT by Junior Escalante M.D. [id number] f
--- NOTE | 2023-10-07 20:13 | ED_ITS ---
HPI - Chest Pain 2 General: Chief Complaint: Chest Pain Stated Complaint: CP Time Seen by Provider: 10/07/23 19:51 History of Present Illness: Patient presents to the ER with complaints of chest pain since 8 AM this morning. Patient states been going on full-time since then. Patient says got up at 9. Patient is never had pain like this before. It is reproducible with chest palpation. Patient is alert oriented in no acute distress talking in full sentences comfortably lying in bed. Review of Systems 2 General: Reports: 10 or more systems reviewed and unremarkable except in HPI and below PFSH ED 2 PFSH: Medical History Atherosclerosis of coronary artery Nicotine use disorder Psychiatric care Seizure Borderline intellectual functioning Asthma Diagnosed as a child when controlled with an albuterol inhaler as needed being managed by her primary care provider. 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 No pertinent past medical history Patient denies: hypercholesterolemia, heart, liver, kidney, thyroid problems, DVT/PE. PCP: Rachid/Felipe Fibromyalgia Not currently on any medication Lumbar radiculopathy, chronic Chronic back pain managed by pain medication and the pain clinic Depression Hypertension Surgical History Pyloric stenosis repaired as a baby History of cholecystectomy Laparoscopic procedure in 2018 Family History Mother Hypertension Stroke Lung cancer Anesthesia complication Cancer Lung disease Bone disease Grandfather Colon cancer Maternal, diagnosed in his 60s Cancer Brother Seizures Family/Other Hyperlipidemia paternal uncle Heart disease maternal uncle Cancer Lung disease Stroke Bone disease Grandmother CAD (coronary artery disease) Father CAD (coronary artery disease), Onset Age: 35 Denies family history of Ovarian cancer Diabetes Clotting disorder Dementia Chronic kidney disease (CKD) Breast cancer Suicide Bleeding disorder Uterine cancer Thyroid disease Social History Smoking and tobacco/nicotine status: current every day tobacco/nicotine user cigarettes Packs smoked per day: 0.25 Years cigarettes smoked: 24 Quit status (tobacco/nicotine): considering quitting Second hand smoke exposure: No Alcohol intake: never Substance/Drug Use: never Adopted: No Caregiver/support person: No Lives independently: Yes Household members: other Details: living with 3 other friends on moms property Housing: Manufactured/Mobile home Marital status: Single Number of children: 2 Number of grandchildren: 0 Highest education level completed: Some College, No Degree service: No Current occupational status: disabled 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 Current occupational exposures/hazards: No Pets and animals: Yes Pets & animals: dog(s) Leisure activites: games and other Leisure activities details: play on computer, watch movies Do you think of yourself as: Straight/Heterosexual Current gender identity: Female Melanie/Yazdanism: None Special melanie needs: No Agree to transfusion: Yes Female Reproductive History: Para: 2 Spontaneous abortions: Yes Physical Exam 2 Const: COMMON NORMALS: no acute distress, average body habitus, patient oriented x3, no limitations, healthy appearing, alert and well nourished HENMT: COMMON NORMALS: normocephalic, atraumatic, hearing grossly normal bilaterally, external ears normal, Normal external nose present, moist oral mucous membranes and oropharynx normal HEAD & SCALP: normocephalic and atraumatic NOSE: Normal external nose present EXTERNAL EAR: Yes external ears normal Neck/C-Spine: COMMON NORMALS: no JVD Chest: COMMONS NORMALS: normal inspection of the chest; negative for normal palpation of entire chest wall (Palpation anterior chest wall reproduces pain) Resp: COMMON NORMALS: normal respiratory effort, No retractions, No use of accessory muscles and clear to auscultation bilaterally AUSCULTATION: clear to auscultation bilaterally Cardio: COMMON NORMALS: no JVD, regular rate, regular rhythm, S1 normal heart sound present, S2 normal heart sound present, No gallops present (Cardio), No clicks present (Cardio), No murmurs present (Cardio) and No rub (Cardio) R ATE: regular rate RHYTHM: regular rhythm HEART SOUNDS: S1 normal heart sound present and S2 normal heart sound present GI: COMMON NORMALS: Normal to inspection, nondistended, normoactive bowel sounds present, Soft to palpation, non-tender, No hepatosplenomegaly present and no masses PALPATION: Yes Soft to palpation and Yes No hepatosplenomegaly present Neuro: COMMON NORMALS: patient oriented x3 SENSORIUM/ORIENTATION: Yes alert Course 2 Vital Signs: Vital signs: Vital Signs Temperature 98.9 F 10/07/23 19:48 Pulse Rate 79 10/07/23 23:16 Respiratory Rate 17 10/07/23 23:16 Blood Pressure 115/64 10/07/23 23:16 Pulse Oximetry 95 10/07/23 23:16 Oxygen Delivery Me thod Room Air 10/07/23 22:30 MDM - Chest Pain Medical Decision Making Patient presents to the ER with chest pain all day long. Patient was worked up a standard chest pain fashion with serial EKGs serial troponins chest x-ray, all of which was essentially benign for the patient. This and the fact that the chest pain is reproducible with palpation and suggest that it is noncardiac chest pain. Patient be discharged home to follow-up with PCP. Differential Diagnosis Unlikely acute massive pulmonary embolism, acute respiratory failure, acute myocardial infarction, cardiac arrest or sudden cardiac Medical Records I reviewed the patient's medical records. Lab Data I reviewed the patient's lab results. 10/07/23 20:15 10/07/23 20:15 Radiology Impressions Chest X-Ray 10/07/23 19:57 IMPRESSION: No acute findings. Laboratory Results WBC 6.47 10^3/uL (3.29-11.43) 10/07/23 20:15 RBC 4.36 10^6/uL (3.85-5.65) 10/07/23 20:15 Hgb 14.10 g/dL (11.27-16.99) 10/07/23 20:15 Hct 41.6 % (36-47) 10/07/23 20:15 MCV 95.4 fl (85-98) 10/07/23 20:15 MCH 32.3 pg (27-33) 10/07/23 20:15 MCHC 33.9 g/dL (30-55) 10/07/23 20:15 RDW 13.4 % (12.1-15.1) 10/07/23 20:15 Plt Count 156 10^3/cmm (157-399) L 10/07/23 20:15 MPV 8.8 fL (7.4-10.4) 10/07/23 20:15 Neut % (Auto) 61.6 % 10/07/23 20:15 Lymph % (Auto) 27.8 % 10/07/23 20:15 Haines % (Auto) 7.3 % 10/07/23 20:15 Eos % (Auto) 2.5 % 10/07/23 20:15 Baso % (Auto) 0.3 % 10/07/23 20:15 Neut # (Auto) 3.99 10^3/uL (1.8-7.7) 10/07/23 20:15 Lymph # (Auto) 1.8 10^3/uL (0.8-4.8) 10/07/23 20:15 Haines # (Auto) 0.5 10^3/uL (0.2-0.9) 10/07/23 20:15 Eos # (Auto) 0.2 10^3/uL (0.0-0.8) 10/07/23 20:15 Baso # (Auto) 0.0 10^3/uL (0.0-0.1) 10/07/23 20:15 Nucleated RBC % (auto) 0 % 10/07/23 20:15 Nucleated RBCs # 0.0 /100WBC 10/07/23 20:15 PT 14.10 SECONDS (12.1-14.9) 10/07/23 20:15 INR 1.06 (0.8-1.2) 10/07/23 20:15 Sodium 137 mmol/L (136-145) 10/07/23 20:15 Potassium 3.8 mmol/L (3.5-5.1) 10/07/23 20:15 Chloride 104 mmol/L (98-107) 10/07/23 20:15 Carbon Dioxide 20 mmol/L (22-29) L 10/07/23 20:15 Anion Gap 16.8 (5-19) 10/07/23 20:15 BUN 11 mg/dL (6-20) 10/07/23 20:15 Creatinine 0.8 mg/dL (0.5-0.9) 10/07/23 20:15 GFR Calculation 80.7 mL/min (90-130) L 10/07/23 20:15 Glucose 136 mg/dL (65-115) H 10/07/23 20:15 Calculated Osmolality 285 mOsm/kg (285-295) 10/07/23 20:15 Calcium 8.5 mg/dL (8.5-10.5) 10/07/23 20:15 Total Bilirubin 0.3 mg/dL (0.15-1.2) 10/07/23 20:15 AST 31 U/L (0-32) 10/07/23 20:15 ALT 43 U/L (0-33) H 10/07/23 20:15 Alkaline Phosphatase 113 U/L (35-105) H 10/07/23 20:15 Troponin T Baseline < 6 ng/L (0-10) 10/07/23 20:15 Troponin T 120 Minute 6.00 ng/L (0-10) 10/07/23 22:13 Delta Troponin T [id number] ABS# (0-10) 10/07/23 22:13 NT-Pro-B Natriuret Pep < 36 pg/mL (0-125) 10/07/23 20:15 Total Protein 7.2 g/dL (6.6-8.7) 10/07/23 20:15 Albumin 4.3 g/dL (3.5-5.2) 10/07/23 20:15 Globulin 2.9 g/dL (1.3-4.6) 10/07/23 20:15 All radiology interpretation(s) finalized by discharge Discharge Plan Discharge Patient Disposition: Home Clinical Impression: Chest pain, non-cardiac Condition: Stable Prescriptions: No Action riboflavin (vitamin B2) 100 mg tablet 100 mg PO QAM ferrous sulfate [Iron (ferrous sulfate)] 325 mg (65 mg iron) tablet 325 mg PO TID rosuvastatin 10 mg tablet PO topiramate [Topamax] 100 mg tablet 100 mg PO DAILY Qty: 30 3RF sulfamethoxazole-trimethoprim [Bactrim DS] 800-160 mg tablet 1 tab PO BID 10 Days Qty: 20 0RF trazodone 100 mg tablet 100 mg PO BEDTIME Qty: 30 2RF escitalopram oxalate [Lexapro] 10 mg tablet 10 mg PO QAM Qty: 30 2RF albuterol sulfate [ProAir HFA] 90 mcg/actuation HFA aerosol inhaler 2 puff INHALATION Q4H PRN (Reason: Shortness Of Breath) Qty: 8.5 2RF EpiPen 2-Luís 0.3 mg/0.3 mL auto-injector 0.3 mg IM Q10M PRN (Reason: anaphylaxis) Qty: 2 2RF Rx Instructions: do not exceed 2 doses per 24 hrs isosorbide mononitrate 30 mg tablet extended release 24 hr 30 mg PO BID Qty: 180 3RF metoprolol tartrate 25 mg tablet 25 mg PO BID Qty: 60 5RF ranolazine 500 mg tablet extended release 12 hr 500 mg PO BID Qty: 180 3RF cetirizine [Zyrtec] 10 mg Tablet 10 mg PO DAILY PRN (Reason: Allergy Symptoms) nitroglycerin [Nitrostat] 0.4 mg Tablet, Sublingual 0.4 mg SUBLINGUAL Q5M PRN (Reason: Chest Pain) Rx Instructions: do not exceed 3 doses per episode Tylenol Ex Str Rapid Release 500 mg Tablet 1,000 mg PO Q6H PRN (Reason: Pain) Benadryl 25 mg Capsule 50 mg PO DAILY PRN (Reason: Allergy Symptoms) ibuprofen 200 mg Tablet 400 mg PO Q6H PRN (Reason: Pain) Gas-X 80 mg Tablet,Chewable 80 mg PO DAILY PRN (Reason: bloating) Multivitamins 28 mg iron- 800 mcg Tablet 1 tab PO QAM furosemide 20 mg tablet 40 mg PO EVERY OTHER DAY nifedipine 60 mg tablet extended release 60 mg PO QAM Lyrica 75 mg capsule 75 mg PO BID Qty: 60 0RF Discharge Orders: Discharge ED (Routine); Ordered 10/07/23 Ordered By: Gen Holt Referrals: Rodríguez Posada MD [Primary Care Provider] - 1 week Patient Instructions: Chest Pain - Noncardiac Activity Restrictions/Additional Instructions: Your chest pain is reproducible with palpation and your chest lab workup is negative for cardiac causes of this pain. It is felt that your pain is noncardiac in nature. Please practitioner within next 7 days for further evaluation and treatment as needed. If your chest pain worsens or changes please feel free to return to the ER. 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
[2023-10-07 20:25] LABS: Basophils % 0.3 %; Eosinophils # 0.2 10^3/uL (0.0-0.8); Eosinophils % 2.5 %; Hematocrit 41.6 % (36-47); Lymphocytes # 1.8 10^3/uL (0.8-4.8); Lymphocytes % 27.8 %; Mean Corpuscular HGB Conc 33.9 g/dL (30-55); Mean Corpuscular Hemoglobin 32.3 pg (27-33); Mean Corpuscular Volume 95.4 fl (85-98); Mean Platelet Volume 8.8 fL (7.4-10.4); Monocytes # 0.5 10^3/uL (0.2-0.9); Monocytes % 7.3 %; Neutrophils # 3.99 10^3/uL (1.8-7.7); Neutrophils % 61.6 %; Nucleated Red Blood Cells % 0 %; Platelet Count 156 10^3/cmm (157-399); Red Blood Count 4.36 10^6/uL (3.85-5.65); Red Cell Distribution Width 13.4 % (12.1-15.1); White Blood Count 6.47 10^3/uL (3.29-11.43)
[2023-10-07 20:37] VITALS: BP 117/56; PULSE 81; RESP 19; O2SAT 95
[2023-10-07 20:39] LABS: INR 1.06 (0.8-1.2)
[2023-10-07 20:49] LABS: Troponin(5th) Baseline < 6 ng/L (0-10)
[2023-10-07 20:59] LABS: Alanine Aminotransferase 43 U/L (0-33); Albumin Level 4.3 g/dL (3.5-5.2); Alkaline Phosphatase 113 U/L (35-105); Anion Gap 16.8 (5-19); Aspartate Amino Transferase 31 U/L (0-32); Blood Urea Nitrogen 11 mg/dL (6-20); Calcium 8.5 mg/dL (8.5-10.5); Carbon Dioxide 20 mmol/L (22-29); Chloride 104 mmol/L (98-107); Creatinine Clr Calc Pharmacy 110.4978; Globulin 2.9 g/dL (1.3-4.6); Glomerular Filtration Rate 80.7 mL/min (90-130); Glucose 136 mg/dL (65-115); NT Pro B Type Natriuretic Pept < 36 pg/mL (0-125); Osmolality Calculated 285 mOsm/kg (285-295); Potassium 3.8 mmol/L (3.5-5.1); Sodium 137 mmol/L (136-145); Total Bilirubin 0.3 mg/dL (0.15-1.2); Total Protein 7.2 g/dL (6.6-8.7)
[2023-10-07 21:15] VITALS: BP 119/75; PULSE 79; RESP 17; O2SAT 95
--- NOTE | 2023-10-07 21:57 | ECG_ITS ---
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 Measurements Intervals [place] Rate: 76 P: 26 OR: 122 QRS: 0 QRSD: 100 T: -1 QT: 400 QTc: 451 Interpretive Statements SINUS RHYTHM MINIMAL VOLTAGE CRITERIA FOR LVH, CONSIDER NORMAL VARIANT [MEETS CRITERIA IN ONE OF: R(aVL), S(V1), R(V5), R(V5/V6)+S(V1)] NONSPECIFIC T-WAVE ABNORMALITY Compared to ECG 10/07/2023 19:51:34 No significant changes Electronically Signed On 10-08-2023 18:56:50 CDT by Junior Escalante M.D. [id number]
[2023-10-07 22:30] VITALS: BP 139/73; PULSE 79; RESP 22; O2SAT 96
[2023-10-07 22:40] LABS: Troponin 5 2HR Delta 0.00001 ABS# (0-10)
[2023-10-07 23:16] VITALS: BP 115/64; PULSE 79; RESP 17; O2SAT 95
== END 2023-10-07 23:18 | disposition home or self-care (01) ==
PROVIDERS: Emergency Provider Emergency Medicine; PCP Family Medicine Adult Medicine
DX: R07.89 Other chest pain (principal); F17.210 Nicotine dependence, cigarettes, uncomplicated; I25.10 Atherosclerotic heart disease of native coronary artery without angina pectoris; I10 Essential (primary) hypertension
CPT/HCPCS: 36415; 71045; 80053; 83880; 84484; 85025; 85610; 93005; 99285

== ENCOUNTER → 2023-10-12 09:36 | Outpatient (BNVA) | payer MEDICAID, SELFPAY ==
[2023-03-10 16:10] VITALS: BP 132/96; BMI 40.3
== END ==
PROVIDERS: PCP Family Medicine Adult Medicine; Visit Provider Nurse Practitioner Family
DX: I10 Essential (primary) hypertension (principal); I25.111 Atherosclerotic heart disease of native coronary artery with angina pectoris with documented spasm
CPT/HCPCS: 99214

== ENCOUNTER 2023-11-19 10:46 | Emergency (ER) | payer MEDICAID, SELFPAY ==
[2023-03-10 16:10] VITALS: BP 132/96; BMI 40.3
[2023-11-19 11:05] LABS: Basophils % 0.2 %; Eosinophils # 0.1 10^3/uL (0.0-0.8); Eosinophils % 2.3 %; Hematocrit 41.7 % (36-47); Lymphocytes # 1.3 10^3/uL (0.8-4.8); Lymphocytes % 29.7 %; Mean Corpuscular HGB Conc 33.1 g/dL (30-55); Mean Corpuscular Hemoglobin 32.7 pg (27-33); Mean Corpuscular Volume 98.8 fl (85-98); Mean Platelet Volume 9.2 fL (7.4-10.4); Monocytes # 0.2 10^3/uL (0.2-0.9); Monocytes % 5.5 %; Neutrophils # 2.66 10^3/uL (1.8-7.7); Neutrophils % 61.4 %; Nucleated Red Blood Cells % 0 %; Platelet Count 175 10^3/cmm (157-399); Red Blood Count 4.22 10^6/uL (3.85-5.65); White Blood Count 4.34 10^3/uL (3.29-11.43)
[2023-11-19 11:19] VITALS: BP 121/79; PULSE 77; TEMP 36.6; O2SAT 96; BMI 42.7
[2023-11-19 11:21] LABS: HCG, Serum Qual Negative (Negative)
[2023-11-19 11:22] LABS: Alanine Aminotransferase 34 U/L (0-33); Albumin Level 3.9 g/dL (3.5-5.2); Alkaline Phosphatase 117 U/L (35-105); Anion Gap 12.7 (5-19); Aspartate Amino Transferase 25 U/L (0-32); Blood Urea Nitrogen 8 mg/dL (6-20); Calcium 8.7 mg/dL (8.5-10.5); Carbon Dioxide 23 mmol/L (22-29); Chloride 103 mmol/L (98-107); Creatinine Clr Calc Pharmacy 125.9685; Glomerular Filtration Rate 94.2 mL/min (90-130); Glucose 165 mg/dL (65-115); Lipase 18 U/L (13-60); Osmolality Calculated 282 mOsm/kg (285-295); Potassium 3.7 mmol/L (3.5-5.1); Sodium 135 mmol/L (136-145); Total Bilirubin 0.3 mg/dL (0.15-1.2); Total Protein 6.9 g/dL (6.6-8.7)
--- NOTE | 2023-11-19 11:57 | W.ED.ABDPA2 ---
HPI - Abdominal Pain General: Chief Complaint: Abdominal Pain Stated Complaint: right side abd pain Time Seen by Provider: 11/19/23 11:27 Source: patient Mode of arrival: ambulatory Limitations: no limitations History of Present Illness: 38-year-old female who states has been having some right-sided abdominal pain for last 3 to 4 days states she has had some back and flank pain as well rates her pain a 2 out of 10 currently denies any worsening proving factors denies any vomiting fever or dysuria Associated Symptoms: Denies chills, diarrhea, dysuria, fever(s), nausea and vomiting Review of Systems Const: Denies: fever(s), chills, body aches or change in appetite ENMT: Denies: throat pain or dental pain Card: Denies: chest pain Resp: Denies: dyspnea GI: Reports: abdominal pain; Denies: nausea, vomiting or diarrhea : Denies: dysuria Musc: Reports: back pain; Denies: neck pain Skin/Breast: Denies: rash Neuro: Denies: headache(s) PFSH ED PFSH: Medical History Atherosclerosis of coronary artery Nicotine use disorder Psychiatric care Seizure Borderline intellectual functioning Asthma Diagnosed as a child when controlled with an albuterol inhaler as needed being managed by her primary care provider. 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 Lumbar radiculopathy, chronic Chronic back pain managed by pain medication and the pain clinic Hypertension Surgical History Pyloric stenosis repaired as a baby History of cholecystectomy Laparoscopic procedure in 2018 Family History Mother Hypertension Stroke Lung cancer Anesthesia complication Cancer Lung disease Bone disease Grandfather Colon cancer Maternal, diagnosed in his 60s Cancer Brother Seizures Family/Other Hyperlipidemia paternal uncle Heart disease maternal uncle Cancer Lung disease Stroke Bone disease Grandmother CAD (coronary artery disease) Father CAD (coronary artery disease), Onset Age: 35 Denies family history of Ovarian cancer Diabetes Clotting disorder Dementia Chronic kidney disease (CKD) Breast cancer Suicide Bleeding disorder Uterine cancer Thyroid disease Social History Smoking and tobacco/nicotine status: current every day tobacco/nicotine user cigarettes Packs smoked per day: 0.25 Years cigarettes smoked: 24 Quit status (tobacco/nicotine): considering quitting Second hand smoke exposure: No Alcohol intake: never Substance/Drug Use: never Adopted: No Caregiver/support person: No Lives independently: Yes Household members: other Details: living with 3 other friends on moms property Housing: Manufactured/Mobile home Marital status: Single Number of children: 2 Number of grandchildren: 0 Highest education level completed: Some College, No Degree service: No Current occupational status: disabled 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 Current occupational exposures/hazards: No Pets and animals: Yes Pets & animals: dog(s) Leisure activites: games and other Leisure activities details: play on computer, watch movies Do you think of yourself as: Straight/Heterosexual Current gender identity: Female Melanie/Sabianism: None Special melanie needs: No Agree to transfusion: Yes Female Reproductive History: Para: 2 Spontaneous abortions: Yes Physical Exam Const: COMMON NORMALS: no acute distress, patient oriented x3 and healthy appearing HENMT: COMMON NORMALS: normocephalic and atraumatic HEAD & SCALP: normocephalic and atraumatic Neck/C-Spine: COMMON NORMALS: full ROM and supple Chest: COMMONS NORMALS: normal inspection of the chest and normal palpation of entire chest wall Resp: COMMON NORMALS: normal respiratory effort, No retractions, No use of accessory muscles and clear to auscultation bilaterally AUSCULTATION: clear to auscultation bilaterally Cardio: COMMON NORMALS: regular rate, regular rhythm and No murmurs present (Cardio) RATE: regular rate RHYTHM: regular rhythm GI: COMMON NORMALS: Normal to inspection, nondistended, normoactive bowel sounds present, Soft to palpation, non-tender and no masses PALPATION: Yes Soft to palpation Extremity: COMMON NORMALS: normal to inspection and full ROM Neuro: COMMON NORMALS: patient oriented x3, moves all extremities and no focal motor deficits Psych: COMMON NORMALS: mental status grossly normal, Normal thought process present and cooperative THOUGHT PROCESS: Normal thought process present Skin: COMMON NORMALS: no rashes or lesions noted and no wounds GENERAL SKIN EXAM: no rashes or lesions noted Course Vital Signs: Vital signs: Vital Signs Temperature 97.8 F 11/19/23 11:19 Pulse Rate 68 11/19/23 13:01 Blood Pressure 130/79 11/19/23 13:01 Pulse Oximetry 97 11/19/23 13:01 Oxygen Delivery Me thod Room Air 11/19/23 13:01 MDM - Abdominal Pain Medical Decision Making Patient presents with some flank pain urine appears to have a UTI will start on Keflex she stable for discharge abdominal exam is benign return if worsening. Medical Records I reviewed the patient's medical records. Lab Data I reviewed the patient's lab results. 11/19/23 11:01 11/19/23 11:01 Labs/Radiology: Laboratory Results WBC 4.34 10^3/uL (3.29-11.43) 11/19/23 11:01 RBC 4.22 10^6/uL (3.85-5.65) 11/19/23 11:01 Hgb 13.80 g/dL (11.27-16.99) 11/19/23 11:01 Hct 41.7 % (36-47) 11/19/23 11:01 MCV 98.8 fl (85-98) H 11/19/23 11:01 MCH 32.7 pg (27-33) 11/19/23 11:01 MCHC 33.1 g/dL (30-55) 11/19/23 11:01 RDW 13.0 % (12.1-15.1) 11/19/23 11:01 Plt Count 175 10^3/cmm (157-399) 11/19/23 11:01 MPV 9.2 fL (7.4-10.4) 11/19/23 11:01 Neut % (Auto) 61.4 % 11/19/23 11:01 Lymph % (Auto) 29.7 % 11/19/23 11:01 [place] % (Auto) 5.5 % 11/19/23 11:01 Eos % (Auto) 2.3 % 11/19/23 11:01 Baso % (Auto) 0.2 % 11/19/23 11:01 Neut # (Auto) 2.66 10^3/uL (1.8-7.7) 11/19/23 11:01 Lymph # (Auto) 1.3 10^3/uL (0.8-4.8) 11/19/23 11:01 [place] # (Auto) 0.2 10^3/uL (0.2-0.9) 11/19/23 11:01 Eos # (Auto) 0.1 10^3/uL (0.0-0.8) 11/19/23 11:01 Baso # (Auto) 0.0 10^3/uL (0.0-0.1) 11/19/23 11:01 Nucleated RBC % (auto) 0 % 11/19/23 11:01 Nucleated RBCs # 0.0 /100WBC 11/19/23 11:01 Sodium 135 mmol/L (136-145) L 11/19/23 11:01 Potassium 3.7 mmol/L (3.5-5.1) 11/19/23 11:01 Chloride 103 mmol/L (98-107) 11/19/23 11:01 Carbon Dioxide 23 mmol/L (22-29) 11/19/23 11:01 Anion Gap 12.7 (5-19) 11/19/23 11:01 BUN 8 mg/dL (6-20) 11/19/23 11:01 Creatinine 0.7 mg/dL (0.5-0.9) 11/19/23 11:01 GFR Calculation 94.2 mL/min (90-130) 11/19/23 11:01 Glucose 165 mg/dL (65-115) H 11/19/23 11:01 Calculated Osmolality 282 mOsm/kg (285-295) L 11/19/23 11:01 Calcium 8.7 mg/dL (8.5-10.5) 11/19/23 11:01 Total Bilirubin 0.3 mg/dL (0.15-1.2) 11/19/23 11:01 AST 25 U/L (0-32) 11/19/23 11:01 ALT 34 U/L (0-33) H 11/19/23 11:01 Alkaline Phosphatase 117 U/L (35-105) H 11/19/23 11:01 Total Protein 6.9 g/dL (6.6-8.7) 11/19/23 11:01 Albumin 3.9 g/dL (3.5-5.2) 11/19/23 11:01 Globulin 3.0 g/dL (1.3-4.6) 11/19/23 11:01 Lipase 18 U/L (13-60) 11/19/23 11:01 HCG, Qual Negative (Negative) 11/19/23 11:01 Urine Color Yellow (Yellow) 11/19/23 12:05 Urine Appearance Cloudy (CLEAR) A 11/19/23 12:05 Urine pH 7 (5-7) 11/19/23 12:05 Ur Specific [place] 1.015 (1.005-1.030) 11/19/23 12:05 Urine Protein 1+ (Negative) H 11/19/23 12:05 Urine Glucose (UA) Norm (Normal) 11/19/23 12:05 Urine Ketones Negative (Negative) 11/19/23 12:05 Urine Blood 2+ (Negative) H 11/19/23 12:05 Urine Nitrate Negative (Negative) 11/19/23 12:05 Urine Bilirubin Neg (Negative) 11/19/23 12:05 Urine Urobilinogen 4 mg/dL (Negative) H 11/19/23 12:05 Ur Leukocyte Esterase 2+ (Negative) H 11/19/23 12:05 Urine RBC 0-4 /hpf (0-2) H 11/19/23 12:05 Urine WBC 15-25 /hpf (0-5) H 11/19/23 12:05 Ur Squamous Epith Cells 15-25 /hpf (0-5) H 11/19/23 12:05 Amorphous Sediment Not Reportable 11/19/23 12:05 Urine Bacteria 2+ /hpf (NONE) H 11/19/23 12:05 No radiology studies performed this visit Discharge Plan Discharge Patient Disposition: Home Clinical Impression: Acute cystitis Condition: Stable Prescriptions: New cephalexin 500 mg capsule 500 mg PO TID 7 Days Qty: 21 0RF No Action riboflavin (vitamin B2) 100 mg tablet 100 mg PO QAM rosuvastatin 10 mg tablet PO topiramate [Topamax] 100 mg tablet 100 mg PO DAILY Qty: 30 3RF sulfamethoxazole-trimethoprim [Bactrim DS] 800-160 mg tablet 1 tab PO BID 10 Days Qty: 20 0RF escitalopram oxalate [Lexapro] 10 mg tablet 10 mg PO QAM Qty: 30 2RF albuterol sulfate [ProAir HFA] 90 mcg/actuation HFA aerosol inhaler 2 puff INHALATION Q4H PRN (Reason: Shortness Of Breath) Qty: 8.5 2RF EpiPen 2-Luís 0.3 mg/0.3 mL auto-injector 0.3 mg IM Q10M PRN (Reason: anaphylaxis) Qty: 2 2RF Rx Instructions: do not exceed 2 doses per 24 hrs isosorbide mononitrate 30 mg tablet extended release 24 hr 30 mg PO BID Qty: 180 3RF metoprolol tartrate 25 mg tablet 25 mg PO BID Qty: 60 5RF ranolazine 500 mg tablet extended release 12 hr 500 mg PO BID Qty: 180 3RF trazodone 100 mg tablet 100 mg PO BEDTIME Qty: 30 2RF cetirizine [Zyrtec] 10 mg Tablet 10 mg PO DAILY PRN (Reason: Allergy Symptoms) nitroglycerin [Nitrostat] 0.4 mg Tablet, Sublingual 0.4 mg SUBLINGUAL Q5M PRN (Reason: Chest Pain) Rx Instructions: do not exceed 3 doses per episode Tylenol Ex Str Rapid Release 500 mg Tablet 1,000 mg PO Q6H PRN (Reason: Pain) Benadryl 25 mg Capsule 50 mg PO DAILY PRN (Reason: Allergy Symptoms) ibuprofen 200 mg Tablet 400 mg PO Q6H PRN (Reason: Pain) Gas-X 80 mg Tablet,Chewable 80 mg PO DAILY PRN (Reason: bloating) Multivitamins 28 mg iron- 800 mcg Tablet 1 tab PO QAM furosemide 20 mg tablet 40 mg PO EVERY OTHER DAY nifedipine 60 mg tablet extended release 60 mg PO QAM Lyrica 75 mg capsule 75 mg PO BID Qty: 60 0RF Discharge Orders: Discharge ED (Routine); Ordered 11/19/23 Ordered By: Clary Alfaro Referrals: Rodríguez Posada MD [Primary Care Provider] - Discharge Diet: Advance as tolerated Discharge Activity: Resume usual activity Patient Instructions: Urinary Tract Infection in Women (ED) Coding Level of Care Code ED 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
[2023-11-19] MEDS: ketorolac 30 mg/mL INJ IM (12:20)
[2023-11-19 12:21] VITALS: BP 126/86; PULSE 74; O2SAT 98
[2023-11-19 13:01] VITALS: BP 130/79; PULSE 68; O2SAT 97
[2023-11-19 13:04] LABS: Protein Urine 1+ (Negative); Specific Gravity, Urine 1.015 (1.005-1.030); Urine Appearance Cloudy (CLEAR); Urine Color Yellow (Yellow); pH Urine 7 (5-7)
[2023-11-19 13:05] LABS: Add Urine Culture? No; Add Urine Microscopic? YES; Bacteria Urine 2+ /hpf; Bilirubin Urine Neg (Negative); Blood Urine 2+ (Negative); Glucose Urine UA Norm (Normal); Ketones Urine Negative (Negative); Leukocyte Esterase Urine 2+ (Negative); Nitrate Urine Negative (Negative); RBC Urine 0-4 /hpf (0-2); Squamous Epithelial Cell Urine 15-25 /hpf (0-5); Urobilinogen Urine 4 mg/dL (Negative); WBC Urine 15-25 /hpf (0-5)
[2023-11-19] MEDS: cephALEXin 500 mg Capsule PO (13:24)
[2023-11-19 13:26] VITALS: BP 130/79; PULSE 67; O2SAT 97
== END 2023-11-19 13:28 | disposition home or self-care (01) ==
PROVIDERS: Emergency Provider Emergency Medicine; PCP Family Medicine Adult Medicine
DX: N30.00 Acute cystitis without hematuria (principal); F17.210 Nicotine dependence, cigarettes, uncomplicated; I25.10 Atherosclerotic heart disease of native coronary artery without angina pectoris; I10 Essential (primary) hypertension
CPT/HCPCS: 36415; 80053; 81001; 83690; 84703; 85025; 96372; 99284; J1885

== ENCOUNTER 2023-12-03 17:26 | Emergency (ER) | payer MEDICAID, SELFPAY ==
[2023-03-10 16:10] VITALS: BP 132/96; BMI 40.3
[2023-12-03 17:33] VITALS: BP 126/77; PULSE 104; RESP 18; TEMP 36.6; O2SAT 96; BMI 41.7
--- NOTE | 2023-12-03 17:36 | ECG_ITS ---
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 Measurements Intervals [place] Rate: 100 P: 25 MA: 96 QRS: 16 QRSD: 111 T: 19 QT: 352 QTc: 454 Interpretive Statements SINUS TACHYCARDIA WITH SHORT MA INTERVAL MODERATE INTRAVENTRICULAR CONDUCTION DELAY [110+ ms QRS DURATION] ABNORMAL RHYTHM ECG Compared to ECG 10/07/2023 22:20:14 Short MA interval now present Intraventricular conduction delay now present Sinus rhythm no longer present T-wave abnormality no longer present Electronically Signed On 12-04-2023 8:35:19 CDT by Junior Escalante M.D. [id number]
[2023-12-03 18:17] VITALS: BP 124/71; PULSE 85; RESP 18; O2SAT 94
[2023-12-03 18:27] LABS: Basophils % 0.5 %; Eosinophils # 0.1 10^3/uL (0.0-0.8); Eosinophils % 2.1 %; Hematocrit 42.6 % (36-47); Lymphocytes # 1.7 10^3/uL (0.8-4.8); Lymphocytes % 26.5 %; Mean Corpuscular HGB Conc 34.7 g/dL (30-55); Mean Corpuscular Volume 94.9 fl (85-98); Mean Platelet Volume 9.6 fL (7.4-10.4); Monocytes # 0.5 10^3/uL (0.2-0.9); Monocytes % 7.5 %; Neutrophils # 4.13 10^3/uL (1.8-7.7); Neutrophils % 62.9 %; Nucleated Red Blood Cells % 0 %; Platelet Count 174 10^3/cmm (157-399); Red Blood Count 4.49 10^6/uL (3.85-5.65); Red Cell Distribution Width 12.9 % (12.1-15.1); White Blood Count 6.56 10^3/uL (3.29-11.43)
[2023-12-03 18:30] VITALS: BP 131/69; PULSE 83; RESP 20; O2SAT 93
[2023-12-03 18:31] LABS: INR 1.04 (0.8-1.2)
[2023-12-03 18:32] LABS: Partial Thromboplastin Time 26.6 SECONDS (23.9-36.7)
[2023-12-03 18:41] LABS: Troponin(5th) Baseline < 6 ng/L (0-10)
[2023-12-03 18:48] LABS: Alanine Aminotransferase 68 U/L (0-33); Albumin Level 4.5 g/dL (3.5-5.2); Alkaline Phosphatase 121 U/L (35-105); Anion Gap 17.1 (5-19); Aspartate Amino Transferase 60 U/L (0-32); Blood Urea Nitrogen 11 mg/dL (6-20); Calcium 8.5 mg/dL (8.5-10.5); Carbon Dioxide 21 mmol/L (22-29); Chloride 106 mmol/L (98-107); Creatinine Clr Calc Pharmacy 78.9582; Globulin 2.6 g/dL (1.3-4.6); Glomerular Filtration Rate 55.9 mL/min (90-130); Glucose 107 mg/dL (65-115); NT Pro B Type Natriuretic Pept 86 pg/mL (0-125); Osmolality Calculated 290 mOsm/kg (285-295); Potassium 4.1 mmol/L (3.5-5.1); Sodium 140 mmol/L (136-145); Total Bilirubin 0.4 mg/dL (0.15-1.2); Total Protein 7.1 g/dL (6.6-8.7)
--- NOTE | 2023-12-03 19:25 | PC.NURSE ---
PT B/P IS 107/76 AT THIS TIME, CHECKED BEFORE GIVING NITRO, THIS B/P REPORTED TO DR. LINDSAY AND TOLD NOT TO GIVE NITRO AT THIS TIME D/T B/P OF 107/76.
[2023-12-03] MEDS: acetaminophen 500 mg Tablet 1000 MG PO (19:27)
--- NOTE | 2023-12-03 19:36 | ED_ITS ---
HPI - Chest Pain 2 General: Chief Complaint: Chest Pain Stated Complaint: chest pain sob Time Seen by Provider: 12/03/23 18:17 Source: patient and EMS Mode of arrival: EMS Limitations: other (cognitive impairment per chart) History of Present Illness: Patient reports substernal chest pain rating to her left shoulder hurting today. Somewhat better from when it initially came on but still hurting badly and requesting relief. Patient requesting narcotic relief specifically. Make sure to emphasize she is allergic to Toradol though its tramadol that is on her allergy list. Also reports an allergy to aspirin. Review of Systems 2 General: Reports: 10 or more systems reviewed and unremarkable except in HPI and below PFSH ED 2 PFSH: Medical History Atherosclerosis of coronary artery Nicotine use disorder Psychiatric care Seizure Borderline intellectual functioning Asthma Diagnosed as a child when controlled with an albuterol inhaler as needed being managed by her primary care provider. She does not see a final finisher forging dies. Lumbar radiculopathy, chronic Chronic back pain managed by pain medication and the pain clinic Hypertension Surgical History Pyloric stenosis repaired as a baby History of cholecystectomy Laparoscopic procedure in 2018 Family History Mother Hypertension Stroke Lung cancer Anesthesia complication Cancer Lung disease Bone disease Grandfather Colon cancer Maternal, diagnosed in his 60s Cancer Brother Seizures Family/Other Hyperlipidemia paternal uncle Heart disease maternal uncle Cancer Lung disease Stroke Bone disease Grandmother CAD (coronary artery disease) Father CAD (coronary artery disease), Onset Age: 35 Denies family history of Ovarian cancer Diabetes Clotting disorder Dementia Chronic kidney disease (CKD) Breast cancer Suicide Bleeding disorder Uterine cancer Thyroid disease Social History Smoking and tobacco/nicotine status: current every day tobacco/nicotine user cigarettes Packs smoked per day: 0.25 Years cigarettes smoked: 24 Quit status (tobacco/nicotine): considering quitting Second hand smoke exposure: No Alcohol intake: never Substance/Drug Use: never Adopted: No Caregiver/support person: No Lives independently: Yes Household members: other Details: living with 3 other friends on moms property Housing: [employer]/Mobile home Marital status: Single Number of children: 2 Number of grandchildren: 0 Highest education level completed: Some College, No Degree service: No Current occupational status: disabled 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 Current occupational exposures/hazards: No Pets and animals: Yes Pets & animals: dog(s) Leisure activites: games and other Leisure activities details: play on computer, watch movies Do you think of yourself as: Straight/Heterosexual Current gender identity: Female Melanie/Zoroastrian: None Special melanie needs: No Agree to transfusion: Yes Female Reproductive History: Para: 2 Spontaneous abortions: Yes Physical Exam 2 Const: COMMON NORMALS: no acute distress, average body habitus, patient oriented x3, healthy appearing, alert and well nourished GENERAL APPEARANCE: well kempt and well developed NUTRITIONAL APPEARANCE: obese HENMT: COMMON NORMALS: normocephalic, atraumatic, external ears normal and moist oral mucous membranes HEAD & SCALP: normocephalic and atraumatic E XTERNAL EAR: Yes external ears normal Eye: COMMON NORMALS: Equal, round and reactive pupils present, EOMs intact bilaterally and conjunctivae normal CONJUNCTIVA: Yes conjunctivae normal P UPIL: Yes Equal, round and reactive pupils present Neck/C-Spine: COMMON NORMALS: full ROM, no lymphadenopathy and supple Chest: CHEST: Yes Symmetrical chest wall rise and No Surgical scars present (Chest) OTHER: Sternal tenderness somewhat reproduces pain Resp: COMMON NORMALS: normal respiratory effort, No retractions, No use of accessory muscles and clear to auscultation bilaterally AUSCULTATION: clear to auscultation bilaterally Cardio: COMMON NORMALS: regular rate, regular rhythm, S1 normal heart sound present, S2 normal heart sound present, No gallops present (Cardio), No clicks present (Cardio), No murmurs present (Cardio) and No rub (Cardio) RATE: r egular rate RHYTHM: regular rhythm HEART SOUNDS: S1 normal heart sound present, S2 normal heart sound present and no murmurs PERIPHERAL PULSES: o ther (Radial pulses 2+ and symmetric) GI: COMMON NORMALS: Soft to palpation, non-tender and no masses INSPECTION: No abdominal distension PALPATION: Yes Soft to palpation, No Guarding due to palpation present (GI) and No Rebound tenderness present : COMMON NORMALS: Yes no CVA tenderness BLADDER/KIDNEY EXAM: Yes no CVA tenderness Back/Pelvis: COMMON NORMALS: no CVA tenderness Extremity: COMMON NORMALS: normal to inspection, full ROM, capillary refill normal and no clubbing, cyanosis or edema Neuro: COMMON NORMALS: patient oriented x3 SENSORIUM/ORIENTATION: Yes alert Psych: APPEARANCE: Yes well kempt Skin: COMMON NORMALS: no rashes or lesions noted, no wounds, turgor normal and no jaundice GENERAL SKIN EXAM: no rashes or lesions noted and turgor normal Course 2 Vital Signs: Vital signs: Vital Signs Temperature 97.9 F 12/03/23 17:33 Pulse Rate 83 12/03/23 18:30 Respiratory Rate 20 H 12/03/23 18:30 Blood Pressure 131/69 12/03/23 18:30 Pulse Oximetry 93 12/03/23 18:30 Oxygen Delivery Me thod Room Air 12/03/23 18:30 MDM - Chest Pain Medical Decision Making Patient having greater than 3 hours of chest pain on arrival. EKG is unremarkable sinus tach rate of [address] no prolonged intervals. No [address] elevation or depression. Troponin undetectable on high-sensitivity assay. Patient to continue current medical therapy. Likely having nonanginal chest pain. Given Tylenol for pain. Differential Diagnosis Likely acute myocardial infarction (Musculoskeletal chest pain, NSTEMI,) Medical Records I reviewed the patient's medical records. Lab Data I reviewed the patient's lab results. 12/03/23 18:12 12/03/23 18:12 Laboratory Results WBC 6.56 10^3/uL (3.29-11.43) 12/03/23 18:12 RBC 4.49 10^6/uL (3.85-5.65) 12/03/23 18:12 Hgb 14.80 g/dL (11.27-16.99) 12/03/23 18:12 Hct 42.6 % (36-47) 12/03/23 18:12 MCV 94.9 fl (85-98) 12/03/23 18:12 MCH 33.0 pg (27-33) 12/03/23 18:12 MCHC 34.7 g/dL (30-55) 12/03/23 18:12 RDW 12.9 % (12.1-15.1) 12/03/23 18:12 Plt Count 174 10^3/cmm (157-399) 12/03/23 18:12 MPV 9.6 fL (7.4-10.4) 12/03/23 18:12 Neut % (Auto) 62.9 % 12/03/23 18:12 Lymph % (Auto) 26.5 % 12/03/23 18:12 [place] % (Auto) 7.5 % 12/03/23 18:12 Eos % (Auto) 2.1 % 12/03/23 18:12 Baso % (Auto) 0.5 % 12/03/23 18:12 Neut # (Auto) 4.13 10^3/uL (1.8-7.7) 12/03/23 18:12 Lymph # (Auto) 1.7 10^3/uL (0.8-4.8) 12/03/23 18:12 [place] # (Auto) 0.5 10^3/uL (0.2-0.9) 12/03/23 18:12 Eos # (Auto) 0.1 10^3/uL (0.0-0.8) 12/03/23 18:12 Baso # (Auto) 0.0 10^3/uL (0.0-0.1) 12/03/23 18:12 Nucleated RBC % (auto) 0 % 12/03/23 18:12 Nucleated RBCs # 0.0 /100WBC 12/03/23 18:12 PT 13.90 SECONDS (12.1-14.9) 12/03/23 18:12 INR 1.04 (0.8-1.2) 12/03/23 18:12 APTT 26.6 SECONDS (23.9-36.7) 12/03/23 18:12 Sodium 140 mmol/L (136-145) 12/03/23 18:12 Potassium 4.1 mmol/L (3.5-5.1) 12/03/23 18:12 Chloride 106 mmol/L (98-107) 12/03/23 18:12 Carbon Dioxide 21 mmol/L (22-29) L 12/03/23 18:12 Anion Gap 17.1 (5-19) 12/03/23 18:12 BUN 11 mg/dL (6-20) 12/03/23 18:12 Creatinine 1.1 mg/dL (0.5-0.9) H 12/03/23 18:12 GFR Calculation 55.9 mL/min (90-130) L 12/03/23 18:12 Glucose 107 mg/dL (65-115) 12/03/23 18:12 Calculated Osmolality 290 mOsm/kg (285-295) 12/03/23 18:12 Calcium 8.5 mg/dL (8.5-10.5) 12/03/23 18:12 Total Bilirubin 0.4 mg/dL (0.15-1.2) 12/03/23 18:12 AST 60 U/L (0-32) H 12/03/23 18:12 ALT 68 U/L (0-33) H 12/03/23 18:12 Alkaline Phosphatase 121 U/L (35-105) H 12/03/23 18:12 Troponin T Baseline < 6 ng/L (0-10) 12/03/23 18:12 NT-Pro-B Natriuret Pep 86 pg/mL (0-125) 12/03/23 18:12 Total Protein 7.1 g/dL (6.6-8.7) 12/03/23 18:12 Albumin 4.5 g/dL (3.5-5.2) 12/03/23 18:12 Globulin 2.6 g/dL (1.3-4.6) 12/03/23 18:12 All radiology interpretation(s) finalized by discharge Discharge Plan Discharge Patient Disposition: Home Clinical Impression: Chest pain, musculoskeletal Condition: Stable Prescriptions: No Action riboflavin (vitamin B2) 100 mg tablet 100 mg PO QAM rosuvastatin 10 mg tablet PO topiramate [Topamax] 100 mg tablet 100 mg PO DAILY Qty: 30 3RF Skyrizi 150 mg/mL syringe SUBCUT escitalopram oxalate [Lexapro] 10 mg tablet 10 mg PO QAM Qty: 30 2RF trazodone 100 mg tablet 100 mg PO BEDTIME Qty: 30 2RF sulfamethoxazole-trimethoprim [Bactrim DS] 800-160 mg tablet 1 tab PO BID 10 Days Qty: 20 0RF albuterol sulfate [ProAir HFA] 90 mcg/actuation HFA aerosol inhaler 2 puff INHALATION Q4H PRN (Reason: Shortness Of Breath) Qty: 8.5 2RF EpiPen 2-Luís 0.3 mg/0.3 mL auto-injector 0.3 mg IM Q10M PRN (Reason: anaphylaxis) Qty: 2 2RF Rx Instructions: do not exceed 2 doses per 24 hrs isosorbide mononitrate 30 mg tablet extended release 24 hr 30 mg PO BID Qty: 180 3RF metoprolol tartrate 25 mg tablet 25 mg PO BID Qty: 60 5RF ranolazine 500 mg tablet extended release 12 hr 500 mg PO BID Qty: 180 3RF cetirizine [Zyrtec] 10 mg Tablet 10 mg PO DAILY PRN (Reason: Allergy Symptoms) nitroglycerin [Nitrostat] 0.4 mg Tablet, Sublingual 0.4 mg SUBLINGUAL Q5M PRN (Reason: Chest Pain) Rx Instructions: do not exceed 3 doses per episode Tylenol Ex Str Rapid Release 500 mg Tablet 1,000 mg PO Q6H PRN (Reason: Pain) Benadryl 25 mg Capsule 50 mg PO DAILY PRN (Reason: Allergy Symptoms) ibuprofen 200 mg Tablet 400 mg PO Q6H PRN (Reason: Pain) Gas-X 80 mg Tablet,Chewable 80 mg PO DAILY PRN (Reason: bloating) Multivitamins 28 mg iron- 800 mcg Tablet 1 tab PO QAM furosemide 20 mg tablet 40 mg PO EVERY OTHER DAY nifedipine 60 mg tablet extended release 60 mg PO QAM Lyrica 75 mg capsule 75 mg PO BID Qty: 60 0RF Discharge Orders: Discharge ED (Routine); Ordered 12/03/23 Ordered By: Nuno Carr Referrals: Rodríguez Posada MD [Primary Care Provider] - Patient Instructions: Pain Management Coding Level of Care Code ED Research Geneticist for 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
[2023-12-03 20:01] VITALS: BP 109/66; PULSE 79; RESP 16; O2SAT 96
== END 2023-12-03 20:02 | disposition home or self-care (01) ==
PROVIDERS: Emergency Provider Emergency Medicine; PCP Family Medicine Adult Medicine
DX: R07.9 Chest pain, unspecified (principal); F17.210 Nicotine dependence, cigarettes, uncomplicated; I25.10 Atherosclerotic heart disease of native coronary artery without angina pectoris; I10 Essential (primary) hypertension
CPT/HCPCS: 80053; 83880; 84484; 85025; 85610; 85730; 93005; 99284

== ENCOUNTER → 2023-12-05 13:27 | Outpatient (BNVA) | payer MEDICAID, SELFPAY ==
[2023-03-10 16:10] VITALS: BP 132/96; BMI 40.3
== END ==
PROVIDERS: PCP Family Medicine Adult Medicine; Visit Provider Specialist
DX: G43.711 Chronic migraine without aura, intractable, with status migrainosus (principal); F44.5 Conversion disorder with seizures or convulsions
CPT/HCPCS: 99213

== ENCOUNTER 2024-01-04 17:12 | Emergency (ER) | payer MEDICAID, SELFPAY ==
[2023-03-10 16:10] VITALS: BP 132/96; BMI 40.3
[2024-01-04 17:24] VITALS: BP 130/85; PULSE 96; RESP 16; TEMP 37.1; O2SAT 97; BMI 41.7
--- NOTE | 2024-01-04 17:53 | ED_ITS ---
Documented by User: Capo Gupta DO 01/05/24 06:25 HPI - Chest Pain 2 General: Chief Complaint: Chest Pain Stated Complaint: chest pain, vomitting, tingling Time Seen by Provider: 01/04/24 17:51 Source: patient Mode of arrival: ambulatory History of Present Illness: 38-year-old female presents emergency ro om with complaints of chest discomfort. Patient tells me she has a history of heart disease and that the left side of her heart does not work well. She has a history of some intellectual disability and is not a great historian. Reviewing her old chart cardiology notes. She has some left ventricular diastolic dysfunction but has preserved ejection fraction there is no history of congestive heart failure. In August 2022 she had a left heart catheterization which showed no significant coronary artery disease there were a few mild irregularities but no stenotic lesions. She does not have any shortness of breath no PND or orthopnea. She did take 3 nitroglycerin at home with no change in her chest discomfort. MD complaint: chest pain Timing of current episode: episodic Prior episodes: Yes Onset: during rest Pain location: substernal and left chest Pain radiation: none Quality: sharp Relieving factors: nothing Exacerbating factors: nothing Associated symptoms: Deny abdominal pain, diaphoresis, dyspnea, fever(s), leg edema, nausea, palpitations, sense of impending doom, syncope or vomiting Treatment prior to arrival: none Review of Systems 2 Const: Denies: fever(s), chills or diaphoresis Card: Denies: chest pain, palpitations or syncope Resp: Denies: dyspnea GI: Denies: abdominal pain, nausea or vomiting : Denies: dysuria, urinary frequency or urinary urgency Musc: Denies: neck pain or back pain Skin/Breast: Denies: rash PFSH ED 2 PFSH: Medical History Allergic rhinitis due to allergen Atherosclerosis of coronary artery Nicotine use disorder Psychiatric care Seizure Borderline intellectual functioning Asthma Diagnosed as a child when controlled with an albuterol inhaler as needed being managed by her primary care provider. She does not see a pharmacy clinical specialist. Lumbar radiculopathy, chronic Chronic back pain managed by pain medication and the pain clinic Hypertension Surgical History Pyloric stenosis repaired as a baby History of cholecystectomy Laparoscopic procedure in 2018 Family History Mother Hypertension Stroke Lung cancer Anesthesia complication Cancer Lung disease Bone disease Grandfather Colon cancer Maternal, diagnosed in his 60s Cancer Brother Seizures Family/Other Hyperlipidemia paternal uncle Heart disease maternal uncle Cancer Lung disease Stroke Bone disease Grandmother CAD (coronary artery disease) Father CAD (coronary artery disease), Onset Age: 35 Denies family history of Ovarian cancer Diabetes Clotting disorder Dementia Chronic kidney disease (CKD) Breast cancer Suicide Bleeding disorder Uterine cancer Thyroid disease Social History Smoking and tobacco/nicotine status: current every day tobacco/nicotine user cigarettes Packs smoked per day: 0.25 Years cigarettes smoked: 24 Quit status (tobacco/nicotine): considering quitting Second hand smoke exposure: No Alcohol intake: never Substance/Drug Use: never Adopted: No Caregiver/support person: No Lives independently: Yes Household members: other Details: living with 3 other friends on moms property Housing: Manufactured/Mobile home Marital status: Single Number of children: 2 Number of grandchildren: 0 Highest education level completed: Some College, No Degree service: No Current occupational status: disabled 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 Current occupational exposures/hazards: No Pets and animals: Yes Pets & animals: dog(s) Leisure activites: games and other Leisure activities details: play on computer, watch movies Do you think of yourself as: Straight/Heterosexual Current gender identity: Female Melanie/Pentecostal: None Special melanie needs: No Agree to transfusion: Yes Female Reproductive History: Para: 2 Spontaneous abortions: Yes Physical Exam 2 Const: COMMON NORMALS: no acute distress GENERAL APPEARANCE: cooperative and comfortable ORIENTATION/CONSCIOUSNESS: Yes awake, Yes oriented to person, Yes oriented to place and Yes oriented to time HENMT: COMMON NORMALS: normocephalic, atraumatic and hearing grossly normal bilaterally HEAD & SCALP: normocephalic and atraumatic Resp: COMMON NORMALS: normal respiratory effort, No retractions, No use of accessory muscles and clear to auscultation bilaterally AUSCULTATION: clear to auscultation bilaterally Cardio: COMMON NORMALS: regular rate, regular rhythm and No murmurs present (Cardio) RATE: regular rate RHYTHM: regular rhythm GI: COMMON NORMALS: Soft to palpation and No hepatosplenomegaly present A USCULTATION: Yes normoactive bowel sounds PALPATION: Yes Soft to palpation, No Tenderness to palpation present (GI), No Guarding due to palpation present (GI) and Yes No hepatosplenomegaly present Extremity: COMMON NORMALS: normal to inspection, capillary refill normal, no clubbing, cyanosis or edema, no calf tenderness and no pedal edema Neuro: SENSORIUM/ORIENTATION: Yes oriented to person, Yes oriented to place and Yes oriented to time Skin: COMMON NORMALS: no rashes or lesions noted GENERAL SKIN EXAM: no rashes or lesions noted Course 2 Vital Signs: Vital signs: Vital Signs Temperature 98.8 F 01/04/24 17:24 Pulse Rate 82 01/04/24 21:00 Respiratory Rate 20 H 01/04/24 20:59 Blood Pressure 146/96 01/04/24 21:00 Pulse Oximetry 97 01/04/24 21:00 Oxygen Delivery Me thod Room Air 01/04/24 20:59 MDM - Chest Pain Medical Decision Making Care signed out to at change of shift. See final notes for diagnosis and disposition. Patient's care transferred over to myself at shift change while he is waiting for lab work to come back. Patient requested pain medicine. Patient was given 30 mg Toradol. Once lab work is back and when discussed these with the patient the lab work was essentially benign. Chest pain is reproducible with palpation over the left anterior chest wall. Patient was given 1 [place] and will be discharged home to follow-up with her PCP Lab Data 01/04/24 18:05 01/04/24 18:34 Laboratory Results WBC 9.38 10^3/uL (3.29-11.43) 01/04/24 18:05 RBC 4.59 10^6/uL (3.85-5.65) 01/04/24 18:05 Hgb 14.80 g/dL (11.27-16.99) 01/04/24 18:05 Hct 42.4 % (36-47) 01/04/24 18:05 MCV 92.4 fl (85-98) 01/04/24 18:05 MCH 32.2 pg (27-33) 01/04/24 18:05 MCHC 34.9 g/dL (30-55) 01/04/24 18:05 RDW 12.5 % (12.1-15.1) 01/04/24 18:05 Plt Count 192 10^3/cmm (157-399) 01/04/24 18:05 MPV 9.5 fL (7.4-10.4) 01/04/24 18:05 Neut % (Auto) 69.3 % 01/04/24 18:05 Lymph % (Auto) 22.4 % 01/04/24 18:05 [place] % (Auto) 6.0 % 01/04/24 18:05 Eos % (Auto) 1.5 % 01/04/24 18:05 Baso % (Auto) 0.3 % 01/04/24 18:05 Neut # (Auto) 6.50 10^3/uL (1.8-7.7) 01/04/24 18:05 Lymph # (Auto) 2.1 10^3/uL (0.8-4.8) 01/04/24 18:05 [place] # (Auto) 0.6 10^3/uL (0.2-0.9) 01/04/24 18:05 Eos # (Auto) 0.1 10^3/uL (0.0-0.8) 01/04/24 18:05 Baso # (Auto) 0.0 10^3/uL (0.0-0.1) 01/04/24 18:05 Nucleated RBC % (auto) 0 % 01/04/24 18:05 Nucleated RBCs # 0.0 /100WBC 01/04/24 18:05 D-Dimer 0.34 ug/mLFEU (0-0.59) 01/04/24 18:34 Sodium 136 mmol/L (136-145) 01/04/24 18:34 Potassium 3.5 mmol/L (3.5-5.1) 01/04/24 18:34 Chloride 103 mmol/L (98-107) 01/04/24 18:34 Carbon Dioxide 21 mmol/L (22-29) L 01/04/24 18:34 Anion Gap 15.5 (5-19) 01/04/24 18:34 BUN 8 mg/dL (6-20) 01/04/24 18:34 Creatinine 0.7 mg/dL (0.5-0.9) 01/04/24 18:34 GFR Calculation 94.2 mL/min (90-130) 01/04/24 18:34 Glucose 93 mg/dL (65-115) 01/04/24 18:34 Calculated Osmolality 280 mOsm/kg (285-295) L 01/04/24 18:34 Calcium 8.7 mg/dL (8.5-10.5) 01/04/24 18:34 Total Bilirubin 0.4 mg/dL (0.15-1.2) 01/04/24 18:34 AST 45 U/L (0-32) H 01/04/24 18:34 ALT 61 U/L (0-33) H 01/04/24 18:34 Alkaline Phosphatase 130 U/L (35-105) H 01/04/24 18:34 Troponin T Baseline < 6 ng/L (0-10) 01/04/24 18:34 Troponin T 120 Minute 6.00 ng/L (0-10) 01/04/24 19:55 Delta Troponin T 0.07828 ABS# (0-10) 01/04/24 19:55 NT-Pro-B Natriuret Pep 52 pg/mL (0-125) 01/04/24 18:34 Total Protein 7.7 g/dL (6.6-8.7) 01/04/24 18:34 Albumin 4.4 g/dL (3.5-5.2) 01/04/24 18:34 Globulin 3.3 g/dL (1.3-4.6) 01/04/24 18:34 Urine Color Yellow (Yellow) 01/04/24 18:40 Urine Appearance Slightly cloudy (CLEAR) 01/04/24 18:40 Urine pH 6 (5-7) 01/04/24 18:40 Ur Specific [place] 1.020 (1.005-1.030) 01/04/24 18:40 Urine Protein Neg (Negative) 01/04/24 18:40 Urine Glucose (UA) Norm (Normal) 01/04/24 18:40 Urine Ketones Negative (Negative) 01/04/24 18:40 Urine Blood Neg (Negative) 01/04/24 18:40 Urine Nitrate Negative 01/04/24 18:40 Urine Bilirubin Neg (Negative) 01/04/24 18:40 Urine Urobilinogen 4 mg/dL (Negative) H 01/04/24 18:40 Ur Leukocyte Esterase 1+ (Negative) H 01/04/24 18:40 Urine RBC 0-4 /hpf (0-2) H 01/04/24 18:40 Urine WBC 10-15 /hpf (0-5) H 01/04/24 18:40 Ur Squamous Epith Cells 5-10 /hpf (0-5) H 01/04/24 18:40 Amorphous Sediment Not Reportable 01/04/24 18:40 Urine Bacteria Trace /hpf (NONE) 01/04/24 18:40 Urine Mucus None /hpf 01/04/24 18:40 Discharge Plan Discharge Patient Disposition: Home Clinical Impression: Acute chest wall pain Condition: Stable Prescriptions: No Action riboflavin (vitamin B2) 100 mg tablet 100 mg PO QAM Skyrizi 150 mg/mL syringe SUBCUT escitalopram oxalate [Lexapro] 10 mg tablet 10 mg PO QAM Qty: 30 2RF trazodone 100 mg tablet 100 mg PO BEDTIME Qty: 30 2RF Emgality Syringe 120 mg/mL syringe 120 mg SUBCUT ONCE Qty: 1 5RF Emgality Syringe 120 mg/mL syringe 240 mg SUBCUT ONCE Qty: 2 0RF Rx Instructions: loading dose topiramate [Topamax] 100 mg tablet 100 mg PO DAILY Qty: 30 5RF cetirizine [Zyrtec] 10 mg tablet 10 mg PO DAILY PRN (Reason: Allergy Symptoms) Qty: 90 3RF albuterol sulfate [ProAir HFA] 90 mcg/actuation HFA aerosol inhaler 2 puff INHALATION Q4H PRN (Reason: Shortness Of Breath) Qty: 8.5 2RF diphenhydramine HCl [Banophen] 50 mg capsule 50 mg PO TID PRN (Reason: nausea/allergy symptoms) Qty: 90 5RF rosuvastatin 10 mg tablet 10 mg PO DAILY Qty: 90 1RF furosemide 20 mg tablet 40 mg PO DAILY EpiPen 2-Luís 0.3 mg/0.3 mL auto-injector 0.3 mg IM Q10M PRN (Reason: anaphylaxis) Qty: 2 2RF Rx Instructions: do not exceed 2 doses per 24 hrs isosorbide mononitrate 30 mg tablet extended release 24 hr 30 mg PO BID Qty: 180 3RF metoprolol tartrate 25 mg tablet 25 mg PO BID Qty: 60 5RF ranolazine 500 mg tablet extended release 12 hr 500 mg PO BID Qty: 180 3RF nitroglycerin [Nitrostat] 0.4 mg Tablet, Sublingual 0.4 mg SUBLINGUAL Q5M PRN (Reason: Chest Pain) Rx Instructions: do not exceed 3 doses per episode Tylenol Ex Str Rapid Release 500 mg Tablet 1,000 mg PO Q6H PRN (Reason: Pain) ibuprofen 200 mg Tablet 400 mg PO Q6H PRN (Reason: Pain) Gas-X 80 mg Tablet,Chewable 80 mg PO DAILY PRN (Reason: bloating) Multivitamins 28 mg iron- 800 mcg Tablet 1 tab PO QAM nifedipine 60 mg tablet extended release 60 mg PO QAM Discharge Orders: Discharge ED (Routine); Ordered 01/04/24 Ordered By: Gen Holt Referrals: Rodríguez Posada MD [Primary Care Provider] - 1 week Patient Instructions: Chest Pain - Chest Wall Activity Restrictions/Additional Instructions: Your evaluation ER did not show any acute cardiac cause of your chest pain. It is reproducible with palpation of the anterior chest wall. It is thought to be chest wall pain and not cardiac pain. Please follow-up with your family practice physician in the next 7 to 10 days for further evaluation and treatment as needed. If your chest pain worsens or returns please feel free to return to the ER. Coding Level of Care Code ED Digital Manager for Chg Fwd Documented by User: Gen Holt DO 01/04/24 20:48 HPI - Chest Pain 2 General: Chief Complaint: Chest Pain Stated Complaint: chest pain, vomitting, tingling Time Seen by Provider: 01/04/24 17:51 PFSH ED 2 PFSH: Medical History Allergic rhinitis due to allergen Atherosclerosis of coronary artery Nicotine use disorder Psychiatric care Seizure Borderline intellectual functioning Asthma Diagnosed as a child when controlled with an albuterol inhaler as needed being managed by her primary care provider. She does not see a pharmacy clinical specialist. Lumbar radiculopathy, chronic Chronic back pain managed by pain medication and the pain clinic Hypertension Surgical History Pyloric stenosis repaired as a baby History of cholecystectomy Laparoscopic procedure in 2018 Family History Mother Hypertension Stroke Lung cancer Anesthesia complication Cancer Lung disease Bone disease Grandfather Colon cancer Maternal, diagnosed in his 60s Cancer Brother Seizures Family/Other Hyperlipidemia paternal uncle Heart disease maternal uncle Cancer Lung disease Stroke Bone disease Grandmother CAD (coronary artery disease) Father CAD (coronary artery disease), Onset Age: 35 Denies family history of Ovarian cancer Diabetes Clotting disorder Dementia Chronic kidney disease (CKD) Breast cancer Suicide Bleeding disorder Uterine cancer Thyroid disease Social History Smoking and tobacco/nicotine status: current every day tobacco/nicotine user cigarettes Packs smoked per day: 0.25 Years cigarettes smoked: 24 Quit status (tobacco/nicotine): considering quitting Second hand smoke exposure: No Alcohol intake: never Substance/Drug Use: never Adopted: No Caregiver/support person: No Lives independently: Yes Household members: other Details: living with 3 other friends on moms property Housing: Manufactured/Mobile home Marital status: Single Number of children: 2 Number of grandchildren: 0 Highest education level completed: Some College, No Degree service: No Current occupational status: disabled 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 Current occupational exposures/hazards: No Pets and animals: Yes Pets & animals: dog(s) Leisure activites: games and other Leisure activities details: play on computer, watch movies Do you think of yourself as: Straight/Heterosexual Current gender identity: Female Melanie/Pentecostal: None Special melanie needs: No Agree to transfusion: Yes Course 2 Vital Signs: Vital signs: Vital Signs Temperature 98.8 F 01/04/24 17:24 Pulse Rate 82 01/04/24 21:00 Respiratory Rate 20 H 01/04/24 20:59 Blood Pressure 146/96 01/04/24 21:00 Pulse Oximetry 97 01/04/24 21:00 Oxygen Delivery Me thod Room Air 01/04/24 20:59 MDM - Chest Pain Medical Decision Making Patient's care transferred over to myself at shift change while he is waiting for lab work to come back. Patient requested pain medicine. Patient was given 30 mg Toradol. Once lab work is back and when discussed these with the patient the lab work was essentially benign. Chest pain is reproducible with palpation over the left anterior chest wall. Patient was given 1 [place] and will be discharged home to follow-up with her PCP Lab Data 01/04/24 18:05 01/04/24 18:34 Laboratory Results WBC 9.38 10^3/uL (3.29-11.43) 01/04/24 18:05 RBC 4.59 10^6/uL (3.85-5.65) 01/04/24 18:05 Hgb 14.80 g/dL (11.27-16.99) 01/04/24 18:05 Hct 42.4 % (36-47) 01/04/24 18:05 MCV 92.4 fl (85-98) 01/04/24 18:05 MCH 32.2 pg (27-33) 01/04/24 18:05 MCHC 34.9 g/dL (30-55) 01/04/24 18:05 RDW 12.5 % (12.1-15.1) 01/04/24 18:05 Plt Count 192 10^3/cmm (157-399) 01/04/24 18:05 MPV 9.5 fL (7.4-10.4) 01/04/24 18:05 Neut % (Auto) 69.3 % 01/04/24 18:05 Lymph % (Auto) 22.4 % 01/04/24 18:05 [place] % (Auto) 6.0 % 01/04/24 18:05 Eos % (Auto) 1.5 % 01/04/24 18:05 Baso % (Auto) 0.3 % 01/04/24 18:05 Neut # (Auto) 6.50 10^3/uL (1.8-7.7) 01/04/24 18:05 Lymph # (Auto) 2.1 10^3/uL (0.8-4.8) 01/04/24 18:05 [place] # (Auto) 0.6 10^3/uL (0.2-0.9) 01/04/24 18:05 Eos # (Auto) 0.1 10^3/uL (0.0-0.8) 01/04/24 18:05 Baso # (Auto) 0.0 10^3/uL (0.0-0.1) 01/04/24 18:05 Nucleated RBC % (auto) 0 % 01/04/24 18:05 Nucleated RBCs # 0.0 /100WBC 01/04/24 18:05 D-Dimer 0.34 ug/mLFEU (0-0.59) 01/04/24 18:34 Sodium 136 mmol/L (136-145) 01/04/24 18:34 Potassium 3.5 mmol/L (3.5-5.1) 01/04/24 18:34 Chloride 103 mmol/L (98-107) 01/04/24 18:34 Carbon Dioxide 21 mmol/L (22-29) L 01/04/24 18:34 Anion Gap 15.5 (5-19) 01/04/24 18:34 BUN 8 mg/dL (6-20) 01/04/24 18:34 Creatinine 0.7 mg/dL (0.5-0.9) 01/04/24 18:34 GFR Calculation 94.2 mL/min (90-130) 01/04/24 18:34 Glucose 93 mg/dL (65-115) 01/04/24 18:34 Calculated Osmolality 280 mOsm/kg (285-295) L 01/04/24 18:34 Calcium 8.7 mg/dL (8.5-10.5) 01/04/24 18:34 Total Bilirubin 0.4 mg/dL (0.15-1.2) 01/04/24 18:34 AST 45 U/L (0-32) H 01/04/24 18:34 ALT 61 U/L (0-33) H 01/04/24 18:34 Alkaline Phosphatase 130 U/L (35-105) H 01/04/24 18:34 Troponin T Baseline < 6 ng/L (0-10) 01/04/24 18:34 Troponin T 120 Minute 6.00 ng/L (0-10) 01/04/24 19:55 Delta Troponin T 0.73999 ABS# (0-10) 01/04/24 19:55 NT-Pro-B Natriuret Pep 52 pg/mL (0-125) 01/04/24 18:34 Total Protein 7.7 g/dL (6.6-8.7) 01/04/24 18:34 Albumin 4.4 g/dL (3.5-5.2) 01/04/24 18:34 Globulin 3.3 g/dL (1.3-4.6) 01/04/24 18:34 Urine Color Yellow (Yellow) 01/04/24 18:40 Urine Appearance Slightly cloudy (CLEAR) 01/04/24 18:40 Urine pH 6 (5-7) 01/04/24 18:40 Ur Specific [place] 1.020 (1.005-1.030) 01/04/24 18:40 Urine Protein Neg (Negative) 01/04/24 18:40 Urine Glucose (UA) Norm (Normal) 01/04/24 18:40 Urine Ketones Negative (Negative) 01/04/24 18:40 Urine Blood Neg (Negative) 01/04/24 18:40 Urine Nitrate Negative 01/04/24 18:40 Urine Bilirubin Neg (Negative) 01/04/24 18:40 Urine Urobilinogen 4 mg/dL (Negative) H 01/04/24 18:40 Ur Leukocyte Esterase 1+ (Negative) H 01/04/24 18:40 Urine RBC 0-4 /hpf (0-2) H 01/04/24 18:40 Urine WBC 10-15 /hpf (0-5) H 01/04/24 18:40 Ur Squamous Epith Cells 5-10 /hpf (0-5) H 01/04/24 18:40 Amorphous Sediment Not Reportable 01/04/24 18:40 Urine Bacteria Trace /hpf (NONE) 01/04/24 18:40 Urine Mucus None /hpf 01/04/24 18:40 XR interpretation done by ED provider, pending radiology final review Discharge Plan Discharge Patient Disposition: Home Clinical Impression: Acute chest wall pain Condition: Stable Prescriptions: No Action riboflavin (vitamin B2) 100 mg tablet 100 mg PO QAM Skyri[place] 150 mg/mL syringe SUBCUT escitalopram oxalate [Lexapro] 10 mg tablet 10 mg PO QAM Qty: 30 2RF trazodone 100 mg tablet 100 mg PO BEDTIME Qty: 30 2RF Emgality Syringe 120 mg/mL syringe 120 mg SUBCUT ONCE Qty: 1 5RF Emgality Syringe 120 mg/mL syringe 240 mg SUBCUT ONCE Qty: 2 0RF Rx Instructions: loading dose topiramate [Topamax] 100 mg tablet 100 mg PO DAILY Qty: 30 5RF cetirizine [Zyrtec] 10 mg tablet 10 mg PO DAILY PRN (Reason: Allergy Symptoms) Qty: 90 3RF albuterol sulfate [ProAir HFA] 90 mcg/actuation HFA aerosol inhaler 2 puff INHALATION Q4H PRN (Reason: Shortness Of Breath) Qty: 8.5 2RF diphenhydramine HCl [Banophen] 50 mg capsule 50 mg PO TID PRN (Reason: nausea/allergy symptoms) Qty: 90 5RF rosuvastatin 10 mg tablet 10 mg PO DAILY Qty: 90 1RF furosemide 20 mg tablet 40 mg PO DAILY EpiPen 2-Luís 0.3 mg/0.3 mL auto-injector 0.3 mg IM Q10M PRN (Reason: anaphylaxis) Qty: 2 2RF Rx Instructions: do not exceed 2 doses per 24 hrs isosorbide mononitrate 30 mg tablet extended release 24 hr 30 mg PO BID Qty: 180 3RF metoprolol tartrate 25 mg tablet 25 mg PO BID Qty: 60 5RF ranolazine 500 mg tablet extended release 12 hr 500 mg PO BID Qty: 180 3RF nitroglycerin [Nitrostat] 0.4 mg Tablet, Sublingual 0.4 mg SUBLINGUAL Q5M PRN (Reason: Chest Pain) Rx Instructions: do not exceed 3 doses per episode Tylenol Ex Str Rapid Release 500 mg Tablet 1,000 mg PO Q6H PRN (Reason: Pain) ibuprofen 200 mg Tablet 400 mg PO Q6H PRN (Reason: Pain) Gas-X 80 mg Tablet,Chewable 80 mg PO DAILY PRN (Reason: bloating) Multivitamins 28 mg iron- 800 mcg Tablet 1 tab PO QAM nifedipine 60 mg tablet extended release 60 mg PO QAM Discharge Orders: Discharge ED (Routine); Ordered 01/04/24 Ordered By: Gen Holt Referrals: Rodríguez Posada MD [Primary Care Provider] - 1 week Patient Instructions: Chest Pain - Chest Wall Activity Restrictions/Additional Instructions: Your evaluation ER did not show any acute cardiac cause of your chest pain. It is reproducible with palpation of the anterior chest wall. It is thought to be chest wall pain and not cardiac pain. Please follow-up with your family practice physician in the next 7 to 10 days for further evaluation and treatment as needed. If your chest pain worsens or returns please feel free to return to the ER. Coding Level of Care Code ED Digital Manager for 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
[2024-01-04 18:14] LABS: Basophils % 0.3 %; Eosinophils # 0.1 10^3/uL (0.0-0.8); Eosinophils % 1.5 %; Hematocrit 42.4 % (36-47); Lymphocytes # 2.1 10^3/uL (0.8-4.8); Lymphocytes % 22.4 %; Mean Corpuscular HGB Conc 34.9 g/dL (30-55); Mean Corpuscular Hemoglobin 32.2 pg (27-33); Mean Corpuscular Volume 92.4 fl (85-98); Mean Platelet Volume 9.5 fL (7.4-10.4); Monocytes # 0.6 10^3/uL (0.2-0.9); Neutrophils % 69.3 %; Nucleated Red Blood Cells % 0 %; Platelet Count 192 10^3/cmm (157-399); Red Blood Count 4.59 10^6/uL (3.85-5.65); Red Cell Distribution Width 12.5 % (12.1-15.1); White Blood Count 9.38 10^3/uL (3.29-11.43)
--- NOTE | 2024-01-04 18:54 | PC.NURSE ---
Assumed care from Ledy WILLOUGHBY at this time.
[2024-01-04 18:55] VITALS: BP 126/85; PULSE 87; RESP 24; O2SAT 94
[2024-01-04 18:55] LABS: D Dimer 0.34 ug/mLFEU (0-0.59)
[2024-01-04 18:55] LABS: Bilirubin Urine Neg (Negative); Blood Urine Neg (Negative); Glucose Urine UA Norm (Normal); Ketones Urine Negative (Negative); Leukocyte Esterase Urine 1+ (Negative); Nitrate Urine Negative; Protein Urine Neg (Negative); Urine Appearance Slightly Cloudy (CLEAR); Urine Color Yellow (Yellow); Urobilinogen Urine 4 mg/dL (Negative); pH Urine 6 (5-7)
[2024-01-04 18:56] LABS: Add Urine Microscopic? YES
[2024-01-04] MEDS: ketorolac 30 mg/mL INJ IVP (19:02)
[2024-01-04 19:03] LABS: RBC Urine 0-4 /hpf (0-2)
[2024-01-04 19:04] LABS: Troponin(5th) Baseline < 6 ng/L (0-10)
[2024-01-04 19:05] LABS: Add Urine Culture? No; Bacteria Urine TRACE /hpf
[2024-01-04 19:13] LABS: Alanine Aminotransferase 61 U/L (0-33); Albumin Level 4.4 g/dL (3.5-5.2); Alkaline Phosphatase 130 U/L (35-105); Blood Urea Nitrogen 8 mg/dL (6-20); Calcium 8.7 mg/dL (8.5-10.5); Carbon Dioxide 21 mmol/L (22-29); Chloride 103 mmol/L (98-107); Creatinine Clr Calc Pharmacy 124.0771; Globulin 3.3 g/dL (1.3-4.6); Glomerular Filtration Rate 94.2 mL/min (90-130); Glucose 93 mg/dL (65-115); NT Pro B Type Natriuretic Pept 52 pg/mL (0-125); Osmolality Calculated 280 mOsm/kg (285-295); Sodium 136 mmol/L (136-145); Total Bilirubin 0.4 mg/dL (0.15-1.2); Total Protein 7.7 g/dL (6.6-8.7)
[2024-01-04 19:15] LABS: Anion Gap 15.5 (5-19); Aspartate Amino Transferase 45 U/L (0-32); Potassium 3.5 mmol/L (3.5-5.1)
[2024-01-04 20:07] VITALS: BP 124/79; PULSE 79; RESP 23; O2SAT 94
[2024-01-04 20:21] LABS: Troponin 5 2HR Delta 0.00001 ABS# (0-10)
[2024-01-04] MEDS: HYDROcodone-acetaminophen 5-325 mg Tablet 1 TAB PO (20:55)
[2024-01-04 20:59] VITALS: BP 146/96; PULSE 82; RESP 20; O2SAT 97
[2024-01-04 21:00] VITALS: BP 146/96; PULSE 82; O2SAT 97
== END 2024-01-04 20:50 | disposition home or self-care (01) ==
PROVIDERS: Emergency Provider Family Medicine; PCP Family Medicine Adult Medicine
DX: R07.89 Other chest pain (principal); F17.210 Nicotine dependence, cigarettes, uncomplicated; I25.10 Atherosclerotic heart disease of native coronary artery without angina pectoris; I10 Essential (primary) hypertension
CPT/HCPCS: 36415; 80053; 81001; 83880; 84484; 85025; 85378; 96374; 99284; J1885

== ENCOUNTER → 2024-01-17 12:06 | Outpatient (BNVA) | payer MEDICAID, SELFPAY ==
[2023-03-10 16:10] VITALS: BP 132/96; BMI 40.3
== END ==
PROVIDERS: PCP Family Medicine Adult Medicine; Visit Provider Nurse Practitioner Family
DX: L40.0 Psoriasis vulgaris (principal); L40.59 Other psoriatic arthropathy; Z79.899 Other long term (current) drug therapy
CPT/HCPCS: 99214

== ENCOUNTER 2024-01-21 05:30 | Emergency (ER) | payer MEDICAID, SELFPAY ==
[2023-03-10 16:10] VITALS: BP 132/96; BMI 40.3
--- NOTE | 2024-01-21 05:34 | ECG_ITS ---
Test Date: 2024-01-21 Pat Name: Shilpa Giang Department: Room: Gender: Female Bill Distributor: : [id number] Requested By: Mahad Srivastava Order Number: [id number] Daniela MD: Marlee Farah M.D. Measurements Intervals [place] Rate: 83 P: 5 AR: 120 QRS: 3 QRSD: 96 T: -4 QT: 378 QTc: 446 Interpretive Statements SINUS RHYTHM MINIMAL VOLTAGE CRITERIA FOR LVH, CONSIDER NORMAL VARIANT [MEETS CRITERIA IN ONE OF: R(aVL), S(V1), R(V5), R(V5/V6)+S(V1)] Compared to ECG 12/03/2023 17:32:06 No significant change Electronically Signed On 01-21-2024 13:22:57 CDT by Marlee Farah M.D. [email or web address]
[2024-01-21 05:38] VITALS: BP 131/73; PULSE 83; RESP 20; TEMP 36.7; O2SAT 94; BMI 41.7
--- NOTE | 2024-01-21 05:44 | XRR_ITS ---
PROCEDURE INFORMATION: Exam: XR Chest Exam date and time: 01/21/2024 6:17 AM Age: 38 years old Clinical indication: Shortness of breath; Chest pressure; Patient HX: Chest pain with SOB TECHNIQUE: Imaging protocol: Radiologic exam of the chest. Views: 1 view. COMPARISON: CR XR chest 1V portable [id number] 10/07/2023 8:20 PM FINDINGS: Lungs: Unremarkable. No consolidation. Pleural spaces: Unremarkable. No pleural effusion. No pneumothorax. Heart/Mediastinum: Unremarkable. No cardiomegaly. Bones/joints: Unremarkable. XR/XR chest 1V portable [id number] IMPRESSION: No acute findings.
[2024-01-21 06:04] LABS: Basophils % 0.3 %; Eosinophils # 0.2 10^3/uL (0.0-0.8); Eosinophils % 2.1 %; Hematocrit 41.9 % (36-47); Lymphocytes # 2.4 10^3/uL (0.8-4.8); Mean Corpuscular HGB Conc 34.6 g/dL (30-55); Mean Corpuscular Hemoglobin 32.9 pg (27-33); Mean Platelet Volume 9.2 fL (7.4-10.4); Monocytes # 0.8 10^3/uL (0.2-0.9); Monocytes % 8.6 %; Neutrophils % 63.5 %; Nucleated Red Blood Cells % 0 %; Platelet Count 182 10^3/cmm (157-399); Red Blood Count 4.41 10^6/uL (3.85-5.65); Red Cell Distribution Width 13.4 % (12.1-15.1); White Blood Count 9.45 10^3/uL (3.29-11.43)
[2024-01-21 06:07] VITALS: BP 116/73; PULSE 82; RESP 20; O2SAT 93
[2024-01-21 06:23] LABS: Anion Gap 17.5 (5-19); Blood Urea Nitrogen 6 mg/dL (6-20); Calcium 8.5 mg/dL (8.5-10.5); Carbon Dioxide 19 mmol/L (22-29); Chloride 104 mmol/L (98-107); Creatinine Clr Calc Pharmacy 124.0771; Glomerular Filtration Rate 94.2 mL/min (90-130); Glucose 119 mg/dL (65-115); Osmolality Calculated 283 mOsm/kg (285-295); Potassium 3.5 mmol/L (3.5-5.1); Sodium 137 mmol/L (136-145)
[2024-01-21 06:24] LABS: Troponin(5th) Baseline < 6 ng/L (0-10)
[2024-01-21 06:30] VITALS: BP 110/78; PULSE 79; RESP 16; O2SAT 96
--- NOTE | 2024-01-21 06:33 | ED_ITS ---
HPI - Abdominal Pain 2 General: Chief Complaint: Chest Pain Stated Complaint: SOB Time Seen by Provider: 01/21/24 06:03 Source: patient Mode of arrival: ambulatory Limitations: no limitations History of Present Illness: This patient presents to the emergency department with various somatic complaints but her symptoms complex seems as of started with upper abdominal discomfort that has been present waxing and waning for 2 weeks. He states that at times she feels like she cannot catch her breath and some of her discomfort seems to be in her lower chest. She states that she has been drinking fluids fine but does not have an appetite. She states she has been having loose stools as well for the same period of time. She is unaware of any fevers. She states that sometimes she gets spasms of abdominal pain that causes her to catch her breath but she is not short of breath with activity. She denies any known exposure to infectious disease. She has had a previous cholecystectomy. She still having menstrual cycles. She denies any history of heart disease. No recent travel, recent antibiotic use. MD elicited complaint: abdominal pain Pain Consistency: intermittent Quality: cramping and burning Exacerbating factors: nothing Relieving factors: nothing Associated Symptoms: Denies chills, dysuria, fever(s) and syncope Review of Systems 2 Const: Denies: fever(s) or chills Eyes: Denies: change in vision ENMT: Denies: throat pain, nasal discharge, nasal congestion or nasal obstruction Card: Reports: chest pain; Denies: palpitations, syncope or pre-syncope Resp: Denies: productive cough or non-productive cough GI: Reports: abdominal pain : Denies: flank pain, difficulty voiding, dysuria or urinary frequency Musc: Denies: neck pain, back pain, extremity pain or extremity swelling Skin/Breast: Denies: rash Neuro: Denies: headache(s), numbness in extremities or weakness in extremities Psych: Denies: anxiety or depression Dillan/Lymph: Denies: easy bruising or easy bleeding PFSH ED 2 PFSH: Medical History Osteoarthritis, knee Systemic viral illness Allergic rhinitis due to allergen Atherosclerosis of coronary artery Nicotine use disorder Psychiatric care Seizure Borderline intellectual functioning Asthma Diagnosed as a child when controlled with an albuterol inhaler as needed being managed by her primary care provider. 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 Lumbar radiculopathy, chronic Chronic back pain managed by pain medication and the pain clinic Hypertension Surgical History Pyloric stenosis repaired as a baby History of cholecystectomy Laparoscopic procedure in 2018 Family History Mother Hypertension Stroke Lung cancer Anesthesia complication Cancer Lung disease Bone disease Grandfather Colon cancer Maternal, diagnosed in his 60s Cancer Brother Seizures Family/Other Hyperlipidemia paternal uncle Heart disease maternal uncle Cancer Lung disease Stroke Bone disease Grandmother CAD (coronary artery disease) Father CAD (coronary artery disease), Onset Age: 35 Denies family history of Ovarian cancer Diabetes Clotting disorder Dementia Chronic kidney disease (CKD) Breast cancer Suicide Bleeding disorder Uterine cancer Thyroid disease Social History Smoking and tobacco/nicotine status: current every day tobacco/nicotine user cigarettes Packs smoked per day: 0.25 Years cigarettes smoked: 24 Quit status (tobacco/nicotine): considering quitting Second hand smoke exposure: No Alcohol intake: never Substance/Drug Use: never Adopted: No Caregiver/support person: No Lives independently: Yes Household members: other Details: living with 3 other friends on moms property Housing: Manufactured/Mobile home Marital status: Single Number of children: 2 Number of grandchildren: 0 Highest education level completed: Some College, No Degree service: No Current occupational status: disabled 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 Current occupational exposures/hazards: No Pets and animals: Yes Pets & animals: dog(s) Leisure activites: games and other Leisure activities details: play on computer, watch movies Do you think of yourself as: Straight/Heterosexual Current gender identity: Female Melanie/Mormonism: None Special melanie needs: No Agree to transfusion: Yes Female Reproductive History: Para: 2 Spontaneous abortions: Yes Physical Exam 2 Narrative: EXAM NARRATIVE: She appears to be in no acute distress. She makes good eye contact. Appears comfortable Const: COMMON NORMALS: no acute distress, patient oriented x3 and alert G ENERAL APPEARANCE: cooperative and comfortable NUTRITIONAL APPEARANCE: o verweight HENMT: COMMON NORMALS: normocephalic, Normal nasal mucous membranes and turbinates present and moist oral mucous membranes HEAD & SCALP: n ormocephalic NOSE: Normal nasal mucous membranes and turbinates present Eye: COMMON NORMALS: Equal, round and reactive pupils present, EOMs intact bilaterally and conjunctivae normal CONJUNCTIVA: Yes conjunctivae normal P UPIL: Yes Equal, round and reactive pupils present Neck/C-Spine: COMMON NORMALS: full ROM, no lymphadenopathy and no meningeal signs Chest: COMMONS NORMALS: normal inspection of the chest Resp: COMMON NORMALS: normal respiratory effort, No retractions, No use of accessory muscles and clear to auscultation bilaterally AUSCULTATION: clear to auscultation bilaterally Cardio: COMMON NORMALS: regular rate, regular rhythm, No murmurs present (Cardio) and Peripheral pulses 2+ throughout RATE: regular rate RHYTHM: r egular rhythm PERIPHERAL PULSES: Peripheral pulses 2+ throughout GI: INSPECTION: Yes central obesity OTHER: She has a abdomen which is displaced central obesity. She has generalized tenderness without rebound or guarding. No palpable masses. : COMMON NORMALS: Yes no CVA tenderness BLADDER/KIDNEY EXAM: Yes no CVA tenderness Back/Pelvis: COMMON NORMALS: no CVA tenderness, thoracic and lumbar spine normal to inspection, no thoracic nor lumbar tenderness and thoraco-lumbar ROM normal Extremity: COMMON NORMALS: normal to inspection and no calf tenderness Neuro: COMMON NORMALS: patient oriented x3, moves all extremities, no focal motor deficits and no sensory deficits noted SENSORIUM/ORIENTATION: Yes alert MENINGEAL SIGNS: Yes no meningeal signs Psych: COMMON NORMALS: mental status grossly normal Skin: COMMON NORMALS: no wounds and turgor normal NARRATIVE SKIN EXAM: She has scattered plaques on anterior surface of skin of the over her knees. GENERAL SKIN EXAM: turgor normal Course 2 Reevaluation(s): Reevaluation #1: Patient remains clinically stable. No new or focal findings on repeat examination. Time: 08:18 Vital Signs: Vital signs: Vital Signs Temperature 98.1 F 01/21/24 05:38 Pulse Rate 79 01/21/24 08:00 Respiratory Rate 19 H 01/21/24 06:48 Blood Pressure 110/69 01/21/24 08:00 Pulse Oximetry 93 01/21/24 08:00 Oxygen Delivery Me thod Room Air 01/21/24 08:00 MDM - Abdominal Pain Medical Decision Making For the patient's presentation and HPI differential predominantly focused on potential abdominal pathology but certainly also included establishing no evidence of ACS, pneumonia or other potential contributions to her clinical presentation. Workup included imaging of the chest as well as abdomen pelvis and appropriate ancillary labs. Imaging revealed no evidence of surgical abdomen does show suggestion of terminal ileitis with possible ileus without any evidence of obstruction or transition point. Laboratories are very reassuring.. Troponin electrocardiograms are reassuring and given the nature of her symptoms and duration unlikely to be ACS. No evidence of pneumonia. Salt unlikely to be related to thromboembolic issues. She does have findings of likely ileitis without appendicitis and mild ileus. She has been passing stool. Will go ahead and initiate symptomatic treatment with coverage for potential translocation of bacteria because of mucosal inflammation. Discussed expected course with her and return precautions. Lab Data I reviewed the patient's lab results. 01/21/24 05:55 01/21/24 05:55 Labs/Radiology: Radiology Impressions Chest X-Ray 01/21/24 05:44 IMPRESSION: No acute findings. Abdomen/Pelvis CT 01/21/24 06:39 IMPRESSION: 1. Air-fluid levels involving nondilated loops of mid and distal small bowel. This is a nonspecific finding but can be seen with an ileus. There may be very mild wall thickening involving the terminal ileum suggesting a terminal ileitis. 2. Mild splenomegaly. Laboratory Results WBC 9.45 10^3/uL (3.29-11.43) 01/21/24 05:55 RBC 4.41 10^6/uL (3.85-5.65) 01/21/24 05:55 Hgb 14.50 g/dL (11.27-16.99) 01/21/24 05:55 Hct 41.9 % (36-47) 01/21/24 05:55 MCV 95.0 fl (85-98) 01/21/24 05:55 MCH 32.9 pg (27-33) 01/21/24 05:55 MCHC 34.6 g/dL (30-55) 01/21/24 05:55 RDW 13.4 % (12.1-15.1) 01/21/24 05:55 Plt Count 182 10^3/cmm (157-399) 01/21/24 05:55 MPV 9.2 fL (7.4-10.4) 01/21/24 05:55 Neut % (Auto) 63.5 % 01/21/24 05:55 Lymph % (Auto) 25.0 % 01/21/24 05:55 Tyler % (Auto) 8.6 % 01/21/24 05:55 Eos % (Auto) 2.1 % 01/21/24 05:55 Baso % (Auto) 0.3 % 01/21/24 05:55 Neut # (Auto) 6.00 10^3/uL (1.8-7.7) 01/21/24 05:55 Lymph # (Auto) 2.4 10^3/uL (0.8-4.8) 01/21/24 05:55 Tyler # (Auto) 0.8 10^3/uL (0.2-0.9) 01/21/24 05:55 Eos # (Auto) 0.2 10^3/uL (0.0-0.8) 01/21/24 05:55 Baso # (Auto) 0.0 10^3/uL (0.0-0.1) 01/21/24 05:55 Nucleated RBC % (auto) 0 % 01/21/24 05:55 Nucleated RBCs # 0.0 /100WBC 01/21/24 05:55 Sodium 137 mmol/L (136-145) 01/21/24 05:55 Potassium 3.5 mmol/L (3.5-5.1) 01/21/24 05:55 Chloride 104 mmol/L (98-107) 01/21/24 05:55 Carbon Dioxide 19 mmol/L (22-29) L 01/21/24 05:55 Anion Gap 17.5 (5-19) 01/21/24 05:55 BUN 6 mg/dL (6-20) 01/21/24 05:55 Creatinine 0.7 mg/dL (0.5-0.9) 01/21/24 05:55 GFR Calculation 94.2 mL/min (90-130) 01/21/24 05:55 Glucose 119 mg/dL (65-115) H 01/21/24 05:55 Calculated Osmolality 283 mOsm/kg (285-295) L 01/21/24 05:55 Calcium 8.5 mg/dL (8.5-10.5) 01/21/24 05:55 Troponin T Baseline < 6 ng/L (0-10) 01/21/24 05:55 Lipase 36 U/L (13-60) 01/21/24 05:55 HCG, Qual Negative (Negative) 01/21/24 05:55 All radiology interpretation(s) finalized by discharge EKG Data EKG 1: I personally reviewed and interpreted this EKG as follows: Interpretation: Contemporaneous review resting EKG reveals ventricular rate of 83 bpm. Normal AL interval, QRS duration, corrected QT interval. Normal axis. T wave inversion in limb lead III. Nonspecific T wave changes in aVF and V3. No other acute changes. Discharge Plan Discharge Patient Disposition: Home Clinical Impression: Regional ileitis of small intestine Qualifiers: Digestive disease complication type: without complication Qualified Code(s): K 50.00 - Crohn's disease of small intestine without complications Condition: Stable Prescriptions: New amoxicillin-pot clavulanate [Augmentin] 500-125 mg tablet 1 tab PO BID Qty: 14 0RF hyoscyamine sulfate [Levsin] 0.125 mg tablet 0.125 mg PO TID PRN (Reason: dyspepsia) Qty: 20 0RF No Action riboflavin (vitamin B2) 100 mg tablet 100 mg PO QAM Skyrizi 150 mg/mL syringe SUBCUT escitalopram oxalate [Lexapro] 10 mg tablet 10 mg PO QAM Qty: 30 2RF trazodone 100 mg tablet 100 mg PO BEDTIME Qty: 30 2RF Emgality Syringe 120 mg/mL syringe 120 mg SUBCUT ONCE Qty: 1 5RF Emgality Syringe 120 mg/mL syringe 240 mg SUBCUT ONCE Qty: 2 0RF Rx Instructions: loading dose topiramate [Topamax] 100 mg tablet 100 mg PO DAILY Qty: 30 5RF albuterol sulfate [ProAir HFA] 90 mcg/actuation HFA aerosol inhaler 2 puff INHALATION Q4H PRN (Reason: Shortness Of Breath) Qty: 8.5 2RF furosemide 20 mg tablet 40 mg PO DAILY EpiPen 2-Luís 0.3 mg/0.3 mL auto-injector 0.3 mg IM Q10M PRN (Reason: anaphylaxis) Qty: 2 2RF Rx Instructions: do not exceed 2 doses per 24 hrs isosorbide mononitrate 30 mg tablet extended release 24 hr 30 mg PO BID Qty: 180 3RF metoprolol tartrate 25 mg tablet 25 mg PO BID Qty: 60 5RF ranolazine 500 mg tablet extended release 12 hr 500 mg PO BID Qty: 180 3RF cetirizine [Zyrtec] 10 mg tablet 10 mg PO DAILY PRN (Reason: Allergy Symptoms) Qty: 90 3RF diphenhydramine HCl [Banophen] 50 mg capsule 50 mg PO TID PRN (Reason: nausea/allergy symptoms) Qty: 90 5RF rosuvastatin 10 mg tablet 10 mg PO DAILY Qty: 90 1RF nitroglycerin [Nitrostat] 0.4 mg Tablet, Sublingual 0.4 mg SUBLINGUAL Q5M PRN (Reason: Chest Pain) Rx Instructions: do not exceed 3 doses per episode Tylenol Ex Str Rapid Release 500 mg Tablet 1,000 mg PO Q6H PRN (Reason: Pain) ibuprofen 200 mg Tablet 400 mg PO Q6H PRN (Reason: Pain) Gas-X 80 mg Tablet,Chewable 80 mg PO DAILY PRN (Reason: bloating) Multivitamins 28 mg iron- 800 mcg Tablet 1 tab PO QAM nifedipine 60 mg tablet extended release 60 mg PO QAM Discharge Orders: Discharge ED (Routine); Ordered 01/21/24 Ordered By: Amado Yeboah Referrals: Rodríguez Posada MD [Primary Care Provider] - Patient Instructions: Opioid Safety, Pain Management Coding Level of Care Code ED 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
--- NOTE | 2024-01-21 06:39 | CTR_ITS ---
PROCEDURE INFORMATION: Exam: CT Abdomen And Pelvis With Contrast Exam date and time: 01/21/2024 7:24 AM Age: 38 years old Clinical indication: Abdominal pain; Generalized; Prior surgery; Surgery date: 6+ months; Surgery type: Gb; Additional info: General abd pain TECHNIQUE: Imaging protocol: Computed tomography of the abdomen and pelvis with contrast. Radiation optimization: All CT scans at this facility use at least one of these dose optimization techniques: automated exposure control; mA and/or kV adjustment per patient size (includes targeted exams where dose is matched to clinical indication); or iterative reconstruction. Contrast material: OMNI 350; Contrast volume: 100 ml; Contrast route: INTRAVENOUS (IV); COMPARISON: CT abdomen pelvis w con* [id number] 10/22/2019 6:06 PM RADIATION DOSE METRICS: Total DLP (mGy-cm): 1011.35 FINDINGS: Lungs: Lung bases are clear as visualized. Liver: Normal. No mass. Gallbladder and biliary ducts: The gallbladder is surgically absent. Pancreas: Normal. No ductal dilation. Spleen: The spleen is enlarged measuring 14.5 cm in maximal dimension. Adrenal glands: Normal. No mass. Kidneys and ureters: Normal. No hydronephrosis. Stomach and bowel: There are air-fluid levels involving nondilated loops of distal small bowel. This is a nonspecific finding but can be seen with an ileus. There may be very minimal wall thickening involving the terminal ileum. Appendix: The appendix is normal. Intraperitoneal space: Unremarkable. No free air. No significant fluid collection. Vasculature: Unremarkable. No abdominal aortic aneurysm. Lymph nodes: Unremarkable. No enlarged lymph nodes. Urinary bladder: Unremarkable as visualized. Reproductive: Unremarkable as visualized. Bones/joints: Unremarkable. No acute fracture. Soft tissues: Unremarkable. CT/CT abdomen pelvis w con* [id number] IMPRESSION: 1. Air-fluid levels involving nondilated loops of mid and distal small bowel. This is a nonspecific finding but can be seen with an ileus. There may be very mild wall thickening involving the terminal ileum suggesting a terminal ileitis. 2. Mild splenomegaly.
[2024-01-21 06:48] VITALS: RESP 19
[2024-01-21] MEDS: ondansetron 2 mg/ML SDV 2 mL 4 MG IVP (06:48)
[2024-01-21] MEDS: morphine 4 mg/mL SDV 1 mL IVP (06:48)
[2024-01-21 07:09] LABS: HCG, Serum Qual Negative (Negative)
[2024-01-21 07:11] LABS: Lipase 36 U/L (13-60)
[2024-01-21] MEDS: iohexol 350 mg/mL 500 mL Btl (per mL) IV (07:27)
--- NOTE | 2024-01-21 07:44 | ECG_ITS ---
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 Measurements Intervals [place] Rate: 80 P: 36 MS: 143 QRS: -2 QRSD: 98 T: -5 QT: 397 QTc: 458 Interpretive Statements SINUS RHYTHM MINIMAL VOLTAGE CRITERIA FOR LVH, CONSIDER NORMAL VARIANT [MEETS CRITERIA IN ONE OF: R(aVL), S(V1), R(V5), R(V5/V6)+S(V1)] Nonspecific T wave changes Compared to ECG 01/21/2024 05:34:25 No significant changes Electronically Signed On 01-21-2024 16:09:01 CDT by Marlee Farah M.D. [email or web address]
[2024-01-21 08:00] VITALS: BP 110/69; PULSE 79; O2SAT 93
[2024-01-21 08:11] LABS: Troponin 5 2HR 8.03 ng/L (0-10); Troponin 5 2HR Delta 2.03001 ABS# (0-10)
[2024-01-21] MEDS: hyoscyamine ODT 0.125 mg Tablet 0.25 MG PO (08:20)
[2024-01-21] MEDS: amoxicillin-clav 875-125 mg Tablet 1 TAB PO (08:20)
[2024-01-21 08:45] VITALS: BP 99/64; PULSE 72; O2SAT 92
== END 2024-01-21 08:46 | disposition home or self-care (01) ==
PROVIDERS: Emergency Medicine; Emergency Provider Emergency Medicine; PCP Family Medicine Adult Medicine
DX: K50.00 Crohn's disease of small intestine without complications (principal); I25.10 Atherosclerotic heart disease of native coronary artery without angina pectoris; I10 Essential (primary) hypertension; J45.909 Unspecified asthma, uncomplicated; F17.210 Nicotine dependence, cigarettes, uncomplicated; Z79.899 Other long term (current) drug therapy
CPT/HCPCS: 36415; 71045; 74177; 80048; 83690; 84484; 84703; 85025; 93005; 96374; 96375; 99285; J2270; J2405; Q9967

== ENCOUNTER → 2024-02-02 12:11 | Outpatient (BNVA) | payer MEDICAID, SELFPAY ==
[2023-03-10 16:10] VITALS: BP 132/96; BMI 40.3
== END ==
PROVIDERS: PCP Family Medicine Adult Medicine; Visit Provider Specialist
DX: G43.711 Chronic migraine without aura, intractable, with status migrainosus (principal); F44.5 Conversion disorder with seizures or convulsions
CPT/HCPCS: 99214

== ENCOUNTER → 2024-02-12 09:51 | Outpatient (BNVA) | payer OTHER, SELFPAY ==
[2023-03-10 16:10] VITALS: BP 132/96; BMI 40.3
== END ==
PROVIDERS: PCP Family Medicine Adult Medicine; Visit Provider Nurse Practitioner
DX: F41.9 Anxiety disorder, unspecified (principal); F33.2 Major depressive disorder, recurrent severe without psychotic features
CPT/HCPCS: 80061; 83036

== ENCOUNTER → 2024-03-04 15:13 | Outpatient (BNVA) | payer MEDICAID, SELFPAY ==
[2024-02-14 08:40] VITALS: BP 128/88; BMI 40.9
== END ==
PROVIDERS: PCP Family Medicine Adult Medicine; Visit Provider Internal Medicine Cardiovascular Disease
DX: R00.2 Palpitations (principal); I25.111 Atherosclerotic heart disease of native coronary artery with angina pectoris with documented spasm; E78.5 Hyperlipidemia, unspecified; F33.2 Major depressive disorder, recurrent severe without psychotic features; F17.210 Nicotine dependence, cigarettes, uncomplicated; I11.9 Hypertensive heart disease without heart failure
CPT/HCPCS: 99214

== ENCOUNTER 2024-04-18 16:30 | Outpatient (CLI) | payer MEDICAID, SELFPAY ==
[2024-02-14 08:40] VITALS: BP 128/88; BMI 40.9
== END 2024-04-18 16:31 | disposition home or self-care (01) ==
LOC: LAB 16:32
PROVIDERS: PCP Family Medicine; Visit Provider Nurse Practitioner Family
DX: L40.0 Psoriasis vulgaris (principal)
CPT/HCPCS: 36415; 86480

== ENCOUNTER → 2024-05-27 12:13 | Outpatient (BNVA) | payer MEDICAID, SELFPAY ==
[2024-02-14 08:40] VITALS: BP 128/88; BMI 40.9
== END ==
PROVIDERS: PCP Family Medicine; Visit Provider Dermatology
DX: Z86.14 Personal history of Methicillin resistant Staphylococcus aureus infection (principal)
CPT/HCPCS: 11402; 13121; 99212

== ENCOUNTER → 2024-06-13 10:20 | Outpatient (BNVA) | payer MEDICAID, SELFPAY ==
[2024-02-14 08:40] VITALS: BP 128/88; BMI 40.9
== END ==
PROVIDERS: PCP Family Medicine; Visit Provider Dermatology
DX: D23.72 Other benign neoplasm of skin of left lower limb, including hip (principal)
CPT/HCPCS: 99212

== ENCOUNTER → 2024-08-02 14:33 | Outpatient (BNVA) | payer MEDICAID, SELFPAY ==
[2024-02-14 08:40] VITALS: BP 128/88; BMI 40.9
== END ==
PROVIDERS: PCP Family Medicine; Visit Provider Family Medicine
DX: L40.8 Other psoriasis (principal)
CPT/HCPCS: 85651; 86038; 86140; 86200; 86235; 86431

== ENCOUNTER → 2024-08-06 09:26 | Outpatient (BNVA) | payer MEDICAID, SELFPAY ==
[2024-02-14 08:40] VITALS: BP 128/88; BMI 40.9
== END ==
PROVIDERS: PCP Family Medicine; Visit Provider Specialist
DX: G43.711 Chronic migraine without aura, intractable, with status migrainosus (principal); R41.83 Borderline intellectual functioning
CPT/HCPCS: 99214

== ENCOUNTER 2024-08-16 13:36 | Outpatient (CLI) | payer MEDICAID, SELFPAY ==
[2024-02-14 08:40] VITALS: BP 128/88; BMI 40.9
--- NOTE | 2024-08-16 14:30 | CT_ITS ---
WS: [id number] CT ABDOMEN AND PELVIS NONCONTRAST HISTORY: spenomegaly TECHNIQUE: Imaging performed through the abdomen and pelvis. Coronal and sagittal reformats are submitted. All CT scans at [facility] use at least one of these dose optimization techniques: automated exposure control; mA and/or kV adjustment per patient size (includes targeted exams where dose is matched to clinical indication); or iterative reconstruction. DLP: 905.97 mGy.cm COMPARISON: 01/21/2024, 10/22/2019 Lower thorax: Lung bases are clear. Visualized heart is normal. No hiatal hernia. Liver: Mild hepatic steatosis and mild hepatic enlargement. Gallbladder: Prior cholecystectomy. Pancreas: Normal size and attenuation. Normal pancreatic duct. No pancreatitis or mass. Spleen: Normal size at 11.6 cm. Splenic contours are slightly lobulated. Normal concave splenic hilum. Adrenal glands: Normal. No mass. Right kidney: Normal size kidney with no mass or hydronephrosis. Left kidney: Normal size kidney with no mass or hydronephrosis. Aorta: Normal abdominal aorta, no aneurysm or atherosclerosis. No free fluid, intraperitoneal air or significant lymphadenopathy. GI tract: Normal noncontrast imaging of the stomach, small bowel and colon. No obstruction or wall thickening. Normal appendix. Abdominal wall: Negative. No hernia. Pelvis: Normal urinary bladder. Uterus is present and midline. No adnexal mass. Osseous structures: Unremarkable. CT/CT abdomen pelvis wo con [id number] IMPRESSION: 1. Normal spleen. Spleen measures 11.6 cm in length. Spleen is similar in appe arance to prior examinations dating back to 2016. No significant enlargement. 2. Prior cholecystectomy. 3. Hepatomegaly and mild hepatic steatosis. 4. No ascites or adenopathy.
[2024-08-16] MEDS: iohexol 350 mg/mL 500 mL Btl (per mL) PO (14:50)
== END 2024-08-16 13:37 | disposition home or self-care (01) ==
LOC: RAD 13:37
PROVIDERS: PCP Family Medicine; Visit Provider Family Medicine
DX: R10.84 Generalized abdominal pain (principal); Z90.49 Acquired absence of other specified parts of digestive tract; R16.0 Hepatomegaly, not elsewhere classified; K76.0 Fatty (change of) liver, not elsewhere classified
CPT/HCPCS: 74176

== ENCOUNTER → 2024-08-19 14:28 | Outpatient (BNVA) | payer MEDICAID, SELFPAY ==
[2024-02-14 08:40] VITALS: BP 128/88; BMI 40.9
== END ==
PROVIDERS: PCP Family Medicine; Visit Provider Nurse Practitioner Family
DX: L40.0 Psoriasis vulgaris (principal); L40.59 Other psoriatic arthropathy; Z79.899 Other long term (current) drug therapy; D22.5 Melanocytic nevi of trunk
CPT/HCPCS: 99214

== ENCOUNTER → 2024-09-06 10:46 | Outpatient (BNVA) | payer MEDICAID, SELFPAY ==
[2024-02-14 08:40] VITALS: BP 128/88; BMI 40.9
== END ==
PROVIDERS: PCP Family Medicine; Visit Provider Nurse Practitioner Family
DX: I11.0 Hypertensive heart disease with heart failure (principal); I50.33 Acute on chronic diastolic (congestive) heart failure; F17.210 Nicotine dependence, cigarettes, uncomplicated; I25.10 Atherosclerotic heart disease of native coronary artery without angina pectoris
CPT/HCPCS: 99214

== ENCOUNTER → 2024-11-21 10:37 | Outpatient (BNVA) | payer MEDICAID, SELFPAY ==
[2024-02-14 08:40] VITALS: BP 128/88; BMI 40.9
== END ==
PROVIDERS: PCP Family Medicine; Visit Provider Nurse Practitioner Women's Health
DX: Z12.4 Encounter for screening for malignant neoplasm of cervix (principal)
CPT/HCPCS: 87624

== ENCOUNTER → 2024-11-28 14:48 | Outpatient (BNVA) | payer MEDICAID, SELFPAY ==
[2024-02-14 08:40] VITALS: BP 128/88; BMI 40.9
== END ==
PROVIDERS: PCP Family Medicine; Visit Provider Nurse Practitioner Women's Health
DX: N92.5 Other specified irregular menstruation (principal)
CPT/HCPCS: 76830

== ENCOUNTER 2024-12-05 13:36 | Outpatient (CLI) | payer MEDICAID, SELFPAY ==
[2024-02-14 08:40] VITALS: BP 128/88; BMI 40.9
--- NOTE | 2024-12-05 14:00 | MM_ITS ---
WS: [id number] BILATERAL 3D TOMOSYNTHESIS DIGITAL DIAGNOSTIC MAMMOGRAPHY WITH CAD CLINICAL INFORMATION: N64.4 - Mastodynia rt breast HISTORY: RIGHT breast pain COMPARISON: Baseline TECHNIQUE: Bilateral CC, MLO, and ML views. FINDINGS: Scattered fibroglandular densities bilaterally. Punctate and lucent centered calcifications. No suspicious focal mass, asymmetry, calcifications, or architectural distortion. RIGHT breast ultrasound is pending ULTRASOUND BREAST RIGHT TECHNIQUE: Ultrasound right breast focused area of concern. CLINICAL INFORMATION: N64.4 - Mastodynia rt breast FINDINGS: Ultrasound RIGHT breast at the 1 o'clock position patient directed 10 cm from the nipple. No suspicious cystic or solid lesions. Normal underlying parenchymal tissue. No acute findings. MM/MM diag BI tomosynthesis [id number] IMPRESSION: DENSITY: There are scattered areas of fibroglandular density. BI-RADS: 2 - Benign. FOLLOW UP: 1 Year Follow-up Recommend return to annual screening mammography.
--- NOTE | 2024-12-05 14:30 | US_ITS ---
WS: [id number] BILATERAL 3D TOMOSYNTHESIS DIGITAL DIAGNOSTIC MAMMOGRAPHY WITH CAD CLINICAL INFORMATION: N64.4 - Mastodynia rt breast HISTORY: RIGHT breast pain COMPARISON: Baseline TECHNIQUE: Bilateral CC, MLO, and ML views. FINDINGS: Scattered fibroglandular densities bilaterally. Punctate and lucent centered calcifications. No suspicious focal mass, asymmetry, calcifications, or architectural distortion. RIGHT breast ultrasound is pending ULTRASOUND BREAST RIGHT TECHNIQUE: Ultrasound right breast focused area of concern. CLINICAL INFORMATION: N64.4 - Mastodynia rt breast FINDINGS: Ultrasound RIGHT breast at the 1 o'clock position patient directed 10 cm from the nipple. No suspicious cystic or solid lesions. Normal underlying parenchymal tissue. No acute findings. US/US breast RT limited* [id number] IMPRESSION: DENSITY: There are scattered areas of fibroglandular density. BI-RADS: 2 - Benign. FOLLOW UP: 1 Year Follow-up Recommend return to annual screening mammography.
== END 2024-12-05 13:37 | disposition home or self-care (01) ==
PROVIDERS: PCP Family Medicine; Visit Provider Nurse Practitioner Women's Health
DX: N64.4 Mastodynia (principal); R92.323 Mammographic fibroglandular density, bilateral breasts
CPT/HCPCS: 76642; 77062; G0279

== ENCOUNTER → 2025-02-25 15:06 | Outpatient (BNVA) | payer MEDICAID, SELFPAY ==
[2024-02-14 08:40] VITALS: BP 128/88; BMI 40.9
== END ==
PROVIDERS: PCP Family Medicine; Visit Provider Specialist
DX: G43.711 Chronic migraine without aura, intractable, with status migrainosus (principal); R41.83 Borderline intellectual functioning
CPT/HCPCS: 99213

== ENCOUNTER 2025-03-09 01:58 | Emergency (ER) | payer MEDICAID, SELFPAY ==
[2024-02-14 08:40] VITALS: BP 128/88; BMI 40.9
[2025-03-09 02:05] VITALS: BP 138/85; PULSE 92; RESP 16; TEMP 37.1; O2SAT 94; BMI 43.7
--- NOTE | 2025-03-09 02:58 | CTR_ITS ---
PROCEDURE INFORMATION: Exam: CT Abdomen And Pelvis With Contrast Exam date and time: 03/09/2025 4:44 AM Age: 39 years old Clinical indication: Abdominal pain; Localized; Prior surgery; Surgery date: 3-7 days post-operative; Surgery type: Partial hysterectomy 03/06/2025. Gb; C/O lower abd/pelvic pain since partial hysterectomy on 03/06/2025. ; Additional info: Abd pain post op hysterectomy TECHNIQUE: Imaging protocol: Computed tomography of the abdomen and pelvis with contrast. Radiation optimization: All CT scans at this facility use at least one of these dose optimization techniques: automated exposure control; mA and/or kV adjustment per patient size (includes targeted exams where dose is matched to clinical indication); or iterative reconstruction. Contrast material: OMNI 350; Contrast volume: 100 ml; Contrast route: INTRAVENOUS (IV); COMPARISON: CT abdomen pelvis wo con [id number] 08/16/2024 2:40 PM RADIATION DOSE METRICS: Total DLP (mGy-cm): 1115.68 FINDINGS: Liver: Normal. No mass. Gallbladder and biliary ducts: Cholecystectomy. Pancreas: Normal. No ductal dilation. Spleen: Mild splenomegaly. Adrenal glands: Normal. No mass. Kidneys and ureters: Normal. No hydronephrosis. Stomach and bowel: Unremarkable. No obstruction. No mucosal thickening. Appendix: No evidence of appendicitis. Intraperitoneal space: Small volume pneumoperitoneum, likely postsurgical. Trace amount of fluid in the pelvis. Vasculature: Unremarkable. No abdominal aortic aneurysm. Lymph nodes: Unremarkable. No enlarged lymph nodes. Urinary bladder: Unremarkable as visualized. Reproductive: Hysterectomy. Bones/joints: Unremarkable. No acute fracture. Soft tissues: Some emphysema and fat stranding is seen within the ventral abdominal wall, likely postsurgical. CT/CT abdomen pelvis w con* [id number] IMPRESSION: No definite acute findings. Small volume pneumoperitoneum is likely postsurgical.
[2025-03-09 04:17] LABS: Glucose Urine UA Negative (Normal); Nitrate Urine Negative (Negative); Specific Gravity, Urine 1.019 (1.005-1.030)
[2025-03-09 04:21] LABS: Add Urine Microscopic? YES
[2025-03-09 04:24] LABS: Hematocrit 38.0 % (36-47); Hemoglobin 13.00 g/dL (11.27-16.99); Mean Corpuscular HGB Conc 34.2 g/dL (30-55); Mean Corpuscular Hemoglobin 32.7 pg (27-33); Mean Corpuscular Volume 95.7 fl (85-98); Nucleated Red Blood Cells % 0 %; Platelet Count 170 10^3/cmm (157-399); Red Blood Count 3.97 10^6/uL (3.85-5.65); White Blood Count 8.00 10^3/uL (3.29-11.43)
--- NOTE | 2025-03-09 04:30 | W.ED.ABDPA2 ---
HPI - Abdominal Pain General: Chief Complaint: Abdominal Pain Stated Complaint: post surg, incision pain and moving upward n/v Time Seen by Provider: 03/09/25 04:14 History of Present Illness: Patient is a 39-year-old female who underwent a hysterectomy performed by Dr. Amaya at [facility]. The procedure was done as an outpatient surgery, and the patient was discharged the same day. The patient reports that two incision sites on the right side were seeping fluid for approximately 16 hours post-surgery but have since stopped. She now presents with severe right-sided abdominal pain. Patient describes a burning sensation on the right side when cleaning the area with water (no soap used). She reports difficulty sleeping due to pain, stating she cannot lie on her back or right side and can only lie somewhat on her left side. Patient had a low-grade fever of 99.2?F yesterday. She denies vomiting but reports nausea. No changes in urination reported. Patient confirms having had a bowel movement since surgery. She denies current seepage from incision sites but notes bruising around the abdomen. The patient states she had her uterus and tubes removed during the procedure. Related Data Home Medications ?Medication ?Instructions ?Recorded ?Confirmed riboflavin (vitamin B2) 100 mg 100 mg PO QAM 06/18/21 02/20/25 tablet nitroglycerin 0.4 mg sublingual 0.4 mg sublingual Q5M PRN Chest 03/31/23 02/20/25 tablet (Nitrostat) Pain acetaminophen 500 mg tablet 1,000 mg PO Q6H PRN Pain 06/05/23 02/20/25 ibuprofen 200 mg tablet 400 mg PO Q6H PRN Pain 06/05/23 02/20/25 vit no.95-ferrous 1 tab PO QAM 06/05/23 02/20/25 fumarate 28 mg-folic acid 800 mcg tablet ( Multivitamins) simethicone 80 mg chewable tablet 80 mg PO DAILY PRN bloating 06/05/23 02/20/25 risankizumab-rzaa 150 mg/mL mg SUBCUT 11/30/23 02/20/25 subcutaneous syringe (Skyrizi) Previous Rx's ?Medication ?Instructions ?Recorded epinephrine 0.3 mg/0.3 mL 0.3 mg (0.3 mL) IM Q10M PRN 04/25/23 injection, auto-injector (EpiPen anaphylaxis #2 ea 2-Luís) galcanezumab-gnlm 120 mg/mL 240 mg (2 mL) SUBCUT ONCE #2 mL 12/05/23 subcutaneous syringe (Emgality) cetirizine 10 mg tablet (Zyrtec) 10 mg PO DAILY PRN Allergy 01/05/24 Symptoms #90 tabs diphenhydramine HCl 50 mg capsule 50 mg PO TID PRN nausea/allergy 01/05/24 (Banophen) symptoms #90 caps lidocaine 4 % topical patch 1 patch topical DAILY PRN pain #60 05/03/24 (Salonpas (lidocaine)) ea nicotine (polacrilex) 4 mg buccal 4 mg buccal Q4H PRN nicotine 08/02/24 lozenge cravings #108 ea albuterol sulfate 90 mcg/actuation 2 puff inhalation Q4H PRN 08/13/24 aerosol inhaler Shortness Of Breath #8.5 grams furosemide 20 mg tablet 40 mg (2 x 20 mg) PO DAILY PRN 09/06/24 edema #90 tabs isosorbide mononitrate 30 mg 30 mg PO BID #180 tabs 09/06/24 tablet,extended release 24 hr metoprolol tartrate 25 mg tablet 25 mg PO BID #60 tabs 09/06/24 ranolazine 500 mg tablet,extended 500 mg PO BID #180 tabs 09/06/24 release,12 hr rosuvastatin 5 mg tablet 5 mg PO DAILY #90 tabs 09/06/24 galcanezumab-gnlm 120 mg/mL See Rx Instructions .Route 12/10/24 subcutaneous syringe (Emgality) .COMPLEX #1 mL nifedipine 60 mg tablet,extended See Rx Instructions .Route 01/10/25 release 24 hr .COMPLEX #60 tabs dicyclomine 20 mg tablet 20 mg PO .q 6 hr PRN abdominal 02/10/25 pain #30 tabs escitalopram oxalate 10 mg tablet 10 mg PO QAM #30 tabs 02/20/25 (Lexapro) trazodone 150 mg tablet 150 mg PO DAILY #30 tabs 02/20/25 ketorolac 10 mg tablet 10 mg PO TID PRN pain #10 tabs 03/09/25 ondansetron 4 mg disintegrating 4 mg PO Q6H PRN nausea and 03/09/25 tablet vomiting #14 tabs Allergies Allergy/AdvReac Type Severity Reaction Status Date / Time COVID-19 vaccine, mRNA, Allergy Severe ALGY-Anaphy Verified 03/09/25 02:10 [id number], (From Moderna laxis COVID-19 Booster (EUA)) latex Allergy Mild rash Verified 03/09/25 02:10 adhesive tape Allergy ALGY-Rash Verified 03/09/25 02:10 clindamycin Allergy ALGY-Hives Verified 03/09/25 02:10 doxycycline Allergy ALGY-Swell Verified 03/09/25 02:10 Lip/Tongue/Throat shellfish derived Allergy ALGY-Anaphy Verified 03/09/25 02:10 laxis tramadol Allergy ALGY-Hives Verified 03/09/25 02:10 aripiprazole (From Abilify) AdvReac Unknown INCREASED Verified 03/09/25 02:10 HEART RATE aspirin AdvReac ADR-Abdominal Verified 03/09/25 02:10 Pain/internal bleeding Review of Systems Narrative: Constitutional: Low-grade fever of 99.2?F yesterday. Gastrointestinal: Denies vomiting. Reports nausea. Has had bowel movement since surgery. Genitourinary: No changes in urination. No vaginal bleeding reported. Skin: Reports burning sensation on right side of abdomen. Bruising noted around abdomen. [facility] ED PFSH: Medical History (HFpEF) heart failure with preserved ejection fraction Ileitis Osteoarthritis, knee Allergic rhinitis due to allergen Atherosclerosis of coronary artery Nicotine use disorder Psychiatric care Seizure Borderline intellectual functioning Asthma Diagnosed as a child when controlled with an albuterol inhaler as needed being managed by her primary care provider. 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 Lumbar radiculopathy, chronic Chronic back pain managed by pain medication and the pain clinic Hypertension Surgical History Pyloric stenosis repaired as a baby History of cholecystectomy Laparoscopic procedure in 2018 Family History Mother Hypertension Stroke Lung cancer Anesthesia complication Cancer Lung disease Bone disease Grandfather Colon cancer Maternal, diagnosed in his 60s Cancer Brother Seizures Family/Other Hyperlipidemia paternal uncle Heart disease maternal uncle Cancer Lung disease Stroke Bone disease Grandmother CAD (coronary artery disease) Father CAD (coronary artery disease), Onset Age: 35 Denies family history of Ovarian cancer Diabetes Clotting disorder Dementia Chronic kidney disease (CKD) Breast cancer Suicide Bleeding disorder Uterine cancer Thyroid disease Social History Smoking and tobacco/nicotine status: current every day tobacco/nicotine user cigarettes Packs smoked per day: 0.25 Years cigarettes smoked: 24 Quit status (tobacco/nicotine): considering quitting Second hand smoke exposure: No Alcohol intake: never Substance/Drug Use: never Adopted: No Caregiver/support person: No Lives independently: Yes Household members: other Details: living with 3 other friends on moms property Housing: Apartment Marital status: Single Number of children: 2 Number of grandchildren: 0 Highest education level completed: Some College, No Degree service: No Current occupational status: disabled 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 Current occupational exposures/hazards: No Pets and animals: Yes Pets & animals: dog(s) Leisure activites: games and other Leisure activities details: play on computer, watch movies Do you think of yourself as: Straight/Heterosexual Current gender identity: Female Melanie/Mandaeism: None Special melanie needs: No Agree to transfusion: Yes Female Reproductive History: Para: 2 Spontaneous abortions: Yes Physical Exam Const: COMMON NORMALS: no acute distress GENERAL APPEARANCE: cooperative; not ill appearing HENMT: COMMON NORMALS: normocephalic, atraumatic and Normal external nose present HEAD & SCALP: normocephalic and atraumatic FACE & SINUS: normal facial exam and face symmetric NOSE: Normal external nose present Eye: COMMON NORMALS: Equal, round and reactive pupils present and EOMs intact bilaterally PUPIL: Yes Equal, round and reactive pupils present Neck/C-Spine: GENERAL: Yes trachea midline Chest: CHEST: Yes Symmetrical chest wall rise Resp: COMMON NORMALS: normal respiratory effort, No retractions, No use of accessory muscles and clear to auscultation bilaterally AUSCULTATION: clear to auscultation bilaterally Cardio: COMMON NORMALS: regular rate and regular rhythm RATE: regular rate RHYTHM: regular rhythm GI: COMMON NORMALS: Soft to palpation INSPECTION: Yes abdominal wall ecchymosis (Along with 4 port holes none draining) and No GI erythema present PALPATION: Yes Soft to palpation and Yes Tenderness to palpation present (GI) (Diffusely) Extremity: COMMON NORMALS: no pedal edema Neuro: SHADE COMA SCALE: document GCS findings Shade coma scale eye opening: Spontaneous [place] coma scale verbal response: Orientated Shade coma scale motor response: Obey commands Shade coma scale total score: 15 SENSORY EXAM: Yes extremities (intact) Psych: COMMON NORMALS: speech normal SPEECH: Yes normal speech Skin: COMMON NORMALS: no rashes or lesions noted GENERAL SKIN EXAM: no rashes or lesions noted Course Vital Signs: Vital signs: Vital Signs Temperature 98.7 F 03/09/25 02:05 Pulse Rate 92 03/09/25 02:05 Respiratory Rate 16 03/09/25 02:05 Blood Pressure 138/85 03/09/25 02:05 Pulse Oximetry 94 03/09/25 02:05 Oxygen Delivery Me thod Room Air 03/09/25 02:05 MDM - Abdominal Pain Medical Decision Making Patient is afebrile with stable vitals. Hemoglobin is 13. CBC and BMP are normal. CRP is 33. Urinalysis is nonactionable. Lipase is normal. CT result is pending CT shows no acute findings. No evidence of infection hemorrhage etc. She is resting comfortably after a milligram of Dilaudid and [address] negative for any acute change or complication. She will be discharged home. Lab Data 03/09/25 04:13 03/09/25 04:13 Labs/Radiology: Radiology Impressions Abdomen/Pelvis CT 03/09/25 02:58 IMPRESSION: No definite acute findings. Small volume pneumoperitoneum is likely postsurgical. Laboratory Results WBC 8.00 10^3/uL (3.29-11.43) 03/09/25 04:13 RBC 3.97 10^6/uL (3.85-5.65) 03/09/25 04:13 Hgb 13.00 g/dL (11.27-16.99) 03/09/25 04:13 Hct 38.0 % (36-47) 03/09/25 04:13 MCV 95.7 fl (85-98) 03/09/25 04:13 MCH 32.7 pg (27-33) 03/09/25 04:13 MCHC 34.2 g/dL (30-55) 03/09/25 04:13 RDW 13.5 % (12.1-15.1) 03/09/25 04:13 Plt Count 170 10^3/cmm (157-399) 03/09/25 04:13 MPV 9.0 fL (7.4-10.4) 03/09/25 04:13 Neut % (Auto) 67.0 % 03/09/25 04:13 Lymph % (Auto) 19.1 % 03/09/25 04:13 [place] % (Auto) 6.5 % 03/09/25 04:13 Eos % (Auto) 6.0 % 03/09/25 04:13 Baso % (Auto) 0.5 % 03/09/25 04:13 Neut # (Auto) 5.36 10^3/uL (1.8-7.7) 03/09/25 04:13 Lymph # (Auto) 1.5 10^3/uL (0.8-4.8) 03/09/25 04:13 [place] # (Auto) 0.5 10^3/uL (0.2-0.9) 03/09/25 04:13 Eos # (Auto) 0.5 10^3/uL (0.0-0.8) 03/09/25 04:13 Baso # (Auto) 0.0 10^3/uL (0.0-0.1) 03/09/25 04:13 Nucleated RBC % (auto) 0 % 03/09/25 04:13 Nucleated RBCs # 0.0 /100WBC 03/09/25 04:13 Sodium 138 mmol/L (136-145) 03/09/25 04:13 Potassium 4.2 mmol/L (3.5-5.1) 03/09/25 04:13 Chloride 101 mmol/L (98-107) 03/09/25 04:13 Carbon Dioxide 26 mmol/L (22-29) 03/09/25 04:13 Anion Gap 15.2 (5-19) 03/09/25 04:13 BUN 8 mg/dL (6-20) 03/09/25 04:13 Creatinine 0.7 mg/dL (0.5-0.9) 03/09/25 04:13 GFR Calculation 93.6 mL/min (90-130) 03/09/25 04:13 Glucose 111 mg/dL (65-115) 03/09/25 04:13 Calculated Osmolality 285 mOsm/kg (285-295) 03/09/25 04:13 Lactic Acid 0.9 mmol/L (0.5-2.2) 03/09/25 04:13 Calcium 8.8 mg/dL (8.5-10.5) 03/09/25 04:13 Total Bilirubin 0.5 mg/dL (0.15-1.2) 03/09/25 04:13 AST 43 U/L (0-32) H 03/09/25 04:13 ALT 57 U/L (0-33) H 03/09/25 04:13 Alkaline Phosphatase 120 U/L (35-105) H 03/09/25 04:13 C-Reactive Protein 33.1 mg/L (0.0-4.9) H 03/09/25 04:13 Total Protein 7.0 g/dL (6.6-8.7) 03/09/25 04:13 Albumin 3.9 g/dL (3.5-5.2) 03/09/25 04:13 Globulin 3.1 g/dL (1.3-4.6) 03/09/25 04:13 Lipase 20 U/L (13-60) 03/09/25 04:13 Urine Color Irion (Yellow) A 03/09/25 03:40 Urine Appearance Cloudy (CLEAR) A 03/09/25 03:40 Urine pH 8.0 (5-7) A 03/09/25 03:40 Ur Specific [place] 1.019 (1.005-1.030) 03/09/25 03:40 Urine Protein Trace (Negative) A 03/09/25 03:40 Urine Glucose (UA) Negative (Normal) 03/09/25 03:40 Urine Ketones Trace (Negative) 03/09/25 03:40 Urine Blood Non-haemolysed trace (Negative) 03/09/25 03:40 Urine Nitrate Negative (Negative) 03/09/25 03:40 Urine Bilirubin Negative (Negative) 03/09/25 03:40 Urine Urobilinogen 2.0 mg/dL (Negative) H 03/09/25 03:40 Ur Leukocyte Esterase 1+ (Negative) A 03/09/25 03:40 Urine RBC 6-10 /hpf (0-2) 03/09/25 03:40 Urine WBC 0-5 /hpf (0-5) 03/09/25 03:40 Ur Squamous Epith Cells 21-50 /hpf (0-5) H 03/09/25 03:40 Amorphous Sediment Not Reportable 03/09/25 03:40 Urine Bacteria None seen /hpf (NONE) 03/09/25 03:40 Hyaline Casts 0.40 /lpf 03/09/25 03:40 All radiology interpretation(s) finalized by discharge Discharge Plan Discharge Patient Disposition: Home Clinical Impression: Superficial bruising of abdominal wall Condition: Stable Prescriptions: New ketorolac 10 mg tablet 10 mg PO TID PRN (Reason: pain) Qty: 10 0RF ondansetron 4 mg tablet,disintegrating 4 mg PO Q6H PRN (Reason: nausea and vomiting) Qty: 14 0RF No Action riboflavin (vitamin B2) 100 mg tablet 100 mg PO QAM Skyrizi 150 mg/mL syringe SUBCUT furosemide 20 mg tablet 40 mg PO DAILY PRN (Reason: edema) Qty: 90 3RF isosorbide mononitrate 30 mg tablet extended release 24 hr 30 mg PO BID Qty: 180 3RF metoprolol tartrate 25 mg tablet 25 mg PO BID Qty: 60 5RF ranolazine 500 mg tablet extended release 12 hr 500 mg PO BID Qty: 180 3RF rosuvastatin 5 mg tablet 5 mg PO DAILY Qty: 90 3RF nicotine (polacrilex) 4 mg lozenge 4 mg buccal Q4H PRN (Reason: nicotine cravings) Qty: 108 3RF Emgality Syringe 120 mg/mL syringe 240 mg SUBCUT ONCE Qty: 2 0RF Rx Instructions: loading dose lidocaine [Salonpas (lidocaine)] 4 % adhesive patch,medicated 1 patch topical DAILY PRN (Reason: pain) Qty: 60 1RF escitalopram oxalate [Lexapro] 10 mg tablet 10 mg PO QAM Qty: 30 2RF trazodone 150 mg tablet 150 mg PO DAILY Qty: 30 2RF EpiPen 2-Luís 0.3 mg/0.3 mL auto-injector 0.3 mg IM Q10M PRN (Reason: anaphylaxis) Qty: 2 2RF Rx Instructions: do not exceed 2 doses per 24 hrs cetirizine [Zyrtec] 10 mg tablet 10 mg PO DAILY PRN (Reason: Allergy Symptoms) Qty: 90 3RF diphenhydramine HCl [Banophen] 50 mg capsule 50 mg PO TID PRN (Reason: nausea/allergy symptoms) Qty: 90 5RF albuterol sulfate 90 mcg/actuation HFA aerosol inhaler 2 puff INHALATION Q4H PRN (Reason: Shortness Of Breath) Qty: 8.5 2RF Emgality Syringe 120 mg/mL syringe See Rx Instructions .ROUTE .COMPLEX Qty: 1 5RF Dose Instruction: inject 120mg UNDER THE SKIN ONCE monthly Rx Instructions: inject 120mg UNDER THE SKIN ONCE monthly nifedipine 60 mg tablet extended release 24hr See Rx Instructions .ROUTE .COMPLEX Qty: 60 0RF Dose Instruction: TAKE 1 TABLET BY MOUTH EVERY DAY Rx Instructions: TAKE 1 TABLET BY MOUTH EVERY DAY dicyclomine 20 mg tablet 20 mg PO .q 6 hr PRN (Reason: abdominal pain) Qty: 30 1RF nitroglycerin [Nitrostat] 0.4 mg Tablet, Sublingual 0.4 mg SUBLINGUAL Q5M PRN (Reason: Chest Pain) Rx Instructions: do not exceed 3 doses per episode Tylenol Ex Str Rapid Release 500 mg Tablet 1,000 mg PO Q6H PRN (Reason: Pain) ibuprofen 200 mg Tablet 400 mg PO Q6H PRN (Reason: Pain) Gas-X 80 mg Tablet,Chewable 80 mg PO DAILY PRN (Reason: bloating) Multivitamins 28 mg iron- 800 mcg Tablet 1 tab PO QAM Discharge Orders: Discharge ED (Routine); Ordered 03/09/25 Ordered By: Mahad Romo Referrals: Nasim Florez MD [Primary Care Provider, Family Practice] Patient Instructions: Contusion in Adults (ED), Opioid Safety, Pain Management, Patient Portal & Jose Instructions Activity Restrictions/Additional Instructions: You have bruising to your abdominal wall which could be tender. There were no complications evident on imaging of your surgery. Medication as directed. Ice to your belly wall may help as well. Call your doctor on Monday for a follow-up appointment. 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
[2025-03-09 04:33] LABS: UA Slide Review UA Slide Review Perf
[2025-03-09 04:41] LABS: Lactic Sepsis W/Reflex 0.9 mmol/L (0.5-2.2)
[2025-03-09] MEDS: ondansetron 2 mg/ML SDV 2 mL 4 MG IVP (04:41)
[2025-03-09] MEDS: HYDROmorphone 0.5 MG/0.5 ML INJ 1 MG IVP (04:41)
[2025-03-09 04:43] LABS: Alanine Aminotransferase 57 U/L (0-33); Albumin Level 3.9 g/dL (3.5-5.2); Alkaline Phosphatase 120 U/L (35-105); Anion Gap 15.2 (5-19); Aspartate Amino Transferase 43 U/L (0-32); Blood Urea Nitrogen 8 mg/dL (6-20); Calcium 8.8 mg/dL (8.5-10.5); Carbon Dioxide 26 mmol/L (22-29); Chloride 101 mmol/L (98-107); Creatinine Clr Calc Pharmacy 126.4306; Globulin 3.1 g/dL (1.3-4.6); Glucose 111 mg/dL (65-115); Lipase 20 U/L (13-60); Osmolality Calculated 285 mOsm/kg (285-295); Potassium 4.2 mmol/L (3.5-5.1); Sodium 138 mmol/L (136-145); Total Protein 7.0 g/dL (6.6-8.7)
[2025-03-09] MEDS: iohexol 350 mg/mL 500 mL Btl (per mL) IV (04:47)
== END 2025-03-09 06:07 | disposition home or self-care (01) ==
PROVIDERS: Emergency Provider Emergency Medicine; PCP Family Medicine
DX: S30.1XXA Contusion of abdominal wall, initial encounter (principal); Y83.8 Other surgical procedures as the cause of abnormal reaction of the patient, or of later complication, without mention of misadventure at the time of the procedure; X58.XXXA Exposure to other specified factors, initial encounter; Z90.710 Acquired absence of both cervix and uterus
CPT/HCPCS: 74177; 80053; 81001; 83605; 83690; 85025; 86140; 96374; 96375; 99285; J1171; J2405

== ENCOUNTER → 2025-03-13 15:05 | Outpatient (BNVA) | payer MEDICAID, SELFPAY ==
[2024-02-14 08:40] VITALS: BP 128/88; BMI 40.9
== END ==
PROVIDERS: PCP Family Medicine; Visit Provider Internal Medicine Cardiovascular Disease
DX: I25.10 Atherosclerotic heart disease of native coronary artery without angina pectoris (principal); I10 Essential (primary) hypertension; I51.89 Other ill-defined heart diseases; E78.5 Hyperlipidemia, unspecified; F33.2 Major depressive disorder, recurrent severe without psychotic features; F17.210 Nicotine dependence, cigarettes, uncomplicated
CPT/HCPCS: 99213

== ENCOUNTER 2025-04-08 14:53 | Emergency (ER) | payer MEDICAID, SELFPAY ==
[2024-02-14 08:40] VITALS: BP 128/88; BMI 40.9
[2025-04-08] VITALS (7 sets, daily range): BP systolic 143–161; BP diastolic 87–98; PULSE 86–92; RESP 18–20; TEMP 36.7; O2SAT 96–98; BMI 42.6
--- NOTE | 2025-04-08 15:04 | ECG_ITS ---
[facility] Date: 2025-04-08 Pat Name: Shilpa Giang Department: Room: Gender: Female Division Order Analyst: : 1985 Requested By: Ambika Obando Order Number: [id number] Suarez MD: Robbie Bingham M.D. Measurements Intervals [place] Rate: 89 P: 20 VT: 122 QRS: -5 QRSD: 104 T: -5 QT: 348 QTc: 423 Interpretive Statements SINUS RHYTHM VOLTAGE CRITERIA FOR LVH [MEETS CRITERIA IN ONE OF: R(aVL), S(V1), R(V5), R(V5/V6)+S(V1)] Compared to ECG 01/21/2024 07:31:50 T-wave abnormality no longer present Electronically Signed On 04-10-2025 09:00:56 CDT by Robbie Bingham M.D. [email or web address] [id number]
--- NOTE | 2025-04-08 15:50 | W.ED.ABDPA2 ---
HPI - Abdominal Pain General: Chief Complaint: Abdominal Pain Stated Complaint: surg site pain tightness in the chest Time Seen by Provider: 04/08/25 15:25 Source: patient Mode of arrival: ambulatory Limitations: no limitations History of Present Illness: Patient is a 40-year-old female with past medical history of borderline intellectual functioning and recent hysterectomy [address] [facility] in [place] presented to the emergency department complaining of some abdominal pain and lower back pain. States the low back pain is chronic, but her main concern is pain around the laparoscopic incision sites to her abdomen. States that she has had chills and nausea vomiting at home as well. Has been taking Motrin and Tylenol for pain with no relief. States that she saw the surgeon for follow-up yesterday for her symptoms but was told that everything is healing well and was discharged home. Her vitals are stable at this time, no active vomiting, afebrile. No vaginal bleeding or discharge, no urinary symptoms, no change in bowel habits. MD elicited complaint: abdominal pain Onset (ago): month(s) Pain Consistency: constant Context: recent surgery/procedure (1 month ago, total hysterectomy) Associated Symptoms: Reports chills, nausea and vomiting; Denies bloating, change in stool character, constipation, diarrhea, dysuria, fever(s) and hematochezia Related Data Home Medications ?Medication ?Instructions ?Recorded ?Confirmed riboflavin (vitamin B2) 100 mg 100 mg PO QAM 06/18/21 02/20/25 tablet nitroglycerin 0.4 mg sublingual 0.4 mg sublingual Q5M PRN Chest 03/31/23 02/20/25 tablet (Nitrostat) Pain acetaminophen 500 mg tablet 1,000 mg PO Q6H PRN Pain 06/05/23 02/20/25 ibuprofen 200 mg tablet 400 mg PO Q6H PRN Pain 06/05/23 02/20/25 vit no.95-ferrous 1 tab PO QAM 06/05/23 02/20/25 fumarate 28 mg-folic acid 800 mcg tablet ( Multivitamins) simethicone 80 mg chewable tablet 80 mg PO DAILY PRN bloating 06/05/23 02/20/25 risankizumab-rzaa 150 mg/mL mg SUBCUT 11/30/23 02/20/25 subcutaneous syringe (Giselle) Previous Rx's ?Medication ?Instructions ?Recorded epinephrine 0.3 mg/0.3 mL 0.3 mg (0.3 mL) IM Q10M PRN 04/25/23 injection, auto-injector (EpiPen anaphylaxis #2 ea 2-Luís) cetirizine 10 mg tablet (Zyrtec) 10 mg PO DAILY PRN Allergy 01/05/24 Symptoms #90 tabs diphenhydramine HCl 50 mg capsule 50 mg PO TID PRN nausea/allergy 01/05/24 (Banophen) symptoms #90 caps lidocaine 4 % topical patch 1 patch topical DAILY PRN pain #60 05/03/24 (Salonpas (lidocaine)) ea nicotine (polacrilex) 4 mg buccal 4 mg buccal Q4H PRN nicotine 08/02/24 lozenge cravings #108 ea furosemide 20 mg tablet 40 mg (2 x 20 mg) PO DAILY PRN 09/06/24 edema #90 tabs isosorbide mononitrate 30 mg 30 mg PO BID #180 tabs 09/06/24 tablet,extended release 24 hr metoprolol tartrate 25 mg tablet 25 mg PO BID #60 tabs 09/06/24 ranolazine 500 mg tablet,extended 500 mg PO BID #180 tabs 09/06/24 release,12 hr rosuvastatin 5 mg tablet 5 mg PO DAILY #90 tabs 09/06/24 dicyclomine 20 mg tablet 20 mg PO .q 6 hr PRN abdominal 02/10/25 pain #30 tabs escitalopram oxalate 10 mg tablet 10 mg PO QAM #30 tabs 02/20/25 (Lexapro) trazodone 150 mg tablet 150 mg PO DAILY #30 tabs 02/20/25 ketorolac 10 mg tablet 10 mg PO TID PRN pain #10 tabs 03/09/25 ondansetron 4 mg disintegrating 4 mg PO Q6H PRN nausea and 03/09/25 tablet vomiting #14 tabs nifedipine 60 mg tablet,extended See Rx Instructions .Route 03/12/25 release 24 hr .COMPLEX #60 tabs albuterol sulfate 90 mcg/actuation 2 puff inhalation Q4H PRN 03/31/25 aerosol inhaler Shortness Of Breath #8.5 grams Allergies Allergy/AdvReac Type Severity Reaction Status Date / Time COVID-19 vaccine, mRNA, Allergy Severe ALGY-Anaphy Verified 03/13/25 15:19 [id number], (From Moderna laxis COVID-19 Booster (EUA)) latex Allergy Mild rash Verified 03/13/25 15:19 adhesive tape Allergy ALGY-Rash Verified 03/13/25 15:19 clindamycin Allergy ALGY-Hives Verified 03/13/25 15:19 doxycycline Allergy ALGY-Swell Verified 03/13/25 15:19 Lip/Tongue/Throat shellfish derived Allergy ALGY-Anaphy Verified 03/13/25 15:19 laxis tramadol Allergy ALGY-Hives Verified 03/13/25 15:19 aripiprazole (From Abilify) AdvReac Unknown INCREASED Verified 03/13/25 15:19 HEART RATE aspirin AdvReac ADR-Abdominal Verified 03/13/25 15:19 Pain/internal bleeding Review of Systems General: Reports: 10 or more systems reviewed and unremarkable except in HPI and below Const: Reports: chills; Denies: fever(s), change in appetite, change in weight or diaphoresis ENMT: Denies: throat pain or hoarseness Card: Denies: chest pain, palpitations or lightheadedness Resp: Denies: dyspnea, productive cough or wheezing GI: Reports: abdominal pain, nausea and vomiting; Denies: diarrhea, constipation, bloating, change in stool character or hematochezia : Denies: flank pain, difficulty voiding, dysuria, urinary frequency or urinary urgency Musc: Reports: back pain; Denies: neck pain Skin/Breast: Denies: rash or new lesions Neuro: Denies: headache(s) or dizziness PFSH ED PFSH: Medical History (HFpEF) heart failure with preserved ejection fraction Ileitis Osteoarthritis, knee Allergic rhinitis due to allergen Atherosclerosis of coronary artery Nicotine use disorder Psychiatric care Seizure Borderline intellectual functioning Asthma Diagnosed as a child when controlled with an albuterol inhaler as needed being managed by her primary care provider. 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 Lumbar radiculopathy, chronic Chronic back pain managed by pain medication and the pain clinic Hypertension Surgical History Pyloric stenosis repaired as a baby History of cholecystectomy Laparoscopic procedure in 2018 Family History Mother Hypertension Stroke Lung cancer Anesthesia complication Cancer Lung disease Bone disease Grandfather Colon cancer Maternal, diagnosed in his 60s Cancer Brother Seizures Family/Other Hyperlipidemia paternal uncle Heart disease maternal uncle Cancer Lung disease Stroke Bone disease Grandmother CAD (coronary artery disease) Father CAD (coronary artery disease), Onset Age: 35 Denies family history of Ovarian cancer Diabetes Clotting disorder Dementia Chronic kidney disease (CKD) Breast cancer Suicide Bleeding disorder Uterine cancer Thyroid disease Social History Smoking and tobacco/nicotine status: current every day tobacco/nicotine user cigarettes Packs smoked per day: 0.25 Years cigarettes smoked: 24 Quit status (tobacco/nicotine): considering quitting Second hand smoke exposure: No Alcohol intake: never Substance/Drug Use: never Adopted: No Caregiver/support person: No Lives independently: Yes Household members: other Details: living with 3 other friends on moms property Housing: Apartment Marital status: Single Number of children: 2 Number of grandchildren: 0 Highest education level completed: Some College, No Degree service: No Current occupational status: disabled 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 Current occupational exposures/hazards: No Pets and animals: Yes Pets & animals: dog(s) Leisure activites: games and other Leisure activities details: play on computer, watch movies Do you think of yourself as: Straight/Heterosexual Current gender identity: Female Melanie/Scientologist: None Special melanie needs: No Agree to transfusion: Yes Female Reproductive History: Para: 2 Spontaneous abortions: Yes Physical Exam Const: COMMON NORMALS: no acute distress, patient oriented x3, alert and well nourished GENERAL APPEARANCE: cooperative NUTRITIONAL APPEARANCE: obese morbidly obese ORIENTATION/CONSCIOUSNESS: Yes awake Neck/C-Spine: COMMON NORMALS: full ROM, supple, no meningeal signs and no JVD Resp: COMMON NORMALS: normal respiratory effort, No retractions, No use of accessory muscles and clear to auscultation bilaterally AUSCULTATION: clear to auscultation bilaterally, no crackles, no rales, no rhonchi and no wheezes Cardio: COMMON NORMALS: no JVD, regular rate, regular rhythm, No gallops present (Cardio), No clicks present (Cardio), No murmurs present (Cardio) and No rub (Cardio) RATE: regular rate RHYTHM: regular rhythm GI: COMMON NORMALS: Soft to palpation, No hepatosplenomegaly present and no masses AUSCULTATION: Yes normoactive bowel sounds PALPATION: Yes Soft to palpation, No Rigid due to palpation and Yes No hepatosplenomegaly present RECTAL EXAM: deferred OTHER: Large obese abdomen, significant pannus. Laparoscopic incisional scars to the abdomen, with evidence of scabbing and no significant signs of infection. Voluntary guarding and endorsing diffuse tenderness to very light palpation of the abdomen. : COMMON NORMALS: Yes no CVA tenderness BLADDER/KIDNEY EXAM: Yes no CVA tenderness Back/Pelvis: COMMON NORMALS: no CVA tenderness Extremity: COMMON NORMALS: normal to inspection and full ROM Neuro: COMMON NORMALS: patient oriented x3, moves all extremities, no focal motor deficits and no sensory deficits noted SENSORIUM/ORIENTATION: Yes alert MENINGEAL SIGNS: Yes no meningeal signs Psych: COMMON NORMALS: mental status grossly normal, cooperative and speech normal SPEECH: Yes normal speech Skin: COMMON NORMALS: no rashes or lesions noted GENERAL SKIN EXAM: no rashes or lesions noted Course Vital Signs: Vital signs: Vital Signs Temperature 98.1 F 04/08/25 15:04 Pulse Rate 90 04/08/25 16:19 Respiratory Rate 20 H 04/08/25 16:17 Blood Pressure 157/93 04/08/25 16:19 Pulse Oximetry 97 04/08/25 16:19 Oxygen Delivery Me thod Room Air 04/08/25 16:19 MDM - Abdominal Pain Medical Decision Making Patient presenting with lower abdominal pain, had surgery for total hysterectomy 1 month ago and states that she is concerned of the integrity of her incision sites. On exam they did not appear to be infected, slightly scabbed over and she was endorsing voluntary guarding with diffuse abdominal tenderness to light palpation. Do not suspect an acute abdomen by exam. Lab work was normal, CT abdomen pelvis not show any postoperative changes or other complications. No immediate explanation for her pain, she is informed to follow-up with primary care and/or surgeon and return with any of the specific return precautions and gave her. Lab Data 04/08/25 15:53 04/08/25 15:53 Labs/Radiology: Radiology Impressions Abdomen/Pelvis CT 04/08/25 16:44 IMPRESSION: No acute findings. Laboratory Results WBC 7.61 10^3/uL (3.29-11.43) 04/08/25 15:53 RBC 4.50 10^6/uL (3.85-5.65) 04/08/25 15:53 Hgb 14.90 g/dL (11.27-16.99) 04/08/25 15:53 Hct 43.9 % (36-47) 04/08/25 15:53 MCV 97.6 fl (85-98) 04/08/25 15:53 MCH 33.1 pg (27-33) H 04/08/25 15:53 MCHC 33.9 g/dL (30-55) 04/08/25 15:53 RDW 13.1 % (12.1-15.1) 04/08/25 15:53 Plt Count 152 10^3/cmm (157-399) L 04/08/25 15:53 MPV 8.9 fL (7.4-10.4) 04/08/25 15:53 Neut % (Auto) 64.2 % 04/08/25 15:53 Lymph % (Auto) 24.7 % 04/08/25 15:53 Dawes % (Auto) 7.2 % 04/08/25 15:53 Eos % (Auto) 3.0 % 04/08/25 15:53 Baso % (Auto) 0.4 % 04/08/25 15:53 Neut # (Auto) 4.88 10^3/uL (1.8-7.7) 04/08/25 15:53 Lymph # (Auto) 1.9 10^3/uL (0.8-4.8) 04/08/25 15:53 Dawes # (Auto) 0.6 10^3/uL (0.2-0.9) 04/08/25 15:53 Eos # (Auto) 0.2 10^3/uL (0.0-0.8) 04/08/25 15:53 Baso # (Auto) 0.0 10^3/uL (0.0-0.1) 04/08/25 15:53 Nucleated RBC % (auto) 0 % 04/08/25 15:53 Nucleated RBCs # 0.0 /100WBC 04/08/25 15:53 Sodium 139 mmol/L (136-145) 04/08/25 15:53 Potassium 3.9 mmol/L (3.5-5.1) 04/08/25 15:53 Chloride 101 mmol/L (98-107) 04/08/25 15:53 Carbon Dioxide 25 mmol/L (22-29) 04/08/25 15:53 Anion Gap 16.9 (5-19) 04/08/25 15:53 BUN 4 mg/dL (6-20) L 04/08/25 15:53 Creatinine 0.5 mg/dL (0.5-0.9) 04/08/25 15:53 GFR Calculation 137.4 mL/min (90-130) H 04/08/25 15:53 Glucose 79 mg/dL (65-115) 04/08/25 15:53 Calculated Osmolality 284 mOsm/kg (285-295) L 04/08/25 15:53 Calcium 9.1 mg/dL (8.5-10.5) 04/08/25 15:53 Total Bilirubin 0.4 mg/dL (0.15-1.2) 04/08/25 15:53 AST 115 U/L (0-32) H 04/08/25 15:53 ALT 125 U/L (0-33) H 04/08/25 15:53 Alkaline Phosphatase 144 U/L (35-105) H 04/08/25 15:53 Total Protein 7.5 g/dL (6.6-8.7) 04/08/25 15:53 Albumin 4.2 g/dL (3.5-5.2) 04/08/25 15:53 Globulin 3.3 g/dL (1.3-4.6) 04/08/25 15:53 Lipase 25 U/L (13-60) 04/08/25 15:53 Urine Color Yellow (Yellow) 04/08/25 16:06 Urine Appearance Clear (CLEAR) 04/08/25 16:06 Urine pH 6.0 (5-7) 04/08/25 16:06 Ur Specific [place] 1.005 (1.005-1.030) 04/08/25 16:06 Urine Protein Negative (Negative) 04/08/25 16:06 Urine Glucose (UA) Negative (Normal) 04/08/25 16:06 Urine Ketones Negative (Negative) 04/08/25 16:06 Urine Blood Negative (Negative) 04/08/25 16:06 Urine Nitrate Negative (Negative) 04/08/25 16:06 Urine Bilirubin Negative (Negative) 04/08/25 16:06 Urine Urobilinogen 1.0 mg/dL (Negative) 04/08/25 16:06 Ur Leukocyte Esterase Negative (Negative) 04/08/25 16:06 Amorphous Sediment Not Reportable 04/08/25 16:06 All radiology interpretation(s) finalized by discharge Discharge Plan Discharge Patient Disposition: Home Clinical Impression: Abdominal pain Qualifiers: Abdominal location: generalized Qualified Code(s): R10.84 - Generalized abdominal pain Condition: Stable Prescriptions: No Action riboflavin (vitamin B2) 100 mg tablet 100 mg PO QAM Skyrizi 150 mg/mL syringe SUBCUT furosemide 20 mg tablet 40 mg PO DAILY PRN (Reason: edema) Qty: 90 3RF isosorbide mononitrate 30 mg tablet extended release 24 hr 30 mg PO BID Qty: 180 3RF metoprolol tartrate 25 mg tablet 25 mg PO BID Qty: 60 5RF ranolazine 500 mg tablet extended release 12 hr 500 mg PO BID Qty: 180 3RF rosuvastatin 5 mg tablet 5 mg PO DAILY Qty: 90 3RF nicotine (polacrilex) 4 mg lozenge 4 mg buccal Q4H PRN (Reason: nicotine cravings) Qty: 108 3RF lidocaine [Salonpas (lidocaine)] 4 % adhesive patch,medicated 1 patch topical DAILY PRN (Reason: pain) Qty: 60 1RF escitalopram oxalate [Lexapro] 10 mg tablet 10 mg PO QAM Qty: 30 2RF trazodone 150 mg tablet 150 mg PO DAILY Qty: 30 2RF EpiPen 2-Luís 0.3 mg/0.3 mL auto-injector 0.3 mg IM Q10M PRN (Reason: anaphylaxis) Qty: 2 2RF Rx Instructions: do not exceed 2 doses per 24 hrs cetirizine [Zyrtec] 10 mg tablet 10 mg PO DAILY PRN (Reason: Allergy Symptoms) Qty: 90 3RF diphenhydramine HCl [Banophen] 50 mg capsule 50 mg PO TID PRN (Reason: nausea/allergy symptoms) Qty: 90 5RF dicyclomine 20 mg tablet 20 mg PO .q 6 hr PRN (Reason: abdominal pain) Qty: 30 1RF nifedipine 60 mg tablet extended release 24hr See Rx Instructions .ROUTE .COMPLEX Qty: 60 6RF Dose Instruction: TAKE 1 TABLET BY MOUTH EVERY DAY Rx Instructions: TAKE 1 TABLET BY MOUTH EVERY DAY albuterol sulfate 90 mcg/actuation HFA aerosol inhaler 2 puff INHALATION Q4H PRN (Reason: Shortness Of Breath) Qty: 8.5 2RF nitroglycerin [Nitrostat] 0.4 mg Tablet, Sublingual 0.4 mg SUBLINGUAL Q5M PRN (Reason: Chest Pain) Rx Instructions: do not exceed 3 doses per episode ketorolac 10 mg tablet 10 mg PO TID PRN (Reason: pain) Qty: 10 0RF ondansetron 4 mg tablet,disintegrating 4 mg PO Q6H PRN (Reason: nausea and vomiting) Qty: 14 0RF Tylenol Ex Str Rapid Release 500 mg Tablet 1,000 mg PO Q6H PRN (Reason: Pain) ibuprofen 200 mg Tablet 400 mg PO Q6H PRN (Reason: Pain) Gas-X 80 mg Tablet,Chewable 80 mg PO DAILY PRN (Reason: bloating) Multivitamins 28 mg iron- 800 mcg Tablet 1 tab PO QAM Discharge Orders: Discharge ED (Routine); Ordered 04/08/25 Ordered By: Alexandr Schumacher Referrals: Nasim Florez MD [Primary Care Provider, [facility]] Patient Instructions: Abdominal Pain (ED), Patient Portal & Jose Instructions Activity Restrictions/Additional Instructions: Please follow-up with your surgeon. Continue taking [id number] pain medications. Plenty fluids, clear liquid diet advance as tolerated. Monitor for any fever, chills, significant worsening of pain, or any other major concerns and return to the emergency department. Print Language: Persian Coding Level of Care Code ED Weekend Anchor for 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
[2025-04-08 16:12] LABS: Add Urine Microscopic? NO
[2025-04-08 16:15] LABS: Hematocrit 43.9 % (36-47); Hemoglobin 14.90 g/dL (11.27-16.99); Mean Corpuscular HGB Conc 33.9 g/dL (30-55); Mean Corpuscular Hemoglobin 33.1 pg (27-33); Mean Corpuscular Volume 97.6 fl (85-98); Nucleated Red Blood Cells % 0 %; Platelet Count 152 10^3/cmm (157-399); Red Blood Count 4.50 10^6/uL (3.85-5.65); White Blood Count 7.61 10^3/uL (3.29-11.43)
[2025-04-08] MEDS: ondansetron 2 mg/ML SDV 2 mL 4 MG IVP (16:16)
[2025-04-08] MEDS: morphine 4 mg/mL SDV 1 mL IVP (16:17)
[2025-04-08 16:23] LABS: Glucose Urine UA Negative (Normal); Nitrate Urine Negative (Negative); Specific Gravity, Urine 1.005 (1.005-1.030)
[2025-04-08 16:36] LABS: Alanine Aminotransferase 125 U/L (0-33); Albumin Level 4.2 g/dL (3.5-5.2); Alkaline Phosphatase 144 U/L (35-105); Anion Gap 16.9 (5-19); Aspartate Amino Transferase 115 U/L (0-32); Blood Urea Nitrogen 4 mg/dL (6-20); Calcium 9.1 mg/dL (8.5-10.5); Carbon Dioxide 25 mmol/L (22-29); Chloride 101 mmol/L (98-107); Creatinine Clr Calc Pharmacy 172.4984; Globulin 3.3 g/dL (1.3-4.6); Glucose 79 mg/dL (65-115); Lipase 25 U/L (13-60); Osmolality Calculated 284 mOsm/kg (285-295); Potassium 3.9 mmol/L (3.5-5.1); Sodium 139 mmol/L (136-145); Total Protein 7.5 g/dL (6.6-8.7)
[2025-04-08 16:38] LABS: Charge for UA Resulting for Rev
--- NOTE | 2025-04-08 16:44 | CTR_ITS ---
PROCEDURE INFORMATION: Exam: CT Abdomen And Pelvis With Contrast Exam date and time: 04/08/2025 5:10 PM Age: 40 years old Clinical indication: Abdominal pain; Generalized; Prior surgery; Surgery date: 1-6 months; Surgery type: Hysterectomy x 1mon ago, gb; Additional info: Low abd pain S/P hysterectomy TECHNIQUE: Imaging protocol: Computed tomography of the abdomen and pelvis with contrast. Radiation optimization: All CT scans at this facility use at least one of these dose optimization techniques: automated exposure control; mA and/or kV adjustment per patient size (includes targeted exams where dose is matched to clinical indication); or iterative reconstruction. Contrast material: OMNIPAQUE 350; Contrast volume: 100 ml; Contrast route: INTRAVENOUS (IV); COMPARISON: CT abdomen pelvis w con* [id number] 03/09/2025 4:44 AM RADIATION DOSE METRICS: Total DLP (mGy-cm): 1083.52 FINDINGS: Diaphragm: There is a small hiatal hernia. Liver: The liver is diffusely decreased in density, compatible with hepatic steatosis. Gallbladder and biliary ducts: Post cholecystectomy. There is no evidence of biliary ductal dilation. Pancreas: The pancreas is normal. No mass. Spleen: Borderline splenomegaly again noted. No spleen mass. Adrenal glands: The adrenal glands are normal. Kidneys and ureters: No renal mass or hydronephrosis. Stomach and bowel: Bowel caliber is normal. No paracolonic inflammatory changes. Appendix: Appendix caliber at the upper limit of normal. No periappendiceal inflammatory changes to suggest appendicitis. Intraperitoneal space: Unremarkable. No free air. No significant fluid collection. Vasculature: Aortic caliber is normal. Lymph nodes: Unchanged borderline enlargement of portal lymph nodes, measuring up to 1 cm in short axis dimension. No lymph node enlargement. Urinary bladder: No focal wall thickening of the urinary bladder. Reproductive: Previous hysterectomy. No adnexal mass identified. Bones/joints: Unremarkable. No acute fracture. Soft tissues: Unremarkable. CT/CT abdomen pelvis w con* [id number] IMPRESSION: No acute findings.
[2025-04-08] MEDS: iohexol 350 mg/mL 500 mL Btl (per mL) IV (17:13)
== END 2025-04-08 18:22 | disposition home or self-care (01) ==
PROVIDERS: Emergency Provider Physician Assistant; PCP Family Medicine
DX: R10.84 Generalized abdominal pain (principal); Z98.890 Other specified postprocedural states; F17.210 Nicotine dependence, cigarettes, uncomplicated; I25.10 Atherosclerotic heart disease of native coronary artery without angina pectoris; I11.0 Hypertensive heart disease with heart failure; I50.30 Unspecified diastolic (congestive) heart failure
CPT/HCPCS: 36415; 74177; 80053; 81003; 83690; 85025; 93005; 96374; 96375; 99285; J2270; J2405